=== PATIENT | female | born 1970 | race Caucasian/White ===

== ENCOUNTER → 2018-09-23 15:50 | Outpatient (CLI) | payer OTHER, SELFPAY ==
--- NOTE | 2018-09-23 15:57 | BD_ITS ---
STUDY: DUAL ENERGY X-RAY ABSORPTIOMETRY / DXA REASON FOR EXAM: Female, 47 years old. Postmenopausal. TECHNIQUE: Bone Mineral Density (BMD) measurements of lumbar spine and bilateral hips were obtained. COMPARISON: Comparison is made with prior study dated August 26, 2016. FINDINGS: Lumbar Spine (L1-L4): g/cm2 (1.084) / T-score (-0.8) / Z-score (-0.5) Findings are suggestive of normal bone density with a low fracture risk. Left Femur Total: g/cm2 (0.914) / T-score (-0.7) / Z-score (-0.3) Left Femoral Neck: g/cm2 (0.917) / T-score (-0.9) / Z-score (-0.1) Right Femur Total: g/cm2 (0.946) / T-score (-0.5) / Z-score (-0.1) Right Femoral Neck: g/cm2 (0.913) / T-score (-0.9) / Z-score (-0.2) The T-Scores on the most recent prior examination were: Lumbar Spine (L1-L4): There has been improvement of bone density since the previous examination. Left Femur Total: which represents a worsening of 2.6%. Right Femur Total: which represents a worsening of 4.5%. BD/Dexa Bone Density Study IMPRESSION: The patient is considered normal as outlined below according to World [place] Organization (WHO) criteria with a low fracture risk. There has been worsening of bone density since the previous examination. Reference Information: The T-score is the number of standard deviations above or below the standard which is normal for young adults at their peak bone mineral density. The World Health Organization (WHO) interprets the T-scores as follows: Above -1 Normal bone density Between -1 and -2.5 Osteopenia Equal to / or below -2.5 Osteoporosis As a practical clinical guideline, osteopenia may be graded as follows: Mild -1 through -1.5 Moderate -1.6 through -2.0 Severe -2.1 through -2.4 The Z-score is the number of standard deviations above or below age-matched controls. A Z-score of less than -1.5 would be considered abnormal. References: 1. NIH Osteoporosis and Related Bone Diseases http://www.osteo.org 2. International Society for Clinical Densitometry http://www.iscd.org 3. National Osteoporosis Foundation http://www.nof.org Electronically Signed: Darshan Machado, at 13:02 EDT , Service support ,
== END ==
PROVIDERS: Family Provider Internal Medicine; PCP Internal Medicine; Visit Provider Internal Medicine
DX: Z78.0 Asymptomatic menopausal state (principal)
CPT/HCPCS: 77080

== ENCOUNTER → 2019-04-22 10:16 | Outpatient (CLI) | payer OTHER, SELFPAY ==
--- NOTE | 2019-04-22 10:23 | RAD_ITS ---
STUDY: X-RAY CHEST REASON FOR EXAM: Female, 48 years old. Cough and chest congestion. TECHNIQUE: PA and lateral views of the chest. COMPARISON: None. FINDINGS: Hyperinflation. The lungs are clear. There is no demonstrated pleural abnormality. Normal size heart. Normal mediastinum and floyd. Normal visualized pulmonary arteries. Normal visualized aortic arch and descending thoracic aorta. Normal visualized thoracic spine. Normal visualized ribs, clavicles, and shoulders. There is no demonstrated abnormality of the visualized soft tissue structures of the upper abdomen. RAD/Chest PA and Lateral IMPRESSION: Hyperinflation. Electronically Signed: Darshan Machado, at 11:40 EDT , Service support ,
== END ==
PROVIDERS: Family Provider Internal Medicine; PCP Internal Medicine; Referring Provider Internal Medicine; Visit Provider Internal Medicine
DX: R05 Cough (principal)
CPT/HCPCS: 71046

== ENCOUNTER → 2021-05-10 | Outpatient (CLI) | payer OTHER, SELFPAY ==
[2021-05-10 11:14] LABS: Absolute Lymphocyte Count 2.02 X10^3/uL (0.83-4.51); Basophil# 0.04 X10^3/uL; Basophil% 0.6 % (0-1); Eosinophil# 0.01 X10^3/uL; Eosinophils% 0.2 % (0-5); Hematocrit 41.3 % (37-47); Hemoglobin 13.9 g/dL (12.0-15.0); Lymphocyte # 2.02 X10^3/ul (0.83-4.51); Lymphocyte % 31.1 % (19-41); Mean Corp Hgb Conc 33.7 g/dL (32-36); Mean Platelet Vol. 9.1 fl (6.2-12.0); Monocyte# 0.42 X10^3/uL; Monocyte% 6.5 % (0-10); NRBC Flagged by Analyzer 0 % (0-5); Neutrophil # 3.99 X10^3/uL (2.7-7.7); Neutrophil % 61.3 % (47-70); Platelet Count 289 K/mm3 (150-450); RBC Distribution Width CV 13.3 % (11.6-14.6); RBC Distribution Width SD 45.4 fl (35.1-43.9); Red Blood Count 4.49 M/mm3 (4.2-5.4); White Blood Count 6.5 K/mm3 (4.4-11.0)
[2021-05-10 11:26] LABS: D-Dimer Quantitative (DVT/PE) 0.31 FEU/ug/m (0.27-0.49)
[2021-05-10 11:36] LABS: AST(SGOT) 28 U/L (15-37); Alanine Aminotransfer ALT/SGPT 32 U/L (13-56); Albumin, Serum 3.7 g/dL (3.2-5.0); Alkaline Phosphatase 58 U/L (45-117); Anion Gap 4 (5-15); BUN 15 mg/dL (7-18); BUN/Creat Ratio 17.9 RATIO (10-20); Calcium,Total 8.6 mg/dL (8.5-10.1); Chloride 107 mmol/L (98-107); Creatinine, Serum 0.84 mg/dL (0.55-1.02); EST Glomerular Filtration Rate 76 mL/min (>60); Est Glom Filt Rate - Afr Amer 92 mL/min (>60); Globulin 3.8 g/dL (2.2-4.2); Glucose 90 mg/dL (74-106); Potassium 4.3 mmol/L (3.5-5.1); Protein, Total 7.5 g/dL (6.4-8.2); Sodium Level 139 mmol/L (136-145); Thyroid Stim Hormone (TSH) 1.51 uIU/mL (0.358-3.74); Troponin-I HS 5 pg/mL (3.0-54.0)
== END | disposition home or self-care (01) ==
PROVIDERS: PCP Internal Medicine; Referring Provider Internal Medicine; Visit Provider Internal Medicine
DX: Z01.84 Encounter for antibody response examination (principal); R07.9 Chest pain, unspecified
CPT/HCPCS: 80053; 84443; 84484; 85025; 85379; 86769

== ENCOUNTER 2021-09-19 15:46 | Outpatient (CLI) | payer OTHER, SELFPAY ==
--- NOTE | 2021-09-19 15:50 | BD_ITS ---
STUDY: DUAL ENERGY X-RAY ABSORPTIOMETRY / DXA REASON FOR EXAM: Female, 50 years old. [id number]. The patient is postmenopausal. TECHNIQUE: Bone Mineral Density (BMD) measurements of lumbar spine and bilateral hips were obtained. COMPARISON: Comparison is made with prior study of 09/23/2018. FINDINGS: Lumbar Spine (L1-L4): g/cm2 (1.027) / T-score (-0.2) / Z-score (0.7) Findings are suggestive of normal bone density with a low fracture risk. Left Femur Total: g/cm2 (0.894) / T-score (-0.4) / Z-score (0.1) Left Femoral Neck: g/cm2 (0.781) / T-score (-0.6) / Z-score (0.2) Right Femur Total: g/cm2 (0.932) / T-score (-0.1) / Z-score (0.5) Right Femoral Neck: g/cm2 (0.790) / T-score (-0.5) / Z-score (0.3) The T-Scores on the most recent prior examination were: Lumbar Spine (L1-L4): There has been improvement of bone density since the previous examination. Left Femur Total: which represents an improvement of 5.1%. Right Femur Total: which represents an improvement of 5.7%. BD/Dexa Bone Density Study IMPRESSION: The patient is considered normal as outlined below according to World [place] Organization (WHO) criteria with a low fracture risk. There has been improvement of bone density since the previous examination. Reference Information: The T-score is the number of standard deviations above or below the standard which is normal for young adults at their peak bone mineral density. The World Health Organization (WHO) interprets the T-scores as follows: Above -1 Normal bone density Between -1 and -2.5 Osteopenia Equal to / or below -2.5 Osteoporosis As a practical clinical guideline, osteopenia may be graded as follows: Mild -1 through -1.5 Moderate -1.6 through -2.0 Severe -2.1 through -2.4 The Z-score is the number of standard deviations above or below age-matched controls. A Z-score of less than -1.5 would be considered abnormal. References: 1. NIH Osteoporosis and Related Bone Diseases www osteo.org 2. International Society for Clinical Densitometry www iscd.org 3. National Osteoporosis Foundation www nof.org Electronically Signed: Darshan Machado MD at 15:00 EDT ,
== END 2021-09-19 23:59 | disposition home or self-care (01) ==
LOC: OPBD 15:47
PROVIDERS: PCP Internal Medicine; Referring Provider Internal Medicine; Visit Provider Internal Medicine
DX: Z13.820 Encounter for screening for osteoporosis (principal); Z78.0 Asymptomatic menopausal state
CPT/HCPCS: 77080

== ENCOUNTER 2023-03-23 18:30 | Outpatient (RCR) | payer OTHER, SELFPAY ==
--- NOTE | 2023-03-02 18:56 | HP.PTEVAL ---
Patient's Visit Information Visit Information Visit Information: KANE SAMUEL is a 52 year old F referred to Physical Therapy by SERGIO TORRES with a diagnosis of R SHOULDER IMPINGEMENT. Date of Evaluation: 03/02/23 Physical Therapist: Sarah Pickett PT, Cert MDT Visit Plan Frequency: 2x /Week Duration: 4-6 Weeks Plan: R SHLD US X 6-8 TREATMENTS. SUPINE MANUAL THERAPY TO R SHLD FOR ROM AND MOBILIZATION. R NECK AND SHLD STM. POSTURE CORRECTION/STRENGTHENING, INSTRUCTION IN APPROPRIATE BODY MECHANICS AND ACTIVITY MODIFICATIONS. R UE ROM, STRETCHING AND STRENGTHENING INCLUDING TERMINAL STRETCH. HEP INSTRUCTION. 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 [employer]. Present symptoms: DULL PAIN R SHLD AND UPPER ARM. SORE UNDER SHLD BLADE. DENIES R UE NUMBNESS AND TINGLING. Present since: 02/23/23 - A WK AGO. Pain Scale: Worst - 9/10 Least - 1/10 Currently: /10 Commenced as a result of: REACHING UNDER A BED TO GET A BALL Symptoms at onset: R SHLD PAIN Worse: TRYING TO GET COMFORTABLE TO SLEEP AND CAN NOT SLEEP ON R SIDE, CARRYING SOMETHING HEAVY ON R ARM. Better: REST, HEAT, PREDNISONE (PRESCRIBED 6 DAYS - ON DAY 4). Disturbed sleep: YES Previous history/Previous treatment: DENIES H/O R SHLD PROBLEMS. H/O OF NECK PROBLEM THAT HAD SOMETHING TO DO WITH A DISC - I HAD A LOT OF NECK PAIN, CAME HERE FOR THERAPY AND GOT BETTER. This episode: STEROID DOSE PACK. EX'S AND THERABAND BUT DIDN'T DO ANYTHING BUT SWING ARM. Dizziness: NO Tinnitis: NO Nausea: NO Shortness of Breath: NO Difficulty Swollowing: NO Gait: NO Accidents: NO Unexplained weight loss: NO Imaging: R SHLD X-RAYS - R ROTATOR CUFF CALCIFICATION PER PATIENT REPORT. PMH/Recent major surgery: UNREMARKABLE. Objective Objective: Sitting Posture/Standing Posture: FAIR. MILD FH. MILD RSHL'S. NO TORTICOLIS. Sensory deficit: LUIS UE LIGHT TOUCH SENSATION GROSSLY INTACT AND SYMMETRICAL ROM deficit: LUIS UE AROM IN SITTING WFL. R SHLD AROM IN SUPINE IS LIMINTED. CATCHING PAIN WITH A, AA AND PROM TESTING OF R SHLD INTO FLEX, ABD, IR AND EX IN SUPINE. Motor deficit: LUIS UE'S GROSSLY 5/5 WITH MMT'ING EXCEPT R SHLD ABD AND ER 4-/5. [employer]: 65 LBS LEFT, 70 LBS R (R HAND DOMINANT) Reflexes: 2/3 LUIS UE'S. Dural Signs: POSITIVE R UE Cervical Mvmt Loss: Flex: NIL Pro: NIL Ext: MIN Ret: MIN RSB: MOD LSB: MOD R Rot: MOD L Rot: MIN PATIENT C/O INCREASED PAIN UNDER R SHLD BLADE WITH CERVICAL ROM TESTING INTO FLEXION, PROTRACTION AND R SB. Postural strength: FAIR Palpation: NO ACUTE TENDERNESS OR UPPER THORACIC, CERVICAL OR SHLD REGIONS. Balance/Special Test Scores Quick DASH Score: 61.3625 Goals Goal 1:: DECREASE C/O R NECK AND SHLD PAIN Goal Time Frame: 4-6 Weeks Goal 2:: INCREASE FUNCTIONAL ROM OF R UE TO EASE ADL'S Goal Time Frame: 4-6 Weeks Goal 3:: IMPROVE FUNCTIONAL STRENGTH OF R UE TO EASE ADL'S Goal Time Frame: 4-6 Weeks Goal 4:: PATIENT WILL BE INDEP WITH A HEP FOR CONTINUED IMPROVEMENT ONCE FORMAL PHYSICAL THERPAY CONCLUDES. Goal Time Frame: 4-6 Weeks Anticipated Interventions Patient/Client Instruction: Educate patient on: Condition, Plan of Care and Risk Factors For the Purpose of:: To improve self management Therapeutic Exercise to Include: Strength training, Body mechanics, Postural training, Flexibilty training and Scapular Strength/Stabilization For the Purpose of:: To decrease pain, To increase ROM, To improve muscle performance and motor function, To increase tolerance to activity/condition/position and To improve ability of physical actions for home/community/work/leisure Manual Therapy Techniques to Include: Passive ROM and Soft tissue mobilization For the Purpose of:: To decrease pain and To increase ROM Thermo therapy (hot pack): Yes Ultrasound (thermal/non thermal): Yes For the Purpose of:: To decrease pain and To improve nutrient delivery to tissue Text: Thank you for the opportunity to evaluate your patient. For Medicare and Medicare HMO plans, please review the plan of care and approve it. It will need to be FAXED BACK to us at [phone] for Medicare purposes. For Medicare only, by signing this I certify the plan of care. Please let me know if there are questions or concerns regarding this plan of care. Physician Signature: Date:
--- NOTE | 2023-03-23 19:01 | HP.PTDCSUM ---
Discharge Summary D/C summary: It has been my pleasure to treat KANE SAMUEL referred by SERGIO TORRES, with the diagnosis of R SHOULDER IMPINGEMENT for a total of 7 visit(s). Discharge Date: Please see the following information for a summary of their discharge status. Subjective Subjective: PATIENT STATES FOR THE MOST PART HER SHLD DOESN'T HURT ONGOING LIKE IT DID. SHE STATES SHE DID HAVE SOME PAIN WITH NEW EX'S BUT IT WAS BETTER OVER ALL WITH SUBSEQUENT DAYS. SHE REPORTS NEAR PAINFREE FUNCTION NOW FOR THE MOST PART. PATIENT REPORT IF SHE CAN GET THE BANDS SHE WILL BE REALLY GOOD WITH DOING THE EX'S AT HOME. Pain R neck: Pain Intensity (Out of 10): 2 Overall Improvement % Improvement: 90 Objective Objective/Function: PATIENT WAS SEEN TODAY FOR RE-ASSESSMENT OF PROGRESS TOWARD THE SET PT GOALS AND THE NEED FOR FURTHER PHYSICAL THERAPY VS READINESS FOR DISCHARGE. UPON EXAM TODAY ALL PT GOALS HAVE BEEN MET. PATIENT DEMO'S FULL PAINFREE R SHLD ROM ALL PLANES AND IMPROVED CERVICAL ROM FOLLOWS: Cervical Mvmt Loss: Flex: NIL Pro: NIL Ext: MIN Ret: MIN RSB: MOD LSB: MIN R Rot: MIN L Rot: MIN PATIENT DENIES PAIN WITH CERVICAL ROM TESTING ALL PLANES EXCEPT MILD R SHLD PAIN WITH R SB TESTING. R UE STRENGTH IS 5/5 WITH MMT'ING. R UE DURAL SIGNS ARE NEGATIVE NOW. ISSUED TBANDS FOR HEP: OTB SHLD EXT AND ADD. YTB SHLD IR AND ER. PATIENT TOLERATED THESE EX'S WELL IN THE CLINIC AND DEMO'S GOOD TECHNIQUE. SHE IS APPROPRIATE FOR DISCHARGE TO HEP AND PATIENT IS AGREEABLE. Goals Goal 1:: DECREASE C/O R NECK AND SHLD PAIN Goal Progress: Goal Met Goal 2:: INCREASE FUNCTIONAL ROM OF R UE TO EASE ADL'S Goal Progress: Goal Met Goal 3:: IMPROVE FUNCTIONAL STRENGTH OF R UE TO EASE ADL'S Goal Progress: Goal Met Goal 4:: PATIENT WILL BE INDEP WITH A HEP FOR CONTINUED IMPROVEMENT ONCE FORMAL PHYSICAL THERPAY CONCLUDES. Goal Progress: Goal Met Plan Plan: D/C D/C Information d/c sentence: If there are questions or concerns regarding this patient's physical therapy, please feel free to call me at [phone]. Thank you for the referral of this patient. Sincerely, Sarah Pickett, PT, Cert MDT Balance/Gait/Functional tests Balance/Special Test Scores Quick DASH Score: 15.9075 Improvement % Improvement: 90
== END 2023-03-23 19:00 | disposition home or self-care (01) ==
LOC: PT 18:30
PROVIDERS: PCP Internal Medicine
DX: M75.41 Impingement syndrome of right shoulder (principal)
CPT/HCPCS: 97035; 97110; 97140; 97162; 97164

== ENCOUNTER → 2023-11-27 | Outpatient (CLI) | payer OTHER, SELFPAY ==
[2023-11-27 12:37] LABS: Absolute Neutrophil Count 3.5 X10^3/uL (2.0-7.7); Basophil# 0.03 X10^3/uL; Basophil% 0.5 % (0-1); Eosinophil# 0.15 X10^3/uL; Eosinophils% 2.6 % (0-5); Hematocrit 40.8 % (37-47); Hemoglobin 13.4 g/dL (12.0-15.0); Lymphocyte % 29.5 % (19-41); Mean Corp Hgb Conc 32.8 g/dL (32-36); Mean Corpuscular Hgb 30.5 pg (27.0-32.0); Mean Corpuscular Volume 92.9 fL (81-99); Mean Platelet Vol. 9.5 fl (6.2-12.0); Monocyte# 0.35 X10^3/uL; Monocyte% 6.1 % (0-10); NRBC Flagged by Analyzer 0 % (0-5); Neutrophil # 3.53 X10^3/uL (2.7-7.7); Neutrophil % 61.1 % (47-70); Platelet Count 265 K/mm3 (150-450); RBC Distribution Width CV 12.8 % (11.6-14.6); RBC Distribution Width SD 43.7 fl (35.1-43.9); Red Blood Count 4.39 M/mm3 (4.2-5.4); White Blood Count 5.8 K/mm3 (4.4-11.0)
[2023-11-27 12:56] LABS: ALB/GLOB Ratio 1.1 RATIO (0.9-2.4); AST(SGOT) 35 U/L (15-37); Alanine Aminotransfer ALT/SGPT 32 U/L (13-56); Albumin, Serum 3.7 g/dL (3.2-5.0); Alkaline Phosphatase 61 U/L (45-117); Anion Gap 7 (5-15); BUN 15 mg/dL (7-18); BUN/Creat Ratio 20.7 RATIO (10-20); Calcium,Total 8.8 mg/dL (8.5-10.1); Chloride 110 mmol/L (98-107); Cholesterol 186 mg/dL (200); Creatinine, Serum 0.72 mg/dL (0.55-1.02); EST Glomerular Filtration Rate 89 mL/min (>60); Est Glom Filt Rate - Afr Amer 108 mL/min (>60); Globulin 3.4 g/dL (2.2-4.2); Glucose 89 mg/dL (74-106); High Density Lipoprotein 59 mg/dL; Potassium 3.9 mmol/L (3.5-5.1); Protein, Total 7.1 g/dL (6.4-8.2); Sodium Level 141 mmol/L (136-145); T4 Free Direct 0.92 ng/dL (0.76-1.46); Thyroid Stim Hormone (TSH) 1.08 uIU/mL (0.358-3.74); Triglycerides 81 mg/dL; Very Low Density Lipoprotein 16 mg/dL (5-40)
[2023-11-27 15:34] LABS: Vitamin B12 424 pg/mL (211-911); Vitamin D,25 Hydroxy 72.5 ng/mL
== END | disposition home or self-care (01) ==
LOC: BFHLAB 10:35
PROVIDERS: PCP Nurse Practitioner Family; Referring Provider Nurse Practitioner Family; Visit Provider Nurse Practitioner Family
DX: Z00.01 Encounter for general adult medical examination with abnormal findings (principal); E55.9 Vitamin D deficiency, unspecified; E53.8 Deficiency of other specified B group vitamins; Z83.49 Family history of other endocrine, nutritional and metabolic diseases
CPT/HCPCS: 36415; 80053; 80061; 82306; 82607; 84439; 84443; 85025

== ENCOUNTER → 2024-02-03 | Outpatient (CLI) | payer OTHER, SELFPAY ==
[2024-02-08 16:12] LABS: Lyme IgG P18 Ab Absent (.); Lyme IgG P23 Ab Absent (.); Lyme IgG P28 Ab Absent (.); Lyme IgG P30 Ab Absent (.); Lyme IgG P39 Ab Absent (.); Lyme IgG P41 Ab Absent (.); Lyme IgG P45 Ab Absent (.); Lyme IgG P58 Ab Present (.); Lyme IgG P66 Ab Absent (.); Lyme IgG P93 Ab Absent (.); Lyme IgG WB Interpretation Negative (.); Lyme IgM P23 Ab Absent (.); Lyme IgM P39 Ab Absent (.); Lyme IgM P41 Ab Absent (.); Lyme IgM WB Interpretation Negative (.)
== END | disposition home or self-care (01) ==
LOC: BFHLAB 15:07
PROVIDERS: PCP Nurse Practitioner Family; Referring Provider Nurse Practitioner Family; Visit Provider Nurse Practitioner Family
DX: Z91.89 Other specified personal risk factors, not elsewhere classified (principal)
CPT/HCPCS: 36415; 86617

== ENCOUNTER → 2024-05-23 | Outpatient (CLI) | payer OTHER, SELFPAY ==
--- NOTE | 2024-05-23 14:42 | BI_ITS ---
MAMMOGRAPHY - BILATERAL SCREENING REASON FOR EXAM: Female, 53 years old. Routine annual screening examination. PERTINENT HISTORY: Non-contributory. TECHNIQUE: Digital bilateral breast melissa (3D mammographic acquisition) in the CC and MLO projections. 2-D mediolateral oblique (MLO) and craniocaudad (CC) views of both breasts were obtained. CAD: Full Field Digital Mammography with Computer Added Detection was performed. COMPARISON: Comparison is made with prior outside examination of September 11, 2022. FINDINGS: Breast Composition: The breasts are extremely dense, which lowers the sensitivity of mammography. There are no dominant masses or suspicious calcifications. Stable bilateral axillary lymph nodes. No other significant abnormalities are identified. There has been no significant change since the prior study. BI/SCRN MAMM (CAD)W/MELISSA BILAT IMPRESSION: Stable bilateral screening mammogram. Yearly follow-up mammogram recommended. (A) ASSESSMENT CATEGORY: BIRADS Category 2: Benign. A letter regarding these results will be sent to the patient by the facility within 30 days. Approximately 10% of breast cancers are not detected by mammography. A normal mammogram should not delay biopsy of a clinically suspicious abnormality. [id number] Electronically Signed: Darshan aMchado MD at 11:19 EST ,
== END | disposition home or self-care (01) ==
LOC: OPBI 14:42
PROVIDERS: PCP Nurse Practitioner Family; Referring Provider Obstetrics & Gynecology; Visit Provider Obstetrics & Gynecology
DX: Z12.31 Encounter for screening mammogram for malignant neoplasm of breast (principal)
CPT/HCPCS: 77063; 77067

== ENCOUNTER → 2024-12-09 | Outpatient (CLI) | payer OTHER, SELFPAY ==
[2024-12-09 12:24] LABS: Absolute Lymphocyte Count 1.62 X10^3/uL (0.83-4.51); Absolute Neutrophil Count 4.1 X10^3/uL (2.0-7.7); Basophil# 0.04 X10^3/uL; Basophil% 0.6 % (0-1); Eosinophil# 0.18 X10^3/uL; Eosinophils% 2.8 % (0-5); Hemoglobin 13.7 g/dL (12.0-15.0); Lymphocyte # 1.62 X10^3/ul (0.83-4.51); Lymphocyte % 25.4 % (19-41); Mean Corp Hgb Conc 34.3 g/dL (32-36); Mean Corpuscular Hgb 30.8 pg (27.0-32.0); Mean Corpuscular Volume 89.9 fL (81-99); Mean Platelet Vol. 9.3 fl (6.2-12.0); Monocyte# 0.39 X10^3/uL; Monocyte% 6.1 % (0-10); NRBC Flagged by Analyzer 0 % (0-5); Neutrophil # 4.14 X10^3/uL (2.7-7.7); Neutrophil % 64.9 % (47-70); Platelet Count 285 K/mm3 (150-450); RBC Distribution Width CV 12.8 % (11.6-14.6); RBC Distribution Width SD 42.5 fl (35.1-43.9); Red Blood Count 4.45 M/mm3 (4.2-5.4); White Blood Count 6.4 K/mm3 (4.4-11.0)
[2024-12-09 12:57] LABS: ALB/GLOB Ratio 1.6 RATIO (0.9-2.4); AST(SGOT) 28 U/L (<=31); Alanine Aminotransfer ALT/SGPT 23 U/L (<=34); Albumin, Serum 4.2 g/dL (3.5-5.0); Alkaline Phosphatase 67 U/L (35-104); Anion Gap 11 (5-15); BUN 16 mg/dL (4-19); BUN/Creat Ratio 20.6 RATIO (10-20); Calcium,Total 8.9 mg/dL (7.6-11.0); Carbon Dioxide 23.1 mmol/L (21.0-32.0); Chloride 105 mmol/L (98-108); Cholesterol 197 mg/dL (<=200); Creatinine, Serum 0.75 mg/dL (0.70-1.20); EST Glomerular Filtration Rate 94 (>60); Globulin 2.7 g/dL (2.2-4.2); Glucose 82 mg/dL (70-99); High Density Lipoprotein 54 mg/dL; Low Density Lipoprotein Calc. 121 mg/dL; Potassium 3.9 mmol/L (3.3-5.1); Protein, Total 6.9 g/dL (5.9-8.4); Sodium Level 139 mmol/L (133-145); Total Bilirubin 0.53 mg/dL (0.00-1.30); Triglycerides 111 mg/dL; Very Low Density Lipoprotein 22 mg/dL (5-40); cholesterol:hdl ratio screen 3.65
== END | disposition home or self-care (01) ==
LOC: MTLAB 09:30
PROVIDERS: PCP Nurse Practitioner Family; Referring Provider Nurse Practitioner Family; Visit Provider Nurse Practitioner Family
DX: Z00.01 Encounter for general adult medical examination with abnormal findings (principal)
CPT/HCPCS: 36415; 80053; 80061; 85025

== ENCOUNTER → 2025-04-20 | Outpatient (CLI) | payer OTHER, SELFPAY ==
--- NOTE | 2025-04-20 13:07 | RAD_ITS ---
PROCEDURE: FOOT MIN 3 VIEWS 04/20/2025 REASON FOR EXAM: FOOT INJURY TECHNIQUE: Procedure Code: RADFO Modality: DX Procedure: FOOT MIN 3 VIEWS Laterality: Left foot COMPARISON: None FINDINGS: Bones: No visible fracture. No suspicious bone lesion. Joints: Normal alignment. Soft tissues: Soft tissues are unremarkable. Other: RAD/Foot min 3 Views IMPRESSION: NO ACUTE FRACTURE OR DISLOCATION. Reading Location: [facility]-
--- NOTE | 2025-04-20 13:07 | RAD_ITS ---
PROCEDURE: ANKLE MIN 3 VIEWS 04/20/2025 REASON FOR EXAM: ANKLE INJURY TECHNIQUE: Procedure Code: RADANK Modality: DX Procedure: ANKLE MIN 3 VIEWS Laterality: Left ankle COMPARISON: None FINDINGS: Bones: No fracture is seen. Joints: Normal alignment. Mortise appears intact. No effusion. Soft tissues: Soft tissues are unremarkable. Other: RAD/Ankle min 3 Views IMPRESSION: NO ACUTE FRACTURE OR DISLOCATION. Reading Location: [place] [id number]
--- OUTSIDE RECORDS SUMMARY | 2025-04-20 13:35 | XMS RPT_ITS | CCD ---
Author Organization [facility] Care Team Providers Care Account Installer Name Role Phone Fast, Zenon A Unavailable Isaias, Ludmila Unavailable Tobias Graff Unavailable Manchak, Joan Unavailable Unavailable [place], Stacie Unavailable Unavailable Unavailable Unavailable CLARK Diego Unavailable Unavailable Tobias Graff Unavailable [phone] Mike Lyons Unavailable Unavailable DAYSI MAOYRGA Admitting Unavailable DAYSI MAYORGA Attending Unavailable DAYSI MAYORGA Primary Care Unavailable Yovany Smith Unavailable Manchak, Joan Unavailable Unavailable Mike Gilmore Unavailable Unavailable Fast DO, Zenon A Unavailable Isaias DO, Ludmila Unavailable Tobias Graff MD Unavailable [phone] Dr. Yovany Smith Unavailable [phone] PLUMBER GASFITTER, Katharine Unavailable Unavailable Manchak LETITIA, Joan Unavailable Unavailable Carmen, Stacie Unavailable Unavailable Unavailable Unavailable Gravius [employer] LIBRARY CLERK, Maribel Unavailable Unavailable CLARK Diego LPN Unavailable Unavailable Fast DO, Zenon A Unavailable Isaias DO, Ludmila Unavailable Fast DO, Zenon A Primary Care Provider KALANI HOLMAN Referring Unavailable FAST, ZENON A Primary Care Unavailable FAST, ZENON A Primary Care Unavailable BREA JENKINS Attending Unavailable Fast DO, Zenon A Attending Unavailable Isaias DO, Ludmila Referring Unavailable Fast DO, Zenon A Consulting Unavailable Guy BARREL RIFLER BROACH-C, Ranjana Primary Care Provider Guy BARREL RIFLER BROACH-C, Ranjana Attending Provider Guy BARREL RIFLER BROACH-C, Ranjana Referring Provider Guy, Ranjana Primary Care Unavailable Nona Wilkinson Attending Unavailable Nona Wilkinson Referring Unavailable Guy, Ranjana Primary Care Unavailable Guy, Ranjana Attending Unavailable Guy, Ranjana Referring Unavailable Guy, Ranjana Primary Care Unavailable Guy, Ranjana Attending Unavailable Guy, Ranjana Referring Unavailable Guy, Ranjana Primary Care Unavailable Nona Wilkinson Attending Unavailable Guy, Ranjana Referring Unavailable Fast, Zenon Referring Unavailable Nona Wilkinson Attending Unavailable Guy, Ranjana Primary Care Unavailable Allergies Allergy Classification Reported Allergen(s) Allergy Type Date of Onset Reaction(s) Facility (1 source) allergy to substance [facility] Work Phone: Comment on above: Diarrhea (1 source) allergy to substance [facility] Work Phone: Comment on above: Diarrhea (1 source) allergy to substance [facility] Work Phone: Comment on above: Diarrhea (20 sources) Clarithromycin Drug Allergy [facility] Work Phone: Comment on above: Diarrhea (2 sources) Clarithromycin; Translations: [CLARITHROMYCIN] Drug Allergy 08-24-19 09 Diarrhea [facility] Work Phone: Medications Current Medications Medication Drug Class(es) Dates Sig (Normalized) Sig (Original) estradiol 1 mg oral tablet (20 sources) Estrogen Start: 06-26-2024 take 1 tablet by mouth once daily Estradiol (Estrace) 1 mg tablet Active 1 mg PO daily June 26, 2024 1:00am Start: 05-27-2024 End: 05-30-2024 Estradiol 0.5 mg/0.5 gram (0 .1 %) gel in packet Active 1 NMA TD daily May 30, 2024 2:23pm Start: 05-06-2024 End: 05-27-2024 Estradiol 0.5 mg/0.5 gram (0 .1 %) gel in packet Discontinued 1 NMA TD daily May 06, 2024 12:00am May 27, 2024 4:09pm Start: 04-26-2024 End: 05-30-2024 Estradiol 0.05 mg/24 hr patc h weekly Discontinued 1 NMA TD EVERY WEEK 4 April 26, 2024 8:43am May 30, 2024 2:24pm Start: 03-21-2024 End: 04-26-2024 Estradiol 0.075 mg/24 hr pat ch weekly Discontinued 1 NMA TD EVERY WEEK 4 March 21, 2024 12:00am April 26, 2024 8:43am End: 08-06-2016 Estradiol qd End : 7 Discontinued Lactobacillus Combination No.9 (Adult 50 Plus Probiotic) 4 billion cell capsule (1 source) Start: 03-21-2024 take 4 capsules by mouth once daily Lactobacillus Combination No.9 (Adult 50 Plus Probiotic) 4 billion cell capsule Active 4000 NMA PO daily March 21, 2024 12:00am administer with a meal Multivit With Min-Folic Acid 0.4 mg tablet (1 source) Start: 03-21-2024 Multivit With Min-Folic Acid 0.4 mg tablet Active {tbl} PO March 21, 2024 12:00am Completed/Discontinued Medications Medication Drug Class(es) Dates Sig (Normalized) Sig (Original) amoxicillin 500 mg oral capsule (20 sources) Penicillin-class Antibacterial Amoxicillin 500 MG Oral Capsule uad (500 MG) Inactive amoxicillin 875 mg / clavulanate 125 mg oral tablet (20 sources) Penicillin-class Antibacterial Start: 09-23-2019 End: 10-03-2019 take 1 tablet by mouth twice daily Amoxicillin-Pot Clavulanate 875-125 MG Oral Tablet 1 Tablet bid for 10 days Quantity: 20 {Tablet} Refills: 0 Ordered: 23-Sep-2019 Fast DO, Eznon A Fast DO, Zenon A Start : 23-Sep-2019 End : 03-Oct-2019 Inactive Start: 04-18-2019 End: 04-28-2019 take 1 tablet by mouth twice daily Augmentin 875-125 MG Oral Tablet 1 Tablet bid for 10 days Quantity: 20 {Tablet} Refills: 0 Ordered: 18-Apr-2019 Mike Lyons Start : 18-Apr-2019 End : 28-Apr-2019 Inactive Start: 04-16-2010 End: 04-30-2010 take 1 tablet by mouth twice daily AUGMENTIN, 875-125MG (Oral Tablet) 1 Tablet bid for 14 days Quantity: 28 {Tablet} Refills: 0 Ordered: 16-Apr-2010 Eleni Webster CNP Start : 16-Apr-2010 End : 30-Apr-2010 Inactive bifidobacterium animalis [id number] unt / lactobacillus acidophilus [id number] unt oral capsule (20 sources) Start: 08-08-2016 take 1 capsule by mouth once daily Probiotic Oral Capsule 1 (one) Capsule Capsule daily for 30 days Quantity: 30 {Capsule} Refills: 0 Ordered: 19-Sep-2016 Fast DO, Zenon A Fast DO, Zenon A Start : 08-Aug-2016 Active Start: 08-08-2016 take 1 capsule by mo ut once daily Probiotic Oral Capsule 1 (one) Capsule Capsule daily for 30 days Quantity: 30 {Capsule} Refills: 0 Ordered: 19-Sep-2016 Fast DO, Zenon A Fast DO, Zenon A Start : 08-Aug-2016 Active biotin 5 mg oral capsule (20 sources) Start: 08-08-2016 End: 08-15-2019 take 1 capsule by mouth once daily Biotin 5000 5 MG Oral Capsule 1 (one) Capsule Capsule daily for 30 days Quantity: 30 {Capsule} Refills: 0 Ordered: 15-Aug-2019 Tara Moses RN Start : 08-Aug-2016 End : 15-Aug-2019 Inactive cefuroxime 500 mg oral tablet (20 sources) Cephalosporin Antibacterial Start: 08-23-2010 End: 10-04-2010 take 1 tablet by mouth twice daily CEFTIN, 500MG (Oral Tablet) 1 Tablet bid for 0 days Quantity: 20 {Tablet} Refills: 0 Ordered: 04-Oct-2010 Tara Moses RN Start : 23-Aug-2010 End : 04-Oct-2010 Inactive cholecalciferol 0.025 mg oral capsule (20 sources) Vitamin D Start: 08-08-2016 take 1 capsule by mouth once daily Vitamin D3 1000 UNIT Oral Capsule 1 (one) Capsule Capsule daily for 30 days Quantity: 30 {Capsule} Refills: 0 Ordered: 19-Sep-2016 Fast DO, Zenon A Fast DO, Zenon A Start : 08-Aug-2016 Active Start: 03-22-2012 take 1 capsule by mo ut every other day Cholecalciferol, Vitamin D3, (VITAMIN D-3) 2,000 unit cap Take 1 capsule by mouth every other day. 0 03/22/2012 Active Comment on above: Take 1 capsule by mo ut every other day. codeine phosphate 2 mg/ml / guaiFENesin 20 mg/ml oral solution (20 sources) Opioid Agonist Start: 07-02-2015 End: 02-16-2017 take 1-2 [tsp_us] by mouth once daily at bedtime as needed Cheratussin AC 100-10 MG/5ML Oral Syrup 1-2 Teaspoon Teaspoon qhs prn for 0 days Quantity: 6 {Ounce} Refills: 0 Ordered: 16-Feb-2017 Ophelia Lucero Start : 02-Jul-2015 End : 16-Feb-2017 Discontinued Start: 04-17-2010 End: 07-08-2010 GUIATUSS AC, 100-10MG/5ML (O ral Syrup) 1 Teaspoon(s) qhs prn cough for 0 days Quantity: 6 {Ounce(s)} Refills: 0 Ordered: 08-Jul-2010 Tara Moses RN Start : 17-Apr-2010 End : 08-Jul-2010 Inactive doxycycline hyclate 100 mg oral capsule (20 sources) Tetracycline-class Drug Start: 08-23-2010 End: 10-04-2010 take 1 capsule by mouth twice daily DOXYCYCLINE HYCLATE, 100MG (Oral Capsule) 1 Capsule bid for 0 days Quantity: 20 {Capsule} Refills: 0 Ordered: 04-Oct-2010 Tara Moses RN Start : 23-Aug-2010 End : 04-Oct-2010 Inactive Fish Oils (20 sources) Start: 08-08-2016 take 1 capsule by mouth once daily Fish Oil 645 MG Oral Capsule 1 (one) Capsule Capsule daily for 30 days Quantity: 30 {Capsule} Refills: 0 Ordered: 19-Sep-2016 Fast DO, Zenon A Fast DO, Zenon A Start : 08-Aug-2016 Active Lactobacillus acidophilus (1 source) Start: 03-22-2012 take 2 capsules by mouth three times daily lactobacillus acidophilus (ACIDOPHILUS) cap Take 2 capsules by mouth three times daily. 0 03/22/2012 Active Comment on above: Take [address] [facility] three times daily. levoFLOXacin 500 mg oral tablet (20 sources) Quinolone Antimicrobial Start: 05-01-2010 End: 07-08-2010 take 1 tablet by mouth once daily LEVAQUIN, 500MG (Oral Tablet) 1 Tablet qd for 0 days Quantity: 14 {Tablet} Refills: 0 Ordered: 08-Jul-2010 Tara Moses RN Start : 01-May-2010 End : 08-Jul-2010 Inactive multivitamin ORAL Tab (1 source) Start: 04-06-2007 take 1 tablet by mouth once daily multivitamin ORAL Tab Take one(1) tablet daily. 0 04/06/2007 Active Comment on above: Take one(1) tablet d aily. Multivitamin Oral Tablet (20 sources) take 1 tablet by mouth once daily Multivitamin Oral Tablet 1 (one) daily Active Multivitamin preparation (20 sources) End: 02-16-2017 take 1 tablet by mouth once daily MULTIVITAMIN (PO Tab) 1 tab qd for 0 days Refills: 0 Ordered: 16-Feb-2017 Ophelia Lucero End : 16-Feb-2017 Discontinued Comments: This order discontinued per [facility]. Comment on above: This order discontin ued per [facility]. omeprazole 20 mg delayed release oral capsule (19 sources) Proton Pump Inhibitor Start: 06-03-2021 End: 03-04-2022 take 1 capsule by mouth once daily Omeprazole 20 MG Oral Capsule Delayed Release 1 (one) Capsule qd for 0 days Quantity: 30 {Capsule} Refills: 3 Ordered: 04-Mar-2022 Joan Oseguera CMA Start : 03-Jun-2021 End : 04-Mar-2022 Inactive oseltamivir 75 mg oral capsule (18 sources) Neuraminidase Inhibitor Start: 07-18-2021 End: 07-23-2021 take 1 capsule by mouth twice daily Oseltamivir Phosphate 75 MG Oral Capsule 1 (one) Capsule bid for 5 days Quantity: 10 {Capsule} Refills: 0 Ordered: 18-Jul-2021 Katharine Salmeron LPN Start : 18-Jul-2021 End : 23-Jul-2021 Inactive predniSONE 10 mg oral tablet (20 sources) Start: 05-20-2022 End: 11-21-2022 predniSONE 10 mg oral tablet 3 (three) Tablet for 5 days 2 for 5 days 1 for 5 days for 0 days Quantity: 30 {Tablet} Refills: 0 Ordered: 21-Nov-2022 Joan Oseguera CMA Start : 20-May-2022 End : 21-Nov-2022 Inactive Comments: take with food in am Start: 05-12-2022 predniSONE 10 MG Oral Tablet 3 (three) Tablet for 4 days 2-pillls for 4 days 1 pill for 4 days for 0 days Quantity: 24 {Tablet} Refills: 0 Ordered: 12-May-2022 Fast DO, Zenon A Fast DO, Zenon A Start : 12-May-2022 Active Comments: take with food in am Start: 04-29-2019 End: 08-15-2019 take 3 tablets by mouth once daily at mealtime predniSONE 10 MG Oral Tablet 3 (three) Tablet qd with food in am for 0 days Quantity: 9 {Tablet} Refills: 0 Ordered: 15-Aug-2019 Tara Moses RN Start : 29-Apr-2019 End : 15-Aug-2019 Inactive Start: 10-16-2010 End: 12-20-2012 take 1 tablet by mouth twice daily, then take 1 tablet by mouth once daily, then take 0.5 tablet by mouth once daily PREDNISONE, 20MG (Oral Tablet) tad Tablet uad for 0 days Quantity: 16 {Tablet(s)} Refills: 0 Ordered: 20-Dec-2012 Tara Moses RN Start : 16-Oct-2010 End : 20-Dec-2012 Inactive Comments: 1 tab bid for 2days , 1 tab qd for 10 days, 1/2 tab day for 4 days -- wear spf Start: 05-01-2010 End: 07-08-2010 PREDNISONE, 10MG (Oral Table t) 1 Tablet as directed for 0 days Refills: 0 Ordered: 08-Jul-2010 Tara Moses PLUMBER GASFITTER Start : 01-May-2010 End : 08-Jul-2010 Inactive Comments: 2 for 4 days 2 for 4 days with food Comment on above: 2 for 4 days 2 for 4 days with food 1 tab bid for 2days , 1 tab qd for 10 days, 1/2 tab day for 4 days -- wear spf take with food in am Probiotic Oral Capsule (5 sources) Start: 08-08-19 17 take 1 capsule by mouth once daily Probiotic Oral Capsule 1 (one) Capsule Capsule daily for 30 days Quantity: 30 {Capsule} Refills: 0 Ordered: 19-Sep-2016 Fast DO, Zenon A Fast DO, Zenon A Start : 08-Aug-2016 Active triamcinolone acetonide 0.055 mg/actuat metered dose nasal spray (20 sources) Corticosteroid Start: 04-16-20 10 End: 07-08-19 11 NASACORT AQ, 55MCG/ACT (Nasal Aerosol Solution) 2 (two) Puff(s) once daily for 0 days Quantity: 1 {Aerosol_Soln} Refills: 0 Ordered: 08-Jul-2010 Tara Moses RN Start : 16-Apr-2010 End : 08-Jul-2010 Inactive Start: 04-16-2010 End: 07-08-2010 NASACORT AQ, 55MCG/ACT (Nasa l Aerosol Solution) 2 (two) Puff(s) once daily for 0 days Quantity: 1 {Aerosol_Soln} Refills: 0 Ordered: 08-Jul-2010 Tara Moses RN Start : 16-Apr-2010 End : 08-Jul-2010 Inactive Start: 04-16-2010 End: 07-08-2010 NASACORT AQ, 55MCG/ACT (Nasa l Aerosol Solution) 2 (two) Puff(s) once daily for 0 days Quantity: 1 {Aerosol_Soln} Refills: 0 Ordered: 08-Jul-2010 Tara Moses LPN Start : 16-Apr-2010 End : 08-Jul-2010 Inactive Problems Active Problems Problem Classification Problem Date Documented Da te Episodic/Chronic Abdominal pain (20 sources) Generalized abdominal pain; Translations: [Pain in pelvis] 04-26-2018 Episodic Acute bronchitis (20 sources) Acute bronchitis; Translations: [Bronchitis, acute] 04-26-2018 Episodic Allergic reactions (20 sources) Contact dermatitis; Translations: [Dermatitis] 04-26-2018 Episodic Comment on above: called in prednsione yesterday- 30 mg for 3 days 20 mg for 3 days 10 mg for 3 dasy Cardiac dysrhythmias (20 sources) Supraventricular premature beats; Translations: [Premature beats] 04-26-2018 Chronic Comment on above: no significant lobato e in sx will monitor Cardiac dysrhythmias (20 sources) Cardiac dysrhythmias Conduction disorders (20 sources) Conduction disorder of the heart; Translations: [Cardiac dysrhythmia] 04-26-2018 Chronic Coronary atherosclerosis and other heart disease (20 sources) Coronary atherosclerosis and other heart disease Disorders of lipid metabolism (20 sources) Hyperlipidemia; Translations: [Diet-controlled hyperlipidemia] 08-09-2018 Chronic Comment on above: better ldl and trigs little higher - 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 - we discussed diet and ex changes try my fitness pal and see if can get down without getting rid of testosterone as it is improving her quality of life chronic stable-chad nue present regimen some improvment keep ing working on diet and ex continue working on diet and ex - we dsicussd Fever of unknown origin (20 sources) Fever with chills; Translations: [Fever] Resolved: 2 08-24-2017 Episodic Immunizations and screening for infectious disease (20 sources) Need for prophylactic vaccination and inoculation against influenza; Translations: [Contact with and (suspected) exposure to other viral communicable diseases] Resolved: 2 05-07-2020 Episodic Comment on above: we discussed she is likely developing rheumaotid she doesnt have singificnat symptoms or evidence of inflammation on last lab so will monitor and told what to monitor for anticpp neg and infl ammation markers neg and actulally no symptoms right now- we discussed raghavendra monitor if she has change in sx except we would retest and still a possibility down the line it develops she voices understanding Influenza (20 sources) Influenza Lymphadenitis (20 sources) Lymphadenopathy; Translations: [Lymphadenopathy] 04-26-2018 Episodic Malaise and fatigue (20 sources) Fatigue; Translations: [Fatigue] Resolved: 8 08-24-2017 Episodic Menopausal disorders (20 sources) Menopausal syndrome; Translations: [Menopausal flushing] Onset: 4 05-25-2015 Chronic Comment on above: she uses prn estroge n tried bio T, tried p rogesterone cream. tried estrogen patch, switch to estrogen gel Menopausal disorders (2 sources) Drug therapy status; Translations: [Hormone replacement therapy] Onset: 3 Episodic Nonspecific chest pain (20 sources) Chest pain; Translations: [Chest pain] Resolved: 2 04-26-2018 Episodic Nutritional deficiencies (20 sources) Vitamin D deficiency; Translations: [Vitamin D deficiency] 05-10-2021 Chronic Comment on above: chronic stable-chad nue present regimen Nutritional deficiencies (20 sources) Cobalamin deficiency; Translations: [Vitamin B12 deficiency] 05-10-2021 Episodic Comment on above: chronic stable-chad nue present regimen Other connective tissue disease (20 sources) Pain in calf; Translations: [Calf pain] Resolved: 7 08-24-2017 Episodic Other female genital disorders (20 sources) Disorder of female genital organs; Translations: [Other specified conditions associated with female genital organs and menstrual cycle] 04-26-2018 Episodic Other gastrointestinal disorders (20 sources) Abdominal distension (gaseous); Translations: [Bloating symptom] 04-26-2018 Episodic Other gastrointestinal disorders (2 sources) Abdominal bloating; Translations: [Bloating symptom] 11-21-2022 Episodic Other lower respiratory disease (20 sources) Dyspnea; Translations: [Shortness of breath] 04-26-2018 Episodic Other lower respiratory disease (20 sources) Cough; Translations: [Cough] 04-26-2018 Episodic Other lower respiratory disease (20 sources) Shortness of breath Episodic Other non-traumatic joint disorders (20 sources) Knee pain; Translations: [Pain in unspecified knee] Resolved: 7 08-24-2017 Episodic Other non-traumatic joint disorders (20 sources) Joint pain; Translations: [Joint pain] Resolved: 2 08-27-2020 Episodic Other nutritional; endocrine; and metabolic disorders (20 sources) Excessive thirst; Translations: [Excessive thirst] Resolved: 8 08-24-2017 Episodic Comment on above: diary your diet and what is going on- ie salt stress Other screening for suspected conditions (not mental disorders or infectious disease) (12 sources) Computed tomography result abnormal Chronic Other skin disorders (20 sources) Eruption; Translations: [Rash] Resolved: 3 04-26-2018 Episodic Other skin disorders (7 sources) Inflammatory dermatosis; Translations: [Dermatitis] 04-26-2018 Episodic Other upper respiratory disease (20 sources) Pain in throat Episodic Other upper respiratory infections (20 sources) Acute pharyngitis; Translations: [Sore throat symptom] 04-26-2018 Episodic Comment on above: take nasacort aqua a nd sudafed not daily though hold taking antiobio tic unless worsening not resolve or colored drainaage improving- finish au gmntin think this will help her spastic cough and feeling in chest - she will give me update on thursday Pneumonia (except that caused by tuberculosis or sexually transmitted disease) (20 sources) Bacterial pneumonia; Translations: [Unspecified bacterial pneumonia] 04-26-2018 Episodic Residual codes; unclassified (17 sources) Needs influenza immunization; Translations: [Need for prophylactic vaccination and inoculation against influenza] 04-26-2018 Episodic Residual codes; unclassified (20 sources) Body Mass Index between 19-24, adult; Translations: [Finding of body mass index] Resolved: 9 04-26-2018 Episodic Residual codes; unclassified (20 sources) Postmenopausal state; Translations: [Postmenopausal (Renamed from Postmenopausal status)] 04-26-2018 Episodic Residual codes; unclassified (20 sources) Body mass index (BMI) 22.0-22.9, adult; Translations: [Body mass index 20-24 - normal] Resolved: 3 09-13-2018 Episodic Residual codes; unclassified (14 sources) Computed tomography result abnormal Episodic Residual codes; unclassified (20 sources) Influenza vaccination declined; Translations: [Influenza vaccination declined (Renamed from Refused influenza vaccine)] 05-10-2021 Episodic Residual codes; unclassified (20 sources) Non-smoker; Translations: [Non-smoker] 05-10-2021 Episodic Comment on above: foreign body removed from right great toe with tweezers Residual codes; unclassified (20 sources) Generalized aches and pains; Translations: [Body aches after vaccination] Resolved: 3 07-18-2021 Episodic Comment on above: had covid immunizati on on 07/15/21 Spondylosis; intervertebral disc disorders; other back problems (20 sources) Unspecified inflammatory spondylopathy, lumbosacral region; Translations: [Arthritis of lumbosacral spine] 04-26-2018 Chronic Comment on above: feeling better Spondylosis; intervertebral disc disorders; other back problems (20 sources) Low back pain; Translations: [Backache] Resolved: 8 08-24-2017 Episodic Superficial injury; contusion (16 sources) Foreign body of foot; Translations: [Foreign body in foot] Resolved: 2 01-28-2022 Episodic Thyroid disorders (20 sources) Disorder of thyroid gland; Translations: [Thyroid disorder] 05-10-2021 Episodic Unclassified (20 sources) BMI between 19-24,adult; Translations: [Finding of body mass index] Resolved: 9 03-14-2019 Unclassified (20 sources) Non-smoker; Translations: [Non-smoker] 04-26-2018 Unclassified (20 sources) Unclassified (20 sources) [facility] 04-26-2018 Comment on above: discuss consider isaías ngles vaccine Unclassified (20 sources) Abdominal Pain,General (789.07) Unclassified (20 sources) Bloating symptom (787.3) Unclassified (20 sources) Facet arthritis of lumbosacral region Unclassified (20 sources) Postmenopausal (Renamed from Postmenopausal status) Unclassified (20 sources) Hot flashes Unclassified (20 sources) BMI 22.0-22.9, adult; Translations: [Body mass index 20-24 - normal] Resolved: 04-18-2019 Unclassified (20 sources) Elevated high sensitivity C-reactive protein Unclassified (20 sources) Influenza vaccination declined; Translations: [Influenza vaccination declined (Renamed from Refused influenza vaccine)] 08-15-2019 Unclassified (20 sources) Body mass index 20-24 - normal; Translations: [BMI 23.0-23.9, adult] 08-27-2020 Unclassified (14 sources) Elevated rheumatoid factor Viral infection (20 sources) Viral disease; Translations: [Viral infection, unspecified] 04-26-2018 Episodic Past or Other Problems Problem Classification Problem Date Documented Date Episodic/Chronic Chronic obstructive pulmonary disease and bronchiectasis (17 sources) Chronic obstructive pulmonary disease and bronchiectasis Hemorrhoids (1 source) Internal hemorrhoids; Translations: [Other hemorrhoids] Onset: 05-18-2007 05-18-2007 Episodic Other screening for suspected conditions (not mental disorders or infectious disease) (20 sources) Other nonspecific (abnormal) findings on radiological and other examinations of body structure; Translations: [Computed tomography result abnormal] Onset: 09-11-2022 04-26-2018 Episodic Comment on above: again discussed diet and ex in detail - check inflammation markers and rf and ccp discussed diet lobato es to make lower high fat anima and sugar- more veggies and ex discussed diet and e x in detail Other screening for suspected conditions (not mental disorders or infectious disease) (19 sources) Elevated C-reactive protein; Translations: [Elevated high sensitivity C-reactive protein] 04-18-2019 Comment on above: again discussed diet and ex in detail - check inflammation markers and rf and ccp Pneumonia (except that caused by tuberculosis or sexually transmitted disease) (20 sources) Pneumonia (except that caused by tuberculosis or sexually transmitted disease) Residual codes; unclassified (1 source) Other specified personal risk factors, not elsewhere classified; Translations: [Other specified personal risk factors, not elsewhere classified] Onset: 02-28-2024 Episodic Spondylosis; intervertebral disc disorders; other back problems (14 sources) Arthritis of lumbosacral spine; Translations: [Facet arthritis of lumbosacral region] 04-18-2019 Comment on above: feeling better Unclassified (20 sources) Atrial premature contractions (427.61) Unclassified (20 sources) PVC, OTHER PREMATURE BEATS (427.69) Unclassified (20 sources) PHARYNGITIS, ACUTE (462.) Unclassified (20 sources) Rash (782.1) Unclassified (20 sources) Deliveries (Parity); Translations: [Deliveries (Parity)] 04-26-2018 Comment on above: 3 Unclassified (20 sources) Hot Flashes (782.62) Unclassified (20 sources) [facility] 04-26-2018 Unclassified (20 sources) Poison dyana (692.6) Unclassified (20 sources) Pregnancies (); Translations: [Pregnancies ()] 04-26-2018 Comment on above: 4 Unclassified (17 sources) Preprocedural examination done; Translations: [Pre-operative examination] 04-26-2018 Unclassified (20 sources) Viral infection Unclassified (20 sources) Unspecified Diagnosis 04-26-2018 Unclassified (20 sources) Abortions/Miscarriage s; Translations: [Abortions/Miscarriag es] 04-26-2018 Comment on above: 1 Unclassified (20 sources) Rash of body Unclassified (20 sources) Pre-operative examination, unspecified (V72.84) Unclassified (18 sources) Viral URI Unclassified (16 sources) Exposure to SARS virus Unclassified (20 sources) Immunity status testing Unclassified (12 sources) Menopausal state Unclassified (12 sources) Bronchitis,Acute (466.0) Unclassified (11 sources) Body aches after vaccination Unclassified (3 sources) Need for Tdap vaccination (Renamed from Need for iilnofpbli-absnezn-pf rtussis (Tdap) vaccine, adult/adolescent) Unclassified (2 sources) Foreign body in foot Results Test Name Value Interpretation Reference Range Facility Absolute lymphocyte countOrd ered By: Oxnard Guy on 12-09-2024 Lymphocytes Auto (Unsp spec) [#/Vol] 1.62 10*3/uL 0.83-4.51 [facility] Absolute neutrophil countOrd ered By: [facility] 12-[facility]24 Neutrophils (Bld) [#/Vol] 4.1 10*3/uL 2.0-7.7 [facility] Anion gap in Serum or Plasma Ordered By: [facility] on 12-09-2024 Anion gap [Moles/Vol] 11 mmol/L 5-15 [facility] Automated lymphocyte count a s percentage of total leukocytesOrdered By: [facility] on 12-09-2024 Lymphocytes/100 WBC Auto (Unsp spec) 25.4 % - [facility] BUN/creatinine ratioOrdered By: [facility] on 12-09-2024 Urea nitrogen/Creatinine [Mass ratio] 20.6 mg/mg High 10- [facility] Basophil percentageOrdered B y: [facility] on 12-09-2024 Basophils/100 WBC (Bld) 0.6 % 0-1 [facility] Bilirubin, totalOrdered By: [facility] on 12-09-2024 Bilirubin [Mass/Vol] 0.53 mg/dL 0.00-1.30 [facility] CBC W/Diff, Automatedon Absolute Lymph 1.62 X10 3/uL Normal 0.83-4.51 [facility] Comment on above: Performed By: #### L 100.0100, L500.4100, L500.4050 #### [facility] [address] [place], [address] Absolute Neut 4.1 X10 3/uL Normal 2.0-7.7 [facility] Comment on above: Performed By: #### L 100.0100, L500.4100, L500.4050 #### [facility] [address] [place], [address] Basophils/100 WBC (Bld) 0.6 % Normal 0-1 [facility] Comment on above: Performed By: #### L 100.0100, L500.4100, L500.4050 #### [facility] [address] [place], [address] Eosinophils/100 WBC (Bld) 2.8 % Normal 0-5 [facility] Comment on above: Performed By: #### L 100.0100, L500.4100, L500.4050 #### [facility] [address] [place], [address] Erythrocyte distribution width (RBC) [Ratio] 12.8 % Normal 11.6-14.6 [facility] Comment on above: Performed By: #### L 100.0100, L500.4100, L500.4050 #### [facility] [address] [place], [address] Hematocrit (Bld) [Volume fraction] 40.0 % Normal 37-47 [facility] Comment on above: Performed By: #### L 100.0100, L500.4100, L500.4050 #### [facility] [address] [place], [address] Hemoglobin (Bld) [Mass/Vol] 13.7 g/dL Normal 12.0-15.0 [facility] Comment on above: Performed By: #### L 100.0100, L500.4100, L500.4050 #### [facility] [address] [place], [address] IG% 0.200 Normal 0.0-0.9 [facility] Comment on above: Result Comment: IG% - Immature Granulocytes (promyelocytes, myelocytes and metamyelocytes) > 1% indicates that a LEFT SHIFT is Present. Performed By: #### L 100.0100, L500.4100, L500.4050 #### [facility] [address] [place], [address] Lymphocytes/100 WBC (Bld) 25.4 % Normal 19-41 [facility] Comment on above: Performed By: #### L 100.0100, L500.4100, L500.4050 #### [facility] [address] [place], [address] MCH (RBC) [Entitic mass] 30.8 pg Normal 27.0-32.0 [facility] Comment on above: Performed By: #### L 100.0100, L500.4100, L500.4050 #### [facility] [address] [place], [address] MCHC (RBC) [Mass/Vol] 34.3 g/dL Normal 32-36 [facility] Comment on above: Performed By: #### L 100.0100, L500.4100, L500.4050 #### [facility] [address] [place], [address] MCV (RBC) [Entitic vol] 89.9 fL Normal 81-99 [facility] Comment on above: Performed By: #### L 100.0100, L500.4100, L500.4050 #### [facility] [address] [place], [address] Monocytes/100 WBC (Bld) 6.1 % Normal 0-10 [facility] Comment on above: Performed By: #### L 100.0100, L500.4100, L500.4050 #### [facility] [address] [place], [address] Neutrophils/100 WBC (Bld) 64.9 % Normal 47-70 [facility] Comment on above: Performed By: #### L 100.0100, L500.4100, L500.4050 #### [facility] [address] [place], [address] Nucleated RBC (Bld) [#/Vol] 0 10*3/uL Normal 0-5 [facility] Comment on above: Performed By: #### L 100.0100, L500.4100, L500.4050 #### [facility] [address] [place], [address] Platelet mean volume (Bld) [Entitic vol] 9.3 fL Normal 6.2-12.0 [facility] Comment on above: Performed By: #### L 100.0100, L500.4100, L500.4050 #### [facility] [address] [place], [address] Platelets (Bld) [#/Vol] 285 10*3/uL Normal 150-450 [facility] Comment on above: Performed By: #### L 100.0100, L500.4100, L500.4050 #### [facility] [address] [place], [address] RBC (Bld) [#/Vol] 4.45 10*6/uL Normal 4.2-5.4 [facility] Comment on above: Performed By: #### L 100.0100, L500.4100, L500.4050 #### [facility] [address] [place], [address] RDW SD 42.5 fl Normal 35.1-43.9 [facility] Comment on above: Performed By: #### L 100.0100, L500.4100, L500.4050 #### [facility] [address] [place], [address] WBC (Bld) [#/Vol] 6.4 10*3/uL Normal 4.4-11.0 [facility] Comment on above: Performed By: #### L 100.0100, L500.4100, L500.4050 #### [facility] [address] [place], [address] Calculated very low density lipoprotein (VLDL) cholesterol measurementOrdered By: Ranjana Tovar on 12-09-2024 Calculated very low density lipoprotein (VLDL) cholesterol measurement 22 mg/dL 5-40 [facility] Carbon dioxide, total [Moles /volume] in Central venous bloodOrdered By: Ranjana Tovar on 12-09-2024 CO2 [Moles/Vol] 23.1 mmol/L 21.0-32.0 [facility] Chloride assayOrdered By: Ra nayeli Tovar on 12-09-2024 Chloride [Moles/Vol] 105 mmol/L 98-108 [facility] Comprehensive Metabolic Prof ilon 12-09-2024 Albumin [Mass/Vol] 4.2 g/dL Normal 3.5-5.0 [facility] Comment on above: Performed By: #### L 100.0100, L500.4100, L500.4050 #### [facility] [address] [place], [address] Albumin/Globulin [Mass ratio] 1.6 {ratio} Normal 0.9-2.4 [facility] Comment on above: Performed By: #### L 100.0100, L500.4100, L500.4050 #### [facility] [address] [place], [address] ALK PHOS 67 U/L Normal 35-104 [facility] Comment on above: Performed By: #### L 100.0100, L500.4100, L500.4050 #### [facility] [address] [place], [address] ALT [Catalytic activity/Vol] 23 U/L Normal <=34 [facility] Comment on above: Performed By: #### L 100.0100, L500.4100, L500.4050 #### [facility] [address] [place], [address] AST [Catalytic activity/Vol] 28 U/L Normal <=31 [facility] Comment on above: Performed By: #### L 100.0100, L500.4100, L500.4050 #### [facility] [address] [place], [address] Bilirubin [Mass/Vol] 0.53 mg/dL Normal 0.00-1.30 [facility] Comment on above: Performed By: #### L 100.0100, L500.4100, L500.4050 #### [facility] [address] [place], [address] BUN/CRE 20.6 RATIO High 10-20 [facility] Comment on above: Performed By: #### L 100.0100, L500.4100, L500.4050 #### [facility] [address] [place], [address] Calcium [Mass/Vol] 8.9 mg/dL Normal 7.6-11.0 [facility] Comment on above: Performed By: #### L 100.0100, L500.4100, L500.4050 #### [facility] [address] [place], [address] Chloride [Moles/Vol] 105 mmol/L Normal 98-108 [facility] Comment on above: Performed By: #### L 100.0100, L500.4100, L500.4050 #### [facility] [address] [place], [address] CO2 [Moles/Vol] 23.1 mmol/L Normal 21.0-32.0 [facility] Comment on above: Performed By: #### L 100.0100, L500.4100, L500.4050 #### [facility] [address] [place], [address] Creatinine [Mass/Vol] 0.75 mg/dL Normal 0.70-1.20 [facility] Comment on above: Performed By: #### L 100.0100, L500.4100, L500.4050 #### [facility] [address] [place], [address] GAP 11 Normal 5-15 [facility] Comment on above: Performed By: #### L 100.0100, L500.4100, L500.4050 #### [facility] [address] [place], [address] GFR/1.73 sq M.predicted among non-blacks MDRD (S/P/Bld) [Vol rate/Area] 94 mL/min/{1.73_m2} Normal >60 [facility] Comment on above: Result Comment: mL/m in/1.73m2 CKD-EPI Creatinine Equation (2020) Performed By: #### L 100.0100, L500.4100, L500.4050 #### [facility] [address] [place], [address] Globulin (S) [Mass/Vol] 2.7 g/dL Normal 2.2-4.2 [facility] Comment on above: Performed By: #### L 100.0100, L500.4100, L500.4050 #### [facility] [address] [place], [address] Glucose [Mass/Vol] 82 mg/dL Normal 70-99 [facility] Comment on above: Performed By: #### L 100.0100, L500.4100, L500.4050 #### [facility] [address] [place], [address] Potassium [Moles/Vol] 3.9 mmol/L Normal 3.3-5.1 [facility] Comment on above: Performed By: #### L 100.0100, L500.4100, L500.4050 #### [facility] [address] [place], [address] Sodium [Moles/Vol] 139 mmol/L Normal 133-145 [facility] Comment on above: Performed By: #### L 100.0100, L500.4100, L500.4050 #### [facility] [address] [place], [address] T PROT 6.9 g/dL Normal 5.9-8.4 [facility] Comment on above: Performed By: #### L 100.0100, L500.4100, L500.4050 #### [facility] [address] [place], [address] Urea nitrogen [Mass/Vol] 16 mg/dL Normal 4-19 [facility] Comment on above: Performed By: #### L 100.0100, L500.4100, L500.4050 #### [facility] [address] [place], [address] Eosinophil percentageOrdered By: Ranjana Tovar on 12-09-2024 Eosinophils/100 WBC (Bld) 2.8 % 0-5 [facility] Erythrocyte distribution wid th ratioOrdered By: Oxnard Guy on 12-09-2024 Erythrocyte distribution width (RBC) [Ratio] 12.8 % 11.6-14.6 [facility] Erythrocyte distribution wid th standard deviationOrdered By: Ranjanaroldan Tovar on 12-09-2024 Erythrocyte distribution width (RBC) [Ratio] 42.5 fl 35.1-43.9 [facility] Glomerular filtration rate ( GFR) estimation/1.73 sq m using serum, plasma, or whole bOrdered By: Ranjana Tovar on 12-09-2024 GFR/1.73 sq M.predicted among non-blacks MDRD (S/P/Bld) [Vol rate/Area] 94 mL/min/{1.73_m2} >60 [facility] Comment on above: mL/min/1.73m2 CKD-EP I Creatinine Equation (2020) Hematocrit Auto (Bld) [Volum e fraction]Ordered By: Ranjana Tovar on 12-09-2024 Hematocrit (Bld) [Volume fraction] 40.0 % 37-47 [facility] Hemoglobin measurementOrdere d By: Ranjana Tovar on 12-09-2024 Hemoglobin (Bld) [Mass/Vol] 13.7 g/dL 12.0-15.0 [facility] Immature granulocytes/100 WB C Auto (Bld)Ordered By: Ranjana Tovar on 12-09-2024 Immature granulocytes/100 WBC (Bld) 0.200 % 0.0-0.9 [facility] Comment on above: IG% - Immature Granu locytes (promyelocytes, myelocytes and metamyelocytes) > 1% indicates that a LEFT SHIFT is Present. LDL calc ser/plasOrdered By: Ranjana Tovar on 12-09-2024 Cholesterol in LDL [Mass/Vol] 121 mg/dL [facility] Comment on above: Alpldyehip=915-913 m g/dL & Higher Acee=772 mg/dL or greater Laboratory - Chemistry and C hemistry - challengeOrdered By: Ranjana Tovar on 12-09-2024 AST [Catalytic activity/Vol] 28 U/L <32 [facility] Lipid Profileon 12-09-2024 CHOL:HDL 3.65 Normal [facility] Comment on above: Performed By: #### L 100.0100, L500.4100, L500.4050 #### [facility] [address] [facility] [place], [place], [address] Cholesterol [Mass/Vol] 197 mg/dL Normal <=200 [facility] Comment on above: Result Comment: Chol esterol level, Desirable <200 mg/dL Borderline high cholesterol 200-239 mg/dL High cholesterol >=240 mg/dL Recommendations of the NCEP Adult Treatment Panel for the following risk-cutoff thresholds for the [place] population. Performed By: #### L 100.0100, L500.4100, L500.4050 #### [facility] [address] [facility] [place], [place], [address] Cholesterol in HDL [Mass/Vol] 54 mg/dL Normal [facility] Comment on above: Result Comment: Winifred onal Cholesterol Education Program (NCEP) guidelines: <40 mg/dL: Low HDL-cholesterol (major risk factor for CHD) >= 60 mg/dL: High HDL-cholesterol (negative risk factor for CHD) HDL-cholesterol is affected by a number of factors, e.g. smoking, exercise, hormones, sex and age. Performed By: #### L 100.0100, L500.4100, L500.4050 #### [facility] [address] [place], [address] Cholesterol in LDL [Mass/Vol] 121 mg/dL Normal [facility] Comment on above: Result Comment: Bord gfwoan=220-982 mg/dL Higher Qrgl=958 mg/dL or greater Performed By: #### L 100.0100, L500.4100, L500.4050 #### [facility] [address] [place], [address] Cholesterol in VLDL [Mass/Vol] 22 mg/dL Normal 5-40 [facility] Comment on above: Performed By: #### L 100.0100, L500.4100, L500.4050 #### [facility] [address] [place], [address] Triglyceride [Mass/Vol] 111 mg/dL Normal [facility] Comment on above: Result Comment: The drugs N-Acetylcysteine and Metamizole may falsely depress this assay. Normal range: <150 mg/dL Borderline High: 150-199 mg/dL High: 200-499 mg/dL Very High: >500 mg/dL Performed By: #### L 100.0100, L500.4100, L500.4050 #### [facility] [address] [place], [address] MCV (mean corpuscular volume ) determinationOrdered By: Ranjana Tovar on 12-09-2024 MCV (RBC) [Entitic vol] 89.9 fL 81-99 [facility] Mean corpuscular hemoglobin (MCH) determinationOrdered By: Ranjana Tovar on 12-09-2024 MCH (RBC) [Entitic mass] 30.8 pg 27.0-32.0 [facility] Mean corpuscular hemoglobin concentration (MCHC) determinationOrdered By: Ranjana Tovar on 12-09-2024 MCHC (RBC) [Mass/Vol] 34.3 g/dL 32-36 [facility] Mean platelet volume determi nationOrdered By: Ranjana Tovar on 12-09-2024 Platelet mean volume (Bld) [Entitic vol] 9.3 fL 6.2-12.0 [facility] Monocyte percentageOrdered B y: Ranjana Tovar on 12-09-2024 Monocytes/100 WBC (Bld) 6.1 % 0-10 [facility] Neutrophil percentageOrdered By: Ranjana Tovar on 12-09-2024 Neutrophils/100 WBC (Bld) 64.9 % 47-70 [facility] Nucleated red blood cell per centageOrdered By: Ranjana Tovar on 12-09-2024 Nucleated RBC/100 WBC (Bld) [Ratio] 0 % 0-5 [facility] Platelet countOrdered By: Ra nayeli Tovar on 12-09-2024 Platelets (Bld) [#/Vol] 285 10*3/uL 150-450 [facility] Potassium measurement (mass/ volume)Ordered By: Ranjana Tovar on 12-09-2024 Potassium (Unsp spec) [Mass/Vol] 3.9 mmol/L 3.3-5.1 [facility] RBC Auto (Bld) [#/Vol]Ordere d By: Ranjana Tovar on 12-09-2024 RBC (Bld) [#/Vol] 4.45 10*6/uL 4.2-5.4 [facility] Screening total cholesterol/ high density lipoprotein (HDL) cholesterol ratioOrdered By: Ranjana Tovar 12-09-2024 Cholesterol.total/Cho lesterol in HDL [Mass ratio] 3.65 {ratio} [facility] Serum creatinine measurement (mass/volume)Ordered By: Ranjana Tovar on 12-09-2024 Creatinine [Mass/Vol] 0.75 mg/dL 0.70-1.20 [facility] Serum globulin measurementOr dered By: Ranjana Tovar on 12-09-2024 Globulin (S) [Mass/Vol] 2.7 g/dL 2.2-4.2 [facility] Serum glucose measurement (m ass/volume)Ordered By: Ranjana Tovar on 12-09-2024 Glucose [Mass/Vol] 82 mg/dL 70-99 [facility] Serum or plasma alanine richardson otransferase (ALT) measurementOrdered By: Ranjana Tovar on 12-09-2024 ALT [Catalytic activity/Vol] 23 U/L <35 [facility] Serum or plasma albumin jacquie urement (mass/volume)Ordered By: Ranjanaroldan Tovar on 12-09-2024 Albumin [Mass/Vol] 4.2 g/dL 3.5-5.0 [facility] Serum or plasma albumin/glob ulin mass ratioOrdered By: [facility] 12-[facility] Albumin/Globulin [Mass ratio] 1.6 {ratio} 0.9-2.4 [facility] Serum or plasma alkaline qasim sphatase measurementOrdered By: Ranjana Guy on 12-09-2024 ALP [Catalytic activity/Vol] 67 U/L 35-104 [facility] Serum or plasma calcium jacquie urement (mass/volume)Ordered By: Ranjanaroldan Tovar 12-09-2024 Calcium [Mass/Vol] 8.9 mg/dL 7.6-11.0 [facility] Serum or plasma cholesterol in HDL measurement (mass/volume)Ordered By: Ranjana Guy 12-09-2024 Cholesterol in HDL [Mass/Vol] 54 mg/dL >40 [facility] Comment on above: National Cholesterol Education Program (NCEP) guidelines:<40 mg/dL: Low HDL-cholesterol (major risk factor for CHD)>= 60 mg/dL: High HDL-cholesterol (negative risk factor for CHD)HDL-cholesterol is affected by a number of factors, e.g. smoking, exercise, hormones, sex and age. Serum or plasma cholesterol measurement (mass/volume)Ordered By: Ranjana Tovar on 12-09-2024 Cholesterol [Mass/Vol] 197 mg/dL <201 [facility] Comment on above: Cholesterol level, D esirable <200 mg/dLBorderline high cholesterol 200-239 mg/dLHigh cholesterol >=240 mg/dLRecommendations of the NCEP Adult Treatment Panel for the following risk-cutoff thresholds for the [place] population. Serum or plasma urea nitroge n measurement (mass/volume)Ordered By: Ranjana Tovar on 12-09-2024 Urea nitrogen [Mass/Vol] 16 mg/dL 4-19 [facility] Sodium levelOrdered By: Hemalatha Tovar on 12-09-2024 Sodium [Moles/Vol] 139 mmol/L 133-145 [facility] Total proteinOrdered By: Cori roldan Guy on 12-09-2024 Protein [Mass/Vol] 6.9 g/dL 5.9-8.4 [facility] Triglycerides measurementOrd ered By: Ranjana Tovar on 12-09-2024 Triglyceride [Mass/Vol] 111 mg/dL <199 [facility] Comment on above: The drugs N-Acetylcy steine and Metamizole may falsely depress this assay. Normal range: <150 mg/dLBorderline High: 150-199 mg/dLHigh: 200-499 mg/dLVery High: >500 mg/dL White blood cell (WBC) count Ordered By: Ranjana Tovar on 12-09-2024 WBC (Bld) [#/Vol] 6.4 10*3/uL 4.4-11.0 [facility] SCRN MAMM (CAD)W/MELISSA BILATo n 05-23-2024 SCRN MAMM (CAD)W/MELISSA BILAT [facility] [address] [place], [place] [id number] SCRN MAMM (CAD)W/MELISSA BILAT MR#: [id number] Acct: [id number] Name: BREA CATALAN Rep #: [id number] : 1970 F 53 From: Darshan young MD PCP: [facility] Status: REG CLI Study: SCRN MAMM (CAD)W/MELISSA BILAT Date of Exam: 05/06 02/26 Exam# [id number] Ordering Dr: Nona Wilkinson [id number] MAMMOGRAPHY - BILATERAL SCREENING REASON FOR EXAM: Female, 53 years old. Routine annual screening examination. PERTINENT HISTORY: Non-contributory. TECHNIQUE: Digital bilateral breast melissa (3D mammographic acquisition) in the CC and MLO projections. 2-D mediolateral oblique (MLO) and craniocaudad (CC) views of both breasts were obtained. CAD: Full Field Digital Mammography with Computer Added Detection was performed. COMPARISON: Comparison is made with prior outside examination of September 11, 2022. FINDINGS: Breast Composition: The breasts are extremely dense, which lowers the sensitivity of mammography. There are no dominant masses or suspicious calcifications. Stable bilateral axillary lymph nodes. No other significant abnormalities are identified. There has been no significant change since the prior study. BI/SCRN MAMM (CAD)W/MELISSA BILAT IMPRESSION: Stable bilateral screening mammogram. Yearly follow-up mammogram recommended. (A) ASSESSMENT CATEGORY: BIRADS Category 2: Benign. A letter regarding these results will be sent to the patient by the facility within 30 days. Approximately 10% of breast cancers are not detected by mammography. A normal mammogram should not delay biopsy of a clinically suspicious abnormality. [id number] Electronically Signed: Darshan Machado MD at 11:19 EST Reading Location ID and State: [address] [place] [address] , Service support , CC: THALIA Tovar; Dr. Nona Wilkinson MD Predatory Animal Hunter: Signed Normal [facility] Personal Counselor Office Visit Reporton 05-06-2024 Personal Counselor Office Visit Report [facility] [address], [address] [place] [address] OFFICE VISIT Date of Service: 05/06/24 MR#: [id number] Acct: [id number] Name: BREA CATALAN Rep #: [id number] : 1970 Provider: Dr. Nona cee MD Age/Sex: 53/F Location: [facility] [place] Status: Signed Intake Vital Signs 03/21/24 11:10 05/06/24 09:46 Height 5 ft 5 in 5 ft 5 in Weight: 140 lb 145 lb BMI 23.3 24.1 BP 124/83 H 131/79 H Pulse 62 Intake Visit Reasons: 1 M FU Journalist Required: No Is patient in pain?: No Allergies No Known Allergies Allergy (Unverified 05/06/24 09:47) Medications ???Medication ???Instructions ???Recorded ???Confirmed ???Type lactobacillus combination no.9 4 4,000 mmu cells PO QDAY 03/21/24 05/06/24 History billion cell capsule (Adult 50 Plus Probiotic) multivitamin with minerals-folic tab PO 03/21/24 05/06/24 History acid 0.4 mg tablet estradiol 0.05 mg/24 hr weekly 1 patch transdermal QWEEK #4 04/26/24 05/06/24 Rx transdermal patch patches estradiol 0.5 mg/0.5 gram (0.1 %) 1 packet transdermal QDAY #30 ea 05/06/24 05/06/24 Rx transdermal gel packet Is last menstrual period known: No Post menopausal: Yes Patient : No : No PFSH Surgical History History of bunionectomy History of partial hysterectomy Family History Daughter Asthma Son Asthma Mother Hypertension Father Cancer prostate cancer Social History adopted: No household members: spouse and children housing: house number of children: 3 current occupational status: employed current occupation: [employer] pets and animals: Yes pets and animals: dog(s) and other details: chicken Smoking Status: Never smoker substance use type: does not use seatbelt use: always do you feel safe at home: Yes 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 she had resolution of vasomotor symptoms but still having bloating and weight issues, had new onset breast tendernes. we decreased the estrogen dose since 04/26 and she is feeling less tenderness with no increase in vasomotor symptoms. doesn't like the deliveyr system of the patch as much either. History 3 Elective abortions Hx Para 3 Spontaneous abortions Hx # Term Pregnancies Ectopic pregnancies Hx # Pregnancies Multiple births # of living children ROS Const Constitutional: Denies fatigue, fever(s), headache(s), increased appetite or poor appetite GI GI: Reports as per HPI; Denies abdominal pain, constipation, nausea or vomiting : Reports as per HPI; Denies difficulty voiding, dysuria, hematuria, pelvic pain, urinary frequency, urinary incontinence, urinary hesitancy, urinary urgency, vaginal discharge, vaginal dryness, vaginal odor, vaginal pruritus or other Exam Const General: cooperative, healthy appearing, comfortable, no acute distress and well developed Orientation: alert HENMT Head: normal to inspection and normocephalic Ears: hearing grossly normal bilaterally and external ears normal Nose: external nose normal and nares normal Face and sinus: normal facial exam Neck Neck: normal visual inspection, no lymphadenopathy and trachea midline Thyroid: thyroid normal Resp Effort Inspection: normal respiratory effort Musc Other: gross motor intact no deficits, full bilateral strength Skin General: no rashes or lesions noted Neuro Motor: muscle tone normal throughout Coding Level of Care Code Off vis,est,level 3 Diagnoses Climacteric N95.1 Assessment and Plan Assessment and Plan (1) Climacteric: Status: Acute Comment: tried bio T, tried progesterone cream. tried estrogen patch, switch to estrogen gel Medications: New estradiol 1 packet transdermal QDAY 30 ea 12RF Plan will ocmunicate via portal any dosage changes. Problem list updated and treatment plans were reviewed with the patient and relevant educational handouts given. See problem list details for specific plan information. 05/06/24 1021 Date Nona Pereyra Signature: Date (if applicable) CC: Normal [facility] Personal Counselor Office Visit Reporton 03-21-2024 Personal Counselor Office Visit Report [facility] [address] [place] [address] OFFICE VISIT Date of Service: 03/21/24 MR#: [id number] Acct: [id number] Name: BREA CATALAN Rep #: [id number] : 1970 Provider: Dr. 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) Journalist Required: No Is patient in pain?: No Feel stressed/tense/nervous/an xious/difficulty sleeping: to some extent (difficulty sleeping from hot flashes) Allergies No Known Allergies Allergy (Unverified 03/21/24 11:14) Medications ???Medication ???Instructions ???Recorded ???Confirmed ???Type lactobacillus combination no.9 4 4,000 mmu cells PO QDAY 03/21/24 03/21/24 History billion cell capsule (Adult 50 Plus Probiotic) multivitamin with minerals-folic tab PO 03/21/24 03/21/24 History acid 0.4 mg tablet Is last menstrual period known: No Post menopausal: Yes Patient : No : No PFSH Surgical History (Updated 03/21/24 @ 11:17 by Michelle Zapata) History of bunionectomy History of partial hysterectomy Family History (Updated 03/21/24 @ 11:18 by Michelle Zapata) Daughter Asthma Son Asthma Mother Hypertension Father Cancer prostate cancer Social History (Updated 03/21/24 @ 11:23 by Michelle Zapata) adopted: No household members: spouse and children housing: house number of children: 3 current occupational status: employed current occupation: [employer] pets and animals: Yes pets and animals: dog(s) and other details: chicken Smoking Status: Never smoker substance use type: does not use seatbelt use: always do you feel safe at home: Yes additional social history: [employer]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 History 3 Elective abortions Hx Para 3 Spontaneous abortions Hx # Term Pregnancies Ectopic pregnancies Hx # Pregnancies Multiple births # of living children HPI Encounter for routine gynecological examination Details: BREA CATALAN is a 53 year old who presents for annual exam.has been on Bio T pellets before to help with hot flashes Last PAP: hyst History of abnormal PAP: no severe Last mammogram: over a year ago History of abnormal mammogram: due Colon cancer screening: up to date 2022 Other preventative health care screenings: PCP Ranjana Tovar - PCP does yearly labs Female Reproductive History Menopausal Symptoms: Yes hot flashes, Yes night sweats, Yes weight change, Yes mood changes and Yes change in libido ROS Const Constitutional: Reports as per HPI and night sweats; Denies fatigue, increased appetite, poor appetite, weight gain or weight loss Cardio Card: Denies chest pain Resp Resp: Denies cough or dyspnea GI GI: Reports as per HPI; Denies abdominal pain, bloating, constipation, nausea or vomiting : Reports as per HPI, hot flashes and other; Denies difficulty voiding, dysuria, hematuria, nipple discharge, pelvic pain, prolapse symptoms, urinary frequency, urinary incontinence, urinary urgency, vaginal discharge, vaginal dryness, vaginal odor or vaginal pruritus Skin Skin/Breast: Denies changing lesions, breast mass, breast pain, breast skin changes or nipple discharge Psych Psych: Reports change in libido; Denies anxiety or depression Exam Const General: cooperative, healthy appearing, comfortable, no acute distress, well developed and well groomed HENNJ Head: normal to inspection and normocephalic Ears: hearing grossly normal bilaterally and external ears normal Nose: external nose normal Face and sinus: normal facial exam Neck Neck: normal visual inspection, full ROM and no lymphadenopathy Thyroid: thyroid normal Chest Chest palpation inspection: normal inspection of the chest Breast inspection: normal inspection of the breasts and normal inspection of the axillae Breast palpation: normal palpation of the breasts, normal palpation of the axillae and no axillary lymphadenopathy Resp Effort Inspection: normal respiratory effort GI Inspection: normal to inspection and non-distended Palpation: soft, no hepatosplenomegaly and no guarding General: bladder normal to palpation External Female Exam: normal external appearance, normal appearance of the urethra and no lesions Urethra: normal appearance of the urethra and normal palpation Speculum Exam - Vagina: normal appearance of the vagina and normal vaginal discharge Bimanual Exam- Vagina Uterus: bladder normal to palpation Bimanual Exam- Adnexa, other: normal adnexae, no masses and non-tender Skin General: no rashes or lesions noted Neuro General: patien (more content not included)... Normal [facility] Lyme Antibodies,W [place]oton LYME IgG INTERP Negative Normal . [facility] Comment on above: Result Comment: Posi tive: 5 of the following Borrelia-specific bands: 18,23,28,30,39,41,45,58, 66, and 93. Negative: No bands or banding patterns which do not meet positive criteria. Performed By: #### L 7000.5800 #### [facility] [address] [place], [address] LYME IgM INTERP Negative Normal . [facility] Comment on above: Result Comment: Note : An equivocal or positive EIA result followed by a negative Line Blot result is considered NEGATIVE. An equivocal or positive EIA result followed by a positive Line Blot is considered POSITIVE by the CDC. Positive: 2 of the following bands: 23,39 or 41 Negative: No bands or banding patterns which do not meet positive criteria. Criteria for positivity are those recommended by CDC/ASTPHLD. p23=Osp C, m52=uzsbvlszy Note: Sera from individuals with the following may cross react in the Lyme Line Blot assays: other spirochetal diseases (periodontal disease, leptospirosis, relapsing fever, yaws, and pinta); connective autoimmune (Rheumatoid Arthritis and Systemic Lupus Erythematosus and also individuals with Antinuclear Antibody); other infections (Ripon Spotted Fever; Ree-Mars Virus, and Cytomegalovirus). Please Note: Lyme immunoblot alone is not recommended for the diagnosis of Lyme disease. Current guidelines recommend the use of a two-tiered approach to Lyme serology testing to improve the sensitivity and specificity of testing. [facility] offers test code 145883 Lyme Disease Serology with Reflex to aid in the diagnosis of Lyme Disease. Performed at: [address] [id number] Sales Consultant: Renetta Wiley MD, Phone: [phone] Performed By: #### L 7000.5800 #### [facility] [address] [place], [address] P18 Ab Absent Normal . [facility] Comment on above: Performed By: #### L 6999.5800 #### [facility] [address] [place], [address] P23 Ab Absent Normal . [facility] Comment on above: Performed By: #### L 0 #### [facility] [address] [place], [address] P28 Ab Absent Normal . [facility] Comment on above: Performed By: #### L 6999.0 #### [facility] [address] [place], [address] P30 Ab Absent Normal . [facility] Comment on above: Performed By: #### L 0 #### [facility] [address] [place], [address] P39 Ab Absent Normal . [facility] Comment on above: Performed By: #### L 5800 #### [facility] [address] [place], [address] P41 Ab Absent Normal . [facility] Comment on above: Performed By: #### L [id number] #### [facility] [address] [place], [address] P45 Ab Absent Normal . [facility] Comment on above: Performed By: #### L 5800 #### [facility] [address] [place], [address] P58 Ab Present Abnormal . [facility] Comment on above: Performed By: #### L 5800 #### [facility] [address] [place], [address] P66 Ab Absent Normal . [facility] Comment on above: Performed By: #### L 5800 #### [facility] [address] [place], [address] P93 Ab Absent Normal . [facility] Comment on above: Performed By: #### L 7000.5800 #### [facility] [address] [place], [address] CNCOon 09-11-2022 CNCO HNO ID: [id number] Author: Mammography Coordinator Service: ? Author Type: Physician Type: Letter Filed: 09/15/2022 11:33 PM Note Text: September 12, 2022 PID: [id number] Brea Catalan [address] [place] [address] Dear Hossein, We are pleased to inform you that the results of your recent breast imaging exam on 09/11/2022 are normal. Your mammogram demonstrates that you have dense breast tissue, which could hide abnormalities. Dense breast tissue, in and of itself, is a relatively common condition. Therefore, this information is not provided to cause undue concern; rather, it is to raise your awareness and promote discussion with your health care provider regarding the presence of dense breast tissue in addition to other risk factors. Early detection of cancer is very important. We also understand recommendations regarding breast cancer screening are controversial. Please discuss with your primary care provider which strategy is best for you and whether a mammogram is right for you. Your imaging studies and report will be kept on file at [facility] as part of your permanent medical record and are available for your continuing care. Thank you for allowing us to help in meeting your health care needs. Sincerely, Dr. Li Interpreting Radiologist [facility] (Normal over 40) Normal [facility] CNOVon 09-11-2022 CNOV Office Visit (OBGYWM ) ----- BREA CATALAN ([id number]) 1970 F Date Time Provider Department 09/11/22 9:30 AM BREA JENKINS During your visit today, we recorded the following information about you: Blood pressure Weight Height 100/60 61.5 kg 1.638 m Brea JenkinsJOSIANE 09/11/2022 10:28 AM Signed Net Finisher offered: Patient declines. Brea is a 51 year old who presents for an annual gynecologic exam without complaints. Postmenopausal: hysterectomy age 36, ovary sparing HRT use: [facility] at [facility] - Estrogen and testosterone. History of abnormal pap: No Last mammogram: 2021 normal History of abnormal mammogram: No Sexually active: Yes History of STDS: None Patient concerns for STD exposure: No. 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 History LMP: 09/26/2007, Hysterectomy Age at Menarche: Age at First : Age at Menopause: Core Inserter History Comments: Sexual Activity: Yes; Male; has had vasectomy, pt has had hysterectomy Contraception: Surgical PAST MEDICAL HISTORY Diagnosis Date Diarrhea Internal hemorrhoids without mention of complication Other disorder of menstruation and other abnormal bleeding from female genital tract US Presence of intrauterine contraceptive device 07/21/2006 IUD removed 07/21/2006 skin cancer 1998 FACE AND CHEST PAST SURGICAL HISTORY Procedure Laterality Date COLONOSCOPY W/BIOPSY SINGLE/MULTIPLE 05/18/07 IUD REMOVAL (TIN STACKER DEPT)_*FL 07/21/2006 Mirena PAST SURGICAL HISTORY OF 1998 BCC removed from face and chest UNSPECIFIED ORAL SURGERY PROCEDURE, BY REPORT Romulus teeth removed VAGINAL HYSTERECTOMY UTERUS 250 GM/< 10/12/2007 Hysterectomy, vaginal FAMILY HISTORY Problem Relation Age of Onset Hypertension Mother Parkinson's Mother Prostate Cancer Father Cancer Paternal Grandfather Brain SOCIAL HISTORY Social History Tobacco Use Smoking status: Never Smokeless tobacco: Never Vaping Use Vaping Use: Never used Substance Use Topics Alcohol use: Yes Comment: Occasionally Drug use: No REVIEW OF SYSTEMS Abdomen: No abdominal pain, nausea, vomiting, diarrhea, or constipation. No bloating, early satiety, indigestion, or increased flatulence. Bladder: No dysuria, gross hematuria, urinary frequency, urinary urgency, or incontinence Breast: No breast lumps, nipple d/c, overlying skin changes, redness or skin retraction Allergies and current medication updated:Yes EXAM: BP 100/60 Ht 5' 4.5" (1.64m) Wt 135 lb 9.6 oz (61.5kg) LMP 09/26/2007 BMI 22.92 kg/(m2). GENERAL: pleasant, female in no apparent distress HEENT: Normocephalic, atraumatic, mucus membranes moist, and no lesions NECK: Supple, full range of motion, no adenopathy, and thyroid normal DERMATOLOGY: Normal, without lesions, non-icteric, and non-hirsute BREAST: soft, non-tender, symmetric, no dominant mass, normal nipple-areolar complex, no lymphadenopathy, and no nipple discharge CHEST: Normal inspiratory effort ABDOMEN: soft, non-tender, and no masses PELVIC: external genitalia normal, normal Bartholin's glands, urethra, Fontenelle's glands, no vulvar lesions, good vaginal support, physiologic discharge present, normal appearing perineal body and perianal region, cervix surgically absent BIMANUAL: no adnexal masses, non-tender, and uterus surgically absent RECTOVAGINAL: deferred. NEURO: alert and oriented x3,exam grossly non-focal EXTREMITIES: normal ASSESSMENT/PLAN: 1) Health maintenance: Pap/HPV screening no longer needed Mammogram ordered Mammogram up to date Nutrition, exercise and routine health maintenance exams reviewed. Calcium/Vitamin D supplementation information provided. Colon cancer screening: up to date with screening 2. Hormone replacement therapy - ICD9: V07.4, ICD10: Z79.890 - BioT Pellets at [facility] - Estrogen and testosterone. Pellets resolve hot flashes until a couple of days before next dose. Discussed HRT options including prescription bioidentical oral and patch. - Given information on Relizen supplement 3) Follow up one year or sooner as needed Brea Jenkins APRN.KATHERINE Jenkins APRN.KATHERINE 09/11/2022 10:01 AM Signed Calcium and Vitamin D Supplementation (from the National Institutes of Health Office of Dietary Supplements 2010) Calcium 1200 mg daily - 600 mg twice a day if taking supplement and Vit D 800-1000 IU daily Calcium is required by the body for blood vessel, muscle, hormone and nerve functioning. Most of the body's calcium is stored in the bones and teeth where it supports structure and function. Bone is continuously broken down and reform (more content not included)... Normal [facility] SCREENING W TOMOon 03-09 -2023 GABBIE SCREENING W MELISSA * * *Final Report* * * DATE OF EXAM: Sep 11 2022 11:20AM WRW [id number] - GABBIE SCREENING W MELISSA / PROCEDURE REASON: Encounter for screening mammogram for breast cancer * * * * Physician Interpretation * * * * RESULT: #[id number] - GABBIE SCREENING W MELISSA BILATERAL DIGITAL SCREENING MAMMOGRAM TOMOSYNTHESIS WITH CAD: 09/11/2022 HISTORY: Encounter For Screening Mammogram For Breast Cancer /Screening Mammogram with MELISSA - patient reports NO breast symptoms /priors available for comparison. RESULT: TECHNIQUE: The study was acquired using full field digital technology and interpreted from soft copy. Digital Breast Tomosynthesis (DBT) images were obtained and used to assist in the interpretation of this examination. Current study was also evaluated with a Computer Aided Detection (CAD). Comparison is made to exams dated: 08/26/2021 mammogram, 08/16/2020 mammogram, and 07/18/2019 mammogram - [facility]. The tissue of both breasts is extremely dense, which lowers the sensitivity of mammography. No significant masses, calcifications, or other findings are seen in either breast. There has been no significant interval change. IMPRESSION: NEGATIVE There is no mammographic evidence of malignancy. A 1 year screening mammogram is recommended. Debo solomon/nenita:09/11/2022 13:18:08 Needleworker(s): RT Rowdy(Samir)(M), [facility] letter sent: Normal over 40 Mammogram BI-RADS: 1 Negative Multiple national specialty organizations have released breast cancer screening guidelines for women at average risk for developing breast cancer - guidelines that are based on both evidence and opinion, yet differ on when to start and how often to screen for breast cancer. With representation from Breast Imaging, Internal Medicine, Women's Health, Family Medicine, and Medical/Surgical Oncology, the [facility] has carefully reviewed the data and reached the following consensus: 1) All women should engage in shared decision-making with their providers to decide when to start and how often to screen; 2) All women should have the opportunity to start screening mammography at age 40; 3) For women ages 45-55, we recommend annual screening mammograms; 4) For women ages 55 and over, we support both the transition from an annual to a biennial interval if this aligns more with patient's values and preferences, or continuation with annual screening; 5) All women should discuss with their providers when to stop screening mammograms. Predatory Animal Hunter: Nenita Transcribe Date/Time: Sep 11 2022 10:48A Dictated by: DEBO LI MD This examination was interpreted and the report reviewed and electronically signed by: DEBO LI MD on Sep 11 2022 1:18PM EST [id number] Normal [facility] C-Reactive Protein ([id number])Or dered By: Weld Fitter on 08-15-2022 CRP [Mass/Vol] 4 mg/L Normal 0-10 [facility]; [facility] Work Phone: Comment on above: PATIENT WAS FASTINGP ERFORMED BY: [employer] [id number] [address] Sand[employer] SolutionsFormerly [facility] [id number] CBC W/AUTO DIFF WBC ([id number])O rdered By: Weld Fitter on 08-15-2022 Basophils (Bld) [#/Vol] 0.0 10*3/uL Normal 0.0-0.2 [facility]; [facility] Work Phone: Comment on above: PATIENT WAS FASTINGP ERFORMED BY: [employer] [id number] [address] [employer] SolutionsFormerly [facility] [id number] Basophils/100 WBC (Bld) 0 % Normal [facility]; [facility] Work Phone: Comment on above: PATIENT WAS FASTINGP ERFORMED BY: [facility] [id number] [address] [employer] SolutionsFormerly [facility] [id number] Eosinophils (Bld) [#/Vol] 0.0 10*3/uL Normal 0.0-0.4 [facility]; [facility] Work Phone: Comment on above: PATIENT WAS FASTINGP ERFORMED BY: [employer] [id number] [employer] SolutionsFormerly [facility] [id number] Eosinophils/100 WBC (Bld) 0 % Normal [facility]; [facility] Work Phone: Comment on above: PATIENT WAS FASTINGP ERFORMED BY: [facility] Eysdpe1392 [address] [place] [id number] Erythrocyte distribution width (RBC) [Ratio] 12.1 % Normal 11.7-15.4 [facility]; [facility] Work Phone: Comment on above: PATIENT WAS FASTINGP ERFORMED BY: [facility] [id number] [address] [place] [id number] Hematocrit (Bld) [Volume fraction] 41.7 % Normal 34.0-46.6 [facility]; [facility] Work Phone: Comment on above: PATIENT WAS FASTINGP ERFORMED BY: [facility] [id number] [address] [place] [id number] Hemoglobin (Bld) [Mass/Vol] 14.7 g/dL Normal 11.1-15.9 [facility]; [facility] Work Phone: Comment on above: PATIENT WAS FASTINGP ERFORMED BY: [facility] [id number] [address] RoadDublin [place] [id number] Immature granulocytes (Bld) [#/Vol] 0.0 10*3/uL Normal 0.0-0.1 [facility]; [facility] Work Phone: Comment on above: PATIENT WAS FASTINGP ERFORMED BY: [facility] [id number] Britt[address] RoadDublin [place] [id number] Immature granulocytes/100 WBC (Bld) 0 % Normal [facility]; [facility] Work Phone: Comment on above: PATIENT WAS FASTINGP ERFORMED BY: [facility] [id number] [address] [place] [id number] Lymphocytes (Bld) [#/Vol] 1.2 10*3/uL Normal 0.7-3.1 [facility]; [facility] Work Phone: Comment on above: PATIENT WAS FASTINGP ERFORMED BY: [facility] [id number] [address]Dublin [place] [id number] Lymphocytes/100 WBC (Bld) 16 % Normal [facility]; [facility] Work Phone: Comment on above: PATIENT WAS FASTINGP ERFORMED BY: CB [facility] Shbvnb7889 Britton RoadDublin [place] [id number] MCH (RBC) [Entitic mass] 31.9 pg Normal 26.6-33.0 [facility]; [facility] Work Phone: Comment on above: PATIENT WAS FASTINGP ERFORMED BY: CB [facility] Bjnvqu7163 Britton RoadDublin [place] [id number] MCHC (RBC) [Mass/Vol] 35.3 g/dL Normal 31.5-35.7 [facility] prehensive Internal Medicine; [facility] Work Phone: Comment on above: PATIENT WAS FASTINGP ERFORMED BY: CB [facility] Aeizgz0973 [address] RoadDublin [place] [id number] MCV (RBC) [Entitic vol] 91 fL Normal 79-97 [facility]; [facility] Work Phone: Comment on above: PATIENT WAS FASTINGP ERFORMED BY: CB [facility] Oxtied0020 [address] RoadDublin [place] [id number] Monocytes (Bld) [#/Vol] 0.3 10*3/uL Normal 0.1-0.9 [facility]; [facility] Work Phone: Comment on above: PATIENT WAS FASTINGP ERFORMED BY: [facility] Gtbxwu8050 [address] RoadDublin [place] [id number] Monocytes/100 WBC (Bld) 4 % Normal [facility]; [facility] Work Phone: Comment on above: PATIENT WAS FASTINGP ERFORMED BY: CB [facility] Eyesnz7469 [address] RoadDublin [place] [id number] Neutrophils (Bld) [#/Vol] 6.0 10*3/uL Normal 1.4-7.0 [facility]; [facility] Work Phone: Comment on above: PATIENT WAS FASTINGP ERFORMED BY: CB [facility] Maecky2340 [address] RoadDublin [place] [id number] Neutrophils/100 WBC (Bld) 80 % Normal [facility]; [facility] Work Phone: Comment on above: PATIENT WAS FASTINGP ERFORMED BY: MICHI [facility] Ephcul0275 [address] RoadDublin [place] [id number] Platelets (Bld) [#/Vol] 294 10*3/uL Normal 150-450 [facility]; [facility] Work Phone: Comment on above: PATIENT WAS FASTINGP ERFORMED BY: CB [facility] Dscwnu3720 [address] RoadDublin [place] [id number] RBC (Bld) [#/Vol] 4.61 10*6/uL Normal 3.77-5.28 Compr ehensive Internal Medicine; [facility] Work Phone: Comment on above: PATIENT WAS FASTINGP ERFORMED BY: MICHI [facility] Uixbla2107 [address]blin [place] [id number] WBC (Bld) [#/Vol] 7.6 10*3/uL Normal 3.4-10.8 Compre [facility]; [facility] Work Phone: Comment on above: PATIENT WAS FASTINGP ERFORMED BY: [facility] Dxaqky[address] [facility] Centerblin [place] [id number] CCP ANTIBODY (11863)Ordered By: Weld Fitter on 08-15-2022 Cyclic citrullinated peptide IgA+IgG IA Qn 13 {units} Normal 0-19 Comprehens [facility]; [facility] Work Phone: Comment on above: Negative <20 Weak po sitive 20 - 39 Moderate positive 40 - 59 Strong positive >59 PATIENT WAS FASTINGP ERFORMED BY: [facility] Vrrkfg1553 [address] Roadblin [place] [id number] ESR-F (SED RATE ERYTHROCYTE - FEMALE) (45265)Ordered By: Weld Fitter on 08-15-2022 ESR (Bld) [Velocity] 4 mm/h Normal 0-40 Comp [facility]; [facility] Work Phone: Comment on above: PATIENT WAS FASTINGP ERFORMED BY: CB [facility] Mauqcb0981 [address] RoadDublin [place] [id number] METABOLIC PANEL, COMPREHENSI VE (84615)Ordered By: Weld Fitter on 08-15-2022 Albumin [Mass/Vol] 4.7 g/dL Normal 3.8-4.9 [facility] Internal Medicine; [facility] Work Phone: Comment on above: PATIENT WAS FASTINGP ERFORMED BY: CB [facility] Bpwmnn1173 [address] RoadDublin [place] [id number] Albumin/Globulin [Mass ratio] 2.1 {ratio} Normal 1.2-2.2 [facility]; [facility] Work Phone: Comment on above: PATIENT WAS FASTINGP ERFORMED BY: CB [facility] Nudbyd1510 [address] RoadDublin [place] [id number] ALP [Catalytic activity/Vol] 52 U/L Normal 44-121 [facility]; [facility] Work Phone: Comment on above: PATIENT WAS FASTINGP ERFORMED BY: CB [facility] Cczwtx1479 [address] RoadDublin [place] [id number] ALT [Catalytic activity/Vol] 17 U/L Normal 0-32 [facility]; [facility] Work Phone: Comment on above: PATIENT WAS FASTINGP ERFORMED BY: CB [facility] Hhwtbe2444 [address] RoadDublin [place] [id number] AST [Catalytic activity/Vol] 26 U/L Normal 0-40 [facility]; [facility] Work Phone: Comment on above: PATIENT WAS FASTINGP ERFORMED BY: CB [facility] Tunnfl7294 [address] RoadDublin [place] [id number] Bilirubin [Mass/Vol] 0.7 mg/dL Normal 0.0-1.2 [facility] Internal Medicine; [facility] Work Phone: Comment on above: PATIENT WAS FASTINGP ERFORMED BY: CB [facility] Ezuyug8141 [address] RoadDublin [place] [id number] Calcium [Mass/Vol] 9.1 mg/dL Normal 8.7-10.2 [facility] Internal Medicine; [facility] Work Phone: Comment on above: PATIENT WAS FASTINGP ERFORMED BY: CB [facility] Jwllxa3903 [address] RoadFormerly [facility]in [place] [id number] Chloride [Moles/Vol] 99 mmol/L Normal 96-106 [facility] rehensive Internal Medicine; [facility] Work Phone: Comment on above: PATIENT WAS FASTINGP ERFORMED BY: MICHI [facility] Figuum3578 [address] RoadDublin [place] [id number] CO2 [Moles/Vol] 25 mmol/L Normal 20-29 Comprehen [facility] Internal [facility]; [facility] Work Phone: Comment on above: PATIENT WAS FASTINGP ERFORMED BY: MICHI [facility] Fcpyfy[address] [facility]in [place] [id number] Creatinine [Mass/Vol] 0.80 mg/dL Normal 0.57-1.00 [facility]; [facility] Work Phone: Comment on above: PATIENT WAS FASTINGP ERFORMED BY: MICHI [facility] Vpdkko[address] [facility] [id number] GFR/1.73 sq M.predicted among non-blacks MDRD (S/P/Bld) [Vol rate/Area] 89 mL/min/{1.73_m2} Normal Comprehensiv e Internal Medicine; [facility] Work Phone: Comment on above: PATIENT WAS FASTINGP ERFORMED BY: MICHI [facility] Wyskgp[address] [facility]in [place] [id number] Globulin (S) [Mass/Vol] 2.2 g/dL Normal 1.5-4.5 [facility]; [facility] Work Phone: Comment on above: PATIENT WAS FASTINGP ERFORMED BY: [facility] Iwiwhp[address]66 [address] [facility] HospitalD[facility] [place] [id number] Glucose [Mass/Vol] 81 mg/dL Normal 70-99 [facility] Internal [facility]; [facility] Work Phone: Comment on above: PATIENT WAS FASTINGP ERFORMED BY: MICHI [facility] Fuuscm1162 [address] RoadDublin [place] [id number] Potassium [Moles/Vol] 4.1 mmol/L Normal 3.5-5.2 Com prehensive Internal Medicine; [facility] Work Phone: Comment on above: PATIENT WAS FASTINGP ERFORMED BY: MICHI [facility] Xionth1222 [address] RoadDublin [place] [id number] Protein [Mass/Vol] 6.9 g/dL Normal 6.0-8.5 [facility] Internal Medicine; [facility] Work Phone: Comment on above: PATIENT WAS FASTINGP ERFORMED BY: MICHI [facility] Shtxnt5469 [address] RoadDublin [place] [id number] Sodium [Moles/Vol] 137 mmol/L Normal 134-144 [facility] Internal Medicine; [facility] Work Phone: Comment on above: PATIENT WAS FASTINGP ERFORMED BY: MICHI Labharriet ZayasDuppoq1349 [address] RoadDublin [place] [id number] Urea nitrogen [Mass/Vol] 13 mg/dL Normal 6-24 [facility]; [facility] Work Phone: Comment on above: PATIENT WAS FASTINGP ERFORMED BY: MICHI [facility] Ctqbnk6881 [address] RoadDublin [place] [id number] Urea nitrogen/Creatinine [Mass ratio] 16 mg/mg Normal 9-23 [facility]; [facility] Work Phone: Comment on above: PATIENT WAS FASTINGP ERFORMED BY: MICHI Laborin Jmxywf7280 [address] RoadDublin [place] [id number] RHEUMATOID FACTOR-QUANT (864 31) test code [id number] By: Weld Fitter on 08-15-2022 Rheumatoid factor Qn 20.3 [IU]/mL Abnormal Co [facility] Internal Medicine; [facility] Work Phone: Comment on above: PATIENT WAS FASTINGP ERFORMED BY: [facility] Uymedw2222 [address] RoadDublin [place] [id number] Vitamin B-12 (cyanocobalamin ) (29448)Ordered By: Weld Fitter on 08-15-2022 Cobalamin (Vitamin B12) [Mass/Vol] 635 pg/mL Normal 232-1245 [facility]; [facility] Work Phone: Comment on above: PATIENT WAS FASTINGP ERFORMED BY: MICHI [employer] Dzqgnq2955 [facility] [id number] 2018 Novel Coronavirus (COVI D-19), SHASHANK (57257)Ordered By: Weld Fitter on 04-29-20222018 Novel Coronavirus (COVID-19), SHASHANK (82812) Detected Abnormal [facility]; [facility] Work Phone: Comment on above: Client Requested Fla gPatients who have a positive COVID-19 test result may now havetreatment options. Treatment options are available for patientswith mild to moderate symptoms and for hospitalized patients.Visit our website at [email or web address] forresources and information.This nucleic acid amplification test was developed and its performancecharacteristics determined by [employer]. Nucleic acidamplification tests include RT-PCR and TMA. This test has not beenFDA cleared or approved. This test has been authorized by FDA underan Emergency Use Authorization (EUA). This test is only authorizedfor the duration of time the declaration that circumstances existjustifying the authorization of the emergency use of in vitrodiagnostic tests for detection of SARS-CoV-2 virus and/or diagnosisof COVID-19 infection under section 564(b)(1) of the Act, 21 U.S.C.360bbb-3(b) (1), unless the authorization is terminated or revokedsooner.When diagnostic testing is negative, the possibility of a falsenegative result should be considered in the context of a patient'srecent exposures and the presence of clinical signs and symptomsconsistent with COVID-19. An individual without symptoms of COVID-19and who is not shedding SARS-CoV-2 virus would expect to have anegative (not detected) result in this assay. PATIENT NOT FASTINGP ERFORMED BY: MICHI [employer] Wbwqxk0376 [facility] [id number] INHOUSE COVID 19 (ONLY) RAPI D (74534)Ordered By: Joan Oseguera on 04-29-2022 SARS-CoV-2 (COVID-19) RNA SHASHANK+probe Ql (Unsp spec) Negative Normal [facility]; [facility] Work Phone: Comment on above: neg THROAT CULTURE (19690)Ordere d By: Weld Fitter on 04-29-2022 Bacteria identified Respiratory culture Nom (Unsp spec) Final report Normal [facility]; [facility] Work Phone: Comment on above: PATIENT NOT FASTINGP ERFORMED BY: MICHI [facility] Rjbody1983 [address] Roadblin [place] [id number] Information: THROAT SRC:TH Bacteria identified Respiratory culture Nom (Unsp spec) RRF Normal [facility]; [facility] Work Phone: Comment on above: Routine respiratory charles PATIENT NOT FASTINGP ERFORMED BY: MICHI [facility] Rtvabe6480 [address] RoadFormerly [facility]in [place] [id number] Information: THROAT SRC:TH C-REACT PROT HIGH SENS(hsCRP ) (06652)Ordered By: Weld Fitter on 02-28-2022 CRP High sensitivity method [Mass/Vol] 4.41 mg/L Abnormal 0.00-3.00 [facility]; [facility] Work Phone: Comment on above: Relative Risk for Fu ture Cardiovascular Event Low <1.00 Average 1.00 - 3.00 High >3.00 PATIENT WAS FASTINGP ERFORMED BY: MICHI [facility] Zhnihb[address] [facility]in [place] [id number] LIPID PANEL (04298)Ordered B y: Weld Fitter on 02-28-2022 Cholesterol [Mass/Vol] 174 mg/dL Normal 100-199 [facility]; [facility] Work Phone: Comment on above: PATIENT WAS FASTINGP ERFORMED BY: MICHI [facility] Hkwmbj5428 [address] [employer] SolutionsFormerly [facility]in [place] [id number]; appt 8/30 Cholesterol in HDL [Mass/Vol] 60 mg/dL Normal [facility]; [facility] Work Phone: Comment on above: PATIENT WAS FASTINGP ERFORMED BY: MICHI [facility] Lrebet7927 Britt[address] RoadDublin [place] [id number]; appt 8/30 Triglyceride [Mass/Vol] 85 mg/dL Normal 0-149 [facility]; [facility] Work Phone: Comment on above: PATIENT WAS FASTINGP ERFORMED BY: MICHI Lab[facility] Qzhdwf0663 [address] RoadDublin [place] [id number]; appt 03/04 LIPID PANEL (77900) 16 mg/dL Normal 5-40 [facility]erensive [facility]; [facility] Work Phone: Comment on above: PATIENT WAS FASTINGP ERFORMED BY: MICHI [facility] Ltaxpe3902 [address] RoadDublin [place] [id number]; appt 03/04 LIPID PANEL (05000) 98 mg/dL Normal 0-99 [facility] Internal Medicine; [facility] Work Phone: Comment on above: PATIENT WAS FASTINGP ERFORMED BY: MICHI Lab[facility] ZayasPjemsc3842 Britt[address] RoadDuin [place] [id number]; appt 03/04 LIPID PANEL (28369) 1.6 {ratio} Normal 0.0-3.2 [facility] Internal Medicine; [facility] Work Phone: Comment on above: LDL/HDL Ratio Men Wo men 1/2 Avg.Risk 1.0 1.5 Avg.Risk 3.6 3.2 2X Avg.Risk 6.2 5.0 3X Avg.Risk 8.0 6.1 PATIENT WAS FASTINGP ERFORMED BY: MICHI Lab[facility] Bycdjo2562 [address] [facility]in [place] [id number]; appt 03/04 METABOLIC PANEL, COMPREHENSI VE (73978)Ordered By: Weld Fitter on 02-28-2022 Albumin [Mass/Vol] 4.5 g/dL Normal 3.8-4.9 [facility] Internal Medicine; [facility] Work Phone: Comment on above: PATIENT WAS FASTINGP ERFORMED BY: MICHI [facility] Bomwsm4324 [address] RoadDublin [place] [id number] Albumin/Globulin [Mass ratio] 2.1 {ratio} Normal 1.2-2.2 [facility]; [facility] Work Phone: Comment on above: PATIENT WAS FASTINGP ERFORMED BY: MICHI [facility] Eqzfpw4942 [address] RoadDublin [place] [id number] ALP [Catalytic activity/Vol] 55 U/L Normal 44-121 [facility]; [facility] Work Phone: Comment on above: PATIENT WAS FASTINGP ERFORMED BY: MICHI [facility] ZayasKlzzto5369 Britt[address] RoadDublin [place] [id number] ALT [Catalytic activity/Vol] 16 U/L Normal 0-32 [facility]; [facility] Work Phone: Comment on above: PATIENT WAS FASTINGP ERFORMED BY: MICHI [facility] Uqvyen5650 [address] RoadDublin [place] [id number] AST [Catalytic activity/Vol] 24 U/L Normal 0-40 [facility]; [facility] Work Phone: Comment on above: PATIENT WAS FASTINGP ERFORMED BY: MICHI Labharriet ZayasMpcdsh8983 Britt[address] RoadDublin [place] [id number] Bilirubin [Mass/Vol] 0.6 mg/dL Normal 0.0-1.2 Comp rehensive Internal Medicine; [facility] Work Phone: Comment on above: PATIENT WAS FASTINGP ERFORMED BY: MICHI Laborin Nnjhvc2875 [address] RoadDublin [place] [id number] Calcium [Mass/Vol] 9.2 mg/dL Normal 8.7-10.2 [facility] Internal Medicine; [facility] Work Phone: Comment on above: PATIENT WAS FASTINGP ERFORMED BY: [facility] Mjksqu8892 [address] RoadDublin [place] [id number] Chloride [Moles/Vol] 102 mmol/L Normal 96-106 Comp rehensive Internal Medicine; [facility] Work Phone: Comment on above: PATIENT WAS FASTINGP ERFORMED BY: CB [facility] Ndokqv9312 [address] RoadDublin [place] [id number] CO2 [Moles/Vol] 23 mmol/L Normal 20-29 [facility] Internal Medicine; [facility] Work Phone: Comment on above: PATIENT WAS FASTINGP ERFORMED BY: [facility] Lglrxh4458 [address] RoadDublin [place] [id number] Creatinine [Mass/Vol] 0.89 mg/dL Normal 0.57-1.00 [facility] prehensive Internal Medicine; [facility] Work Phone: Comment on above: PATIENT WAS FASTINGP ERFORMED BY: [facility]6370 [facility] [id number] GFR/1.73 sq M.predicted among non-blacks MDRD (S/P/Bld) [Vol rate/Area] 78 mL/min/{1.73_m2} Normal Comprehensiv e Internal Medicine; [facility] Work Phone: Comment on above: PATIENT WAS FASTINGP ERFORMED BY: [facility]6370 [facility] [id number] Globulin (S) [Mass/Vol] 2.1 g/dL Normal 1.5-4.5 [facility]; [facility] Work Phone: Comment on above: PATIENT WAS FASTINGP ERFORMED BY: [facility]6370 [facility] [id number] Glucose [Mass/Vol] 84 mg/dL Normal 65-99 [facility] Internal Medicine; [facility] Work Phone: Comment on above: PATIENT WAS FASTINGP ERFORMED BY: [facility]6370 [facility] [id number] Potassium [Moles/Vol] 4.4 mmol/L Normal 3.5-5.2 [facility] prehensive Internal Medicine; [facility] Work Phone: Comment on above: PATIENT WAS FASTINGP ERFORMED BY: [facility]6370 [facility] [id number] Protein [Mass/Vol] 6.6 g/dL Normal 6.0-8.5 [facility] Internal Medicine; [facility] Work Phone: Comment on above: PATIENT WAS FASTINGP ERFORMED BY: [facility]6370 [facility] [id number] Sodium [Moles/Vol] 139 mmol/L Normal 134-144 [facility] Internal Medicine; [facility] Work Phone: Comment on above: PATIENT WAS FASTINGP ERFORMED BY: CB [facility] Udivqw0567 [address] RoadDublin [place] [id number] Urea nitrogen [Mass/Vol] 13 mg/dL Normal 6-24 [facility]; [facility] Work Phone: Comment on above: PATIENT WAS FASTINGP ERFORMED BY: CB [facility] Rlnjxd3257 [address] RoadDublin [place] [id number] Urea nitrogen/Creatinine [Mass ratio] 15 mg/mg Normal 9-23 [facility]; [facility] Work Phone: Comment on above: PATIENT WAS FASTINGP ERFORMED BY: CB [facility] Rxsrup5253 [address] RoadDublin [place] [id number] Vitamin D Hydroxy (41670)Ord ered By: Weld Fitter on 02-28-2022 25-hydroxyvitamin D [Mass/Vol] 85.3 ng/mL Normal 30.0-100.0 [facility]; [facility] Work Phone: Comment on above: Vitamin D deficiency has been defined by the [place] ofMedicine and an Endocrine Society practice guideline as alevel of serum 25-OH vitamin D less than 20 ng/mL (1,2).The Endocrine Society went on to further define vitamin Dinsufficiency as a level between 21 and 29 ng/mL (2).1. IOM ([place] of Medicine). 2010. Dietary reference intakes for calcium and D. [place]: The National Academies Press.2. Sabi MF, Prosper [place], Daphney COE, et al. Evaluation, treatment, and prevention of vitamin D deficiency: an Endocrine Society clinical practice guideline. JCEM. 2010; 96(7):1911-30. PATIENT WAS FASTINGP ERFORMED BY: CB [facility] Oahfqq9788 [address] [employer] SolutionsDublin [place] [id number] C-REACTIVE PROTEIN (31869)Or dered By: Weld Fitter on 08-26-2021 CRP [Mass/Vol] 2 mg/L Normal 0-10 [facility]prehens [facility]; [facility] Work Phone: Comment on above: PATIENT NOT FASTINGP ERFORMED BY: [employer]6370 [address] [facility]absPsychiatric hospital [id number] BY: [employer] [address] [id number] CCP ANTIBODY (85600)Ordered By: Weld Fitter on 08-26-2021 Cyclic citrullinated peptide IgA+IgG IA Qn 20 {units} Abnormal 0-19 Comprehens [facility] Internal Medicine; [facility] Work Phone: Comment on above: Negative <20 Weak po sitive 20 - 39 Moderate positive 40 - 59 Strong positive >59 PATIENT NOT FASTINGP ERFORMED BY: Ning70 BrittonGuangdong Hengxing GroupFormerly [facility] [id number] BY: [employer] [address] [id number] RHEUMATOID FACTOR-QUANT (862 36)Ordered By: Weld Fitter on 08-26-2021 Rheumatoid factor Qn 17.4 [IU]/mL Abnormal Co mprehensive Internal Medicine; [facility] Work Phone: Comment on above: PATIENT NOT FASTINGP ERFORMED BY: Cle[employer]6370 BrittonGuangdong Hengxing GroupFormerly [facility] & [facility] [id number] BY: [employer] [address] [id number] SED RATE ERYTHROCYTE (38583) Ordered By: Weld Fitter on 08-26-2021 ESR (Bld) [Velocity] 2 mm/h Normal 0-40 Comp [facility]; [facility] Work Phone: Comment on above: PATIENT NOT FASTINGP ERFORMED BY: [employer] Qjqyon8032 [facility] [id number] BY: [employer] [address] [id number] Vitamin B-12 (cyanocobalamin ) (62550)Ordered By: Weld Fitter on 08-26-2021 Cobalamin (Vitamin B12) [Mass/Vol] 715 pg/mL Normal 232-1245 [facility]; [facility] Work Phone: Comment on above: PATIENT NOT FASTINGP ERFORMED BY: [facility]6370 [facility] [id number] BY: [facility]1447 [facility] [id number] CBC, PLATELETS & MANUAL DIFF (08008)Ordered By: Weld Fitter on 08-12-2021 Basophils (Bld) [#/Vol] 0.0 10*3/uL Normal 0.0-0.2 [facility]; [facility] Work Phone: Comment on above: Test(s) 714930-BBEU- CoV-2 Semi-Quant Total Ab; 483627-IHVJ-ChZ-0 Malick Ab Interphas not been FDA cleared or approved. This test hasbeen authorized by FDA under an Emergency Use Authorization(EUA). This test is only authorized for the duration of thedeclaration that circumstances exist justifying the authorizationof emergency use of in vitro diagnostics for detection and/ordiagnosis of COVID-19 under Section 564(b)(1) of the Act, 21U.S.C. 360bbb-3(b)(1), unless the authorization is terminated orrevoked sooner. This test has been authorized only for detectingthe presence of antibodies against SARS-CoV-2, not for any otherviruses or pathogens.PATIENT WAS FASTINGPERFORMED BY: [employer] PlatformUniversity [facility] Health6370 [facility] [id number] Information: NURSE DRAW Basophils/100 WBC (Bld) 0 % Normal [facility]; [facility] Work Phone: Comment on above: Test(s) 511591-CKTN- CoV-2 Semi-Quant Total Ab; 652450-WLWN-NiM-4 Malick Ab Interphas not been FDA cleared or approved. This test hasbeen authorized by FDA under an Emergency Use Authorization(EUA). This test is only authorized for the duration of thedeclaration that circumstances exist justifying the authorizationof emergency use of in vitro diagnostics for detection and/ordiagnosis of COVID-19 under Section 564(b)(1) of the Act, 21U.S.C. 360bbb-3(b)(1), unless the authorization is terminated orrevoked sooner. This test has been authorized only for detectingthe presence of antibodies against SARS-CoV-2, not for any otherviruses or pathogens.PATIENT WAS FASTINGPERFORMED BY: [facility]6370 [facility] [id number] Information: NURSE DRAW Eosinophils (Bld) [#/Vol] 0.1 10*3/uL Normal 0.0-0.4 [facility]; [facility] Work Phone: Comment on above: Test(s) 918218-TLHP- CoV-2 Semi-Quant Total Ab; 352634-BWLL-TmA-4 Malick Ab Interphas not been FDA cleared or approved. This test hasbeen authorized by FDA under an Emergency Use Authorization(EUA). This test is only authorized for the duration of thedeclaration that circumstances exist justifying the authorizationof emergency use of in vitro diagnostics for detection and/ordiagnosis of COVID-19 under Section 564(b)(1) of the Act, 21U.S.C. 360bbb-3(b)(1), unless the authorization is terminated orrevoked sooner. This test has been authorized only for detectingthe presence of antibodies against SARS-CoV-2, not for any otherviruses or pathogens.PATIENT WAS FASTINGPERFORMED BY: [facility] [id number] Information: NURSE DRAW Eosinophils/100 WBC (Bld) 2 % Normal [facility]; [facility] Work Phone: Comment on above: Test(s) 481120-CTQE- CoV-2 Semi-Quant Total Ab; 160698-XPFR-SiZ-5 Malick Ab Interphas not been FDA cleared or approved. This test hasbeen authorized by FDA under an Emergency Use Authorization(EUA). This test is only authorized for the duration of thedeclaration that circumstances exist justifying the authorizationof emergency use of in vitro diagnostics for detection and/ordiagnosis of COVID-19 under Section 564(b)(1) of the Act, 21U.S.C. 360bbb-3(b)(1), unless the authorization is terminated orrevoked sooner. This test has been authorized only for detectingthe presence of antibodies against SARS-CoV-2, not for any otherviruses or pathogens.PATIENT WAS FASTINGPERFORMED BY: [facility] [facility] [id number] Information: NURSE DRAW Erythrocyte distribution width (RBC) [Ratio] 13.1 % Normal 11.7-15.4 [facility]; [facility] Work Phone: Comment on above: Test(s) 236401-HKXM- CoV-2 Semi-Quant Total Ab; 792140-WSVR-EhV-5 Malick Ab Interphas not been FDA cleared or approved. This test hasbeen authorized by FDA under an Emergency Use Authorization(EUA). This test is only authorized for the duration of thedeclaration that circumstances exist justifying the authorizationof emergency use of in vitro diagnostics for detection and/ordiagnosis of COVID-19 under Section 564(b)(1) of the Act, 21U.S.C. 360bbb-3(b)(1), unless the authorization is terminated orrevoked sooner. This test has been authorized only for detectingthe presence of antibodies against SARS-CoV-2, not for any otherviruses or pathogens.PATIENT WAS FASTINGPERFORMED BY: [facility] [id number] Information: NURSE DRAW Hematocrit (Bld) [Volume fraction] 42.1 % Normal 34.0-46.6 [facility]; [facility] Work Phone: Comment on above: Test(s) 523697-ARSN- CoV-2 Semi-Quant Total Ab; 703455-EJQE-LyS-7 [facility] Ab Interphas not been FDA cleared or approved. This test hasbeen authorized by FDA under an Emergency Use Authorization(EUA). This test is only authorized for the duration of thedeclaration that circumstances exist justifying the authorizationof emergency use of in vitro diagnostics for detection and/ordiagnosis of COVID-19 under Section 564(b)(1) of the Act, 21U.S.C. 360bbb-3(b)(1), unless the authorization is terminated orrevoked sooner. This test has been authorized only for detectingthe presence of antibodies against SARS-CoV-2, not for any otherviruses or pathogens.PATIENT WAS FASTINGPERFORMED BY: [place] [id number] [facility] [id number] Information: NURSE DRAW Hemoglobin (Bld) [Mass/Vol] 14.2 g/dL Normal 11.1-15.9 [facility]; [facility] Work Phone: Comment on above: Test(s) 582528-WSAW- CoV-2 Semi-Quant Total Ab; 573754-KZYQ-NpH-6 [facility] Ab Interphas not been FDA cleared or approved. This test hasbeen authorized by FDA under an Emergency Use Authorization(EUA). This test is only authorized for the duration of thedeclaration that circumstances exist justifying the authorizationof emergency use of in vitro diagnostics for detection and/ordiagnosis of COVID-19 under Section 564(b)(1) of the Act, 21U.S.C. 360bbb-3(b)(1), unless the authorization is terminated orrevoked sooner. This test has been authorized only for detectingthe presence of antibodies against SARS-CoV-2, not for any otherviruses or pathogens.PATIENT WAS FASTINGPERFORMED BY: [facility] [facility] [id number] Information: NURSE DRAW Immature granulocytes (Bld) [#/Vol] 0.0 10*3/uL Normal 0.0-0.1 [facility]; [facility] Work Phone: Comment on above: Test(s) 362591-TIJR- CoV-2 Semi-Quant Total Ab; 756081-UDZE-KgB-0 [facility]ick Ab Interphas not been FDA cleared or approved. This test hasbeen authorized by FDA under an Emergency Use Authorization(EUA). This test is only authorized for the duration of thedeclaration that circumstances exist justifying the authorizationof emergency use of in vitro diagnostics for detection and/ordiagnosis of COVID-19 under Section 564(b)(1) of the Act, 21U.S.C. 360bbb-3(b)(1), unless the authorization is terminated orrevoked sooner. This test has been authorized only for detectingthe presence of antibodies against SARS-CoV-2, not for any otherviruses or pathogens.PATIENT WAS FASTINGPERFORMED BY: [facility] [facility] [id number] Information: NURSE DRAW Immature granulocytes/100 WBC (Bld) 0 % Normal [facility]; [facility] Work Phone: Comment on above: Test(s) 566089-OUCG- CoV-2 Semi-Quant Total Ab; 288904-RLRR-YaV-7 [facility] Ab Interphas not been FDA cleared or approved. This test hasbeen authorized by FDA under an Emergency Use Authorization(EUA). This test is only authorized for the duration of thedeclaration that circumstances exist justifying the authorizationof emergency use of in vitro diagnostics for detection and/ordiagnosis of COVID-19 under Section 564(b)(1) of the Act, 21U.S.C. 360bbb-3(b)(1), unless the authorization is terminated orrevoked sooner. This test has been authorized only for detectingthe presence of antibodies against SARS-CoV-2, not for any otherviruses or pathogens.PATIENT WAS FASTINGPERFORMED BY: [facility] [facility] [id number] Information: NURSE DRAW Lymphocytes (Bld) [#/Vol] 2.1 10*3/uL Normal 0.7-3.1 [facility]; [facility] Work Phone: Comment on above: Test(s) 456726-ERBE- CoV-2 Semi-Quant Total Ab; 672679-PFEI-HzI-4 [facility]ick Ab Interphas not been FDA cleared or approved. This test hasbeen authorized by FDA under an Emergency Use Authorization(EUA). This test is only authorized for the duration of thedeclaration that circumstances exist justifying the authorizationof emergency use of in vitro diagnostics for detection and/ordiagnosis of COVID-19 under Section 564(b)(1) of the Act, 21U.S.C. 360bbb-3(b)(1), unless the authorization is terminated orrevoked sooner. This test has been authorized only for detectingthe presence of antibodies against SARS-CoV-2, not for any otherviruses or pathogens.PATIENT WAS FASTINGPERFORMED BY: [facility] [facility] [id number] Information: NURSE DRAW Lymphocytes/100 WBC (Bld) 32 % Normal [facility]; [facility] Work Phone: Comment on above: Test(s) 899244-KAKJ- CoV-2 Semi-Quant Total Ab; 405687-DSKR-BhG-0 [facility]ick Ab Interphas not been FDA cleared or approved. This test hasbeen authorized by FDA under an Emergency Use Authorization(EUA). This test is only authorized for the duration of thedeclaration that circumstances exist justifying the authorizationof emergency use of in vitro diagnostics for detection and/ordiagnosis of COVID-19 under Section 564(b)(1) of the Act, 21U.S.C. 360bbb-3(b)(1), unless the authorization is terminated orrevoked sooner. This test has been authorized only for detectingthe presence of antibodies against SARS-CoV-2, not for any otherviruses or pathogens.PATIENT WAS FASTINGPERFORMED BY: [facility] [facility] [id number] Information: NURSE DRAW MCH (RBC) [Entitic mass] 30.8 pg Normal 26.6-33.0 [facility]; [facility] Work Phone: Comment on above: Test(s) 694850-DVQJ- CoV-2 Semi-Quant Total Ab; 365067-YFLA-AyV-4 [facility]ick Ab Interphas not been FDA cleared or approved. This test hasbeen authorized by FDA under an Emergency Use Authorization(EUA). This test is only authorized for the duration of thedeclaration that circumstances exist justifying the authorizationof emergency use of in vitro diagnostics for detection and/ordiagnosis of COVID-19 under Section 564(b)(1) of the Act, 21U.S.C. 360bbb-3(b)(1), unless the authorization is terminated orrevoked sooner. This test has been authorized only for detectingthe presence of antibodies against SARS-CoV-2, not for any otherviruses or pathogens.PATIENT WAS FASTINGPERFORMED BY: [facility] [facility] [id number] Information: NURSE DRAW MCHC (RBC) [Mass/Vol] 33.7 g/dL Normal 31.5-35.7 [facility]; [facility] Work Phone: Comment on above: Test(s) 071160-GTQS- CoV-2 Semi-Quant Total Ab; 611541-UDJS-OoP-5 Malick Ab Interphas not been FDA cleared or approved. This test hasbeen authorized by FDA under an Emergency Use Authorization(EUA). This test is only authorized for the duration of thedeclaration that circumstances exist justifying the authorizationof emergency use of in vitro diagnostics for detection and/ordiagnosis of COVID-19 under Section 564(b)(1) of the Act, 21U.S.C. 360bbb-3(b)(1), unless the authorization is terminated orrevoked sooner. This test has been authorized only for detectingthe presence of antibodies against SARS-CoV-2, not for any otherviruses or pathogens.PATIENT WAS FASTINGPERFORMED BY: [facility] [facility] [id number] Information: NURSE DRAW MCV (RBC) [Entitic vol] 91 fL Normal 79-97 [facility]; [facility] Work Phone: Comment on above: Test(s) 051054-PIWY- CoV-2 Semi-Quant Total Ab; 915877-AHBW-CrO-0 Malick Ab Interphas not been FDA cleared or approved. This test hasbeen authorized by FDA under an Emergency Use Authorization(EUA). This test is only authorized for the duration of thedeclaration that circumstances exist justifying the authorizationof emergency use of in vitro diagnostics for detection and/ordiagnosis of COVID-19 under Section 564(b)(1) of the Act, 21U.S.C. 360bbb-3(b)(1), unless the authorization is terminated orrevoked sooner. This test has been authorized only for detectingthe presence of antibodies against SARS-CoV-2, not for any otherviruses or pathogens.PATIENT WAS FASTINGPERFORMED BY: [facility] [facility] [id number] Information: NURSE DRAW Monocytes (Bld) [#/Vol] 0.4 10*3/uL Normal 0.1-0.9 [facility]; [facility] Work Phone: Comment on above: Test(s) 895068-AAAZ- CoV-2 Semi-Quant Total Ab; 448403-OHBN-DlB-8 [facility]ick Ab Interphas not been FDA cleared or approved. This test hasbeen authorized by FDA under an Emergency Use Authorization(EUA). This test is only authorized for the duration of thedeclaration that circumstances exist justifying the authorizationof emergency use of in vitro diagnostics for detection and/ordiagnosis of COVID-19 under Section 564(b)(1) of the Act, 21U.S.C. 360bbb-3(b)(1), unless the authorization is terminated orrevoked sooner. This test has been authorized only for detectingthe presence of antibodies against SARS-CoV-2, not for any otherviruses or pathogens.PATIENT WAS FASTINGPERFORMED BY: [facility] [facility] [id number] Information: NURSE DRAW Monocytes/100 WBC (Bld) 7 % Normal [facility]; [facility] Work Phone: Comment on above: Test(s) 105119-VHJJ- CoV-2 Semi-Quant Total Ab; 748945-OUZP-QgG-1 Malick Ab Interphas not been FDA cleared or approved. This test hasbeen authorized by FDA under an Emergency Use Authorization(EUA). This test is only authorized for the duration of thedeclaration that circumstances exist justifying the authorizationof emergency use of in vitro diagnostics for detection and/ordiagnosis of COVID-19 under Section 564(b)(1) of the Act, 21U.S.C. 360bbb-3(b)(1), unless the authorization is terminated orrevoked sooner. This test has been authorized only for detectingthe presence of antibodies against SARS-CoV-2, not for any otherviruses or pathogens.PATIENT WAS FASTINGPERFORMED BY: [facility] [facility] [id number] Information: NURSE DRAW Neutrophils (Bld) [#/Vol] 3.9 10*3/uL Normal 1.4-7.0 [facility]; [facility] Work Phone: Comment on above: Test(s) 873235-VPCA- CoV-2 Semi-Quant Total Ab; 969115-NRNT-RtT-7 Malick Ab Interphas not been FDA cleared or approved. This test hasbeen authorized by FDA under an Emergency Use Authorization(EUA). This test is only authorized for the duration of thedeclaration that circumstances exist justifying the authorizationof emergency use of in vitro diagnostics for detection and/ordiagnosis of COVID-19 under Section 564(b)(1) of the Act, 21U.S.C. 360bbb-3(b)(1), unless the authorization is terminated orrevoked sooner. This test has been authorized only for detectingthe presence of antibodies against SARS-CoV-2, not for any otherviruses or pathogens.PATIENT WAS FASTINGPERFORMED BY: [facility] [facility] [id number] Information: NURSE DRAW Neutrophils/100 WBC (Bld) 59 % Normal [facility]; [facility] Work Phone: Comment on above: Test(s) 338844-BPAL- CoV-2 Semi-Quant Total Ab; 629495-OSIP-LbY-9 Malikc Ab Interphas not been FDA cleared or approved. This test hasbeen authorized by FDA under an Emergency Use Authorization(EUA). This test is only authorized for the duration of thedeclaration that circumstances exist justifying the authorizationof emergency use of in vitro diagnostics for detection and/ordiagnosis of COVID-19 under Section 564(b)(1) of the Act, 21U.S.C. 360bbb-3(b)(1), unless the authorization is terminated orrevoked sooner. This test has been authorized only for detectingthe presence of antibodies against SARS-CoV-2, not for any otherviruses or pathogens.PATIENT WAS FASTINGPERFORMED BY: [facility] [facility] [id number] Information: NURSE DRAW Platelets (Bld) [#/Vol] 285 10*3/uL Normal 150-450 [facility]; [facility] Work Phone: Comment on above: Test(s) 924207-JGOO- CoV-2 Semi-Quant Total Ab; 570092-NRGJ-IpM-9 [facility]ick Ab Interphas not been FDA cleared or approved. This test hasbeen authorized by FDA under an Emergency Use Authorization(EUA). This test is only authorized for the duration of thedeclaration that circumstances exist justifying the authorizationof emergency use of in vitro diagnostics for detection and/ordiagnosis of COVID-19 under Section 564(b)(1) of the Act, 21U.S.C. 360bbb-3(b)(1), unless the authorization is terminated orrevoked sooner. This test has been authorized only for detectingthe presence of antibodies against SARS-CoV-2, not for any otherviruses or pathogens.PATIENT WAS FASTINGPERFORMED BY: [facility] [facility] [id number] Information: NURSE DRAW RBC (Bld) [#/Vol] 4.61 10*6/uL Normal 3.77-5.28 [facility]; [facility] Work Phone: Comment on above: Test(s) 342368-CLSX- CoV-2 Semi-Quant Total Ab; 409406-NZAU-GuI-1 Malick Ab Interphas not been FDA cleared or approved. This test hasbeen authorized by FDA under an Emergency Use Authorization(EUA). This test is only authorized for the duration of thedeclaration that circumstances exist justifying the authorizationof emergency use of in vitro diagnostics for detection and/ordiagnosis of COVID-19 under Section 564(b)(1) of the Act, 21U.S.C. 360bbb-3(b)(1), unless the authorization is terminated orrevoked sooner. This test has been authorized only for detectingthe presence of antibodies against SARS-CoV-2, not for any otherviruses or pathogens.PATIENT WAS FASTINGPERFORMED BY: [facility] [facility] [id number] Information: NURSE DRAW WBC (Bld) [#/Vol] 6.6 10*3/uL Normal 3.4-10.8 [facility]; [facility] Work Phone: Comment on above: Test(s) 224314-KKTB- CoV-2 Semi-Quant Total Ab; 562567-RCCZ-HpF-9 Malick Ab Interphas not been FDA cleared or approved. This test hasbeen authorized by FDA under an Emergency Use Authorization(EUA). This test is only authorized for the duration of thedeclaration that circumstances exist justifying the authorizationof emergency use of in vitro diagnostics for detection and/ordiagnosis of COVID-19 under Section 564(b)(1) of the Act, 21U.S.C. 360bbb-3(b)(1), unless the authorization is terminated orrevoked sooner. This test has been authorized only for detectingthe presence of antibodies against SARS-CoV-2, not for any otherviruses or pathogens.PATIENT WAS FASTINGPERFORMED BY: [facility] [facility] [id number] Information: NURSE DRAW METABOLIC PANEL, COMPREHENSI VE (03358)Ordered By: Weld Fitter on 08-12-2021 Albumin [Mass/Vol] 4.8 g/dL Normal 3.8-4.9 [facility]; [facility] Work Phone: Comment on above: Test(s) 548068-NGIA- CoV-2 Semi-Quant Total Ab; 318112-XYOF-GuC-8 [facility]ick Ab Interphas not been FDA cleared or approved. This test hasbeen authorized by FDA under an Emergency Use Authorization(EUA). This test is only authorized for the duration of thedeclaration that circumstances exist justifying the authorizationof emergency use of in vitro diagnostics for detection and/ordiagnosis of COVID-19 under Section 564(b)(1) of the Act, 21U.S.C. 360bbb-3(b)(1), unless the authorization is terminated orrevoked sooner. This test has been authorized only for detectingthe presence of antibodies against SARS-CoV-2, not for any otherviruses or pathogens.PATIENT WAS FASTINGPERFORMED BY: [facility] [facility] [id number] Albumin/Globulin [Mass ratio] 1.8 {ratio} Normal 1.2-2.2 [facility]; [facility] Work Phone: Comment on above: Test(s) 749957-AXOJ- CoV-2 Semi-Quant Total Ab; 652776-QIXY-ZkP-8 [facility]ick Ab Interphas not been FDA cleared or approved. This test hasbeen authorized by FDA under an Emergency Use Authorization(EUA). This test is only authorized for the duration of thedeclaration that circumstances exist justifying the authorizationof emergency use of in vitro diagnostics for detection and/ordiagnosis of COVID-19 under Section 564(b)(1) of the Act, 21U.S.C. 360bbb-3(b)(1), unless the authorization is terminated orrevoked sooner. This test has been authorized only for detectingthe presence of antibodies against SARS-CoV-2, not for any otherviruses or pathogens.PATIENT WAS FASTINGPERFORMED BY: [facility] [facility] [id number] ALP [Catalytic activity/Vol] 76 U/L Normal 44-121 [facility]; [facility] Work Phone: Comment on above: Test(s) 353154-MIQT- CoV-2 Semi-Quant Total Ab; 974889-NYSV-DfM-1 [facility]ick Ab Interphas not been FDA cleared or approved. This test hasbeen authorized by FDA under an Emergency Use Authorization(EUA). This test is only authorized for the duration of thedeclaration that circumstances exist justifying the authorizationof emergency use of in vitro diagnostics for detection and/ordiagnosis of COVID-19 under Section 564(b)(1) of the Act, 21U.S.C. 360bbb-3(b)(1), unless the authorization is terminated orrevoked sooner. This test has been authorized only for detectingthe presence of antibodies against SARS-CoV-2, not for any otherviruses or pathogens.PATIENT WAS FASTINGPERFORMED BY: [facility] Wnbzdq7946 [facility] [id number] ALT [Catalytic activity/Vol] 17 U/L Normal 0-32 [facility]; [facility] Work Phone: Comment on above: Test(s) 669421-SUXW- CoV-2 Semi-Quant Total Ab; 064404-OVAA-WjW-6 Malick Ab Interphas not been FDA cleared or approved. This test hasbeen authorized by [facility] under an Emergency Use Authorization(EUA). This test is only authorized for the duration of thedeclaration that circumstances exist justifying the authorizationof emergency use of in vitro diagnostics for detection and/ordiagnosis of COVID-19 under Section 564(b)(1) of the Act, 21U.S.C. 360bbb-3(b)(1), unless the authorization is terminated orrevoked sooner. This test has been authorized only for detectingthe presence of antibodies against SARS-CoV-2, not for any otherviruses or pathogens.PATIENT WAS FASTINGPERFORMED BY: [facility] [id number] [facility] [id number] AST [Catalytic activity/Vol] 28 U/L Normal 0-40 [facility]; [facility] Work Phone: Comment on above: Test(s) 946826-MBRT- CoV-2 Semi-Quant Total Ab; 489441-XDFB-QxE-0 Malick Ab Interphas not been FDA cleared or approved. This test hasbeen authorized by [facility] under an Emergency Use Authorization(EUA). This test is only authorized for the duration of thedeclaration that circumstances exist justifying the authorizationof emergency use of in vitro diagnostics for detection and/ordiagnosis of COVID-19 under Section 564(b)(1) of the Act, 21U.S.C. 360bbb-3(b)(1), unless the authorization is terminated orrevoked sooner. This test has been authorized only for detectingthe presence of antibodies against SARS-CoV-2, not for any otherviruses or pathogens.PATIENT WAS FASTINGPERFORMED BY: [facility] [place] [employer] [id number] Bilirubin [Mass/Vol] 0.2 mg/dL Normal 0.0-1.2 [facility]; [facility] Work Phone: Comment on above: Test(s) [id number]-FWXJ- CoV-2 Semi-Quant Total Ab; 376096-YRTY-ZiX-3 Malick Ab Interphas not been FDA cleared or approved. This test hasbeen authorized by FDA under an Emergency Use Authorization(EUA). This test is only authorized for the duration of thedeclaration that circumstances exist justifying the authorizationof emergency use of in vitro diagnostics for detection and/ordiagnosis of COVID-19 under Section 564(b)(1) of the Act, 21U.S.C. 360bbb-3(b)(1), unless the authorization is terminated orrevoked sooner. This test has been authorized only for detectingthe presence of antibodies against SARS-CoV-2, not for any otherviruses or pathogens.PATIENT WAS FASTINGPERFORMED BY: [employer] [id number] [facility] [id number] Calcium [Mass/Vol] 9.1 mg/dL Normal 8.7-10.2 [facility]; [facility] Work Phone: Comment on above: Test(s) 482653-YZDY- CoV-2 Semi-Quant Total Ab; 113880-LQEK-GlF-3 Malick Ab Interphas not been FDA cleared or approved. This test hasbeen authorized by [facility] under an Emergency Use Authorization(EUA). This test is only authorized for the duration of thedeclaration that circumstances exist justifying the authorizationof emergency use of in vitro diagnostics for detection and/ordiagnosis of COVID-19 under Section 564(b)(1) of the Act, 21U.S.C. 360bbb-3(b)(1), unless the authorization is terminated orrevoked sooner. This test has been authorized only for detectingthe presence of antibodies against SARS-CoV-2, not for any otherviruses or pathogens.PATIENT WAS FASTINGPERFORMED BY: [facility] [employer]Former[facility] [id number] Chloride [Moles/Vol] 102 mmol/L Normal 96-106 [facility]; [facility] Work Phone: Comment on above: Test(s) 237153-JVVU- CoV-2 Semi-Quant Total Ab; 052492-IFVK-ItO-2 Malick Ab Interphas not been FDA cleared or approved. This test hasbeen authorized by FDA under an Emergency Use Authorization(EUA). This test is only authorized for the duration of thedeclaration that circumstances exist justifying the authorizationof emergency use of in vitro diagnostics for detection and/ordiagnosis of COVID-19 under Section 564(b)(1) of the Act, 21U.S.C. 360bbb-3(b)(1), unless the authorization is terminated orrevoked sooner. This test has been authorized only for detectingthe presence of antibodies against SARS-CoV-2, not for any otherviruses or pathogens.PATIENT WAS FASTINGPERFORMED BY: Cleverlize6370 ON-S Seguran[facility] [id number] CO2 [Moles/Vol] 23 mmol/L Normal 20-29 Comprehen [facility]; [facility] Work Phone: Comment on above: Test(s) 412858-NXAN- CoV-2 Semi-Quant Total Ab; 859624-OMJI-CgH-5 Malick Ab Interphas not been FDA cleared or approved. This test hasbeen authorized by [facility] under an Emergency Use Authorization(EUA). This test is only authorized for the duration of thedeclaration that circumstances exist justifying the authorizationof emergency use of in vitro diagnostics for detection and/ordiagnosis of COVID-19 under Section 564(b)(1) of the Act, 21U.S.C. 360bbb-3(b)(1), unless the authorization is terminated orrevoked sooner. This test has been authorized only for detectingthe presence of antibodies against SARS-CoV-2, not for any otherviruses or pathogens.PATIENT WAS FASTINGPERFORMED BY: Cleverlize6370 [facility] [id number] Creatinine [Mass/Vol] 0.82 mg/dL Normal 0.57-1.00 [facility] prehensive Internal Medicine; [facility] Work Phone: Comment on above: Test(s) 886899-YDKY- CoV-2 Semi-Quant Total Ab; 810617-AGPM-NmH-6 Malick Ab Interphas not been FDA cleared or approved. This test hasbeen authorized by FDA under an Emergency Use Authorization(EUA). This test is only authorized for the duration of thedeclaration that circumstances exist justifying the authorizationof emergency use of in vitro diagnostics for detection and/ordiagnosis of COVID-19 under Section 564(b)(1) of the Act, 21U.S.C. 360bbb-3(b)(1), unless the authorization is terminated orrevoked sooner. This test has been authorized only for detectingthe presence of antibodies against SARS-CoV-2, not for any otherviruses or pathogens.PATIENT WAS FASTINGPERFORMED BY: [facility]6370 [facility] [id number] GFR/1.73 sq M.predicted among blacks CKD-EPI (S/P/Bld) [Vol rate/Area] 96 mL/min/1.73 Normal [facility]; [facility] Work Phone: Comment on above: In accordance with recommendations from the NKF-ASN Task force, [facility] is in the process of updating its eGFR calculation to the 2020 CKD-EPI creatinine equation that estimates kidney function without a race variable. Test(s) 977712-WPVR- CoV-2 Semi-Quant Total Ab; 580560-VLYZ-CaC-5 Malick Ab Interphas not been FDA cleared or approved. This test hasbeen authorized by FDA under an Emergency Use Authorization(EUA). This test is only authorized for the duration of thedeclaration that circumstances exist justifying the authorizationof emergency use of in vitro diagnostics for detection and/ordiagnosis of COVID-19 under Section 564(b)(1) of the Act, 21U.S.C. 360bbb-3(b)(1), unless the authorization is terminated orrevoked sooner. This test has been authorized only for detectingthe presence of antibodies against SARS-CoV-2, not for any otherviruses or pathogens.PATIENT WAS FASTINGPERFORMED BY: [facility]6370 [facility] [id number] GFR/1.73 sq M.predicted among non-blacks CKD-EPI (S/P/Bld) [Vol rate/Area] 83 mL/min/1.73 Normal [facility]; [facility] Work Phone: Comment on above: Test(s) 923354-SATA- CoV-2 Semi-Quant Total Ab; 910306-QNBY-XhK-0 Malick Ab Interphas not been FDA cleared or approved. This test hasbeen authorized by FDA under an Emergency Use Authorization(EUA). This test is only authorized for the duration of thedeclaration that circumstances exist justifying the authorizationof emergency use of in vitro diagnostics for detection and/ordiagnosis of COVID-19 under Section 564(b)(1) of the Act, 21U.S.C. 360bbb-3(b)(1), unless the authorization is terminated orrevoked sooner. This test has been authorized only for detectingthe presence of antibodies against SARS-CoV-2, not for any otherviruses or pathogens.PATIENT WAS FASTINGPERFORMED BY: [facility]6370 [facility] [id number] Globulin (S) [Mass/Vol] 2.7 g/dL Normal 1.5-4.5 [facility]; [facility] Work Phone: Comment on above: Test(s) 000287-ZGVX- CoV-2 Semi-Quant Total Ab; 113815-WEGX-GhR-0 Malick Ab Interphas not been FDA cleared or approved. This test hasbeen authorized by FDA under an Emergency Use Authorization(EUA). This test is only authorized for the duration of thedeclaration that circumstances exist justifying the authorizationof emergency use of in vitro diagnostics for detection and/ordiagnosis of COVID-19 under Section 564(b)(1) of the Act, 21U.S.C. 360bbb-3(b)(1), unless the authorization is terminated orrevoked sooner. This test has been authorized only for detectingthe presence of antibodies against SARS-CoV-2, not for any otherviruses or pathogens.PATIENT WAS FASTINGPERFORMED BY: [facility]6370 [facility] [id number] Glucose [Mass/Vol] 94 mg/dL Normal 65-99 [facility]; [facility] Work Phone: Comment on above: Test(s) 437128-ICLP- CoV-2 Semi-Quant Total Ab; 748056-XPYZ-JuQ-6 Malick Ab Interphas not been FDA cleared or approved. This test hasbeen authorized by FDA under an Emergency Use Authorization(EUA). This test is only authorized for the duration of thedeclaration that circumstances exist justifying the authorizationof emergency use of in vitro diagnostics for detection and/ordiagnosis of COVID-19 under Section 564(b)(1) of the Act, 21U.S.C. 360bbb-3(b)(1), unless the authorization is terminated orrevoked sooner. This test has been authorized only for detectingthe presence of antibodies against SARS-CoV-2, not for any otherviruses or pathogens.PATIENT WAS FASTINGPERFORMED BY: [facility]6370 [facility] [id number] Potassium [Moles/Vol] 4.1 mmol/L Normal 3.5-5.2 [facility] prehensive Internal Medicine; [facility] Work Phone: Comment on above: Test(s) 267560-JTMD- CoV-2 Semi-Quant Total Ab; 894814-DSEW-QgS-7 Malick Ab Interphas not been FDA cleared or approved. This test hasbeen authorized by FDA under an Emergency Use Authorization(EUA). This test is only authorized for the duration of thedeclaration that circumstances exist justifying the authorizationof emergency use of in vitro diagnostics for detection and/ordiagnosis of COVID-19 under Section 564(b)(1) of the Act, 21U.S.C. 360bbb-3(b)(1), unless the authorization is terminated orrevoked sooner. This test has been authorized only for detectingthe presence of antibodies against SARS-CoV-2, not for any otherviruses or pathogens.PATIENT WAS FASTINGPERFORMED BY: [employer] Aokfkc1880 [facility] [id number] Protein [Mass/Vol] 7.5 g/dL Normal 6.0-8.5 [facility] Internal Medicine; [facility] Work Phone: Comment on above: Test(s) 383764-RZAR- CoV-2 Semi-Quant Total Ab; 777542-IFRQ-OrU-2 Malick Ab Interphas not been FDA cleared or approved. This test hasbeen authorized by [facility] under an Emergency Use Authorization(EUA). This test is only authorized for the duration of thedeclaration that circumstances exist justifying the authorizationof emergency use of in vitro diagnostics for detection and/ordiagnosis of COVID-19 under Section 564(b)(1) of the Act, 21U.S.C. 360bbb-3(b)(1), unless the authorization is terminated orrevoked sooner. This test has been authorized only for detectingthe presence of antibodies against SARS-CoV-2, not for any otherviruses or pathogens.PATIENT WAS FASTINGPERFORMED BY: [employer] Nvmxue9172 [facility] [id number] Sodium [Moles/Vol] 143 mmol/L Normal 134-144 [facility] Internal Medicine; [facility] Work Phone: Comment on above: Test(s) 258805-PDQF- CoV-2 Semi-Quant Total Ab; 106618-YTHO-AfM-5 Malick Ab Interphas not been FDA cleared or approved. This test hasbeen authorized by [facility] under an Emergency Use Authorization(EUA). This test is only authorized for the duration of thedeclaration that circumstances exist justifying the authorizationof emergency use of in vitro diagnostics for detection and/ordiagnosis of COVID-19 under Section 564(b)(1) of the Act, 21U.S.C. 360bbb-3(b)(1), unless the authorization is terminated orrevoked sooner. This test has been authorized only for detectingthe presence of antibodies against SARS-CoV-2, not for any otherviruses or pathogens.PATIENT WAS FASTINGPERFORMED BY: [employer] Imeaae2838 [facility] [id number] Urea nitrogen [Mass/Vol] 10 mg/dL Normal 6-24 [facility]; [facility] Work Phone: Comment on above: Test(s) 866105-USSY- CoV-2 Semi-Quant Total Ab; 866700-TNRY-EuC-2 Malick Ab Interphas not been FDA cleared or approved. This test hasbeen authorized by FDA under an Emergency Use Authorization(EUA). This test is only authorized for the duration of thedeclaration that circumstances exist justifying the authorizationof emergency use of in vitro diagnostics for detection and/ordiagnosis of COVID-19 under Section 564(b)(1) of the Act, 21U.S.C. 360bbb-3(b)(1), unless the authorization is terminated orrevoked sooner. This test has been authorized only for detectingthe presence of antibodies against SARS-CoV-2, not for any otherviruses or pathogens.PATIENT WAS FASTINGPERFORMED BY: Clever[employer]ize6370 [facility] [id number] Urea nitrogen/Creatinine [Mass ratio] 12 mg/mg Normal 9-23 [facility]; [facility] Work Phone: Comment on above: Test(s) 068942-RYTG- CoV-2 Semi-Quant Total Ab; 984707-FZLY-WaP-9 Malick Ab Interphas not been FDA cleared or approved. This test hasbeen authorized by [facility] under an Emergency Use Authorization(EUA). This test is only authorized for the duration of thedeclaration that circumstances exist justifying the authorizationof emergency use of in vitro diagnostics for detection and/ordiagnosis of COVID-19 under Section 564(b)(1) of the Act, 21U.S.C. 360bbb-3(b)(1), unless the authorization is terminated orrevoked sooner. This test has been authorized only for detectingthe presence of antibodies against SARS-CoV-2, not for any otherviruses or pathogens.PATIENT WAS FASTINGPERFORMED BY: [employer] Obiydx0610 [facility] [id number] SARS-CoV-2 Semi-Quantitative Total Antibody, Malick (73168)Ordered By: Weld Fitter on 08-12-2021 SARS-CoV-2 Semi-Quantitative Total Antibody, Malick (15754) 70.9 U/mL Normal [facility]; [facility] Work Phone: Comment on above: Antibodies against t he SARS-CoV-2 spike protein receptor bindingdomain (RBD) were detected. It is yet undetermined what level ofantibody to SARS-CoV-2 spike protein correlates to immunity againstdeveloping symptomatic SARS-CoV-2 disease. Studies are underway tomeasure the quantitative levels of specific SARS-CoV-2 antibodiesfollowing vaccination. Such studies will provide valuable insightsinto the correlation between protection from vaccination andantibody levels. Test(s) 061107-UPZZ- CoV-2 Semi-Quant Total Ab; 348925-NJDZ-BjQ-4 Malick Ab Interphas not been FDA cleared or approved. This test hasbeen authorized by FDA under an Emergency Use Authorization(EUA). This test is only authorized for the duration of thedeclaration that circumstances exist justifying the authorizationof emergency use of in vitro diagnostics for detection and/ordiagnosis of COVID-19 under Section 564(b)(1) of the Act, 21U.S.C. 360bbb-3(b)(1), unless the authorization is terminated orrevoked sooner. This test has been authorized only for detectingthe presence of antibodies against SARS-CoV-2, not for any otherviruses or pathogens.PATIENT WAS FASTINGPERFORMED BY: [facility]6370 [facility] [id number] SARS-CoV-2 Semi-Quantitative Total Antibody, Malick (29118) Positive Normal [facility]; [facility] Work Phone: Comment on above: [employer] Anti-S ARS-CoV-2 S Test(s) 085736-CZXZ- CoV-2 Semi-Quant Total Ab; 619242-KFZQ-FpI-6 Malick Ab Interphas not been FDA cleared or approved. This test hasbeen authorized by FDA under an Emergency Use Authorization(EUA). This test is only authorized for the duration of thedeclaration that circumstances exist justifying the authorizationof emergency use of in vitro diagnostics for detection and/ordiagnosis of COVID-19 under Section 564(b)(1) of the Act, 21U.S.C. 360bbb-3(b)(1), unless the authorization is terminated orrevoked sooner. This test has been authorized only for detectingthe presence of antibodies against SARS-CoV-2, not for any otherviruses or pathogens.PATIENT WAS FASTINGPERFORMED BY: MICHI [facility] Oagdtw8052 [facility] [id number] 2018 Novel Coronavirus (COVI D-19), SHASHANK (58363)Ordered By: Weld Fitter on 07-18-20212018 Novel Coronavirus (COVID-19), SHASHANK (96258) Not detected Normal [facility]; [facility] Work Phone: Comment on above: This nucleic acid am plification test was developed and its performancecharacteristics determined by [employer]. Nucleic acidamplification tests include RT-PCR and TMA. This test has not beenFDA cleared or approved. This test has been authorized by FDA underan Emergency Use Authorization (EUA). This test is only authorizedfor the duration of time the declaration that circumstances existjustifying the authorization of the emergency use of in vitrodiagnostic tests for detection of SARS-CoV-2 virus and/or diagnosisof COVID-19 infection under section 564(b)(1) of the Act, 21 U.S.C.360bbb-3(b) (1), unless the authorization is terminated or revokedsooner.When diagnostic testing is negative, the possibility of a falsenegative result should be considered in the context of a patient'srecent exposures and the presence of clinical signs and symptomsconsistent with COVID-19. An individual without symptoms of COVID-19and who is not shedding SARS-CoV-2 virus would expect to have anegative (not detected) result in this assay. PATIENT NOT FASTINGP ERFORMED BY: MICHI [facility]6370 [facility] [id number] INHOUSE Rapid Covid/ Flu A/ Flu BOrdered By: Katharine Salmeron on 07-18-2021 SARS-CoV-2 (COVID-19) RNA SHASHANK+probe Ql (Unsp spec) Negative Normal [facility]; [facility] Work Phone: Anti TPO Antibody (00274)Ord ered By: Weld Fitter on 01-04-2021 TPO Ab Qn [IU]/mL Normal 0-34 [facility]; [facility] Work Phone: Comment on above: A courtesy copy of t his report has been sent to [phone] WAS FASTINGPERFORMED BY: [employer] [facility] [id number] BY: [employer] [address] [id number] CBC W/AUTO DIFF WBC (17651)O rdered By: Weld Fitter on 01-04-2021 Basophils (Bld) [#/Vol] 0.0 10*3/uL Normal 0.0-0.2 [facility]; [facility] Work Phone: Comment on above: A courtesy copy of t his report has been sent to [phone] WAS FASTINGPERFORMED BY: [employer]70 [facility] [id number] BY: [employer] [address] [id number] Information: FX DR. LUCAS [phone] Basophils/100 WBC (Bld) 1 % Normal [facility]; [facility] Work Phone: Comment on above: A courtesy copy of t his report has been sent to [phone] WAS FASTINGPERFORMED BY: Sophono70 [facility] [id number] BY: [employer] [address] [id number] Information: FX DR. LUCAS [phone] Eosinophils (Bld) [#/Vol] 0.2 10*3/uL Normal 0.0-0.4 [facility]; [facility] Work Phone: Comment on above: A courtesy copy of t his report has been sent to [phone] WAS FASTINGPERFORMED BY: Sophono70 [facility] [id number] BY: [employer] [id number] Information: FX DR. LUCAS 6 Eosinophils/100 WBC (Bld) 3 % Normal [facility]; [facility] Work Phone: Comment on above: A courtesy copy of t his report has been sent to [phone] WAS FASTINGPERFORMED BY: Sophono70 [facility] [id number] BY: [employer]mos[employer] [id number] Information: FX DR. LUCAS 6 Erythrocyte distribution width (RBC) [Ratio] 12.6 % Normal 11.7-15.4 [facility]; [facility] Work Phone: Comment on above: A courtesy copy of t his report has been sent to [phone] WAS FASTINGPERFORMED BY: Sophono70 [facility] [id number] BY: [employer] [id number] Information: FX DR. LUCAS 472 6 Hematocrit (Bld) [Volume fraction] 41.6 % Normal 34.0-46.6 [facility]; [facility] Work Phone: Comment on above: A courtesy copy of t his report has been sent to [phone] WAS FASTINGPERFORMED BY: Sophono70 [facility] [id number] BY: [address] [id number] Information: FX DR. LUCAS -506 Hemoglobin (Bld) [Mass/Vol] 14.0 g/dL Normal 11.1-15.9 [facility]; [facility] Work Phone: Comment on above: A courtesy copy of t his report has been sent to [phone] WAS FASTINGPERFORMED BY: MICHI [employer]6370 [facility] [id number] BY: [address] [id number] Information: FX DR. LUCAS 475 6 Immature granulocytes (Bld) [#/Vol] 0.0 10*3/uL Normal 0.0-0.1 [facility]; [facility] Work Phone: Comment on above: A courtesy copy of t his report has been sent to [phone] WAS FASTINGPERFORMED BY: Thoof70 [facility] [id number] BY: [employer] [id number] Information: FX DR. LUCAS -858 6 Immature granulocytes/100 WBC (Bld) 0 % Normal [facility]; [facility] Work Phone: Comment on above: A courtesy copy of t his report has been sent to [phone] WAS FASTINGPERFORMED BY: Thoof70 [facility] [id number] BY: [employer] [id number] Information: FX DR. LUCAS -832 6 Lymphocytes (Bld) [#/Vol] 1.7 10*3/uL Normal 0.7-3.1 [facility]; [facility] Work Phone: Comment on above: A courtesy copy of t his report has been sent to [phone] WAS FASTINGPERFORMED BY: [employer] Hkzlmv2604 [facility] [id number] BY: [employer] [id number] Information: FX DR. LUCAS 6 Lymphocytes/100 WBC (Bld) 25 % Normal [facility]; [facility] Work Phone: Comment on above: A courtesy copy of t his report has been sent to [phone] WAS FASTINGPERFORMED BY: [employer] Fphyss6946 [facility] [id number] BY: [employer] [id number] Information: FX DR. LUCAS 6 MCH (RBC) [Entitic mass] 31.3 pg Normal 26.6-33.0 [facility]; [facility] Work Phone: Comment on above: A courtesy copy of t his report has been sent to [phone] WAS FASTINGPERFORMED BY: Sophono70 [facility] [id number] BY: [employer] [id number] Information: FX DR. LUCAS 6 MCHC (RBC) [Mass/Vol] 33.7 g/dL Normal 31.5-35.7 [facility] prehensive Internal Medicine; [facility] Work Phone: Comment on above: A courtesy copy of t his report has been sent to [phone] WAS FASTINGPERFORMED BY: [employer] Pfseyi5268 [facility] [id number] BY: [address] [id number] Information: FX DR. LUCAS 6 MCV (RBC) [Entitic vol] 93 fL Normal 79-97 [facility]; [facility] Work Phone: Comment on above: A courtesy copy of t his report has been sent to [phone] WAS FASTINGPERFORMED BY: [employer] Srvaxk5873 [facility] [id number] BY: [employer] [id number] Information: FX DR. LUCAS -278 6 Monocytes (Bld) [#/Vol] 0.4 10*3/uL Normal 0.1-0.9 [facility]; [facility] Work Phone: Comment on above: A courtesy copy of t his report has been sent to [phone] WAS FASTINGPERFORMED BY: [employer] Renttd0786 [facility] [id number] BY: [employer] [id number] Information: FX DR. LUCAS 91-880 6 Monocytes/100 WBC (Bld) 6 % Normal [facility]; [facility] Work Phone: Comment on above: A courtesy copy of t his report has been sent to [phone] WAS FASTINGPERFORMED BY: [employer] Vhloyq7843 [facility] [id number] BY: [employer] [id number] Information: FX DR. LUCAS 03-993 6 Neutrophils (Bld) [#/Vol] 4.4 10*3/uL Normal 1.4-7.0 [facility]; [facility] Work Phone: Comment on above: A courtesy copy of t his report has been sent to [phone] WAS FASTINGPERFORMED BY: [employer] Kimezg8504 [facility] [id number] BY: [address] [id number] Information: FX DR. LUCAS [phone] 6 Neutrophils/100 WBC (Bld) 65 % Normal [facility]; [facility] Work Phone: Comment on above: A courtesy copy of t his report has been sent to [phone] WAS FASTINGPERFORMED BY: MICHI [facility] Eeycal2055 [facility] [id number] BY: [address] [id number] Information: FX DR. LUCAS 6 Platelets (Bld) [#/Vol] 285 10*3/uL Normal 150-450 [facility]; [facility] Work Phone: Comment on above: A courtesy copy of t his report has been sent to [phone] WAS FASTINGPERFORMED BY: MICHI [facility] Kgscya1118 [facility] [id number] BY: [address] [id number] Information: FX DR. LUCAS 6 RBC (Bld) [#/Vol] 4.48 10*6/uL Normal 3.77-5.28 Compr [facility] Internal [facility]; [facility] Work Phone: Comment on above: A courtesy copy of t his report has been sent to [phone] WAS FASTINGPERFORMED BY: MICHI [employer] ZayasUkyfph0204 [facility] [id number] BY: [address] [id number] Information: FX DR. LUCAS 6 WBC (Bld) [#/Vol] 6.7 10*3/uL Normal 3.4-10.8 Compre [facility]; [facility] Work Phone: Comment on above: A courtesy copy of t his report has been sent to [phone] WAS FASTINGPERFORMED BY: MICHI [employer]CampEasy Epzses0718 [facility] [id number] BY: [address] [id number] Information: FX DR. LUCAS ESTRADIOL (81787)Ordered By: Weld Fitter on 01-04-2021 E2 [Mass/Vol] 54.5 pg/mL Normal Comprehensi ve Internal Medicine; [facility] Work Phone: Comment on above: Adult Female: Follic ular phase 12.5 - 166.0 Ovulation phase 85.8 - 498.0 Luteal phase 43.8 - 211.0 Postmenopausal <6.0 - 54.7 1st trimester 215.0 - >4300.0Roche ECLIA methodology A courtesy copy of t his report has been sent to [phone] WAS FASTINGPERFORMED BY: Sophono70 [facility] [id number] BY: CosmosID[address] [id number] ESTRONE (93176)Ordered By: S ystem Technical Professional on 01-04-2021 E1 [Mass/Vol] 67 pg/mL Normal Comprehensi ve Internal Medicine; [facility] Work Phone: Comment on above: Adult: Follicular ph ase 39 - 132 Periovulatory 58 - 256 Luteal phase 54 - 179 : 1st trimester 247 - 2774 2nd trimester 569 - 5781 Postmenopausal: with ERT 51 - 488 without ERT 31 - 100 A courtesy copy of t his report has been sent to [phone] WAS FASTINGPERFORMED BY: Sophono70 [facility] [id number] BY: CosmosID Afoudztswi[address] [id number] FREE TRIIDOTHYRONINE (T3) (3 0490)Ordered By: Weld Fitter on 01-04-2021 Free T3 [Mass/Vol] 2.9 pg/mL Normal 2.0-4.4 [facility] Internal Medicine; [facility] Work Phone: Comment on above: A courtesy copy of t his report has been sent to [phone] WAS FASTINGPERFORMED BY: Sophono70 [facility] [id number] BY: [facility] [address] [id number] GONADOTROPIN-FSH (96876)Orde red By: Weld Fitter on 01-04-2021 Follitropin Qn 20.5 m[IU]/mL Normal Compreh ensive Internal Medicine; [facility] Work Phone: Comment on above: Adult Female: Follic ular phase 3.5 - 12.5 Ovulation phase 4.7 - 21.5 Luteal phase 1.7 - 7.7 Postmenopausal 25.8 - 134.8 A courtesy copy of t his report has been sent to [phone] WAS FASTINGPERFORMED BY: MICHI Berg Vxoroa1960 [facility] [id number] BY: CosmosID[address] [id number] LIPID PANEL (32945)Ordered B y: Weld Fitter on 01-04-2021 Cholesterol [Mass/Vol] 188 mg/dL Normal 100-199 [facility]; [facility] Work Phone: Comment on above: A courtesy copy of t his report has been sent to [phone] WAS FASTINGPERFORMED BY: MICHI Berg Yrkbba0680 [facility] [id number] BY: CosmosID[address] [id number] Cholesterol in HDL [Mass/Vol] 52 mg/dL Normal [facility]; [facility] Work Phone: Comment on above: A courtesy copy of t his report has been sent to [phone] WAS FASTINGPERFORMED BY: Sophono70 [facility] [id number] BY: CosmosID[address] [id number] Triglyceride [Mass/Vol] 131 mg/dL Normal 0-149 [facility]; [facility] Work Phone: Comment on above: A courtesy copy of t his report has been sent to [phone] WAS FASTINGPERFORMED BY: OneSunlin6370 [facility] [id number] BY: Pathways Platform[address] [id number] LIPID PANEL (23170) 23 mg/dL Normal 5-40 [facility]; [facility] Work Phone: Comment on above: A courtesy copy of t his report has been sent to [phone] WAS FASTINGPERFORMED BY: [employer] Zlgpbh2857 [facility] [id number] BY: [address] [id number] LIPID PANEL (69757) 113 mg/dL Abnormal 0-99 [facility] Internal Medicine; [facility] Work Phone: Comment on above: A courtesy copy of t his report has been sent to [phone] WAS FASTINGPERFORMED BY: CosmosID Fjvcxf0975 [facility] [id number] BY: Pathways Platform[address] [id number] LIPID PANEL (59203) 2.2 {ratio} Normal 0.0-3.2 [facility] Internal Medicine; [facility] Work Phone: Comment on above: LDL/HDL Ratio Men Wo men 1/2 Avg.Risk 1.0 1.5 Avg.Risk 3.6 3.2 2X Avg.Risk 6.2 5.0 3X Avg.Risk 8.0 6.1 A courtesy copy of t his report has been sent to [phone] WAS FASTINGPERFORMED BY: CosmosID Yddjxe7633 [facility] [id number] BY: [address] [id number] METABOLIC PANEL, COMPREHENSI VE (75180)Ordered By: Weld Fitter on 01-04-2021 Albumin [Mass/Vol] 4.5 g/dL Normal 3.8-4.9 [facility] Internal Medicine; [facility] Work Phone: Comment on above: A courtesy copy of t his report has been sent to [phone] WAS FASTINGPERFORMED BY: MICHI CosmosID Ndurxb4067 [facility] [id number] BY: Pathways Platform[address] [id number] Albumin/Globulin [Mass ratio] 2.0 {ratio} Normal 1.2-2.2 [facility]; [facility] Work Phone: Comment on above: A courtesy copy of t his report has been sent to [phone] WAS FASTINGPERFORMED BY: MICHI Berg Jmydgx2542 [facility] [id number] BY: Path[employer] Platform[address] [id number] ALP [Catalytic activity/Vol] 53 U/L Normal 48-121 [facility]; [facility] Work Phone: Comment on above: A courtesy copy of t his report has been sent to [phone] WAS FASTINGPERFORMED BY: MICHI Thoof70 [facility] [id number] BY: CosmosID[address] [id number] ALT [Catalytic activity/Vol] 14 U/L Normal 0-32 [facility]; [facility] Work Phone: Comment on above: A courtesy copy of t his report has been sent to [phone] WAS FASTINGPERFORMED BY: CosmosID Yhtsqk0547 [facility] [id number] BY: [address] [id number] AST [Catalytic activity/Vol] 21 U/L Normal 0-40 [facility]; [facility] Work Phone: Comment on above: A courtesy copy of t his report has been sent to [phone] WAS FASTINGPERFORMED BY: CosmosID Ambday3106 [facility] [id number] BY: Pathways Platform[address] [id number] Bilirubin [Mass/Vol] 0.5 mg/dL Normal 0.0-1.2 Comp rehensive Internal Medicine; [facility] Work Phone: Comment on above: A courtesy copy of t his report has been sent to [phone] WAS FASTINGPERFORMED BY: MICHI [employer] Kqeskf5455 [facility] [id number] BY: [address] [id number] Calcium [Mass/Vol] 9.0 mg/dL Normal 8.7-10.2 [facility] Internal Medicine; [facility] Work Phone: Comment on above: A courtesy copy of t his report has been sent to [phone] WAS FASTINGPERFORMED BY: CosmosID Ywkgrl4109 [facility] [id number] BY: Pathways Platform[address] [id number] Chloride [Moles/Vol] 104 mmol/L Normal 96-106 Comp rehensive Internal Medicine; [facility] Work Phone: Comment on above: A courtesy copy of t his report has been sent to [phone] WAS FASTINGPERFORMED BY: CosmosID Zohcic6520 [facility] [id number] BY: [address] [id number] CO2 [Moles/Vol] 24 mmol/L Normal 20-29 [facility] Internal Medicine; [facility] Work Phone: Comment on above: A courtesy copy of t his report has been sent to [phone] WAS FASTINGPERFORMED BY: CosmosID Dgyewd0584 [facility] [id number] BY: [address] [id number] Creatinine [Mass/Vol] 0.84 mg/dL Normal 0.57-1.00 [facility] prehensive Internal Medicine; [facility] Work Phone: Comment on above: A courtesy copy of t his report has been sent to [phone] WAS FASTINGPERFORMED BY: Thoof70 [facility] [id number] BY: CosmosID[address] [id number] GFR/1.73 sq M.predicted among blacks CKD-EPI (S/P/Bld) [Vol rate/Area] 93 mL/min/1.73 Normal [facility]; [facility] Work Phone: Comment on above: [employer] currently reports eGFR in compliance with the current recommendations of the National Kidney Foundation. [employer] will update reporting as new guidelines are published from the NKF-ASN Task force. A courtesy copy of t his report has been sent to [phone] WAS FASTINGPERFORMED BY: PhoRentlin6370 [facility] [id number] BY: CosmosID[address] [id number] GFR/1.73 sq M.predicted among non-blacks CKD-EPI (S/P/Bld) [Vol rate/Area] 81 mL/min/1.73 Normal [facility]; [facility] Work Phone: Comment on above: A courtesy copy of t his report has been sent to [phone] WAS FASTINGPERFORMED BY: Berg Odwawa2958 [facility] [id number] BY: CosmosID[address] [id number] Globulin (S) [Mass/Vol] 2.3 g/dL Normal 1.5-4.5 [facility]; [facility] Work Phone: Comment on above: A courtesy copy of t his report has been sent to [phone] WAS FASTINGPERFORMED BY: Cos[facility]IDRehabilitation Hospital of South JerseyKwykqk0332 [facility] [id number] BY: [address] [id number] Glucose [Mass/Vol] 85 mg/dL Normal 65-99 [facility]; [facility] Work Phone: Comment on above: A courtesy copy of t his report has been sent to [phone] WAS FASTINGPERFORMED BY: CosmosID Fjhccj5687 [facility] [id number] BY: [address] [id number] Potassium [Moles/Vol] 4.3 mmol/L Normal 3.5-5.2 [facility] prehensive Internal Medicine; [facility] Work Phone: Comment on above: A courtesy copy of t his report has been sent to [phone] WAS FASTINGPERFORMED BY: CosmosIDRehabilitation Hospital of South JerseyNaxotr8291 [facility] [id number] BY: CosmosID[address] [id number] Protein [Mass/Vol] 6.8 g/dL Normal 6.0-8.5 [facility] Internal Medicine; [facility] Work Phone: Comment on above: A courtesy copy of t his report has been sent to [phone] WAS FASTINGPERFORMED BY: CosmosIDRehabilitation Hospital of South JerseyKselug6923 [facility] [id number] BY: [address] [id number] Sodium [Moles/Vol] 140 mmol/L Normal 134-144 [facility] Internal Medicine; [facility] Work Phone: Comment on above: A courtesy copy of t his report has been sent to [phone] WAS FASTINGPERFORMED BY: CosmosIDBilly [place] 4367670 [facility] [id number] BY: CosmosID[address] [id number] Urea nitrogen [Mass/Vol] 10 mg/dL Normal 6-24 [facility]; [facility] Work Phone: Comment on above: A courtesy copy of t his report has been sent to [phone] WAS FASTINGPERFORMED BY: CosmosID Hzqkby2763 [facility] [id number] BY: Path[employer] Platform[address] [id number] Urea nitrogen/Creatinine [Mass ratio] 12 mg/mg Normal 9-23 [facility]; [facility] Work Phone: Comment on above: A courtesy copy of t his report has been sent to [phone] WAS FASTINGPERFORMED BY: CosmosIDB[place] 4367670 [facility] [id number] BY: CosmosID[address] [id number] T4, FREE (THYROXINE) (11616) Ordered By: Weld Fitter on 01-04-2021 Free T4 [Mass/Vol] 1.04 ng/dL Normal 0.82-1.77 [facility] Internal Medicine; [facility] Work Phone: Comment on above: A courtesy copy of t his report has been sent to [phone] WAS FASTINGPERFORMED BY: CosmosIDB[place] 4367670 [facility] [id number] BY: Path[employer] Platform[address] [id number] TESTOSTERONE FREE (71505)Ord ered By: Weld Fitter on 01-04-2021 Testosterone Free [Mass/Vol] 1.7 pg/mL Normal 0.0-4.2 [facility]; [facility] Work Phone: Comment on above: A courtesy copy of t his report has been sent to [phone] WAS FASTINGPERFORMED BY: CosmosIDB[place] 4367670 [facility] [id number] BY: CosmosID[address] [id number] TESTOSTERONE TOTAL (20874)Or dered By: Weld Fitter on 01-04-2021 Testosterone [Mass/Vol] 149 ng/dL Abnormal 4-50 [facility]; [facility] Work Phone: Comment on above: A courtesy copy of t his report has been sent to [phone] WAS FASTINGPERFORMED BY: MICHI PhoRentlin6370 [facility] [id number] BY: CosmosID[address] [id number] TSH (THYROID STIMULATING HOR ANTELMO) (24079)Ordered By: Weld Fitter on 01-04-2021 TSH Qn 1.500 {uIU/mL} Normal 0.450-4.50 0 [facility]; [facility] Work Phone: Comment on above: A courtesy copy of t his report has been sent to [phone] WAS FASTINGPERFORMED BY: MICHI Berg Gjrucb9082 [facility] [id number] BY: CosmosID[address] [id number] VITAMIN B-12 (CYANOCOBALAMIN ) (46823)Ordered By: Weld Fitter on 01-04-2021 Cobalamin (Vitamin B12) [Mass/Vol] 628 pg/mL Normal 232-1245 [facility]; [facility] Work Phone: Comment on above: A courtesy copy of t his report has been sent to [phone] WAS FASTINGPERFORMED BY: MICHI [employer]6370 [facility] [id number] BY: CosmosID[address] [id number] Vitamin D Hydroxy (18075)Ord ered By: Weld Fitter on 01-04-2021 25-hydroxyvitamin D [Mass/Vol] 98.4 ng/mL Normal 30.0-100.0 [facility]; [facility] Work Phone: Comment on above: Vitamin D deficiency has been defined by the [place] ofMedicine and an Endocrine Society practice guideline as alevel of serum 25-OH vitamin D less than 20 ng/mL (1,2).The Endocrine Society went on to further define vitamin Dinsufficiency as a level between 21 and 29 ng/mL (2).1. IOM ([place] of Medicine). 2010. Dietary reference intakes for calcium and D. [place]: The National Academies Press.2. Sabi MF, Prosper ESPINOSA, Daphney COE, et al. Evaluation, treatment, and prevention of vitamin D deficiency: an Endocrine Society clinical practice guideline. JCEM. 2010; 96(7):1911-30. A courtesy copy of t his report has been sent to [phone] WAS FASTINGPERFORMED BY: [facility] [id number] BY: Cordiumton[address] [place] [address] [id number] C-Reactive Protein (65632)Or dered By: Weld Fitter on 08-27-2020 CRP [Mass/Vol] 5 mg/L Normal 0-10 [facility] [place] [facility]; [facility] Work Phone: Comment on above: PATIENT NOT FASTINGP ERFORMED BY: [employer] [facility] [id number] BY: Cordiumton[address] [place] [address] [id number] CBC W/AUTO DIFF WBC (02878)O rdered By: Weld Fitter on 08-27-2020 Basophils (Bld) [#/Vol] 0.0 {x10E3/uL} Normal 0.0-0.2 [facility]; [facility] Work Phone: Comment on above: PATIENT NOT FASTINGP ERFORMED BY: [employer] [facility] [id number] BY: Cordium[address] [id number] Basophils (Bld) [#/Vol] 0.0 10*3/uL Normal 0.0-0.2 [facility]; [facility] Work Phone: Comment on above: PATIENT NOT FASTINGP ERFORMED BY: CB [facility] Rqzbwx6461 [facility] [id number] BY: [address] [id number] Basophils/100 WBC (Bld) 1 % Normal [facility]; [facility] Work Phone: Comment on above: PATIENT NOT FASTINGP ERFORMED BY: CB [facility] Unnyhn1489 [facility] [id number] BY: Lab[address] [id number] Eosinophils (Bld) [#/Vol] 0.4 {x10E3/uL} Normal 0.0-0.4 [facility]; [facility] Work Phone: Comment on above: PATIENT NOT FASTINGP ERFORMED BY: CB [facility] Fylhdb0788 [facility] [id number] BY: [address] [id number] Eosinophils (Bld) [#/Vol] 0.4 10*3/uL Normal 0.0-0.4 [facility]; [facility] Work Phone: Comment on above: PATIENT NOT FASTINGP ERFORMED BY: CB [facility] Nspxiu1722 [facility] [id number] BY: Lab[address] [id number] Eosinophils/100 WBC (Bld) 7 % Normal [facility]; [facility] Work Phone: Comment on above: PATIENT NOT FASTINGP ERFORMED BY: CB [facility] Pckpzi4247 [facility] [id number] BY: [address] [id number] Erythrocyte distribution width (RBC) [Ratio] 12.8 % Normal 11.7-15.4 [facility]; [facility] Work Phone: Comment on above: PATIENT NOT FASTINGP ERFORMED BY: CB [facility] Gavccc2132 [facility] [id number] BY: [address] [id number] Hematocrit (Bld) [Volume fraction] 41.9 % Normal 34.0-46.6 [facility]; [facility] Work Phone: Comment on above: PATIENT NOT FASTINGP ERFORMED BY: CB [facility] Vjnuwx5230 [facility] [id number] BY: [address] [id number] Hemoglobin (Bld) [Mass/Vol] 13.9 g/dL Normal 11.1-15.9 [facility]; [facility] Work Phone: Comment on above: PATIENT NOT FASTINGP ERFORMED BY: CB [facility] Riidlr4760 [facility] [id number] BY: [address] [id number] Immature granulocytes (Bld) [#/Vol] 0.0 {x10E3/uL} Normal 0.0-0.1 [facility]; [facility] Work Phone: Comment on above: PATIENT NOT FASTINGP ERFORMED BY: CB [facility] Nnfzua2410 [facility] [id number] BY: [employer] Platform[address] [id number] Immature granulocytes (Bld) [#/Vol] 0.0 10*3/uL Normal 0.0-0.1 [facility]; [facility] Work Phone: Comment on above: PATIENT NOT FASTINGP ERFORMED BY: CB [facility] Uijira0692 [facility] [id number] BY: [address] [id number] Immature granulocytes/100 WBC (Bld) 0 % Normal [facility]; [facility] Work Phone: Comment on above: PATIENT NOT FASTINGP ERFORMED BY: MICHI [facility] Ctqywp1480 [facility] [id number] BY: [address] [id number] Lymphocytes (Bld) [#/Vol] 1.7 {x10E3/uL} Normal 0.7-3.1 [facility]; [facility] Work Phone: Comment on above: PATIENT NOT FASTINGP ERFORMED BY: MICHI [facility] Qxnrlk5389 [facility] [id number] BY: Lab[address] [id number] Lymphocytes (Bld) [#/Vol] 1.7 10*3/uL Normal 0.7-3.1 [facility]; [facility] Work Phone: Comment on above: PATIENT NOT FASTINGP ERFORMED BY: MICHI [facility] Budlmk0131 [facility] [id number] BY: Lab[address] [id number] Lymphocytes/100 WBC (Bld) 26 % Normal [facility]; [facility] Work Phone: Comment on above: PATIENT NOT FASTINGP ERFORMED BY: MICHI [facility] Bdauwj7961 [facility] [id number] BY: LabCo[address] [id number] MCH (RBC) [Entitic mass] 31.7 pg Normal 26.6-33.0 [facility]; [facility] Work Phone: Comment on above: PATIENT NOT FASTINGP ERFORMED BY: MICHI [facility] Zmfgxl6341 [facility] [id number] BY: [address] [id number] MCHC (RBC) [Mass/Vol] 33.2 g/dL Normal 31.5-35.7 [facility] prehensive Internal Medicine; [facility] Work Phone: Comment on above: PATIENT NOT FASTINGP ERFORMED BY: CB [facility] Wiebyb7394 Britton RoadDublin [place] [id number] BY: [facility] [address] [id number] MCV (RBC) [Entitic vol] 95 fL Normal 79-97 [facility]; [facility] Work Phone: Comment on above: PATIENT NOT FASTINGP ERFORMED BY: CB [facility] Rgwmtd5164 [facility]in [place] [id number] BY: [facility] [address] [id number] Monocytes (Bld) [#/Vol] 0.4 {x10E3/uL} Normal 0.1-0.9 [facility]; [facility] Work Phone: Comment on above: PATIENT NOT FASTINGP ERFORMED BY: CB [facility] Pugldw3564 [facility] [facility] [id number] BY: LabCo[address] [id number] Monocytes (Bld) [#/Vol] 0.4 10*3/uL Normal 0.1-0.9 [facility]; [facility] Work Phone: Comment on above: PATIENT NOT FASTINGP ERFORMED BY: CB [facility] Pvjiog6769 [facility] [facility] [place] [id number] BY: [facility] [address] [id number] Monocytes/100 WBC (Bld) 6 % Normal [facility]; [facility] Work Phone: Comment on above: PATIENT NOT FASTINGP ERFORMED BY: CB [facility] Klwtby2425 [facility] [facility] [id number] BY: Lab[address] [id number] Neutrophils (Bld) [#/Vol] 3.9 {x10E3/uL} Normal 1.4-7.0 [facility]; [facility] Work Phone: Comment on above: PATIENT NOT FASTINGP ERFORMED BY: CB [facility] Ozbawn8259 Britton RoadDublin [place] [id number] BY: [facility] [address] [id number] Neutrophils (Bld) [#/Vol] 3.9 10*3/uL Normal 1.4-7.0 [facility]; [facility] Work Phone: Comment on above: PATIENT NOT FASTINGP ERFORMED BY: CB [facility] Tchekx7155 [address] RoadDublin [place] [id number] BY: BN [facility] [address] [id number] Neutrophils/100 WBC (Bld) 60 % Normal [facility]; [facility] Work Phone: Comment on above: PATIENT NOT FASTINGP ERFORMED BY: CB [facility] Uojehl7296 [address] RoadDublin [place] [id number] BY: [facility] [address] [id number] Platelets (Bld) [#/Vol] 304 {x10E3/uL} Normal 150-450 [facility]; [facility] Work Phone: Comment on above: PATIENT NOT FASTINGP ERFORMED BY: CB [facility] Qxqppu2453 [address] RoadDublin [place] [id number] BY: BN [facility] Yzktjzkukd7[address] [id number] Platelets (Bld) [#/Vol] 304 10*3/uL Normal 150-450 [facility]; [facility] Work Phone: Comment on above: PATIENT NOT FASTINGP ERFORMED BY: CB [facility] Mscsca8569 Britt[address] RoadDublin [place] [id number] BY: [facility] [address] [id number] RBC (Bld) [#/Vol] 4.39 {x10E6/uL} Normal 3.77-5.28 [facility]; [facility] Work Phone: Comment on above: PATIENT NOT FASTINGP ERFORMED BY: MICHI [facility] Sbrbyw0712 [facility] [id number] BY: [address] [id number] RBC (Bld) [#/Vol] 4.39 10*6/uL Normal 3.77-5.28 [facility]; [facility] Work Phone: Comment on above: PATIENT NOT FASTINGP ERFORMED BY: MICHI [facility] Vpnmlq4104 [facility] [id number] BY: [address] [id number] WBC (Bld) [#/Vol] 6.3 {x10E3/uL} Normal 3.4-10.8 [facility] Work Phone: Comment on above: PATIENT NOT FASTINGP ERFORMED BY: MICHI [facility] Qfgoyr8406 [facility] [id number] BY: [address] [id number] WBC (Bld) [#/Vol] 6.3 10*3/uL Normal 3.4-10.8 [facility] Internal Medicine; [facility] Work Phone: Comment on above: PATIENT NOT FASTINGP ERFORMED BY: [facility] Vntydg6353 [facility] [id number] BY: [address] [id number] CCP ANTIBODY (50328)Ordered By: Weld Fitter on 08-27-2020 Cyclic citrullinated peptide IgA+IgG IA Qn 16 {units} Normal 0-19 [facility]; [facility] Work Phone: Comment on above: Negative <20 Weak po sitive 20 - 39 Moderate positive 40 - 59 Strong positive >59 PATIENT NOT FASTINGP ERFORMED BY: MICHI [facility] Ibkphs4365 [facility] [id number] BY: [address] [id number] ESR-F (SED RATE ERYTHROCYTE - FEMALE) (38334)Ordered By: Weld Fitter on 08-27-2020 ESR (Bld) [Velocity] 2 mm/h Normal 0-40 [facility] Internal Medicine; [facility] Work Phone: Comment on above: PATIENT NOT FASTINGP ERFORMED BY: MICHI Lab[facility]Easyrp Trupui2929 [facility] [id number] BY: [address] [id number] METABOLIC PANEL, COMPREHENSI VE (78850)Ordered By: Weld Fitter on 08-27-2020 Albumin [Mass/Vol] 4.6 g/dL Normal 3.8-4.8 [facility] Internal Medicine; [facility] Work Phone: Comment on above: PATIENT NOT FASTINGP ERFORMED BY: MICHI Lab[facility]Easyrp Suxgwj2170 [facility] [id number] BY: [address] [id number] Albumin/Globulin [Mass ratio] 1.6 {ratio} Normal 1.2-2.2 [facility]; [facility] Work Phone: Comment on above: PATIENT NOT FASTINGP ERFORMED BY: MICHI [facility] Ksqxum1685 [facility] [id number] BY: [address] [id number] ALP [Catalytic activity/Vol] 59 [iU]/L Normal 39-117 [facility]; [facility] Work Phone: Comment on above: PATIENT NOT FASTINGP ERFORMED BY: MICHI [facility] Grezod9970 [facility] [id number] BY: LabCo[address] [id number] ALP [Catalytic activity/Vol] 59 U/L Normal 39-117 [facility]; [facility] Work Phone: Comment on above: PATIENT NOT FASTINGP ERFORMED BY: CB [facility] Hdpmdy8079 Britton RoadDublin [place] [id number] BY: [address]Co[address] [id number] ALT [Catalytic activity/Vol] 16 [iU]/L Normal 0-32 [facility]; [facility] Work Phone: Comment on above: PATIENT NOT FASTINGP ERFORMED BY: CB [facility] Qemkic8423 Britt[address] RoadFormerly [facility] [id number] BY: LabCo[address] [id number] ALT [Catalytic activity/Vol] 16 U/L Normal 0-32 [facility]; [facility] Work Phone: Comment on above: PATIENT NOT FASTINGP ERFORMED BY: CB [facility] Rjnnzd9009 Britton RoadDuPsychiatric hospital [id number] BY: [address] [id number] AST [Catalytic activity/Vol] 31 [iU]/L Normal 0-40 [facility]; [facility] Work Phone: Comment on above: PATIENT NOT FASTINGP ERFORMED BY: CB [facility] Tyjlug3762 [address] RoadFormerly [facility] [id number] BY: [address]Co[address] [id number] AST [Catalytic activity/Vol] 31 U/L Normal 0-40 [facility]; [facility] Work Phone: Comment on above: PATIENT NOT FASTINGP ERFORMED BY: CB [facility] Kikrxq5800 Britton RoadDublin [place] [id number] BY: [address] [id number] Bilirubin [Mass/Vol] 0.4 mg/dL Normal 0.0-1.2 Comp rehensive Internal Medicine; [facility] Work Phone: Comment on above: PATIENT NOT FASTINGP ERFORMED BY: CB [facility] Hkqwjr9585 Britton RoadDublin [place] [id number] BY: LabCampEasy[address] [id number] Calcium [Mass/Vol] 9.2 mg/dL Normal 8.7-10.2 [facility] Internal Medicine; [facility] Work Phone: Comment on above: PATIENT NOT FASTINGP ERFORMED BY: CB [facility] Zboxnf5970 [address] RoadFormerly [facility] [id number] BY: LabCampEasy[address] [id number] Chloride [Moles/Vol] 103 mmol/L Normal 96-106 [facility] rehensive Internal Medicine; [facility] Work Phone: Comment on above: PATIENT NOT FASTINGP ERFORMED BY: CB [facility] Pjvjfc6273 Britton RoadDublin [place] [id number] BY: LabCampEasy[address] [id number] CO2 [Moles/Vol] 24 mmol/L Normal 20-29 [facility] Internal Medicine; [facility] Work Phone: Comment on above: PATIENT NOT FASTINGP ERFORMED BY: CB [facility] Dqftds8560 [address] [facility] [id number] BY: [facility] [address] [id number] Creatinine [Mass/Vol] 0.87 mg/dL Normal 0.57-1.00 [facility] prehensive Internal Medicine; [facility] Work Phone: Comment on above: PATIENT NOT FASTINGP ERFORMED BY: CB [facility] Vpvygz6308 Britton RoadDublin [place] [id number] BY: [address]Co[address] [id number] GFR/1.73 sq M predicted among blacks CKD-EPI (S/P/Bld) [Vol rate/Area] 90 mL/min/1.73 Normal [facility]; [facility] Work Phone: Comment on above: PATIENT NOT FASTINGP ERFORMED BY: CB [facility] Ctlvrm6878 Britton RoadDublin [place] [id number] BY: LabCampEasy[address] [id number] GFR/1.73 sq M predicted among non-blacks CKD-EPI (S/P/Bld) [Vol rate/Area] 78 mL/min/1.73 Normal [facility]; [facility] Work Phone: Comment on above: PATIENT NOT FASTINGP ERFORMED BY: CB [facility] Epbmkb0054 Britton RoadDublin [place] [id number] BY: [address] [id number] Globulin (S) [Mass/Vol] 2.8 g/dL Normal 1.5-4.5 [facility]; [facility] Work Phone: Comment on above: PATIENT NOT FASTINGP ERFORMED BY: CB [facility] Kragcx1542 [address] Sandlot SolutionsDublin [place] [id number] BY: LabCampEasy[address] [id number] Glucose [Mass/Vol] 83 mg/dL Normal 65-99 [facility] Internal Medicine; [facility] Work Phone: Comment on above: PATIENT NOT FASTINGP ERFORMED BY: CB [facility] Phxxxk4215 Britton RoadDublin [place] [id number] BY: LabCampEasy[address] [id number] Potassium [Moles/Vol] 4.2 mmol/L Normal 3.5-5.2 [facility]; [facility] Work Phone: Comment on above: PATIENT NOT FASTINGP ERFORMED BY: CB [facility] Ybuuhm8704 Britt[address] RoadDublin [place] [id number] BY: LabCo[address] [id number] Protein [Mass/Vol] 7.4 g/dL Normal 6.0-8.5 [facility] Internal Medicine; [facility] Work Phone: Comment on above: PATIENT NOT FASTINGP ERFORMED BY: MICHI [facility] Kmpogy9395 Britton RoadDublin [place] [id number] BY: [address]Co[address] [id number] Sodium [Moles/Vol] 139 mmol/L Normal 134-144 [facility] Internal Medicine; [facility] Work Phone: Comment on above: PATIENT NOT FASTINGP ERFORMED BY: CB [facility] Pmirxn1630 [address] RoadDublin [place] [id number] BY: [address]Co[address] [id number] Urea nitrogen [Mass/Vol] 9 mg/dL Normal 6-24 [facility]; [facility] Work Phone: Comment on above: PATIENT NOT FASTINGP ERFORMED BY: CB [facility] Iyarag5937 [address] [facility] Centerin [place] [id number] BY: [address]Co[address] [id number] Urea nitrogen/Creatinine [Mass ratio] 10 mg/mg Normal 9-23 [facility]; [facility] Work Phone: Comment on above: PATIENT NOT FASTINGP ERFORMED BY: CB [facility] Hxktom8261 [address] RoadDublin [place] [id number] BY: [address] [id number] RHEUMATOID FACTOR-QUANT (552 18)Ordered By: Weld Fitter on 08-27-2020 Rheumatoid factor Qn 17.4 {IU/mL} Abnormal 0.0-13.9 [facility]; [facility] Work Phone: Comment on above: PATIENT NOT FASTINGP ERFORMED BY: CB [facility] Hlaati5480 [address]irt[address] RoadWarren [place] [id number] BY: [place] [address] [facility] [id number] Rheumatoid factor Qn 17.4 [IU]/mL Abnormal 0.0-13.9 Co mprehensive Internal Medicine; [facility] Work Phone: Comment on above: PATIENT NOT FASTINGP ERFORMED BY: [facility]6370 [facility] [id number] BY: [address] [id number] 2019 Novel Coronavirus (COVI D-19), SHASHANK ([id number])Ordered By: Weld Fitter on 05-11-2020 2019 Novel Coronavirus (COVID-19), SHASHANK ([id number]) Detected Abnormal [facility]; [facility] Work Phone: Comment on above: Client Requested [facility] nucleic acid amplification test was developed and its performancecharacteristics determined by [employer]. Nucleic acidamplification tests include PCR and TMA. This test has not been FDAcleared or approved. This test has been authorized by FDA under anEmergency Use Authorization (EUA). This test is only authorized forthe duration of time the declaration that circumstances existjustifying the authorization of the emergency use of in vitrodiagnostic tests for detection of SARS-CoV-2 virus and/or diagnosisof COVID-19 infection under section 564(b)(1) of the Act, 21 U.S.C.360bbb-3(b) (1), unless the authorization is terminated or revokedsooner.When diagnostic testing is negative, the possibility of a falsenegative result should be considered in the context of a patient'srecent exposures and the presence of clinical signs and symptomsconsistent with COVID-19. An individual without symptoms of COVID-19and who is not shedding SARS-CoV-2 virus would expect to have anegative (not detected) result in this assay. PATIENT NOT FASTINGP ERFORMED BY: [facility] UZZ9586 [facility] [id number] 2018 Novel Coronavirus (COVID-19), SHASHANK ([id number]) Detected Abnormal [facility]; [facility] Work Phone: Comment on above: Client Requested Valerie Gong nucleic acid amplification test was developed and its performancecharacteristics determined by [employer]. Nucleic acidamplification tests include PCR and TMA. This test has not been FDAcleared or approved. This test has been authorized by FDA under anEmergency Use Authorization (EUA). This test is only authorized forthe duration of time the declaration that circumstances existjustifying the authorization of the emergency use of in vitrodiagnostic tests for detection of SARS-CoV-2 virus and/or diagnosisof COVID-19 infection under section 564(b)(1) of the Act, 21 U.S.C.360bbb-3(b) (1), unless the authorization is terminated or revokedsooner.When diagnostic testing is negative, the possibility of a falsenegative result should be considered in the context of a patient'srecent exposures and the presence of clinical signs and symptomsconsistent with COVID-19. An individual without symptoms of COVID-19and who is not shedding SARS-CoV-2 virus would expect to have anegative (not detected) result in this assay. PATIENT NOT FASTINGP ERFORMED BY: ZEKE Berg [id number] [address] [facility] [id number] 2018 Novel Coronavirus (COVI D-19), SHASHANK ([id number])Ordered By: Weld Fitter on 05-07-2020 2019 Novel Coronavirus (COVID-19), SHASHANK ([id number]) Not Detected Normal [facility] Work Phone: Comment on above: This nucleic acid am plification test was developed and its performancecharacteristics determined by [employer]. Nucleic acidamplification tests include PCR and TMA. This test has not been FDAcleared or approved. This test has been authorized by FDA under anEmergency Use Authorization (EUA). This test is only authorized forthe duration of time the declaration that circumstances existjustifying the authorization of the emergency use of in vitrodiagnostic tests for detection of SARS-CoV-2 virus and/or diagnosisof COVID-19 infection under section 564(b)(1) of the Act, 21 U.S.C.360bbb-3(b) (1), unless the authorization is terminated or revokedsooner.When diagnostic testing is negative, the possibility of a falsenegative result should be considered in the context of a patient'srecent exposures and the presence of clinical signs and symptomsconsistent with COVID-19. An individual without symptoms of COVID-19and who is not shedding SARS-CoV-2 virus would expect to have anegative (not detected) result in this assay. PATIENT NOT FASTINGP ERFORMED BY: Berg [id number] TW Ankur [place] [id number] 2018 Novel Coronavirus (COVID-19), SHASHANK ([id number]) Not detected Normal [facility]; [facility] Work Phone: Comment on above: This nucleic acid am plification test was developed and its performancecharacteristics determined by [employer]. Nucleic acidamplification tests include PCR and TMA. This test has not been FDAcleared or approved. This test has been authorized by FDA under anEmergency Use Authorization (EUA). This test is only authorized forthe duration of time the declaration that circumstances existjustifying the authorization of the emergency use of in vitrodiagnostic tests for detection of SARS-CoV-2 virus and/or diagnosisof COVID-19 infection under section 564(b)(1) of the Act, 21 U.S.C.360bbb-3(b) (1), unless the authorization is terminated or revokedsooner.When diagnostic testing is negative, the possibility of a falsenegative result should be considered in the context of a patient'srecent exposures and the presence of clinical signs and symptomsconsistent with COVID-19. An individual without symptoms of COVID-19and who is not shedding SARS-CoV-2 virus would expect to have anegative (not detected) result in this assay. PATIENT NOT FASTINGP ERFORMED BY: Berg [id number] [address] [id number] HEP B SURFACE AB, QUANT [CCL ]on 03-15-2020 HepB SurfaceAb,Quant <8.00 Normal <8.00 [facility] Comment on above: Result Comment: No e vidence of antibodies to Hepatitis B surface antigen. [place] [address] [place] [address] Ted Tse III, M.D. [id number] Performed By: #### 2 61973 #### [facility],[address] [place] [address] 61603 HepB SurfaceAb,Quanton 03-15 HepB SurfaceAb,Quant <8.00 Normal <8.00 [facility] Comment on above: Performed By: #### R UBIGG, AHBSQ #### [facility] [address] [place] [phone] #### MUMPSG, MEASLG #### [facility] [address] [place] [phone] MEASLES IGG ANTIBODY [CCL]on 03-15-2020 Measles IgG Ab, Qual Positive Abnormal NEGAT [facility] Comment on above: Result Comment: Pres ence of detectable measles virus IgG antibodies. A positive result generally indicates exposure to measles virus or previous vaccination. Performed By: #### 2 53932 #### [facility],[address] [place] [address] 60719 Measles IgG Antibody 18.6 AU/mL Normal [facility] Comment on above: Result Comment: AU/m L Value interpreted as follows: Negative Specimens <13.5 Equivocal Specimens >=13.5 to <16.5 Positive Specimens >=16.5 The magnitude of the measured result, above the cutoff, is not indicative of the [place] [address] Ted Tse III, M.D. [id number] Performed By: #### 2 02168 #### [facility],[address] [place] [address]5212 MUMPS IGG AB [CCL]on 020 Mumps IgG Ab <5.0 Normal [facility] Comment on above: Result Comment: AU/m L Values interpreted as follows: Negative Specimens <9.0 Equivocal specimens 9.0 to 10.9 Positive specimens >10.9 The magnitude of the measured result, above the cutoff, is not indicative of the amount of antibody present. Result rechecked. [place] [address] [place] [address] Ted Tse III, M.D. [id number] Performed By: #### 2 01992 #### [address] [address] Mumps IgG, Qual Negative Normal NEGAT [facility] Comment on above: Result Comment: Abse nce of detectable mumps virus IgG antibodies. A negative result generally indicates that the patient has not been infected and is susceptible to mumps. If the subject has no history of mumps, has not been previously vaccinated and exposure to mumps virus is suspected despite a negative finding, a second sample should be collected and tested no less than one to two weeks later. Result rechecked. Performed By: #### 2 58202 #### [facility],[address] [place] [address] Measles IgG Antibodyon 03-15 Measles IgG Ab, Qual Abnormal Negative [facility] Comment on above: Result Comment: Posi tive Presence of detectable measles virus IgG antibodies. A positive result generally indicates exposure to measles virus or previous vaccination. Performed By: #### R UBIGG, AHBSQ #### [facility] [place] [id number] #### MUMPSG, MEASLG #### [facility]0 [place] [address] Measles IgG Antibody Normal [facility] Comment on above: Result Comment: 18.6 AU/mL Negative Specimens <13.5 Equivocal Specimens >=13.5 to <16.5 Positive Specimens >=16.5 The magnitude of the measured result, above the cutoff, is not indicative of the amount of antibody present. Value Negative Specimens <13.5 Equivocal Specimens >=13.5 to <16.5 Positive Specimens >=16.5 The magnitude of the measured result, above the cutoff, is not indicative of the amount of antibody present. interpreted as Negative Specimens <13.5 Equivocal Specimens >=13.5 to <16.5 Positive Specimens >=16.5 The magnitude of the measured result, above the cutoff, is not indicative of the amount of antibody present. follows: Negative Specimens <13.5 Equivocal Specimens >=13.5 to <16.5 Positive Specimens >=16.5 The magnitude of the measured result, above the cutoff, is not indicative of the amount of antibody present. Performed By: #### R UBIGG, AHBSQ #### [facility] [address] [place] [phone] #### MUMPSG, MEASLG #### [facility] [address] [place] [phone] Mumps IgG Abon 03-15-2020 Mumps IgG Ab <5.0 Normal [facility] [place] [facility] Comment on above: Performed By: #### R UBIGG, AHBSQ #### [facility] [address] [place], [place] [address] #### MUMPSG, MEASLG #### [facility] [address] [place], [place] [address] Mumps IgG, Qual Negative Normal Negative [facility] [place] [facility] Comment on above: Performed By: #### R UBIGG, AHBSQ #### [facility] [address] [place], [place] [address] #### MUMPSG, MEASLG #### [facility] [address] [place], [place] [address] RUBELLA IgG ANTIBODY [CCL]on 03-15-2020 Rubella IgG Ab 1.67 Indexlue Normal [facility] Comment on above: Result Comment: Inde x values are interpreted as follows: Negative specimens <0.90 Equivocol specimens 0.90 to 0.99 Positive specimens >0.99 The magnitude of the measured result is not indicative of the amount of antibody present. [facility] [address] [place] [address] Ted Tse III, M.D. [id number] Performed By: #### 2 20896 #### [facility],[address] [place], [place] [id number] Rubella IgG Ab, Qual Positive Abnormal NEGAT [facility] Comment on above: Result Comment: Samp le is considered positive for IgG antibodies to rubella virus. A positive result indicates previous exposure to Rubella virus or vaccination. Performed By: #### 2 84169 #### [facility],[address] [place], [place] [id number] Rubella IgG Antibodyon 03-15 Rubella IgG Ab 1.67 Index Value Normal [facility] Comment on above: Performed By: #### R UBBERNARDO AHBSQ #### [facility] [place] [phone] #### MUMPSG, MEASLG #### [facility] [address] [place] [phone] Rubella IgG Ab, Qual Positive Abnormal Negative [facility] Comment on above: Performed By: #### R UBIGG, AHBSQ #### [facility] [address] [place] [phone] #### MUMPSG, MEASLG #### [facility] [address] [place] [phone] GLUCOSEon 03-14-2020 Glucose [Mass/Vol] 89 mg/dL Normal 74 - 106 [facility] Comment on above: Performed By: #### 2 91188 #### [facility],[address] [place], [place] [phone] LIPID PROFILEon 03-14-2020 Cholesterol [Mass/Vol] 203 mg/dL High 0 - 200 [facility] Comment on above: Performed By: #### 2 70762 #### [facility],[address] [place] [address]641 Cholesterol in HDL [Mass/Vol] 58 mg/dL Normal 40 - 60 [facility] Comment on above: Performed By: #### 2 27317 #### [facility],[address] [place] [address] 47293 Cholesterol in LDL [Mass/Vol] 113 mg/dL Normal 0 - 129 [facility] Comment on above: Performed By: #### 2 81993 #### [facility],[address] [place] [address] 50728 Cholesterol.total/Cho lesterol in HDL [Mass ratio] 3.5 {ratio} Normal 0.0 - 5.0 [facility] Comment on above: Performed By: #### 2 71242 #### [facility],[address] [place] [address] 00312 Lipid 1996 panel Normal [facility] Comment on above: Result Comment: LIPI D PROFILE Performed By: #### 2 19860 #### [facility],[address] [place] [address] 62277 Triglyceride [Mass/Vol] 159 mg/dL High 0 - 150 [facility] Comment on above: Performed By: #### 2 91182 #### [facility],[address] [place] [address] 90703 URINE COTININE TEST [[facility]]on 03-14-2020 COTININE Negative Normal NORMAL: NEGATIVE [facility] Comment on above: Result Comment: The COT One Step Cotinine Device (Urine) yields a positve result when the Cotinine in urine exceeds 200 ng/mL. A Cotinine concentration > 200 ng/mL indicates an active tobacco product user. The window of detection for Cotinine in urine at a cutoff level of 200 ng/mL is expected to be up to 2-3 days after nicotine use. Performed By: #### 2 84469 #### [facility],[address] [place] [address] 69392 ERNST (ANTINUCLEAR ANTIBODY) ( 66659)Ordered By: Weld Fitter on 08-15-2019 Nuclear Ab Ql (S) Negative Normal Compreh ensive Internal Medicine Work Phone: Comment on above: PATIENT NOT FASTINGP ERFORMED BY: MICHI [facility] Fqmfjw6706 Britton RoadDublin [place] [id number] Nuclear Ab Ql (S) Negative Normal Compreh ensive Internal Medicine; [facility] Work Phone: Comment on above: PATIENT NOT FASTINGP ERFORMED BY: MICHI [facility] Kjlhtp1990 [address]on RoadDublin [place] [id number] C-REACTIVE PROTEIN ([id number])Or dered By: Weld Fitter on 08-15-2019 CRP [Mass/Vol] 4 mg/L Normal 0-10 Comprehens [facility] Internal Medicine Work Phone: Comment on above: PATIENT NOT FASTINGP ERFORMED BY: CB [facility] Xcfjan4088 Britton RoadDublin [place] [id number] RHEUMATOID FACTOR-QUANT (744 12)Ordered By: Weld Fitter on 08-15-2019 Rheumatoid factor Qn 20.1 {IU/mL} Abnormal 0.0-13.9 Co mprehensive [facility] Medicine Work Phone: Comment on above: PATIENT NOT FASTINGP ERFORMED BY: MICHI [facility] Kzsufm1478 [address]on RoadDublin [place] [id number] Rheumatoid factor Qn 20.1 [IU]/mL Abnormal 0.0-13.9 [facility]; [facility] Work Phone: Comment on above: PATIENT NOT FASTINGP ERFORMED BY: CB [facility] Vzntih1002 [address] RoadDublin [place] [id number] SED RATE ERYTHROCYTE ([id number]) Ordered By: Weld Fitter on 08-15-2019 ESR (Bld) [Velocity] 2 mm/h Normal 0-32 Comp rehensive Internal Medicine Work Phone: Comment on above: PATIENT NOT FASTINGP ERFORMED BY: CB [facility] Ssygkd3102 [address] RoadDublin [place] [id number] CBC & PLATELETS (AUTO) ([id number] [id number])Ordered By: Weld Fitter on 07-27-2019 Erythrocyte distribution width (RBC) [Ratio] 14.5 % Normal 11.7-15.4 [facility] Internal Medicine Work Phone: Comment on above: PATIENT WAS FASTINGP ERFORMED BY: MICHI [facility] Wyxdus4434 Britton RoadDuin [place] [id number] Hematocrit (Bld) [Volume fraction] 40.8 % Normal 34.0-46.6 [facility] Work Phone: Comment on above: PATIENT WAS FASTINGP ERFORMED BY: CB [facility] Ucpxva8223 [address] RoadDublin [place] [id number] Hemoglobin (Bld) [Mass/Vol] 13.6 g/dL Normal 11.1-15.9 [facility] Work Phone: Comment on above: PATIENT WAS FASTINGP ERFORMED BY: MICHI [facility] Myafmu8006 [address] RoadFormerly [facility] [place] [id number] MCH (RBC) [Entitic mass] 30.8 pg Normal 26.6-33.0 [facility] Internal Medicine Work Phone: Comment on above: PATIENT WAS FASTINGP ERFORMED BY: MICHI [facility] Zsqhxb1003 [address] [facility]in [place] [id number] MCHC (RBC) [Mass/Vol] 33.3 g/dL Normal 31.5-35.7 [facility] Work Phone: Comment on above: PATIENT WAS FASTINGP ERFORMED BY: [facility] Mekpow2325 [address] RoadDuin [place] [id number] MCV (RBC) [Entitic vol] 92 fL Normal 79-97 [facility] Work Phone: Comment on above: PATIENT WAS FASTINGP ERFORMED BY: CB [facility] Kcqike9046 [address] RoadDublin [place] [id number] Platelets (Bld) [#/Vol] 294 {x10E3/uL} Normal 150-450 [facility] Work Phone: Comment on above: PATIENT WAS FASTINGP ERFORMED BY: CB [facility] Kgtivf74[address] [facility] [place] [id number] Platelets (Bld) [#/Vol] 294 10*3/uL Normal 150-450 [facility] Internal Medicine; [facility] Internal Medicine Work Phone: Comment on above: PATIENT WAS FASTINGP ERFORMED BY: MICHI [facility] Gssevh4321 [address] RoadDublin [place] [id number] RBC (Bld) [#/Vol] 4.42 {x10E6/uL} Normal 3.77-5.28 [facility] Internal Medicine Work Phone: Comment on above: PATIENT WAS FASTINGP ERFORMED BY: CB [facility] Xfnbww3404 [address] RoadDublin [place] [id number] RBC (Bld) [#/Vol] 4.42 10*6/uL Normal 3.77-5.28 [facility] Internal Medicine; [facility] Internal Medicine Work Phone: Comment on above: PATIENT WAS FASTINGP ERFORMED BY: MICHI [facility] Kcnifk0612 [address] RoadDublin [place] [id number] WBC (Bld) [#/Vol] 6.7 {x10E3/uL} Normal 3.4-10.8 [facility] Internal Medicine Work Phone: Comment on above: PATIENT WAS FASTINGP ERFORMED BY: MICHI [facility] Frhxsc8389 [address] RoadDublin [place] [id number] WBC (Bld) [#/Vol] 6.7 10*3/uL Normal 3.4-10.8 [facility] Internal Medicine; [facility] Internal Medicine Work Phone: Comment on above: PATIENT WAS FASTINGP ERFORMED BY: CB [facility] Vdfyll4114 [address] RoadDublin [place] [id number] METABOLIC PANEL, COMPREHENSI VE ([id number])Ordered By: Weld Fitter on 07-27-2019 Albumin [Mass/Vol] 4.7 g/dL Normal 3.8-4.8 [facility] Internal Medicine Work Phone: Comment on above: Please note refere nce interval change PATIENT WAS FASTINGP ERFORMED BY: CB [facility] Adeupg9246 [address] RoadDublin [place] [id number] Information: NURSE DRAW Albumin/Globulin [Mass ratio] 1.7 {ratio} Normal 1.2-2.2 [facility] Work Phone: Comment on above: PATIENT WAS FASTINGP ERFORMED BY: MICHI Zayaslin6370 [facility] [id number] Information: NURSE DRAW ALP [Catalytic activity/Vol] 73 [iU]/L Normal 39-117 [facility] Work Phone: Comment on above: PATIENT WAS FASTINGP ERFORMED BY: MICHI Zayaslin6370 [facility] [id number] Information: NURSE DRAW ALP [Catalytic activity/Vol] 73 U/L Normal 39-117 [facility]; [facility] Work Phone: Comment on above: PATIENT WAS FASTINGP ERFORMED BY: MICHI Zayaslin6370 [facility] [id number] Information: NURSE DRAW ALT [Catalytic activity/Vol] 24 [iU]/L Normal 0-32 [facility] Work Phone: Comment on above: PATIENT WAS FASTINGP ERFORMED BY: MICHI Zayaslin6370 [facility] [id number] Information: NURSE DRAW ALT [Catalytic activity/Vol] 24 U/L Normal 0-32 [facility]; [facility] Work Phone: Comment on above: PATIENT WAS FASTINGP ERFORMED BY: MICHI Zayaslin6370 [facility] [id number] Information: NURSE DRAW AST [Catalytic activity/Vol] 30 [iU]/L Normal 0-40 [facility] Work Phone: Comment on above: PATIENT WAS FASTINGP ERFORMED BY: MICHI Zayaslin6370 [facility] [id number] Information: NURSE DRAW AST [Catalytic activity/Vol] 30 U/L Normal 0-40 [facility]; [facility] Work Phone: Comment on above: PATIENT WAS FASTINGP ERFORMED BY: MICHI DrakeCodar ZayasIuuhon9570 [facility] [id number] Information: NURSE DRAW Bilirubin [Mass/Vol] 0.3 mg/dL Normal 0.0-1.2 [facility]eren[facility] Internal [facility] Work Phone: Comment on above: PATIENT WAS FASTINGP ERFORMED BY: MICHI [facility] Kjgdch9564 [facility] [id number] Information: NURSE DRAW Calcium [Mass/Vol] 9.1 mg/dL Normal 8.7-10.2 [facility] Internal Medicine Work Phone: Comment on above: PATIENT WAS FASTINGP ERFORMED BY: MICHI [facility] Asgaeg3011 [facility] [id number] Information: NURSE DRAW Chloride [Moles/Vol] 101 mmol/L Normal 96-106 [facility] Internal Medicine Work Phone: Comment on above: PATIENT WAS FASTINGP ERFORMED BY: MICHI DrakePemiscot [facility] Ckmpth4178 [facility] [id number] Information: NURSE DRAW CO2 [Moles/Vol] 22 mmol/L Normal 20-29 [facility] Internal Medicine Work Phone: Comment on above: PATIENT WAS FASTINGP ERFORMED BY: MICHI LabP[facility] Wizmdm2606 [facility] [id number] Information: NURSE DRAW Creatinine [Mass/Vol] 0.83 mg/dL Normal 0.57-1.00 [facility] Internal Medicine Work Phone: Comment on above: PATIENT WAS FASTINGP ERFORMED BY: MICHI LabP[facility] Bnpbou9288 [facility] [id number] Information: NURSE DRAW GFR/1.73 sq M predicted among blacks CKD-EPI (S/P/Bld) [Vol rate/Area] 96 mL/min/1.73 Normal [facility] Internal Medicine Work Phone: Comment on above: PATIENT WAS FASTINGP ERFORMED BY: MICHI [facility] Cbmfqs0191 [facility] [id number] Information: NURSE DRAW GFR/1.73 sq M predicted among non-blacks CKD-EPI (S/P/Bld) [Vol rate/Area] 83 mL/min/1.73 Normal [facility] Internal Medicine Work Phone: Comment on above: PATIENT WAS FASTINGP ERFORMED BY: [place] [id number] [facility] [id number] Information: NURSE DRAW Globulin (S) [Mass/Vol] 2.7 g/dL Normal 1.5-4.5 [facility] Internal Medicine Work Phone: Comment on above: PATIENT WAS FASTINGP ERFORMED BY: [address] [id number] Information: NURSE DRAW Glucose [Mass/Vol] 86 mg/dL Normal 65-99 [facility] Internal Medicine Work Phone: Comment on above: PATIENT WAS FASTINGP ERFORMED BY: [address] [id number] Information: NURSE DRAW Potassium [Moles/Vol] 3.9 mmol/L Normal 3.5-5.2 [facility] Internal Medicine Work Phone: Comment on above: PATIENT WAS FASTINGP ERFORMED BY: [address] [id number] Information: NURSE DRAW Protein [Mass/Vol] 7.4 g/dL Normal 6.0-8.5 [facility] Internal Medicine Work Phone: Comment on above: PATIENT WAS FASTINGP ERFORMED BY: [place] 1071570 [facility] [id number] Information: NURSE DRAW Sodium [Moles/Vol] 139 mmol/L Normal 134-144 [facility] Internal Medicine Work Phone: Comment on above: PATIENT WAS FASTINGP ERFORMED BY: [place] 1071570 [facility] [id number] Information: NURSE DRAW Urea nitrogen [Mass/Vol] 16 mg/dL Normal 6-24 [facility] Internal Medicine Work Phone: Comment on above: PATIENT WAS FASTINGP ERFORMED BY: MICHI [facility] Uhyser4466 [address] [facility] Centerblin [place] [id number] Information: NURSE DRAW Urea nitrogen/Creatinine [Mass ratio] 19 mg/mg Normal 03-28 [facility] Work Phone: Comment on above: ADDENDA: fu 2-10 DF PATIENT WAS FASTINGP ERFORMED BY: MICHI [facility] Hsaqkr4518 Britt[address] Roadblin [place] [id number] Information: NURSE DRAW CBC with auto diff ([id number])Or dered By: Weld Fitter on 04-27-2019 Basophils (Bld) [#/Vol] 0.0 {x10E3/uL} Normal 0.0-0.2 [facility] Work Phone: Comment on above: PATIENT NOT FASTINGP ERFORMED BY: MICHI [facility] Kxakeb2419 [address] RoadFormerly [facility] [id number] Basophils (Bld) [#/Vol] 0.0 10*3/uL Normal 0.0-0.2 [facility]; [facility] Work Phone: Comment on above: PATIENT NOT FASTINGP ERFORMED BY: MICHI [facility] Uzjvjh2583 [address] RoadDublin [place] [id number] Basophils/100 WBC (Bld) 0 % Normal [facility] Work Phone: Comment on above: PATIENT NOT FASTINGP ERFORMED BY: MICHI [facility] Prxvjf6953 [address] RoadDublin [place] [id number] Eosinophils (Bld) [#/Vol] 0.0 {x10E3/uL} Normal 0.0-0.4 [facility] Work Phone: Comment on above: PATIENT NOT FASTINGP ERFORMED BY: CB [facility] Dzudng7977 [address] RoadDublin [place] [id number] Eosinophils (Bld) [#/Vol] 0.0 10*3/uL Normal 0.0-0.4 [facility]; [facility] Work Phone: Comment on above: PATIENT NOT FASTINGP ERFORMED BY: CB [facility] Yrtgss5247 [address] RoadDublin [place] [id number] Eosinophils/100 WBC (Bld) 0 % Normal [facility] Work Phone: Comment on above: PATIENT NOT FASTINGP ERFORMED BY: MICHI Zayaslin6370 [address] [facility] [id number] Erythrocyte distribution width (RBC) [Ratio] 13.5 % Normal 12.3-15.4 [facility] Work Phone: Comment on above: PATIENT NOT FASTINGP ERFORMED BY: NoelleScheurer Hospital6370 [address] [facility] [id number] Hematocrit (Bld) [Volume fraction] 38.7 % Normal 34.0-46.6 [facility] Work Phone: Comment on above: PATIENT NOT FASTINGP ERFORMED BY: [facility]ellePemiscot [facility] Njqqhj1769 [address] [facility] [id number] Hemoglobin (Bld) [Mass/Vol] 13.0 g/dL Normal 11.1-15.9 [facility] Work Phone: Comment on above: PATIENT NOT FASTINGP ERFORMED BY: [facility]ellePemiscot [facility] Zpuixg4038 [address] [facility] [id number] Immature granulocytes (Bld) [#/Vol] 0.0 {x10E3/uL} Normal 0.0-0.1 [facility] Work Phone: Comment on above: PATIENT NOT FASTINGP ERFORMED BY: MariamRehabilitation Hospital of South JerseyKeyddt2880 [address] [facility]in [place] [id number] Immature granulocytes (Bld) [#/Vol] 0.0 10*3/uL Normal 0.0-0.1 [facility]; [facility] Work Phone: Comment on above: PATIENT NOT FASTINGP ERFORMED BY: [facility]ellePemiscot [facility] Mxhsiu0082 [address] [facility] [id number] Immature granulocytes/100 WBC (Bld) 0 % Normal [facility] Work Phone: Comment on above: PATIENT NOT FASTINGP ERFORMED BY: LabScheurer Hospital6370 [address] [facility] [id number] Lymphocytes (Bld) [#/Vol] 2.8 {x10E3/uL} Normal 0.7-3.1 [facility] Work Phone: Comment on above: PATIENT NOT FASTINGP ERFORMED BY: CB [facility] Aofunt1674 [address] RoadDublin [place] [id number] Lymphocytes (Bld) [#/Vol] 2.8 10*3/uL Normal 0.7-3.1 [facility]; [facility] Work Phone: Comment on above: PATIENT NOT FASTINGP ERFORMED BY: CB [facility] Dgtoxm1895 [address] RoadDublin [place] [id number] Lymphocytes/100 WBC (Bld) 30 % Normal [facility] Work Phone: Comment on above: PATIENT NOT FASTINGP ERFORMED BY: MICIH [facility] Ofjhej9724 [address] RoadFormerly [facility]in [place] [id number] MCH (RBC) [Entitic mass] 31.0 pg Normal 26.6-33.0 [facility] Work Phone: Comment on above: PATIENT NOT FASTINGP ERFORMED BY: CB [facility] Kpmldv0009 [address] RoadDublin [place] [id number] MCHC (RBC) [Mass/Vol] 33.6 g/dL Normal 31.5-35.7 [facility] Internal Medicine Work Phone: Comment on above: PATIENT NOT FASTINGP ERFORMED BY: CB [facility] Sfnqdq6663 [address] RoadDublin [place] [id number] MCV (RBC) [Entitic vol] 92 fL Normal 79-97 [facility] Work Phone: Comment on above: PATIENT NOT FASTINGP ERFORMED BY: CB [facility] Esafdz0867 [address] RoadDublin [place] [id number] Monocytes (Bld) [#/Vol] 0.5 {x10E3/uL} Normal 0.1-0.9 [facility] Work Phone: Comment on above: PATIENT NOT FASTINGP ERFORMED BY: CB [facility] Bilusx4149 [address] RoadDublin [place] [id number] Monocytes (Bld) [#/Vol] 0.5 10*3/uL Normal 0.1-0.9 [facility]; [facility] Work Phone: Comment on above: PATIENT NOT FASTINGP ERFORMED BY: MICHI NoelleCodar Gzmrfw9294 [address] RoadDublin [place] [id number] Monocytes/100 WBC (Bld) 6 % Normal [facility] Work Phone: Comment on above: PATIENT NOT FASTINGP ERFORMED BY: CB [facility] Ddqnqk0506 [address] RoadDublin [place] [id number] Neutrophils (Bld) [#/Vol] 6.0 {x10E3/uL} Normal 1.4-7.0 [facility] Work Phone: Comment on above: PATIENT NOT FASTINGP ERFORMED BY: MICHI Mariamdar ZayasMdaoih0488 [address] RoadDublin [place] [id number] Neutrophils (Bld) [#/Vol] 6.0 10*3/uL Normal 1.4-7.0 [facility]; [facility] Work Phone: Comment on above: PATIENT NOT FASTINGP ERFORMED BY: MICHI Tasha Uoljje1522 [address] RoadDublin [place] [id number] Neutrophils/100 WBC (Bld) 64 % Normal [facility] Work Phone: Comment on above: PATIENT NOT FASTINGP ERFORMED BY: MICHI [facility] Ydgdkz2673 [address] RoadDublin [place] [id number] Platelets (Bld) [#/Vol] 381 {x10E3/uL} Normal 150-450 [facility] Work Phone: Comment on above: PATIENT NOT FASTINGP ERFORMED BY: MICHI [facility] Ccqluj7146 [address] RoadDublin [place] [id number] Platelets (Bld) [#/Vol] 381 10*3/uL Normal 150-450 [facility]; [facility] Work Phone: Comment on above: PATIENT NOT FASTINGP ERFORMED BY: CB [facility] Ildjvc4155 [address] RoadDublin [place] [id number] RBC (Bld) [#/Vol] 4.20 {x10E6/uL} Normal 3.77-5.28 [facility] Internal Medicine Work Phone: Comment on above: PATIENT NOT FASTINGP ERFORMED BY: MICHI Becerra Bouuft6003 [facility] [id number] RBC (Bld) [#/Vol] 4.20 10*6/uL Normal 3.77-5.28 [facility] Internal Medicine; [facility] Work Phone: Comment on above: PATIENT NOT FASTINGP ERFORMED BY: LabScheurer Hospital6370 [facility] [id number] WBC (Bld) [#/Vol] 9.3 {x10E3/uL} Normal 3.4-10.8 [facility] Internal Medicine Work Phone: Comment on above: PATIENT NOT FASTINGP ERFORMED BY: [place] 1071570 [facility] [id number] WBC (Bld) [#/Vol] 9.3 10*3/uL Normal 3.4-10.8 [facility] Internal Medicine; [facility] Work Phone: Comment on above: PATIENT NOT FASTINGP ERFORMED BY: MICHI DrakePemiscot Memorial Health Systems Rxdjbq8167 [facility] [id number] EBV Panel ([id number])Ordered By: Weld Fitter on 04-27-2019 EBV capsid IgG IA Qn (S) 195.0 U/mL Abnormal 0.0-17.9 [facility] Work Phone: Comment on above: Negative <18.0 Equiv ocal 18.0 - 21.9 Positive >21.9 PATIENT NOT FASTINGP ERFORMED BY: LabScheurer Hospital6370 [facility] [id number] EBV capsid IgM IA Qn (S) <36.0 Normal 0.0-35.9 [facility] Work Phone: Comment on above: Negative <36.0 Equiv ocal 36.0 - 43.9 Positive >43.9 PATIENT NOT FASTINGP ERFORMED BY: Cosmos[employer] Pxjlyy1456 [facility] [id number] EBV early IgG Qn (S) 12.2 U/mL Abnormal 0.0-8.9 [facility] Internal Medicine Work Phone: Comment on above: Hepatitis A, Hepatit is C and HIV antibodies may cross- reactwith this assay. Negative < 9.0 Equivocal 9.0 - 10.9 Positive >10.9 PATIENT NOT FASTINGP ERFORMED BY: CosmosIDRehabilitation Hospital of South JerseyEwmdit8751 [facility] [id number] EBV nuclear IgG IA Qn (S) 118.0 U/mL Abnormal 0.0-17.9 [facility] Work Phone: Comment on above: Negative <18.0 Equiv ocal 18.0 - 21.9 Positive >21.9 PATIENT NOT FASTINGP ERFORMED BY: [employer] Aljuoo9209 [facility] [id number] Service comment (Unsp spec) [Interp] SPRCS Normal [facility] Work Phone: Comment on above: EBV Interpretation C santiago . Interpretation EBV-IgM EA(D)-IgG VCA-IgG EBNA-IgG . EBV Seronegative - - - - Early Phase + - - - Acute Primary + +or- + - Infection Convalescence/Past - +or- + + Infection Reactivated +or- +or- + + Infection + Antibody Present - Antibody Absent PATIENT NOT FASTINGP ERFORMED BY: Pathways PlatformPemiscot Memorial Health Systems Cjortm6574 [facility] [id number] TSH ([id number])Ordered By: Jagdish m Technical Professional on 04-27-2019 TSH Qn 1.060 {uIU/mL} Normal 0.450-4.50 0 [facility] Work Phone: Comment on above: PATIENT NOT FASTINGP ERFORMED BY: CosmosIDRehabilitation Hospital of South JerseyLtrbbo5804 [facility] [id number] Rapid Flu (89840 x 2)on 04-05 FLUAV Ag IA Ql (Throat) Negative Normal [facility] Work Phone: FLUAV Ag IA Ql (Throat) Negative Normal [facility]; [facility] Work Phone: Rapid Strep Test, Office ([phone])Ordered By: Joan Oseguera on 04-18-2019 S. pyogenes Ag EIA Ql (Throat) Negative Normal [facility]; [facility] Work Phone: S. pyogenes Ag IA Ql (Unsp spec) Negative Normal [facility] Work Phone: THROAT CULTURE ([id number])Ordere d By: Weld Fitter on 04-18-2019 Bacteria identified Respiratory culture Nom (Unsp spec) Final report Normal [facility] Work Phone: Comment on above: PATIENT NOT FASTINGP ERFORMED BY: MICHI LabShanpow.com Ddedua1095 [facility]Psych[facility] [id number] Information: SRC:TH Bacteria identified Respiratory culture Nom (Unsp spec) RRF Normal [facility] Work Phone: Comment on above: Routine respiratory charles PATIENT NOT FASTINGP ERFORMED BY: MICHI LabShanpow.com Pcpmpy4201 [facility] [id number] Information: SRC:TH C-REACT PROT HIGH SENS(hsCRP ) (08151)Ordered By: Weld Fitter on 02-22-2019 CRP High sensitivity method [Mass/Vol] 2.98 mg/L Normal 0.00-3.00 [facility] Work Phone: Comment on above: Relative Risk for Fu ture Cardiovascular Event Low <1.00 Average 1.00 - 3.00 High >3.00 PATIENT WAS FASTINGP ERFORMED BY: MICHI LabShanpow.com Aaclcw4340 [facility] [place] [id number]; review all at appt 03/14 LIPID PANEL ([id number])Ordered B y: Weld Fitter on 02-22-2019 Cholesterol [Mass/Vol] 173 mg/dL Normal 100-199 [facility] Work Phone: Comment on above: PATIENT WAS FASTINGP ERFORMED BY: MICHI LabShanpow.com Kcyyaa5584 [address] [facility] [place] [id number] Cholesterol in HDL [Mass/Vol] 54 mg/dL Normal [facility] Work Phone: Comment on above: PATIENT WAS FASTINGP ERFORMED BY: MICHI Zayaslin6370 [facility] [id number] Cholesterol in LDL [Mass/Vol] 97 mg/dL Normal 0-99 [facility] Work Phone: Comment on above: PATIENT WAS FASTINGP ERFORMED BY: MICHI Zayaslin6370 [facility] [id number] Cholesterol in LDL/Cholesterol in HDL [Mass ratio] 1.8 {ratio} Normal 0.0-3.2 [facility] Work Phone: Comment on above: LDL/HDL Ratio Men Wo men 1/2 Avg.Risk 1.0 1.5 Avg.Risk 3.6 3.2 2X Avg.Risk 6.2 5.0 3X Avg.Risk 8.0 6.1 PATIENT WAS FASTINGP ERFORMED BY: MICHI Heath6370 [facility] [id number] Cholesterol in VLDL [Mass/Vol] 22 mg/dL Normal 5-40 [facility] Work Phone: Comment on above: PATIENT WAS FASTINGP ERFORMED BY: MICHI Heath6370 [facility] [id number] Triglyceride [Mass/Vol] 112 mg/dL Normal 0-149 [facility] Work Phone: Comment on above: PATIENT WAS FASTINGP ERFORMED BY: MICHI Zayaslin6370 [facility] [id number] CBC & PLATELETS (AUTO) (8502 7)Ordered By: Weld Fitter on 08-09-2018 Erythrocyte distribution width Ratio (RBC) 14.0 % Normal 12.3-15.4 [facility] Work Phone: Comment on above: PATIENT NOT FASTINGP ERFORMED BY: MICHI Zayaslin6370 [facility] [id number] Hematocrit Volume Fraction (Bld) 40.8 % Normal 34.0-46.6 [facility] Work Phone: Comment on above: PATIENT NOT FASTINGP ERFORMED BY: MICHI Zayaslin6370 [address] RoadDublin [place] [id number] Hemoglobin mass conc (Bld) 13.7 g/dL Normal 11.1-15.9 [facility] Work Phone: Comment on above: PATIENT NOT FASTINGP ERFORMED BY: CB [facility] Alutmc4113 [address]on RoadDublin [place] [id number] MCH Entitic mass (RBC) 30.9 pg Normal 26.6-33.0 [facility] Work Phone: Comment on above: PATIENT NOT FASTINGP ERFORMED BY: CB [facility] Ptyfsh9591 [address] RoadDublin [place] [id number] MCHC mass conc (RBC) 33.6 g/dL Normal 31.5-35.7 Comp rehensive Internal Medicine Work Phone: Comment on above: PATIENT NOT FASTINGP ERFORMED BY: CB [facility] Jpdwnj3419 Britton RoadDuin [place] [id number] MCV Entitic volume (RBC) 92 fL Normal 79-97 [facility] Work Phone: Comment on above: PATIENT NOT FASTINGP ERFORMED BY: CB [facility] Holdal1821 Britton RoadDuin [place] [id number] Platelets #/vol (Bld) 260 {x10E3/uL} Normal 150-379 [facility] Work Phone: Comment on above: PATIENT NOT FASTINGP ERFORMED BY: CB [facility] Arznvn6076 [address] RoadFormerly [facility] [place] [id number] Platelets (Bld) [#/Vol] 260 10*3/uL Normal 150-379 [facility]; [facility] Work Phone: Comment on above: PATIENT NOT FASTINGP ERFORMED BY: CB [facility] Soavgo0852 [address] RoadDublin [place] [id number] RBC #/vol (Bld) 4.43 {x10E6/uL} Normal 3.77-5.28 Comp rehensive Internal Medicine Work Phone: Comment on above: PATIENT NOT FASTINGP ERFORMED BY: CB [facility] Zsjils9669 Britton RoadDublin [place] [id number] RBC (Bld) [#/Vol] 4.43 10*6/uL Normal 3.77-5.28 [facility]; [facility] Work Phone: Comment on above: PATIENT NOT FASTINGP ERFORMED BY: MICHI [facility] Xvscep8394 [address] [facility] [id number] WBC #/vol (Bld) 5.4 {x10E3/uL} Normal 3.4-10.8 [facility] Internal Medicine Work Phone: Comment on above: PATIENT NOT FASTINGP ERFORMED BY: CB [facility] Yfzaxg5590 [address] [facility]in [place] [id number] WBC (Bld) [#/Vol] 5.4 10*3/uL Normal 3.4-10.8 [facility]; [facility] Work Phone: Comment on above: PATIENT NOT FASTINGP ERFORMED BY: CB [facility] Ytuzgf4848 [facility] [id number] METABOLIC PANEL, COMPREHENSI VE ([id number])Ordered By: Weld Fitter on 08-09-2018 Albumin mass conc 4.6 g/dL Normal 3.5-5.5 [facility] Internal Medicine Work Phone: Comment on above: PATIENT NOT FASTINGP ERFORMED BY: MICHI [facility] Orpysq6158 [facility] [id number] Information: NURSE DRAW Albumin/Globulin mass ratio 1.8 {ratio} Normal 1.2-2.2 [facility] Internal Medicine Work Phone: Comment on above: PATIENT NOT FASTINGP ERFORMED BY: CB [facility] Hrvoyb3715 [address] [facility] [id number] Information: NURSE DRAW ALP [Catalytic activity/Vol] 76 U/L Normal 39-117 [facility]; [facility] Work Phone: Comment on above: PATIENT NOT FASTINGP ERFORMED BY: CB [facility] Wuuich5297 [address] [facility] [id number] Information: NURSE DRAW ALP enzyme act/vol 76 [iU]/L Normal 39-117 [facility] Internal Medicine Work Phone: Comment on above: PATIENT NOT FASTINGP ERFORMED BY: MICHI [facility] Kvzrju4234 [address] RoadDublin [place] [id number] Information: NURSE DRAW ALT [Catalytic activity/Vol] 24 U/L Normal 0-32 [facility] Internal Medicine; [facility] Internal Medicine Work Phone: Comment on above: PATIENT NOT FASTINGP ERFORMED BY: CB [facility] Bfweah0799 [address] RoadFormerly [facility] [place] [id number] Information: NURSE DRAW ALT enzyme act/vol 24 [iU]/L Normal 0-32 [facility] Internal Medicine Work Phone: Comment on above: PATIENT NOT FASTINGP ERFORMED BY: MICHI [facility] Ohkxdd0601 [address] RoadFormerly [facility] [id number] Information: NURSE DRAW AST [Catalytic activity/Vol] 35 U/L Normal 0-40 [facility] Internal Medicine; [facility] Internal Medicine Work Phone: Comment on above: PATIENT NOT FASTINGP ERFORMED BY: CB [facility] Xrqxpw3020 [address] RoadFormerly [facility] [id number] Information: NURSE DRAW AST enzyme act/vol 35 [iU]/L Normal 0-40 [facility] Internal Medicine Work Phone: Comment on above: PATIENT NOT FASTINGP ERFORMED BY: CB [facility] Kszjmr4998 [address] [facility] [id number] Information: NURSE DRAW Bilirubin mass conc 0.3 mg/dL Normal 0.0-1.2 [facility] Internal Medicine Work Phone: Comment on above: PATIENT NOT FASTINGP ERFORMED BY: CB [facility] Rlpzvk8268 [address] [facility]in [place] [id number] Information: NURSE DRAW Calcium mass conc 9.3 mg/dL Normal 8.7-10.2 [facility] Internal Medicine Work Phone: Comment on above: PATIENT NOT FASTINGP ERFORMED BY: CB [facility] Iqbvdh3744 [address] RoadFormerly [facility] [id number] Information: NURSE DRAW Chloride molar conc 104 mmol/L Normal 96-106 Compr ehensive Internal Medicine Work Phone: Comment on above: PATIENT NOT FASTINGP ERFORMED BY: MICHI Heath6370 [facility] [id number] Information: NURSE DRAW CO2 molar conc 25 mmol/L Normal 20-29 [facility] Internal Medicine Work Phone: Comment on above: PATIENT NOT FASTINGP ERFORMED BY: MICHI NoelleCo Vdvmpr6263 [facility] [id number] Information: NURSE DRAW Creatinine mass conc 0.83 mg/dL Normal 0.57-1.00 Comp rehensive Internal Medicine Work Phone: Comment on above: PATIENT NOT FASTINGP ERFORMED BY: MICHI Tasha Zayaslin6370 [facility] [id number] Information: NURSE DRAW GFR/1.73 sq M predicted among blacks CKD-EPI vol rate/area (S/P/Bld) 96 mL/min/1.73 Normal Comprehensiv e Internal Medicine Work Phone: Comment on above: PATIENT NOT FASTINGP ERFORMED BY: MICHI Tasha Zayaslin6370 [facility] [id number] Information: NURSE DRAW GFR/1.73 sq M predicted among non-blacks CKD-EPI vol rate/area (S/P/Bld) 84 mL/min/1.73 Normal [facility] Work Phone: Comment on above: PATIENT NOT FASTINGP ERFORMED BY: MICHI NoelleCo Zgqhwd4574 [facility] [id number] Information: NURSE DRAW Globulin mass conc (S) 2.5 g/dL Normal 1.5-4.5 [facility] Work Phone: Comment on above: PATIENT NOT FASTINGP ERFORMED BY: MICHI [facility] Veelgb9438 [facility] [id number] Information: NURSE DRAW Glucose mass conc 98 mg/dL Normal 65-99 Compreh ensive Internal Medicine Work Phone: Comment on above: PATIENT NOT FASTINGP ERFORMED BY: MICHI DrakeCo Iqxxxy8617 [facility] [id number] Information: NURSE DRAW Potassium molar conc 4.5 mmol/L Normal 3.5-5.2 Comp rehensive Internal Medicine Work Phone: Comment on above: PATIENT NOT FASTINGP ERFORMED BY: LabCoBilly [place] 4367670 [facility] [id number] Information: NURSE DRAW Protein mass conc 7.1 g/dL Normal 6.0-8.5 Compreh ensive Internal Medicine Work Phone: Comment on above: PATIENT NOT FASTINGP ERFORMED BY: LabCoBilly [place] 4367670 [facility] [id number] Information: NURSE DRAW Sodium molar conc 144 mmol/L Normal 134-144 Compreh ensive Internal Medicine Work Phone: Comment on above: PATIENT NOT FASTINGP ERFORMED BY: LabCoB[place] 4367670 [facility] [id number] Information: NURSE DRAW Urea nitrogen mass conc 9 mg/dL Normal 6-24 [facility] Work Phone: Comment on above: PATIENT NOT FASTINGP ERFORMED BY: LabCoB[place] 4367670 [facility] [id number] Information: NURSE DRAW Urea nitrogen/Creatinine mass ratio 11 mg/mg Normal 9-23 [facility] Work Phone: Comment on above: PATIENT NOT FASTINGP ERFORMED BY: LabDanielle Ville [id number] [facility] [id number] Information: NURSE DRAW GlucoseOrdered By: Cindy kirby on 07-19-2018 Glucose mass conc 92 mg/dL Normal 74-106 Compreh ensive Internal Medicine Work Phone: Comment on above: Please note revised GLUCOSE reference range [id number]/02/2018. [facility] [address] [place], [place], [address] Lipid ProfileOrdered By: Tasia tem Technical Professional on 07-19-2018 Cholesterol in HDL mass conc 56 mg/dL Normal [facility] Work Phone: Comment on above: The drugs N-Acetylcy steine and Metamizole may falselydepress this assay. Reference Range HDL <40 mg/dL Low HDL Cholesterol HDL >or= 60 mg/dL High HDL Cholesterol [facility] [address] [place], [place], [phone] Cholesterol in LDL mass conc 97 mg/dL Normal 0-130 [facility] Work Phone: Comment on above: [facility] [address] [place], [place], [id number] Cholesterol in VLDL mass conc 28 mg/dL Normal 5-40 [facility] Work Phone: Comment on above: [facility] [address] [place], [place], [id number] Cholesterol mass conc 181 mg/dL Normal [facility] prehensive Internal Medicine Work Phone: Comment on above: <200 mg/dL Desirable 200-240 mg/dL Borderline >240 mg/dL High Risk [facility] Rs[address] [place], [place], [address] Triglyceride mass conc 138 mg/dL Normal [facility] Work Phone: Comment on above: The drugs N-Acetylcy steine and Metamizole may falselydepress this assay.Serum Triglycerides Reference Interval Normal <150 mg/dL Borderline high 150 - 199 mg/dL High 200 - 499 mg/dL Very High > or = 500 mg/dL [facility] [address] [place], [place], [address] Lipid Profile 28 mg/dL Normal 5-40 Comprehensi Internal Medicine Work Phone: Comment on above: [facility] [address] [place], [place], [id number] CBC W/AUTO DIFF WBC ([id number])O rdered By: Weld Fitter on 04-26-2018 Basophils #/vol (Bld) 0.0 {x10E3/uL} Normal 0.0-0.2 [facility] Work Phone: Comment on above: PATIENT NOT FASTINGP ERFORMED BY: CB [facility] Wkuxab0298 [address] RoadDublin [place] [id number] Basophils (Bld) [#/Vol] 0.0 10*3/uL Normal 0.0-0.2 [facility]; [facility] Work Phone: Comment on above: PATIENT NOT FASTINGP ERFORMED BY: CB [facility] Arhqzp0030 [address] RoadDublin [place] [id number] Basophils/100 WBC (Bld) 0 % Normal [facility] Work Phone: Comment on above: PATIENT NOT FASTINGP ERFORMED BY: CB [facility] Wgvmhn3634 [address] RoadDublin [place] [id number] Eosinophils #/vol (Bld) 0.1 {x10E3/uL} Normal 0.0-0.4 [facility] Work Phone: Comment on above: PATIENT NOT FASTINGP ERFORMED BY: CB [facility] Wodyuh0738 [address] RoadDublin [place] [id number] Eosinophils (Bld) [#/Vol] 0.1 10*3/uL Normal 0.0-0.4 [facility]; [facility] Work Phone: Comment on above: PATIENT NOT FASTINGP ERFORMED BY: CB [facility] Zbtozd6655 [address] RoadDublin [place] [id number] Eosinophils/100 WBC (Bld) 1 % Normal [facility] Work Phone: Comment on above: PATIENT NOT FASTINGP ERFORMED BY: CB [facility] Pgpkxn3817 [address] RoadDublin [place] [id number] Erythrocyte distribution width Ratio (RBC) 14.0 % Normal 12.3-15.4 [facility] Work Phone: Comment on above: PATIENT NOT FASTINGP ERFORMED BY: CB [facility] Buuqtm7724 [address] RoadDublin [place] [id number] Hematocrit Volume Fraction (Bld) 42.5 % Normal 34.0-46.6 [facility] Work Phone: Comment on above: PATIENT NOT FASTINGP ERFORMED BY: MICHI LabCodar HeathUmzjqg7714 [address] [facility] [place] [id number] Hemoglobin mass conc (Bld) 14.3 g/dL Normal 11.1-15.9 [facility] Work Phone: Comment on above: PATIENT NOT FASTINGP ERFORMED BY: CB [facility] Hqqgfl5773 [address] RoadFormerly [facility]in [place] [id number] Immature granulocytes #/vol (Bld) 0.0 {x10E3/uL} Normal 0.0-0.1 [facility] Work Phone: Comment on above: PATIENT NOT FASTINGP ERFORMED BY: MICHI Zayaslin6370 [address] Roadblin [place] [id number] Immature granulocytes (Bld) [#/Vol] 0.0 10*3/uL Normal 0.0-0.1 [facility]; [facility] Work Phone: Comment on above: PATIENT NOT FASTINGP ERFORMED BY: MICHI Zayaslin6370 [address] [facility]in [place] [id number] Immature granulocytes/100 WBC (Bld) 0 % Normal [facility] Work Phone: Comment on above: PATIENT NOT FASTINGP ERFORMED BY: MICHI LabCodar ZayasIudvit8063 [address] [facility]in [place] [id number] Lymphocytes #/vol (Bld) 1.9 {x10E3/uL} Normal 0.7-3.1 [facility] Work Phone: Comment on above: PATIENT NOT FASTINGP ERFORMED BY: CB [facility] Mhycmg4466 [address] Roadblin [place] [id number] Lymphocytes (Bld) [#/Vol] 1.9 10*3/uL Normal 0.7-3.1 [facility]; [facility] Work Phone: Comment on above: PATIENT NOT FASTINGP ERFORMED BY: CB [facility] Zwmufq8998 [address] RoadDublin [place] [id number] Lymphocytes/100 WBC (Bld) 14 % Normal [facility] Work Phone: Comment on above: PATIENT NOT FASTINGP ERFORMED BY: MICHI [facility] Keegny5882 [address] [facility]bl[facility] [place] [id number] MCH Entitic mass (RBC) 31.0 pg Normal 26.6-33.0 [facility] Work Phone: Comment on above: PATIENT NOT FASTINGP ERFORMED BY: CB [facility] Fyoswc8954 [address] [facility] [id number] MCHC mass conc (RBC) 33.6 g/dL Normal 31.5-35.7 Comp [facility] Internal Medicine Work Phone: Comment on above: PATIENT NOT FASTINGP ERFORMED BY: MICHI [facility] Fhsjql8457 [address] [facility] [id number] MCV Entitic volume (RBC) 92 fL Normal 79-97 [facility] Work Phone: Comment on above: PATIENT NOT FASTINGP ERFORMED BY: MICHI [facility] Orhwhe2849 [address] [facility] [id number] Monocytes #/vol (Bld) 0.4 {x10E3/uL} Normal 0.1-0.9 [facility] Work Phone: Comment on above: PATIENT NOT FASTINGP ERFORMED BY: CB [facility] Rfeovc8247 [address] [facility] [id number] Monocytes (Bld) [#/Vol] 0.4 10*3/uL Normal 0.1-0.9 [facility]; [facility] Work Phone: Comment on above: PATIENT NOT FASTINGP ERFORMED BY: CB [facility] Ncslyt0225 [address] [facility] [id number] Monocytes/100 WBC (Bld) 3 % Normal [facility] Work Phone: Comment on above: PATIENT NOT FASTINGP ERFORMED BY: CB [facility] Xnvuol9612 [address] [facility]in [place] [id number] Neutrophils #/vol (Bld) 11.5 {x10E3/uL} Abnormal 1.4-7.0 [facility] Work Phone: Comment on above: PATIENT NOT FASTINGP ERFORMED BY: CB [facility] Hjbmdm2794 [address] RoadDublin [place] [id number] Neutrophils (Bld) [#/Vol] 11.5 10*3/uL Abnormal 1.4-7.0 [facility]; [facility] Work Phone: Comment on above: PATIENT NOT FASTINGP ERFORMED BY: CB [facility] Voxgvr1660 [address] RoadDublin [place] [id number] Neutrophils/100 WBC (Bld) 82 % Normal [facility] Work Phone: Comment on above: PATIENT NOT FASTINGP ERFORMED BY: CB [facility] Bqvmii0101 [address] RoadDublin [place] [id number] Platelets #/vol (Bld) 297 {x10E3/uL} Normal 150-379 [facility] Work Phone: Comment on above: PATIENT NOT FASTINGP ERFORMED BY: CB [facility] Meklop4621 [address] RoadDublin [place] [id number] Platelets (Bld) [#/Vol] 297 10*3/uL Normal 150-379 [facility]; [facility] Work Phone: Comment on above: PATIENT NOT FASTINGP ERFORMED BY: CB [facility] Efsdza4444 [address] RoadDublin [place] [id number] RBC #/vol (Bld) 4.61 {x10E6/uL} Normal 3.77-5.28 [facility] Internal Medicine Work Phone: Comment on above: PATIENT NOT FASTINGP ERFORMED BY: CB [facility] Eywthk6991 [address] RoadDublin [place] [id number] RBC (Bld) [#/Vol] 4.61 10*6/uL Normal 3.77-5.28 [facility]; [facility] Work Phone: Comment on above: PATIENT NOT FASTINGP ERFORMED BY: CB [facility] Qzfbvl7203 [address] RoadDublin [place] [id number] WBC #/vol (Bld) 13.9 {x10E3/uL} Abnormal 3.4-10.8 [facility] Work Phone: Comment on above: PATIENT NOT FASTINGP ERFORMED BY: MICHI [facility] Glvvgc1776 [facility] [id number] WBC (Bld) [#/Vol] 13.9 10*3/uL Abnormal 3.4-10.8 [facility]; [facility] Work Phone: Comment on above: PATIENT NOT FASTINGP ERFORMED BY: MICHI [facility]6370 [facility] [id number] EBV Panel ([id number])Ordered By: Weld Fitter on 04-26-2018 EBV capsid IgG IA Qn (S) 173.0 U/mL Abnormal 0.0-17.9 [facility] Work Phone: Comment on above: Negative <18.0 Equiv ocal 18.0 - 21.9 Positive >21.9 PATIENT NOT FASTINGP ERFORMED BY: MICHI [facility]Sche[facility]6370 [facility] [id number] EBV capsid IgM IA Qn (S) <36.0 Normal 0.0-35.9 [facility] Work Phone: Comment on above: Negative <36.0 Equiv ocal 36.0 - 43.9 Positive >43.9 PATIENT NOT FASTINGP ERFORMED BY: [facility]6370 [facility] [id number] EBV early IgG Qn (S) <9.0 Normal 0.0-8.9 [facility] Work Phone: Comment on above: Negative < 9.0 Equiv ocal 9.0 - 10.9 Positive >10.9 PATIENT NOT FASTINGP ERFORMED BY: [place] 1071570 [facility] [id number] EBV nuclear IgG IA Qn (S) 121.0 U/mL Abnormal 0.0-17.9 [facility] Work Phone: Comment on above: Negative <18.0 Equiv ocal 18.0 - 21.9 Positive >21.9 PATIENT NOT FASTINGP ERFORMED BY: [employer] Lusydf4520 [address] [employer] SolutionsFormerly [facility] [id number] Service comment Interp (Unsp spec) SPRCS Normal [facility] Work Phone: Comment on above: EBV Interpretation C henderson . Interpretation EBV-IgM EA(D)-IgG VCA-IgG EBNA-IgG . EBV Seronegative - - - - Early Phase + - - - Acute Primary + +or- + - Infection Convalescence/Past - +or- + + Infection Reactivated +or- + + + Infection + Antibody Present - Antibody Absent PATIENT NOT FASTINGP ERFORMED BY: [employer] Ffktge2957 [facility] [id number] Rapid Strep Test, Office ([id number])Ordered By: Joan Oseguera on 04-26-2018 S. pyogenes Ag EIA Ql (Throat) Negative Normal [facility]; [facility] Work Phone: S. pyogenes Ag IA Ql (Unsp spec) Negative Normal [facility] Work Phone: Throat Culture ([id number])Ordere d By: Weld Fitter on 04-26-2018 Bacteria identified Respiratory culture Nom (Unsp spec) RRF Normal [facility] Work Phone: Comment on above: Routine respiratory charles PATIENT NOT FASTINGP ERFORMED BY: [employer]6370 [facility] [id number] Information: SRC:TH Bacteria identified Respiratory culture Nom (Unsp spec) Final report Normal [facility] Work Phone: Comment on above: PATIENT NOT FASTINGP ERFORMED BY: [employer] Bcxgle5511 [facility]on[facility] [id number] Information: SRC:TH CBC W/AUTO DIFF WBC ([id number])O rdered By: Weld Fitter on 08-10-2017 Basophils #/vol (Bld) 0.0 {x10E3/uL} Normal 0.0-0.2 [facility] Work Phone: Comment on above: PATIENT WAS FASTINGP ERFORMED BY: [employer] Wgebpb9796 [address] [employer] SolutionsFormerly [facility] [id number] Basophils (Bld) [#/Vol] 0.0 10*3/uL Normal 0.0-0.2 [facility]; [facility] Work Phone: Comment on above: PATIENT WAS FASTINGP ERFORMED BY: [facility] Isphex2017 [address] RoadDublin [place] [id number] Basophils/100 WBC (Bld) 0 % Normal [facility] Work Phone: Comment on above: PATIENT WAS FASTINGP ERFORMED BY: [facility] Mhyjta7909 [address] RoadDublin [place] [id number] Eosinophils #/vol (Bld) 0.4 {x10E3/uL} Normal 0.0-0.4 [facility] Work Phone: Comment on above: PATIENT WAS FASTINGP ERFORMED BY: [facility] Vjdejy2405 [address] RoadFormerly [facility] [id number] Eosinophils (Bld) [#/Vol] 0.4 10*3/uL Normal 0.0-0.4 [facility]; [facility] Work Phone: Comment on above: PATIENT WAS FASTINGP ERFORMED BY: [facility] Aovcac1952 [address] [facility]bl[facility] [place] [id number] Eosinophils/100 WBC (Bld) 8 % Normal [facility] Work Phone: Comment on above: PATIENT WAS FASTINGP ERFORMED BY: [facility] Wrohjl9610 [address] [facility] [id number] Erythrocyte distribution width Ratio (RBC) 13.6 % Normal 12.3-15.4 [facility] Work Phone: Comment on above: PATIENT WAS FASTINGP ERFORMED BY: [facility] Yzsocn7276 [address] RoadDublin [place] [id number] Hematocrit Volume Fraction (Bld) 40.9 % Normal 34.0-46.6 [facility] Work Phone: Comment on above: PATIENT WAS FASTINGP ERFORMED BY: [facility] Oobogf5650 [address] RoadDuin [place] [id number] Hemoglobin mass conc (Bld) 13.5 g/dL Normal 11.1-15.9 [facility] Work Phone: Comment on above: PATIENT WAS FASTINGP ERFORMED BY: LabSche[facility]6370 [address] RoadDublin [place] [id number] Immature granulocytes #/vol (Bld) 0.0 {x10E3/uL} Normal 0.0-0.1 [facility] Work Phone: Comment on above: PATIENT WAS FASTINGP ERFORMED BY: [facility]6370 [address]bl[address] [place] [id number] Immature granulocytes (Bld) [#/Vol] 0.0 10*3/uL Normal 0.0-0.1 [facility]; [facility] Work Phone: Comment on above: PATIENT WAS FASTINGP ERFORMED BY: [facility] Nfbyvl3324 [address] RoadFormerly [facility] [place] [id number] Immature granulocytes/100 WBC (Bld) 0 % Normal [facility] Work Phone: Comment on above: PATIENT WAS FASTINGP ERFORMED BY: [facility]6370 [address] [facility]in [place] [id number] Lymphocytes #/vol (Bld) 1.8 {x10E3/uL} Normal 0.7-3.1 [facility] Work Phone: Comment on above: PATIENT WAS FASTINGP ERFORMED BY: [facility]6370 [address] [facility]bl[facility] [place] [id number] Lymphocytes (Bld) [#/Vol] 1.8 10*3/uL Normal 0.7-3.1 [facility]; [facility] Work Phone: Comment on above: PATIENT WAS FASTINGP ERFORMED BY: LabScheurer [facility]6370 [address]Dublin [place] [id number] Lymphocytes/100 WBC (Bld) 35 % Normal [facility] Work Phone: Comment on above: PATIENT WAS FASTINGP ERFORMED BY: LabBarnes-Jewish Saint Peters HospitalXisscp6366 [address] RoadDublin [place] [id number] MCH Entitic mass (RBC) 30.8 pg Normal 26.6-33.0 [facility] Work Phone: Comment on above: PATIENT WAS FASTINGP ERFORMED BY: MICHI [facility] Wskidp2383 [address] [facility] [id number] MCHC mass conc (RBC) 33.0 g/dL Normal 31.5-35.7 [facility] Internal Medicine Work Phone: Comment on above: PATIENT WAS FASTINGP ERFORMED BY: [facility]Co Ebbchm4224 [address] [facility] [id number] MCV Entitic volume (RBC) 93 fL Normal 79-97 [facility] Work Phone: Comment on above: PATIENT WAS FASTINGP ERFORMED BY: [facility] Vpeqgj8183 [address] [facility] [id number] Monocytes #/vol (Bld) 0.3 {x10E3/uL} Normal 0.1-0.9 [facility] Work Phone: Comment on above: PATIENT WAS FASTINGP ERFORMED BY: LabScheurer Hospital6370 [facility] [id number] Monocytes (Bld) [#/Vol] 0.3 10*3/uL Normal 0.1-0.9 [facility]; [facility] Work Phone: Comment on above: PATIENT WAS FASTINGP ERFORMED BY: [facility]6370 [facility] [id number] Monocytes/100 WBC (Bld) 6 % Normal [facility] Work Phone: Comment on above: PATIENT WAS FASTINGP ERFORMED BY: [facility] Zjbpdb1947 [facility] [place] [id number] Neutrophils #/vol (Bld) 2.6 {x10E3/uL} Normal 1.4-7.0 [facility] Work Phone: Comment on above: PATIENT WAS FASTINGP ERFORMED BY: [facility] Ecvytv0426 [facility] [place] [id number] Neutrophils (Bld) [#/Vol] 2.6 10*3/uL Normal 1.4-7.0 [facility]; [facility] Work Phone: Comment on above: PATIENT WAS FASTINGP ERFORMED BY: MICHI Tasha Heath6370 [address] RoadDublin [place] [id number] Neutrophils/100 WBC (Bld) 51 % Normal [facility] Work Phone: Comment on above: PATIENT WAS FASTINGP ERFORMED BY: MICHI LabCodar ZayasFglwne2428 Britton RoadDublin [place] [id number] Platelets #/vol (Bld) 307 {x10E3/uL} Normal 150-379 [facility] Work Phone: Comment on above: PATIENT WAS FASTINGP ERFORMED BY: MICHI LabCodar HeathHznqvb0964 Britt[address] RoadDublin [place] [id number] Platelets (Bld) [#/Vol] 307 10*3/uL Normal 150-379 [facility]; [facility] Work Phone: Comment on above: PATIENT WAS FASTINGP ERFORMED BY: MICHI Tasha Heath6370 [address] RoadDublin [place] [id number] RBC #/vol (Bld) 4.38 {x10E6/uL} Normal 3.77-5.28 [facility] Internal Medicine Work Phone: Comment on above: PATIENT WAS FASTINGP ERFORMED BY: MICHI [facility] Wbbzrz8990 [address] RoadDublin [place] [id number] RBC (Bld) [#/Vol] 4.38 10*6/uL Normal 3.77-5.28 Compr ensive Internal Medicine; [facility] Work Phone: Comment on above: PATIENT WAS FASTINGP ERFORMED BY: MICHI [facility] Kbiprc7106 [address] RoadDublin [place] [id number] WBC #/vol (Bld) 5.2 {x10E3/uL} Normal 3.4-10.8 Compr ensive Internal Medicine Work Phone: Comment on above: PATIENT WAS FASTINGP ERFORMED BY: MICHI [facility] Rfsmtt7635 [address] RoadDublin [place] [id number] WBC (Bld) [#/Vol] 5.2 10*3/uL Normal 3.4-10.8 [facility] Internal Medicine; [facility] Work Phone: Comment on above: PATIENT WAS FASTINGP ERFORMED BY: CB [facility] Goqmsf6290 [address] RoadDublin [place] [id number] METABOLIC PANEL, COMPREHENSI VE ([id number])Ordered By: Weld Fitter on 08-10-2017 Albumin mass conc 4.6 g/dL Normal 3.5-5.5 Compreh [facility] Internal Medicine Work Phone: Comment on above: PATIENT WAS FASTINGP ERFORMED BY: CB [facility] Uxzfzb9308 [address] RoadDublin [place] [id number]; review on 08/24 Albumin/Globulin mass ratio 2.0 {ratio} Normal 1.2-2.2 [facility] Internal Medicine Work Phone: Comment on above: PATIENT WAS FASTINGP ERFORMED BY: [facility] Vizhpe2417 [address] RoadDublin [place] [id number]; review on 08/24 ALP [Catalytic activity/Vol] 69 U/L Normal 39-117 [facility]; [facility] Internal Medicine Work Phone: Comment on above: PATIENT WAS FASTINGP ERFORMED BY: CB [facility] Veofxl3789 [address] RoadDublin [place] [id number]; review on 08/24 ALP enzyme act/vol 69 [iU]/L Normal 39-117 [facility] Internal Medicine Work Phone: Comment on above: PATIENT WAS FASTINGP ERFORMED BY: CB [facility] Gubdrk0629 [address] RoadDublin [place] [id number]; review on 08/24 ALT [Catalytic activity/Vol] 19 U/L Normal 0-32 [facility] Internal Medicine; [facility] Internal Medicine Work Phone: Comment on above: PATIENT WAS FASTINGP ERFORMED BY: CB [facility] Tskeqp4112 [address] RoadDublin [place] [id number]; review on 08/24 ALT enzyme act/vol 19 [iU]/L Normal 0-32 [facility] Internal Medicine Work Phone: Comment on above: PATIENT WAS FASTINGP ERFORMED BY: MICHI [facility] Cpjpjq4514 [address] RoadDublin [place] [id number]; review on 08/24 AST [Catalytic activity/Vol] 26 U/L Normal 0-40 [facility]; [facility] Work Phone: Comment on above: PATIENT WAS FASTINGP ERFORMED BY: CB [facility] Vqdflt9846 [address] RoadDublin [place] [id number]; review on 08/24 AST enzyme act/vol 26 [iU]/L Normal 0-40 Compre [facility] Internal Medicine Work Phone: Comment on above: PATIENT WAS FASTINGP ERFORMED BY: CB [facility] Zejfrc2012 [address] RoadDublin [place] [id number]; review on 08/24 Bilirubin mass conc 0.4 mg/dL Normal 0.0-1.2 Compr ensive Internal Medicine Work Phone: Comment on above: PATIENT WAS FASTINGP ERFORMED BY: CB [facility] Lsjzza7677 [address] RoadDublin [place] [id number]; review on 08/24 Calcium mass conc 9.3 mg/dL Normal 8.7-10.2 Compreh [facility] Work Phone: Comment on above: PATIENT WAS FASTINGP ERFORMED BY: CB [facility] Afkftr2325 [address] RoadDublin [place] [id number]; review on 08/24 Chloride molar conc 102 mmol/L Normal 96-106 Compr ensive Internal Medicine Work Phone: Comment on above: PATIENT WAS FASTINGP ERFORMED BY: CB [facility] Bgpuey3789 [address] RoadDublin [place] [id number]; review on 08/24 CO2 molar conc 25 mmol/L Normal 18-29 [facility] Internal [facility] Work Phone: Comment on above: PATIENT WAS FASTINGP ERFORMED BY: CB [facility] Hhuoib3654 [address] RoadDublin [place] [id number]; review on 08/24 Creatinine mass conc 0.91 mg/dL Normal 0.57-1.00 Comp [facility] Work Phone: Comment on above: PATIENT WAS FASTINGP ERFORMED BY: MICHI Zayaslin6370 [facility] [id number]; review on 08/24 GFR/1.73 sq M predicted among blacks CKD-EPI vol rate/area (S/P/Bld) 87 mL/min/1.73 Normal Comprehensiv e Internal Medicine Work Phone: Comment on above: PATIENT WAS FASTINGP ERFORMED BY: MICHI LabHarriet ZayasBksiqo7882 [facility] [id number]; review on 08/24 GFR/1.73 sq M predicted among non-blacks CKD-EPI vol rate/area (S/P/Bld) 75 mL/min/1.73 Normal [facility] Work Phone: Comment on above: PATIENT WAS FASTINGP ERFORMED BY: MICHI Zayaslin6370 [facility] [id number]; review on 08/24 Globulin mass conc (S) 2.3 g/dL Normal 1.5-4.5 [facility] Work Phone: Comment on above: PATIENT WAS FASTINGP ERFORMED BY: MICHI Zayaslin6370 [facility] [id number]; review on 08/24 Glucose mass conc 91 mg/dL Normal 65-99 Compreh ensive Internal Medicine Work Phone: Comment on above: PATIENT WAS FASTINGP ERFORMED BY: MICHI LabHarriet ZayasLeysiq2211 [facility] [id number]; review on 08/24 Potassium molar conc 4.4 mmol/L Normal 3.5-5.2 Comp rehensive Internal Medicine Work Phone: Comment on above: PATIENT WAS FASTINGP ERFORMED BY: MICHI LabHarriet ZayasPxnjma9422 [facility] [id number]; review on 08/24 Protein mass conc 6.9 g/dL Normal 6.0-8.5 Compreh ensive Internal Medicine Work Phone: Comment on above: PATIENT WAS FASTINGP ERFORMED BY: MICHI Zayaslin6370 [address] [facility] [id number]; review on 08/24 Sodium molar conc 141 mmol/L Normal 134-144 Compreh ensive Internal Medicine Work Phone: Comment on above: PATIENT WAS FASTINGP ERFORMED BY: [facility] Vgujhd0162 [facility] [id number]; review on 08/24 Urea nitrogen mass conc 17 mg/dL Normal 6- [facility] Work Phone: Comment on above: PATIENT WAS FASTINGP ERFORMED BY: [facility] Airpsf2234 [facility] [id number]; review on 08/24 Urea nitrogen/Creatinine mass ratio 19 mg/mg Normal 9- [facility] Work Phone: Comment on above: PATIENT WAS FASTINGP ERFORMED BY: [facility] Qbuvec9803 [facility] [id number]; review on 08/24 THROAT CULTURE ([id number])Ordere d By: Weld Fitter on 07-13-2017 Bacteria identified Respiratory culture Nom (Unsp spec) Final report Normal [facility] Work Phone: Comment on above: PATIENT NOT FASTINGP ERFORMED BY: [facility] Expfzc4296 [facility] [id number] Information: SRC:TH Bacteria identified Respiratory culture Nom (Unsp spec) RRF Normal [facility] Work Phone: Comment on above: Routine respiratory charles PATIENT NOT FASTINGP ERFORMED BY: [facility] Imxhkw7732 [facility] [id number] Information: SRC:TH CBC W/Diff, AutomatedOrdered By: Weld Fitter on 07-10-2017 Absolute Neut 5.0 {X10_3/uL} Normal 2.0-7.7 Compreh ensive Internal Medicine Work Phone: Comment on above: [facility] Cxaieaufcv2500 [facility] [place], [address] Basophils/100 WBC (Bld) 0.4 % Normal 0-1 [facility] Work Phone: Comment on above: [facility] [address] [place], [address] Eosinophils/100 WBC (Bld) 6.4 % Abnormal 0-5 [facility] Work Phone: Comment on above: [facility] [address] [place], [place], [id number] Erythrocyte distribution width Ratio (RBC) 13.3 % Normal 11.6-14.6 [facility] Work Phone: Comment on above: [facility] [address] [place], [address] Hematocrit Volume Fraction (Bld) 43.2 % Normal 37-47 [facility] Work Phone: Comment on above: [facility] [address] [place], [place], [phone] Hemoglobin mass conc (Bld) 14.3 g/dL Normal 12.0-15.0 [facility] Work Phone: Comment on above: [facility] [address] [place], [address] IM GRAN % 0.100 % Normal 0.0-0.9 [facility] Work Phone: Comment on above: IG% - Immature Granu locytes (promyelocytes, myelocytes andmetamyelocytes) > 1% indicates that a LEFT SHIFT is Present. [facility] [address]umce[address] [place], [place], [phone](288 Lymphocytes #/vol (Bld) 1.24 {X10_3/ul} Normal 0.83-4.51 [facility] Work Phone: Comment on above: [facility] [address] [place], [address] Lymphocytes/100 WBC (Bld) 17.5 % Abnormal 19-41 [facility] Work Phone: Comment on above: [facility] [address] [place], [address] MCH Entitic mass (RBC) 30.7 pg Normal 27.0-32.0 [facility] Work Phone: Comment on above: [facility] [address] [place], [address] MCHC mass conc (RBC) 33.1 {g/gl} Normal 32-36 Com prehensive Internal Medicine Work Phone: Comment on above: [facility] [address] [place], [address] MCV Entitic volume (RBC) 92.7 fL Normal 81-99 [facility] Internal Medicine Work Phone: Comment on above: [facility] [address] [place], [address] Monocytes/100 WBC (Bld) 5.6 % Normal 0-10 [facility] Work Phone: Comment on above: [facility] [address] [place], [address] Neutrophils/100 WBC (Bld) 70.0 % Normal 47-70 [facility] Internal Medicine Work Phone: Comment on above: [facility] [address] [place], [address] Platelet mean volume Entitic volume (Bld) 9.4 fL Normal 6.2-12.0 [facility]de[facility] Internal Medicine Work Phone: Comment on above: [facility] [address] [place], [address] Platelets #/vol (Bld) 235 10*3/uL Normal 150-450 [facility] Internal Medicine Work Phone: Comment on above: [facility] [address] [place], [address] RBC #/vol (Bld) 4.66 {M/mm3} Normal 4.2-5.4 Compreh ensive Internal Medicine Work Phone: Comment on above: [facility] [address] [place], [phone] RDW SD 44.2 fL Abnormal 35.1-43.9 [facility] Work Phone: Comment on above: [facility] [address] [place], [place], [phone] WBC #/vol (Bld) 7.1 10*3/uL Normal 4.4-11.0 Comprehe nsive Internal Medicine Work Phone: Comment on above: [facility] [address] [place], [place], [phone] Comprehensive Metabolic Prof ilOrdered By: Weld Fitter on 07-10-2017 Comprehensive metabolic 2000 panel 72 mg/dL Normal 70-110 Comprehensi ve Internal Medicine Work Phone: Comment on above: [facility] [address] [place], [place], [phone] Comprehensive metabolic 2000 panel 4.1 g/dL Normal 3.4-5.0 Comprehensi ve Internal Medicine Work Phone: Comment on above: Please note revised Albumin AND Globulin reference rangeeffective 2017. [facility] [address] [place], [place], [phone] Comprehensive metabolic 2000 panel 23 U/L Normal 15-37 Comprehensi ve Internal Medicine Work Phone: Comment on above: [facility] [address] [place], [place], [address] Comprehensive metabolic 2000 panel 71 U/L Normal 45-117 Comprehensi ve Internal Medicine Work Phone: Comment on above: [facility] [address] [place], [place], [address] Comprehensive metabolic 2000 panel 30 U/L Normal 12-78 Comprehensi ve Internal Medicine Work Phone: Comment on above: [facility] [address] [place], [place], [address] Comprehensive metabolic 2000 panel 0.60 mg/dL Normal 0.20-1.00 Comprehensi ve Internal Medicine Work Phone: Comment on above: [facility] [address] [place], [place], [phone] Comprehensive metabolic 2000 panel 143 mmol/L Normal 136-145 Comprehensi ve Internal Medicine Work Phone: Comment on above: [facility] [address] [place], [place], [address] Comprehensive metabolic 2000 panel 4.2 mmol/L Normal 3.5-5.1 Comprehensi ve Internal Medicine Work Phone: Comment on above: [facility] [address] [place], [place], [address] Comprehensive metabolic 2000 panel 107 mmol/L Normal 98-107 Comprehensi ve Internal Medicine Work Phone: Comment on above: [facility] [address] [place], [place], [address] Comprehensive metabolic 2000 panel 3.4 g/dL Normal 2.2-4.2 Comprehensi ve Internal Medicine Work Phone: Comment on above: [facility] [address] [place], [place], [address] Comprehensive metabolic 2000 panel 1.2 {RATIO} Normal 0.9-2.4 Comprehensi ve Internal Medicine Work Phone: Comment on above: [facility] [address] [place], [place], [address] Comprehensive metabolic 2000 panel 9.0 mg/dL Normal 8.5-10.1 Comprehensi ve Internal Medicine Work Phone: Comment on above: [facility] [address] [place], [place], [address] Comprehensive metabolic 2000 panel 31.0 mmol/L Normal 21.0-32.0 Comprehensi ve Internal Medicine Work Phone: Comment on above: [facility] [address] [place], [place], [address] Comprehensive metabolic 2000 panel 13.8 {RATIO} Normal 10-20 Comprehensi ve Internal Medicine Work Phone: Comment on above: [facility] [address] [place], [place], [address] Comprehensive metabolic 2000 panel 5 1 Normal 5-15 Comprehensi ve Internal Medicine Work Phone: Comment on above: [facility] [address] [place], [place], [address] Comprehensive metabolic 2000 panel 7.5 g/dL Normal 6.4-8.2 Comprehensi ve Internal Medicine Work Phone: Comment on above: [facility] [address] [place], [place], [address] Comprehensive metabolic 2000 panel 99 mL/min Normal Comprehensi ve Internal Medicine Work Phone: Comment on above: GFR Calc [facility] [address] [place], [address] Comprehensive metabolic 2000 panel 82 mL/min Normal Comprehensi ve Internal Medicine Work Phone: Comment on above: Non- GFR Calc [facility] [address] [place], [place], [address] Comprehensive metabolic 2000 panel 0.80 mg/dL Normal 0.55-1.02 Comprehensi ve Internal Medicine Work Phone: Comment on above: The validity of the calculated GFR AND GFRAA in patients over70 years has not been determined. Clinical correlation isessential. [facility] [address] [place], [place], [phone] Comprehensive metabolic 2000 panel 11 mg/dL Normal 7-18 Comprehensi ve Internal Medicine Work Phone: Comment on above: [facility] [address] [place], [address] EBV Acute Prof IgG / IgMOrde red By: Weld Fitter on 07-10-2017 EBV Acute Prof IgG / IgM < 36.0 Normal 0.0-35.9 [facility] Work Phone: Comment on above: Negative <36.0 Equiv ocal 36.0 - 43.9 Positive >43.9 [facility] (refer to re port for specific site)refer to report for address and phone number EBV Acute Prof IgG / IgM Comment Normal [facility] Work Phone: Comment on above: EBV Interpretation C hartInterpretation EBV-IgM EA(D)-IgG VCA- IgG EBNA-IgGEBV Seronegative - - - -Early Phase + - - -Acute Primary + +or- + -InfectionConvalescence/Past - +or- + +InfectionReactivated +or- + + +Infection + Antibody Present - Antibody AbsentPerformed at: CB - [facility] [place] [id number] Director: Yovany Godinez PhD, Phone: [phone] [facility] (refer to re port for specific site)refer to report for address and phone number EBV Acute Prof IgG / IgM 64.9 U/mL Abnormal 0.0-17.9 [facility] Work Phone: Comment on above: Negative <18.0 Equiv ocal 18.0 - 21.9 Positive >21.9 [facility] (refer to re port for specific site)refer to report for address and phone number EBV Acute Prof IgG / IgM 118.0 U/mL Abnormal 0.0-17.9 [facility] Work Phone: Comment on above: Negative <18.0 Equiv ocal 18.0 - 21.9 Positive >21.9 [facility] (refer to re port for specific site)refer to report for address and phone number EBV Acute Prof IgG / IgM <9.0 Normal 0.0-8.9 [facility] Work Phone: Comment on above: Negative < 9.0 Equiv ocal 9.0 - 10.9 Positive >10.9 [facility] (refer to re port for specific site)refer to report for address and phone number Rapid Flu ([phone] 2)Ordered By: Joan Oseguera on 07-10-2017 FLUAV Ag IA Ql (Throat) Negative Normal [facility] Work Phone: FLUAV Ag IA Ql (Throat) Negative Normal [facility]; [facility] Work Phone: Rapid Strep Test, Office ([phone])Ordered By: Joan Oseguera on 07-10-2017 S. pyogenes Ag EIA Ql (Throat) Negative Normal [facility]; [facility] Work Phone: S. pyogenes Ag IA Ql (Unsp spec) Negative Normal [facility] Work Phone: GlucoseOrdered By: Cindy kirby on 07-01-2017 Glucose mass conc 93 mg/dL Normal 70-110 Compreh ensive Internal Medicine Work Phone: Comment on above: [facility] [address] [place], [address] Lipid ProfileOrdered By: Tasia tem Technical Professional on 07-01-2017 Cholesterol in HDL mass conc 68 mg/dL Normal [facility] Work Phone: Comment on above: The drugs N-Acetylcy steine and Metamizole may falselydepress this assay. Reference Range HDL <40 mg/dL Low HDL Cholesterol HDL >or= 60 mg/dL High HDL Cholesterol [facility] [address] [place], [place], [phone] Cholesterol in LDL mass conc 89 mg/dL Normal 0-130 [facility] Work Phone: Comment on above: [facility] [address] [place], [place], [address] Cholesterol in VLDL mass conc 26 mg/dL Normal 5-40 [facility] Work Phone: Comment on above: [facility] [address] [place], [place], [address] Cholesterol mass conc 183 mg/dL Normal Com prehensive Internal Medicine Work Phone: Comment on above: <200 mg/dL Desirable 200-240 mg/dL Borderline >240 mg/dL High Risk [facility] [address] [place], [place], [address] Triglyceride mass conc 132 mg/dL Normal [facility] Work Phone: Comment on above: The drugs N-Acetylcy steine and Metamizole may falselydepress this assay.Serum Triglycerides Reference Interval Normal <150 mg/dL Borderline high 150 - 199 mg/dL High 200 - 499 mg/dL Very High > or = 500 mg/dL [facility] [address] [place], [place], [address] Lipid Profile 26 mg/dL Normal 5-40 Comprehensi ve Internal Medicine Work Phone: Comment on above: [facility] [address] [place], [place], [address] LIPID PANEL ([id number])Ordered B y: Weld Fitter on 02-09-2017 Cholesterol in HDL mass conc 61 mg/dL Normal [facility] Work Phone: Comment on above: PATIENT WAS FASTINGP ERFORMED BY: [employer] Ysfxlx5127 [facility] [id number] Cholesterol in LDL mass conc 106 mg/dL Abnormal 0-99 [facility] Work Phone: Comment on above: PATIENT WAS FASTINGP ERFORMED BY: [employer] [facility] Iesgni8108 [facility] [id number] Cholesterol in LDL/Cholesterol in HDL mass ratio 1.7 {ratio_units} Normal 0.0-3.2 [facility] Work Phone: Comment on above: LDL/HDL Ratio Men Wo men 1/2 Avg.Risk 1.0 1.5 Avg.Risk 3.6 3.2 2X Avg.Risk 6.2 5.0 3X Avg.Risk 8.0 6.1 PATIENT WAS FASTINGP ERFORMED BY: MICHI LabCodar ZayasJopqne[address]61 [address] [facility] [place] [id number] Cholesterol in VLDL mass conc 24 mg/dL Normal 5-40 [facility] Work Phone: Comment on above: PATIENT WAS FASTINGP ERFORMED BY: MICHI LabCodar ZayasMjygsf0592 Britt[address] Roadblin [place] [id number] Cholesterol mass conc 191 mg/dL Normal 100-199 Com prehensive Internal Medicine Work Phone: Comment on above: PATIENT WAS FASTINGP ERFORMED BY: MICHI [facility] Pspihh1502 [address] [facility] [place] [id number] Triglyceride mass conc 118 mg/dL Normal 0-149 [facility] Work Phone: Comment on above: PATIENT WAS FASTINGP ERFORMED BY: MICHI Zayaslin6370 [address] [facility] [id number] METABOLIC PANEL, COMPREHENSI VE ([id number])Ordered By: Weld Fitter on 02-09-2017 Albumin mass conc 4.5 g/dL Normal 3.5-5.5 Compreh ensive Internal Medicine Work Phone: Comment on above: PATIENT WAS FASTINGP ERFORMED BY: MICHI LabCodar ZayasIfekhp7495 [address] [facility] [id number] Albumin/Globulin mass ratio 1.8 {ratio} Normal 1.2-2.2 [facility] Work Phone: Comment on above: PATIENT WAS FASTINGP ERFORMED BY: MICHI [facility] Ojcgzr4443 [address] [facility] [id number] ALP [Catalytic activity/Vol] 60 U/L Normal 39-117 [facility]; [facility] Work Phone: Comment on above: PATIENT WAS FASTINGP ERFORMED BY: MICHI [facility] Lhrutq5557 [facility] [facility] [place] [id number] ALP enzyme act/vol 60 [iU]/L Normal 39-117 Compre hensive Internal Medicine Work Phone: Comment on above: PATIENT WAS FASTINGP ERFORMED BY: MICHI [facility] Iygvjh2684 [address] [facility] [place] [id number] ALT [Catalytic activity/Vol] 20 U/L Normal 0-32 [facility]; [facility] Work Phone: Comment on above: PATIENT WAS FASTINGP ERFORMED BY: CB [facility] Vpahdy9641 [address]on RoadDublin [place] [id number] ALT enzyme act/vol 20 [iU]/L Normal 0-32 Compre [facility] Internal Medicine Work Phone: Comment on above: PATIENT WAS FASTINGP ERFORMED BY: CB [facility] Askjev9234 [address]on RoadDublin [place] [id number] AST [Catalytic activity/Vol] 28 U/L Normal 0-40 [facility]; [facility] Work Phone: Comment on above: PATIENT WAS FASTINGP ERFORMED BY: CB [facility] Afgrnq2948 Britton RoadDublin [place] [id number] AST enzyme act/vol 28 [iU]/L Normal 0-40 [facility] Internal Medicine Work Phone: Comment on above: PATIENT WAS FASTINGP ERFORMED BY: [facility] Mkwzfd7249 [address] RoadDublin [place] [id number] Bilirubin mass conc 0.5 mg/dL Normal 0.0-1.2 Compr ensive Internal Medicine Work Phone: Comment on above: PATIENT WAS FASTINGP ERFORMED BY: [facility] Ppcqsj2418 [address] RoadDublin [place] [id number] Calcium mass conc 9.6 mg/dL Normal 8.7-10.2 Compreh ensive Internal Medicine Work Phone: Comment on above: PATIENT WAS FASTINGP ERFORMED BY: CB [facility] Gdesnw3985 [address] RoadDublin [place] [id number] Chloride molar conc 102 mmol/L Normal 96-106 Compr ehensive Internal Medicine Work Phone: Comment on above: PATIENT WAS FASTINGP ERFORMED BY: CB [facility] Gnswvw2784 [address] RoadDublin [place] [id number] CO2 molar conc 23 mmol/L Normal 18-29 Comprehens [facility] Internal Medicine Work Phone: Comment on above: PATIENT WAS FASTINGP ERFORMED BY: MICHI [facility] Eksjzk1426 [address] RoadDublin [place] [id number] Creatinine mass conc 0.83 mg/dL Normal 0.57-1.00 Comp rehensive Internal Medicine Work Phone: Comment on above: PATIENT WAS FASTINGP ERFORMED BY: CB [facility] Xdmlen2349 [address] RoadDublin [place] [id number] GFR/1.73 sq M predicted among blacks CKD-EPI vol rate/area (S/P/Bld) 97 mL/min/1.73 Normal Comprehensiv e Internal Medicine Work Phone: Comment on above: PATIENT WAS FASTINGP ERFORMED BY: MICHI [facility] Byhymi6099 [address] RoadDublin [place] [id number] GFR/1.73 sq M predicted among non-blacks CKD-EPI vol rate/area (S/P/Bld) 84 mL/min/1.73 Normal [facility] Work Phone: Comment on above: PATIENT WAS FASTINGP ERFORMED BY: MICHI [facility] Bviqbx7970 [address] RoadDublin [place] [id number] Globulin mass conc (S) 2.5 g/dL Normal 1.5-4.5 [facility] Work Phone: Comment on above: PATIENT WAS FASTINGP ERFORMED BY: MICHI [facility] Fdquii7029 [address] RoadDublin [place] [id number] Glucose mass conc 85 mg/dL Normal 65-99 Compreh ensive Internal Medicine Work Phone: Comment on above: PATIENT WAS FASTINGP ERFORMED BY: MIHCI [facility] Cqqiut0874 [address] RoadDublin [place] [id number] Potassium molar conc 4.7 mmol/L Normal 3.5-5.2 Comp rehensive Internal Medicine Work Phone: Comment on above: PATIENT WAS FASTINGP ERFORMED BY: MICHI [facility] Izurjo6790 [address] RoadDublin [place] [id number] Protein mass conc 7.0 g/dL Normal 6.0-8.5 Compreh ensive Internal Medicine Work Phone: Comment on above: PATIENT WAS FASTINGP ERFORMED BY: [facility] Diqwwl1392 [address] [facility] [id number] Sodium molar conc 143 mmol/L Normal 134-144 Compreh ensive Internal Medicine Work Phone: Comment on above: PATIENT WAS FASTINGP ERFORMED BY: [facility] Yzyqjl9328 [facility] [id number] Urea nitrogen mass conc 14 mg/dL Normal 6-24 [facility] Work Phone: Comment on above: PATIENT WAS FASTINGP ERFORMED BY: [facility] Xzcwhp1326 [address] [facility] [id number] Urea nitrogen/Creatinine mass ratio 17 mg/mg Normal 9-23 [facility] Work Phone: Comment on above: PATIENT WAS FASTINGP ERFORMED BY: [facility] Wweffj7236 [facility] [id number] Basic Metabolic Profile (BMP )Ordered By: Weld Fitter on 09-19-2016 Basic metabolic 2000 panel 4.1 mmol/L Normal 3.5-5.1 [facility] Work Phone: Comment on above: Order Date: 09/19/16 Order Info: 0667-1 - BMPOrder Date: 09/19/16Order Info: 0667-1 - BMPComments: [facility] Vydlvymuts2178 [address] AvcandiceGoshen, [place], [id number] Basic metabolic 2000 panel 14 mg/dL Normal 7-18 [facility] Work Phone: Comment on above: Order Date: 09/19/16 Order Info: 0667-1 - BMPOrder Date: 09/19/16Order Info: 0667-1 - BMPComments: [facility] C[address] [place] [address], [address] Basic metabolic 2000 panel 141 mmol/L Normal 136-145 [facility] Work Phone: Comment on above: Order Date: 09/19/16 Order Info: 0667-1 - BMPOrder Date: 09/19/16Order Info: 0667-1 - BMPComments: [facility] Krkxljaslh[address] [place], [place], [address] Basic metabolic 2000 panel 85 mg/dL Normal 70-110 [facility] Work Phone: Comment on above: Order Date: 09/19/16 Order Info: 666-1 - BMPOrder Date: 09/19/16Order Info: 666-1 - BMPComments: [facility] Qpiqhplixs6942 [place], [address] Basic metabolic 2000 panel 89 mL/min Normal [facility] Work Phone: Comment on above: Non- GFR Calc Order Date: 09/19/16 Order Info: 666-1 - BMPOrder Date: 09/19/16Order Info: 666-1 - BMPComments: [facility] Cloyuhgphu6457 [place], [address] Basic metabolic 2000 panel 108 mL/min Normal [facility] Work Phone: Comment on above: GFR Calc Order Date: 09/19/16 Order Info: 666- - BMPOrder Date: 09/19/16Order Info: 666-1 - BMPComments: [facility] Wevuwbqjhz55[address] [place], [place], [address]27[address] Basic metabolic 2000 panel 18.8 {RATIO} Normal 10-20 [facility] Work Phone: Comment on above: Order Date: 09/19/16 Order Info: 06-1 - BMPOrder Date: 09/19/16Order Info: 666-1 - BMPComments: [facility] Rdcqbogdxv7321 [address] [place], [place], [address] Basic metabolic 2000 panel 8.9 mg/dL Normal 8.5-10.1 [facility] Work Phone: Comment on above: Order Date: 09/19/16 Order Info: 666-1 - BMPOrder Date: 09/19/16Order Info: 666-1 - BMPComments: [facility] Slwjwxxcrs29[address] [place], [place], [address] Basic metabolic 2000 panel 0.74 mg/dL Normal 0.55-1.02 [facility] Work Phone: Comment on above: The validity of the calculated GFR AND GFRAA in patients over70 years has not been determined. Clinical correlation isessential. Order Date: 09/19/16 Order Info: 0667- - BMPOrder Date: 09/19/16Order Info: 06- - BMPComments: [facility] Ijdiqdmprn9[address] [place], [place], [address] Basic metabolic 2000 panel 106 mmol/L Normal 98-107 [facility] Work Phone: Comment on above: Order Date: 09/19/16 Order Info: 0667- - BMPOrder Date: 09/19/16Order Info: 06- - BMPComments: [facility] Upwhcpyyjy[address] [place], [place], [address]28[address] Basic metabolic 2000 panel 28.0 mmol/L Normal 21.0-32.0 [facility] Work Phone: Comment on above: Order Date: 09/19/16 Order Info: 0667- - BMPOrder Date: 09/19/16Order Info: 06- - BMPComments: [facility] Kexndlwcve[address] [place], [place], [address] Basic metabolic 2000 panel 7 1 Normal 5-15 [facility] Work Phone: Comment on above: Order Date: 09/19/16 Order Info: 0667- - BMPOrder Date: 09/19/16Order Info: 06- - BMPComments: [facility] Taeindnyso[address] [place], [place], [address] D-Dimer Quantitative (DVT/PE )Ordered By: Weld Fitter on 09-19-2016 D-Dimer Quantitative (DVT/PE) 0.33 {FEU/ug/m} Normal 0.27-0.49 [facility] Work Phone: Comment on above: NORMAL D-Dimer level (<0.50) indicates no DVT or PE. Order Date: 09/19/16 Order Info: 67720-3 - D-DIMERComments: statOrder Date: 09/19/16Order Info: 03240-6 - D-DIMERComments: statOrder Date: 09/19/16Order Info: 0667-1 - BMPComments: [facility] Kszghfvgci2295 [place], [address] CBC with auto diff ([id number])Or dered By: Weld Fitter on 08-06-2016 Basophils #/vol (Bld) 0.0 {x10E3/uL} Normal 0.0-0.2 [facility] Work Phone: Comment on above: PATIENT NOT FASTINGP ERFORMED BY: [facility] Fmguvg4656 [facility] [id number] Basophils (Bld) [#/Vol] 0.0 10*3/uL Normal 0.0-0.2 [facility]; [facility] Work Phone: Comment on above: PATIENT NOT FASTINGP ERFORMED BY: LabCampEasyrp Rmysaz8013 [facility] [id number] Basophils/100 WBC (Bld) 0 % Normal [facility] Work Phone: Comment on above: PATIENT NOT FASTINGP ERFORMED BY: [facility] Fifbez9434 [facility] [id number] Eosinophils #/vol (Bld) 0.3 {x10E3/uL} Normal 0.0-0.4 [facility] Work Phone: Comment on above: PATIENT NOT FASTINGP ERFORMED BY: [facility]CoRe[facility] South JerseyJaxmro2534 [facility] [id number] Eosinophils (Bld) [#/Vol] 0.3 10*3/uL Normal 0.0-0.4 [facility]; [facility] Work Phone: Comment on above: PATIENT NOT FASTINGP ERFORMED BY: CB [facility] Ptuxkk8997 [address] RoadDublin [place] [id number] Eosinophils/100 WBC (Bld) 4 % Normal [facility] Work Phone: Comment on above: PATIENT NOT FASTINGP ERFORMED BY: CB [facility] Slcqme7764 [address] RoadDublin [place] [id number] Erythrocyte distribution width Ratio (RBC) 14.0 % Normal 12.3-15.4 [facility] Work Phone: Comment on above: PATIENT NOT FASTINGP ERFORMED BY: CB [facility] Kekvzt1074 [address] RoadFormerly [facility] [place] [id number] Hematocrit Volume Fraction (Bld) 41.2 % Normal 34.0-46.6 [facility] Work Phone: Comment on above: PATIENT NOT FASTINGP ERFORMED BY: CB [facility] Unfunc8490 [address] RoadFormerly [facility] [id number] Hemoglobin mass conc (Bld) 13.8 g/dL Normal 11.1-15.9 [facility] Work Phone: Comment on above: PATIENT NOT FASTINGP ERFORMED BY: CB [facility] Hltfld5434 [address] RoadFormerly [facility] [place] [id number] Immature granulocytes #/vol (Bld) 0.0 {x10E3/uL} Normal 0.0-0.1 [facility] Work Phone: Comment on above: PATIENT NOT FASTINGP ERFORMED BY: CB [facility] Lwelub9763 [address] RoadFormerly [facility] [place] [id number] Immature granulocytes (Bld) [#/Vol] 0.0 10*3/uL Normal 0.0-0.1 [facility]; [facility] Work Phone: Comment on above: PATIENT NOT FASTINGP ERFORMED BY: CB [facility] Rihetl4814 [address] RoadDublin [place] [id number] Immature granulocytes/100 WBC (Bld) 0 % Normal [facility] Work Phone: Comment on above: PATIENT NOT FASTINGP ERFORMED BY: CB [facility] Kxchwb9719 [address] RoadDuin [place] [id number] Lymphocytes #/vol (Bld) 1.9 {x10E3/uL} Normal 0.7-3.1 [facility] Work Phone: Comment on above: PATIENT NOT FASTINGP ERFORMED BY: MICHI [facility] Uvfvqb7912 [address] [facility] [id number] Lymphocytes (Bld) [#/Vol] 1.9 10*3/uL Normal 0.7-3.1 [facility]; [facility] Work Phone: Comment on above: PATIENT NOT FASTINGP ERFORMED BY: MICHI [facility] Obythi5782 [facility] [id number] Lymphocytes/100 WBC (Bld) 25 % Normal [facility] Work Phone: Comment on above: PATIENT NOT FASTINGP ERFORMED BY: MICHI LabHarriet ZayasAjmkrl5343 [facility] [id number] MCH Entitic mass (RBC) 30.8 pg Normal 26.6-33.0 [facility] Work Phone: Comment on above: PATIENT NOT FASTINGP ERFORMED BY: MICHI [facility] Hpoofy5346 [address] [facility] [id number] MCHC mass conc (RBC) 33.5 g/dL Normal 31.5-35.7 [facility] Internal Medicine Work Phone: Comment on above: PATIENT NOT FASTINGP ERFORMED BY: MICHI [facility] Vdtkvm0049 [address] [facility] [id number] MCV Entitic volume (RBC) 92 fL Normal 79-97 [facility] Work Phone: Comment on above: PATIENT NOT FASTINGP ERFORMED BY: MICHI [facility] Hketap0718 [address] [facility]in [place] [id number] Monocytes #/vol (Bld) 0.3 {x10E3/uL} Normal 0.1-0.9 [facility] Work Phone: Comment on above: PATIENT NOT FASTINGP ERFORMED BY: MICHI [facility] Ttfrzv5671 [address] [facility] [id number] Monocytes (Bld) [#/Vol] 0.3 10*3/uL Normal 0.1-0.9 [facility]; [facility] Work Phone: Comment on above: PATIENT NOT FASTINGP ERFORMED BY: CB [facility] Gqyqxm6049 [address] RoadDublin [place] [id number] Monocytes/100 WBC (Bld) 4 % Normal [facility] Work Phone: Comment on above: PATIENT NOT FASTINGP ERFORMED BY: CB [facility] Llppqd2165 [address] RoadDublin [place] [id number] Neutrophils #/vol (Bld) 5.2 {x10E3/uL} Normal 1.4-7.0 [facility] Work Phone: Comment on above: PATIENT NOT FASTINGP ERFORMED BY: CB [facility] Nmvfrx4170 [address] RoadDublin [place] [id number] Neutrophils (Bld) [#/Vol] 5.2 10*3/uL Normal 1.4-7.0 [facility]; [facility] Work Phone: Comment on above: PATIENT NOT FASTINGP ERFORMED BY: CB [facility] Zawqah5712 [address] RoadDublin [place] [id number] Neutrophils/100 WBC (Bld) 67 % Normal [facility] Work Phone: Comment on above: PATIENT NOT FASTINGP ERFORMED BY: CB [facility] Somzir5159 [address] RoadDublin [place] [id number] Platelets #/vol (Bld) 295 {x10E3/uL} Normal 150-379 [facility] Work Phone: Comment on above: PATIENT NOT FASTINGP ERFORMED BY: CB [facility] Fgxczw2163 [address] RoadDublin [place] [id number] Platelets (Bld) [#/Vol] 295 10*3/uL Normal 150-379 [facility]; [facility] Work Phone: Comment on above: PATIENT NOT FASTINGP ERFORMED BY: CB [facility] Zojkuz4620 [address] RoadDublin [place] [id number] RBC #/vol (Bld) 4.48 {x10E6/uL} Normal 3.77-5.28 Comp [facility]ensive Internal [facility] Work Phone: Comment on above: PATIENT NOT FASTINGP ERFORMED BY: MICHI LabHarriet Heath[address] [facility]blin [place] [id number] RBC (Bld) [#/Vol] 4.48 10*6/uL Normal 3.77-5.28 Compr ensive Internal Medicine; [facility] Work Phone: Comment on above: PATIENT NOT FASTINGP ERFORMED BY: CB [facility] Hqrmpn5828 [address] Roadblin [place] [id number] WBC #/vol (Bld) 7.7 {x10E3/uL} Normal 3.4-10.8 Compr ensive Internal Medicine Work Phone: Comment on above: PATIENT NOT FASTINGP ERFORMED BY: MICHI [facility] Tliloq6620 [address] [facility]in [place] [id number] WBC (Bld) [#/Vol] 7.7 10*3/uL Normal 3.4-10.8 Compre [facility] Internal Medicine; [facility] Work Phone: Comment on above: PATIENT NOT FASTINGP ERFORMED BY: MICHI [facility] Jcdzcg1346 [address] [facility]in [place] [id number] METABOLIC PANEL, COMPREHENSI VE ([id number])Ordered By: Weld Fitter on 08-06-2016 Albumin mass conc 4.7 g/dL Normal 3.5-5.5 Compreh [facility]ive Internal Medicine Work Phone: Comment on above: PATIENT NOT FASTINGP ERFORMED BY: MICHI [facility] Uprhss4649 [address] [facility]bl[facility] [place] [id number] Albumin/Globulin mass ratio 1.8 {ratio} Normal 1.1-2.5 [facility] Work Phone: Comment on above: PATIENT NOT FASTINGP ERFORMED BY: MICHI [facility] Dxtnan1694 [address] [facility]bl[facility] [place] [id number] ALP [Catalytic activity/Vol] 56 U/L Normal 39-117 [facility]; [facility] Work Phone: Comment on above: PATIENT NOT FASTINGP ERFORMED BY: CB [facility] Jaumwd9524 [address] RoadDublin [place] [id number] ALP enzyme act/vol 56 [iU]/L Normal 39-117 [facility] Internal Medicine Work Phone: Comment on above: PATIENT NOT FASTINGP ERFORMED BY: CB [facility] Nqgaua7786 [address] RoadDublin [place] [id number] ALT [Catalytic activity/Vol] 23 U/L Normal 0-32 [facility]; [facility] Internal Medicine Work Phone: Comment on above: PATIENT NOT FASTINGP ERFORMED BY: CB [facility] Hgjshv7313 [address] RoadDublin [place] [id number] ALT enzyme act/vol 23 [iU]/L Normal 0-32 [facility] Internal Medicine Work Phone: Comment on above: PATIENT NOT FASTINGP ERFORMED BY: MICHI [facility] Wvqaam4083 [address] RoadDublin [place] [id number] AST [Catalytic activity/Vol] 26 U/L Normal 0-40 [facility]; [facility] Internal Medicine Work Phone: Comment on above: PATIENT NOT FASTINGP ERFORMED BY: MICHI [facility] Caprvb6476 [address] RoadDublin [place] [id number] AST enzyme act/vol 26 [iU]/L Normal 0-40 [facility] Internal Medicine Work Phone: Comment on above: PATIENT NOT FASTINGP ERFORMED BY: CB [facility] Mmnreu1289 [address] RoadDublin [place] [id number] Bilirubin mass conc 0.8 mg/dL Normal 0.0-1.2 [facility] Internal Medicine Work Phone: Comment on above: PATIENT NOT FASTINGP ERFORMED BY: CB [facility] Cjeobo2438 [address] RoadDublin [place] [id number] Calcium mass conc 9.4 mg/dL Normal 8.7-10.2 [facility] Internal Medicine Work Phone: Comment on above: PATIENT NOT FASTINGP ERFORMED BY: CB [facility] Bojxct9577 [address] RoadDublin [place] [id number] Chloride molar conc 102 mmol/L Normal 96-106 Compr ehensive Internal Medicine Work Phone: Comment on above: PATIENT NOT FASTINGP ERFORMED BY: MICHI Heath6370 [address] [facility] [id number] CO2 molar conc 23 mmol/L Normal 18-29 Comprehens [facility] Internal Medicine Work Phone: Comment on above: PATIENT NOT FASTINGP ERFORMED BY: MICHI LabCodar HeathWajhme2068 [address] [facility] [id number] Creatinine mass conc 0.77 mg/dL Normal 0.57-1.00 Comp rehensive Internal Medicine Work Phone: Comment on above: PATIENT NOT FASTINGP ERFORMED BY: MICHI Heath6370 [address] [facility] [id number] GFR/1.73 sq M predicted among blacks CKD-EPI vol rate/area (S/P/Bld) 107 mL/min/1.73 Normal Comprehensiv e Internal Medicine Work Phone: Comment on above: PATIENT NOT FASTINGP ERFORMED BY: MICHI Tasha Heath6370 [address] [facility] [id number] GFR/1.73 sq M predicted among non-blacks CKD-EPI vol rate/area (S/P/Bld) 93 mL/min/1.73 Normal [facility] Work Phone: Comment on above: PATIENT NOT FASTINGP ERFORMED BY: MICHI LabCodar ZayasMzolmj6638 [address] [facility] [id number] Globulin mass conc (S) 2.6 g/dL Normal 1.5-4.5 [facility] Work Phone: Comment on above: PATIENT NOT FASTINGP ERFORMED BY: MICHI [facility] Odgqmq5226 [address] [facility] [id number] Glucose mass conc 90 mg/dL Normal 65-99 Compreh ensive Internal Medicine Work Phone: Comment on above: PATIENT NOT FASTINGP ERFORMED BY: MICHI [facility] Ustsmf1538 [facility] [id number] Potassium molar conc 4.9 mmol/L Normal 3.5-5.2 Comp rehensive Internal Medicine Work Phone: Comment on above: PATIENT NOT FASTINGP ERFORMED BY: [facility]6370 [facility] [id number] Protein mass conc 7.3 g/dL Normal 6.0-8.5 Compreh ensive Internal Medicine Work Phone: Comment on above: PATIENT NOT FASTINGP ERFORMED BY: [facility]6370 [facility] [id number] Sodium molar conc 144 mmol/L Normal 134-144 Compreh ensive Internal Medicine Work Phone: Comment on above: PATIENT NOT FASTINGP ERFORMED BY: [facility]6370 [facility] [id number] Urea nitrogen mass conc 13 mg/dL Normal 6-24 [facility] Work Phone: Comment on above: PATIENT NOT FASTINGP ERFORMED BY: [facility]6370 [facility] [id number] Urea nitrogen/Creatinine mass ratio 17 mg/mg Normal 9-23 [facility] Work Phone: Comment on above: PATIENT NOT FASTINGP ERFORMED BY: [facility]6370 [facility] [id number] Rapid Strep Test, Office ([phone])Ordered By: Joan Oseguera on 07-02-2015 S. pyogenes Ag EIA Ql (Throat) Negative Normal [facility]; [facility] Work Phone: S. pyogenes Ag IA Ql (Unsp spec) Negative Normal [facility] Work Phone: Cancer Antigen (CA) 125 ([phone])Ordered By: Weld Fitter on 12-24-2012 Cancer Ag 125 Qn 13.6 U/mL Normal 0.0-34.0 Comprehe nsive Internal Medicine Work Phone: Comment on above: [place]xton ECLIA methodol ogy PATIENT NOT FASTINGP ERFORMED BY: [place] 1071570 [facility] [id number] Information: [id number] Cancer Ag 125 Qn 13.6 [arb'U]/mL Normal 0.0-34.0 [facility] prehensive Internal Medicine; [facility] Work Phone: Comment on above: [place] ECLIA methodol ogy PATIENT NOT FASTINGP ERFORMED BY: MICHI LabCoRehabilitation Hospital of South JerseyQhqylf5329 [facility] [id number] Information: [id number] ABDOMEN/PELVIS WITH CONTRAST Ordered By: Weld Fitter on 12-22-2012 ABDOMEN/PELVIS WITH CONTRAST See Note Normal [facility] Work Phone: Comment on above: PROCEDURE: CT ABDOME N AND PELVIS WITH CONTRAST REASON FOR EXAM: Female, 42 years old. Left-sided abdominal pain,bloating RADIATION DOSAGE (If Supplied By Facility): CTDIvol = ( 8.88 ) mGy, DLP=( 729.49 ) mGycm TECHNIQUE: Transaxial images were obtained from the dome of thediaphragmto the symphysis pubis without oral contrast. 100ml ml of Isovue 300contrast was administered. COMPARISON: None. FINDINGS:No infiltrates are demonstrated in the lung bases. The liver, spleen,andpancreas are within normal limits in size. The kidneys are of normal size and enhance normally. No hydronephrosisisseen. The appendix is not definitely seen on this study. As the appendix beenremoved? In any event I see no suspicious dilated tubular structures inthe right lower quadrant. There is no stranding in this area. No suspicious fluid collections are observed. The uterus is notvisualized. We were given the history of hysterectomy. In the remainingright ovary are noted to relatively low attenuation structures. Thelargerhas diameter of 15.5 mm. The smaller has diameter 5.8 mm. No transition points are seen along the small bowel. No suspiciousstranding is observed along the patient's colon. There is slight broad-based bulging of the L5-S1 disk. IMPRESSION:1. Somewhat complex appearance of the remaining right ovary. Mostlikelythese are a couple of benign cysts. However particularly since thispatient is postmenopausal, it is recommended the patient have follow-uppelvic ultrasound in 10 weeks to assure resolution. 2. No acute pathology Signed:Eugenio Manning M.D.December 23, 2012 at 12:44:10 PM [id number] Signed RU/RU If you are the referring physician and would like to consult with theradiologist who provided this interpretation, please contact Jacquelyn Mancera at [phone]. If this radiologist is unavailable, youwillbe directed to another radiologist to assist. If you are a patient with a question regarding this report, pleasecontactyour referring physician directly. Professional Interpretation Provided By: [employer], Phone , These documents contain legally protected and confidential healthinformation intended only for the use of the individual or entity namedabove. If you are not the intended recipient, you are hereby notifiedthatany disclosure, copying, distribution, or other use of these documents isstrictly prohibited. If you have received this information in error,pleasenotify the sender immediately and arrange for the return or destructionofthese documents. Dictated on 12/23/12 1244 by Eugenio ManningTranscribed on 12/23/12 1343 by ITS IMPORTSign by Eugenio Manning on 12/23/12 1344 Sign by: Eugenio Manning DEXA BONE DENSITY STUDY (HP) Ordered By: Weld Fitter on 09-16-2011 DEXA BONE DENSITY STUDY (HP) See Note Normal [facility] Work Phone: Comment on above: PROCEDURE: DUAL ENER GY X-RAY ABSORPTIOMETRY / DEXA. REASON FOR EXAM: Female, 40 years old. Early menopause. TECHNIQUE: Bone Mineral Density (BMD) measurements of lumbar spine andbilateral hips were obtained. COMPARISON: None. FINDINGS: Lumbar Spine (L1-L4): g/cm2 (1.196) / T-score (0.1) / Z-score (0.1)Left Femur Total: g/cm2 (1.063) / T-score (0.4) / Z-score (0.7)Right Femur Total: g/cm2 (1.103) / T-score (0.8) / Z-score (1.0) IMPRESSION:The patient is considered normal, as outlined below according to WorldHealth Organization (WHO) criteria. Fracture risk is low. Reference Information:The T-score is the number of standard deviations above or below thestandard which is normal for young adults at their peak bone mineraldensity. The World Health Organization (WHO) interprets the T-scores asfollows: Above -1 Normal bone densityBetween -1 and -2.5 OsteopeniaEqual to / or below -2.5 Osteoporosis As a practical clinical guideline, osteopenia may be graded as follows:Mild -1 through -1.5Moderate -1.6 through -2.0Severe -2.1 through -2.4 The Z-score is the number of standard deviations above or below age-matchedcontrols. A Z-score of less than -1.5 would be considered abnormal. References:1. NIH Osteoporosis and Related Bone Diseases http://www.osteo.org2. International Society for Clinical Densitometry http://www.iscd.org3. National Osteoporosis Foundation http://www.nof.org To consult with a radiologist regarding this report, please call our [id number] line @ Dictated on 09/16/11 1026 by Suzi Machado MDranscribed on 09/16/11 1122 by ITS IMPORTSign by Darshan Machado MD on 09/16/11 1123 Sign by: Darshan Machado MD CBC With Differential/Platel etOrdered By: Weld Fitter on 08-06-2011 Basophils #/vol (Bld) 0.0 {x10E3/uL} Normal 0.0-0.2 [facility] Work Phone: Comment on above: PERFORMED BY: [employer] [id number] [address] Sandlot SolutionsFormerly [facility] [place] [id number] Basophils/100 WBC (Bld) 1 % Normal 0-3 [facility] Work Phone: Comment on above: PERFORMED BY: [email or web address] Britton RoadTipprblin [place] [id number] Eosinophils #/vol (Bld) 0.3 {x10E3/uL} Normal 0.0-0.4 [facility] Work Phone: Comment on above: PERFORMED BY: [email or web address] Ol[address] [place] [id number] Eosinophils/100 WBC (Bld) 4 % Normal 0-7 [facility] Work Phone: Comment on above: PERFORMED BY: [email or web address] [place] [id number] Erythrocyte distribution width Ratio (RBC) 13.4 % Normal 11.7-15.0 [facility] Work Phone: Comment on above: PERFORMED BY: [email or web address] Sandlot SolutionsFormerly [facility] [place] [id number] Hematocrit Volume Fraction (Bld) 43.3 % Normal 34.0-44.0 [facility] Work Phone: Comment on above: PERFORMED BY: [email or web address] Sand[employer] SolutionsFormerly [facility] [place] [id number] Hemoglobin mass conc (Bld) 14.6 g/dL Normal 11.5-15.0 [facility] Work Phone: Comment on above: PERFORMED BY: [email or web address] Sand[employer] SolutionsFormerly [facility] [place] [id number] Immature granulocytes #/vol (Bld) 0.0 {x10E3/uL} Normal 0.0-0.1 [facility] Work Phone: Comment on above: PERFORMED BY: [email or web address] [place] [id number] Immature granulocytes/100 WBC (Bld) 0 % Normal 0-2 [facility] Work Phone: Comment on above: PERFORMED BY: [email or web address]Tipprin [place] [id number] Lymphocytes #/vol (Bld) 1.9 {x10E3/uL} Normal 0.7-4.5 [facility] Work Phone: Comment on above: PERFORMED BY: [email or web address] [facility] [place] [id number] Lymphocytes/100 WBC (Bld) 30 % Normal 14-46 [facility] Work Phone: Comment on above: PERFORMED BY: [email or web address] [place] [id number] MCH Entitic mass (RBC) 31.4 pg Normal 27.0-34.0 [facility] Work Phone: Comment on above: PERFORMED BY: [email or web address] [place] [id number] MCHC mass conc (RBC) 33.7 g/dL Normal 32.0-36.0 Comp [facility] Work Phone: Comment on above: PERFORMED BY: [email or web address] [facility] [place] [id number] MCV Entitic volume (RBC) 93 fL Normal 80-98 [facility] Work Phone: Comment on above: PERFORMED BY: [email or web address] Sand[employer] SolutionsFormerly [facility] [place] [id number] Monocytes #/vol (Bld) 0.3 {x10E3/uL} Normal 0.1-1.0 [facility] Work Phone: Comment on above: PERFORMED BY: [email or web address] Sand[employer] SolutionsFormerly [facility] [place] [id number] Monocytes/100 WBC (Bld) 5 % Normal 4-13 [facility] Work Phone: Comment on above: PERFORMED BY: [email or web address] [facility] hospital [id number] Neutrophils #/vol (Bld) 3.8 {x10E3/uL} Normal 1.8-7.8 [facility] Work Phone: Comment on above: PERFORMED BY: [email or web address] RoadTipp[address]blin [place] [id number] Neutrophils/100 WBC (Bld) 60 % Normal 40-74 [facility] Work Phone: Comment on above: PERFORMED BY: [email or web address] RoadDublin [place] [id number] Platelets #/vol (Bld) 228 {x10E3/uL} Normal 140-415 [facility] Work Phone: Comment on above: PERFORMED BY: [email or web address] RoadTipprin [place] [id number] RBC #/vol (Bld) 4.65 {x10E6/uL} Normal 3.80-5.10 [facility] Work Phone: Comment on above: PERFORMED BY: [email or web address] Britt[address] RoadTipprPsychiatric hospital [id number] WBC #/vol (Bld) 6.3 {x10E3/uL} Normal 4.0-10.5 Compr ensive [facility] Medicine Work Phone: Comment on above: PERFORMED BY: [email or web address] [facility]onSFOXPsychiatric hospital [id number] Comp. Metabolic Panel (14)Or dered By: Weld Fitter on 08-06-2011 Albumin mass conc 4.8 g/dL Normal 3.5-5.5 Compreh [facility] Work Phone: Comment on above: PERFORMED BY: [email or web address] [facility] [id number] Albumin/Globulin mass ratio 2.2 {ratio} Normal 1.1-2.5 [facility] Work Phone: Comment on above: PERFORMED BY: [email or web address] [facility]onSFOXPsychiatric hospital [id number] ALP enzyme act/vol 48 [iU]/L Normal 25-150 Compre [facility] Internal Medicine Work Phone: Comment on above: PERFORMED BY: [email or web address] [facility] [id number] ALT enzyme act/vol 26 [iU]/L Normal 0-40 Compre hensive [facility] Medicine Work Phone: Comment on above: PERFORMED BY: [email or web address] [facility] [id number] AST enzyme act/vol 29 [iU]/L Normal 0-40 Compre hensive [facility] Medicine Work Phone: Comment on above: PERFORMED BY: [email or web address] [facility] [id number] Bilirubin mass conc 0.9 mg/dL Normal 0.0-1.2 Compr ehensive Internal Medicine Work Phone: Comment on above: PERFORMED BY: [email or web address] [facility] [id number] Calcium mass conc 9.4 mg/dL Normal 8.7-10.2 Compreh ensive [facility] Medicine Work Phone: Comment on above: PERFORMED BY: Dopplr70 [facility] [id number] Chloride molar conc 103 mmol/L Normal 97-108 Compr ehensive [facility] Medicine Work Phone: Comment on above: PERFORMED BY: [email or web address] [facility] [id number] CO2 molar conc 25 mmol/L Normal 20-32 Comprehens [facility] Work Phone: Comment on above: PERFORMED BY: [email or web address] [facility] [id number] Creatinine mass conc 0.81 mg/dL Normal 0.57-1.00 Comp rehensive Internal Medicine Work Phone: Comment on above: PERFORMED BY: [email or web address] [facility] [id number] GFR/1.73 sq M predicted among blacks MDRD vol rate/area (S/P/Bld) 104 mL/min/{1.73_m2} Normal Compreh ensive [facility] Medicine Work Phone: Comment on above: Note: A persistent e GFR <60 mL/min/1.73 m2 (3 months or more) mayindicate chronic kidney disease. An eGFR >59 mL/min/1.73 m2 with anelevated urine protein also may indicate chronic kidney disease.Calculated using CKD-EPI formula. PERFORMED BY: [facility] [id number] GFR/1.73 sq M predicted among non-blacks CKD-EPI vol rate/area (S/P/Bld) 90 mL/min/1.73 Normal [facility] Work Phone: Comment on above: PERFORMED BY: [email or web address] [facility] [id number] Globulin mass conc (S) 2.2 g/dL Normal 1.5-4.5 [facility] Work Phone: Comment on above: PERFORMED BY: [facility] [id number] Glucose mass conc 85 mg/dL Normal 65-99 Compreh ensive [facility] Medicine Work Phone: Comment on above: PERFORMED BY: [email or web address] [facility] [id number] Potassium molar conc 3.9 mmol/L Normal 3.5-5.2 Comp rehensive Internal Medicine Work Phone: Comment on above: PERFORMED BY: [email or web address] [facility] [id number] Protein mass conc 7.0 g/dL Normal 6.0-8.5 Compreh ensive [facility] Medicine Work Phone: Comment on above: PERFORMED BY: [email or web address] [facility] [id number] Sodium molar conc 141 mmol/L Normal 134-144 Compreh ensive [facility] Medicine Work Phone: Comment on above: PERFORMED BY: [facility] [id number] Urea nitrogen mass conc 16 mg/dL Normal 6-24 [facility] Work Phone: Comment on above: PERFORMED BY: [facility] [id number] Urea nitrogen/Creatinine mass ratio 20 mg/mg Normal 9-23 [facility] Work Phone: Comment on above: PERFORMED BY: [email or web address] AwesomePiecein [place] [id number] FSH and LHOrdered By: Weld Fitter on 08-06-2011 Follitropin Qn 80.1 m[IU]/mL Normal Compreh ensive [facility] Medicine Work Phone: Comment on above: Follicular phase 3.5 - 12.5 Ovulation phase 4.7 - 21.5 Luteal phase 1.7 - 7.7 Postmenopausal 25.8 - 134.8 PERFORMED BY: [email or web address] [facility] [id number] Lutropin Qn 47.9 m[IU]/mL Normal Comprehens [place] [facility] Work Phone: Comment on above: Follicular phase 2.4 - 12.6 Ovulation phase 14.0 - 95.6 Luteal phase 1.0 - 11.4 Postmenopausal 7.7 - 58.5 PERFORMED BY: [email or web address] [facility] [id number] TSHOrdered By: System Manage r on 08-06-2011 Thyrotropin Qn 2.140 {uIU/mL} Normal 0.450-4.50 0 [facility] Work Phone: Comment on above: PERFORMED BY: [email or web address] [facility] [id number] Thyroxine (T4) Free, Direct, SOrdered By: Weld Fitter on 08-06-2011 T4 free mass conc 1.19 ng/dL Normal 0.82-1.77 Compreh ensive [facility] Medicine Work Phone: Comment on above: PERFORMED BY: [email or web address] AwesomePiecein [place] [id number] Vitamin Q18Awlyetq By: Jagdish shepherd Technical Professional on 08-06-2011 Cobalamin (Vitamin B12) mass conc 707 pg/mL Normal 211-946 [facility] Work Phone: Comment on above: PERFORMED BY: [email or web address] [facility] [id number] Vitamin D, 25-HydroxyOrdered By: Weld Fitter on 08-06-2011 25-Hydroxyvitamin D2+25-Hydroxyvitamin D3 mass conc 32.3 ng/mL Normal 30.0-100.0 [facility] Work Phone: Comment on above: Vitamin D deficiency has been defined by the [place] ofMedicine and an Endocrine Society practice guideline as alevel of serum 25-OH vitamin D less than 20 ng/mL (1,2).The Endocrine Society went on to further define vitamin Dinsufficiency as a level between 21 and 29 ng/mL (2).1. IOM ([place] of Medicine). 2011. Dietary reference intakes for calcium and D. [place]: The National Academies Press.2. Sabi MF, Prosper ESPINOSA, Daphney COE, et al. Evaluation, treatment, and prevention of vitamin D deficiency: an Endocrine Society clinical practice guideline. JCEM. 2010; 96(7):1911-30. PERFORMED BY: [email or web address] [employer] [place] [id number] ELVIA CULTURE-OTHER (21404)Ord ered By: Weld Fitter on 08-21-2010 Bacteria identified Respiratory culture Nom (Unsp spec) Final report Normal [facility] Work Phone: Comment on above: PATIENT NOT FASTINGP ERFORMED BY: [employer] [place] [id number] Information: SRC:ODESSA [id number] Bacteria identified Respiratory culture Nom (Unsp spec) RRF Normal [facility] Work Phone: Comment on above: Routine respiratory charles PATIENT NOT FASTINGP ERFORMED BY: [email or web address] [address] [employer]in [place] [id number] Information: SRC:THRT W92025 Influenza A Ag (80509)Ordere d By: Gely Walters on 08-20-2010 FLUAV Ag IA Ql (Throat) Negative Normal [facility] Work Phone: FLUAV Ag IA Ql (Throat) Negative Normal [facility]; [facility] Work Phone: Rapid Strep Test, Office ([phone])Ordered By: Gely Walters on 08-20-2010 S. pyogenes Ag EIA Ql (Throat) Negative Normal [facility]; [facility] Work Phone: S. pyogenes Ag IA Ql (Unsp spec) Negative Normal [facility] Work Phone: B.pertussisB.parapertussis P CROrdered By: Weld Fitter on 05-01-2010 B. parapertussis DNA SHASHANK+probe Ql (Unsp spec) Negative Normal [facility] Work Phone: Comment on above: .This test was devel oped and its performance characteristics determinedby [employer]. It has not been cleared or approved by theU.S. Food and Drug Administration. The FDA has determined that suchclearance or approval is not necessary. This test is used for clinicalpurposes. It should not be regarded as investigational or research. PERFORMED BY: [employer] [email or web address] [employer] [place] [id number] B. pertussis DNA SHASHANK+probe Ql (Unsp spec) Negative Normal [facility] Work Phone: Comment on above: PERFORMED BY: [employer] [email or web address] [employer] [place] [id number] CBC With Differential/Platel etOrdered By: Weld Fitter on 05-01-2010 Basophils #/vol (Bld) 0.0 {x10E3/uL} Normal 0.0-0.2 [facility] Work Phone: Comment on above: PERFORMED BY: [email or web address] [place] [id number] Basophils/100 WBC (Bld) 1 % Normal 0-3 [facility] Work Phone: Comment on above: PERFORMED BY: [email or web address] [place] [id number] Eosinophils #/vol (Bld) 0.3 {x10E3/uL} Normal 0.0-0.4 [facility] Work Phone: Comment on above: PERFORMED BY: [email or web address] [place] [id number] Eosinophils/100 WBC (Bld) 3 % Normal 0-7 [facility] Work Phone: Comment on above: PERFORMED BY: [email or web address] [facility] [id number] Erythrocyte distribution width Ratio (RBC) 13.3 % Normal 11.7-15.0 [facility] Work Phone: Comment on above: PERFORMED BY: [facility] [id number] Hematocrit Volume Fraction (Bld) 38.7 % Normal 34.0-44.0 [facility] Work Phone: Comment on above: PERFORMED BY: [facility] [id number] Hemoglobin mass conc (Bld) 13.9 g/dL Normal 11.5-15.0 [facility] Work Phone: Comment on above: PERFORMED BY: [facility] [id number] Immature granulocytes #/vol (Bld) 0.0 {x10E3/uL} Normal 0.0-0.1 [facility] Work Phone: Comment on above: PERFORMED BY: [facility] [id number] Immature granulocytes/100 WBC (Bld) 0 % Normal 0-1 [facility] Work Phone: Comment on above: PERFORMED BY: [email or web address] [facility] [id number] Lymphocytes #/vol (Bld) 1.7 {x10E3/uL} Normal 0.7-4.5 [facility] Work Phone: Comment on above: PERFORMED BY: [facility] [id number] Lymphocytes/100 WBC (Bld) 22 % Normal 14-46 [facility] Work Phone: Comment on above: PERFORMED BY: [facility] [id number] MCH Entitic mass (RBC) 34.8 pg Abnormal 27.0-34.0 [facility] Work Phone: Comment on above: PERFORMED BY: [email or web address] [facility] [id number] MCHC mass conc (RBC) 35.9 g/dL Normal 32.0-36.0 Comp [facility] Work Phone: Comment on above: PERFORMED BY: [facility] [id number] MCV Entitic volume (RBC) 97 fL Normal 80-98 [facility] Work Phone: Comment on above: PERFORMED BY: [facility] [id number] Monocytes #/vol (Bld) 0.5 {x10E3/uL} Normal 0.1-1.0 [facility] Work Phone: Comment on above: PERFORMED BY: [facility] [id number] Monocytes/100 WBC (Bld) 7 % Normal 4-13 [facility] Work Phone: Comment on above: PERFORMED BY: [facility] [id number] Neutrophils #/vol (Bld) 5.4 {x10E3/uL} Normal 1.8-7.8 [facility] Work Phone: Comment on above: PERFORMED BY: [facility] [id number] Neutrophils/100 WBC (Bld) 67 % Normal 40-74 [facility] Work Phone: Comment on above: PERFORMED BY: [facility] [id number] Platelets #/vol (Bld) 274 {x10E3/uL} Normal 140-415 [facility] Work Phone: Comment on above: PERFORMED BY: [facility] [id number] RBC #/vol (Bld) 3.99 {x10E6/uL} Normal 3.80-5.10 [facility] rehensive Internal Medicine Work Phone: Comment on above: PERFORMED BY: [email or web address] [facility] [id number] WBC #/vol (Bld) 8.0 {x10E3/uL} Normal 4.0-10.5 [facility] Work Phone: Comment on above: PERFORMED BY: [email or web address] [place] [address] [id number] EBV Acute Infection Antibodi esOrdered By: Weld Fitter on 05-01-2010 EBV Acute Infection Antibodies SPRCS Normal [facility] Work Phone: Comment on above: EBV Interpretation C santiago . Interpretation VCA-IgM EA-IgG VCA- IgG NA-ABS . Susceptible - - - - Acute Infection + +or- +or- - Convalescent Phase +or- +or- + + Chronic or Reactivated - + + +or- Old Infection - - +or- + + Antibody Present - Antibody Absent PERFORMED BY: [email or web address] [facility] [id number] EBV Acute Infection Antibodies <0.2 Normal 0.0-0.8 [facility] Work Phone: Comment on above: Negative <0.9 Equivo snehal 0.9 - 1.0 Positive >1.0 PERFORMED BY: Do[address]lr[address] [place] [address] [id number] EBV Acute Infection Antibodies >8.0 Abnormal 0.0-0.8 [facility] Work Phone: Comment on above: Negative <0.9 Equivo snehal 0.9 - 1.0 Positive >1.0 PERFORMED BY: [employer] [facility] [id number] ELVIA CULTURE-OTHER (46932)Ord ered By: Weld Fitter on 04-16-2010 Bacteria identified Respiratory culture Nom (Unsp spec) Final report Normal [facility] Work Phone: Comment on above: PATIENT NOT FASTINGP ERFORMED BY: [employer] South JerseyCwbdpz9599 [facility] [id number] Information: SRC:ODESSA [id number] Bacteria identified Respiratory culture Nom (Unsp spec) RRF Normal [facility] Work Phone: Comment on above: Routine respiratory charles PATIENT NOT FASTINGP ERFORMED BY: LabCampEasyLo[facility] Hospital, RoswellNzuhjy1192 [facility] [id number] Information: SRC:ODESSA [id number] Rapid Flu (88514 x 2)Ordered By: Lucrecia Chery on 04-16-2010 FLUAV Ag IA Ql (Throat) Negative Normal [facility] Work Phone: FLUAV Ag IA Ql (Throat) Negative Normal [facility]; [facility] Work Phone: CBCD,SMEAR DIFFOrdered By: Libra ystem Technical Professional on 06-23-2009 Band form neutrophils/100 WBC (Bld) 3 % Normal 0-5 [facility] Work Phone: Eosinophils/100 WBC (Bld) 3 % Normal 0-5 [facility] Work Phone: Erythrocyte distribution width Ratio (RBC) 13.1 % Normal 11.6-14.6 [facility] Work Phone: Hematocrit Volume Fraction (Bld) 40.4 % Normal 37-47 [facility] Work Phone: Hemoglobin mass conc (Bld) 13.8 g/dL Normal 12.0-16.0 [facility] Work Phone: Lymphocytes/100 WBC (Bld) 30 % Normal 19-41 [facility] Work Phone: MCH Entitic mass (RBC) 32.2 pg Abnormal 27.0-32.0 [facility] Work Phone: MCHC mass conc (RBC) 34.1 g/dL Normal 32-36 Comp rehensive Internal Medicine Work Phone: MCV Entitic volume (RBC) 94.4 fL Normal 81-99 [facility] Work Phone: Monocytes/100 WBC (Bld) 3 % Normal 0-10 [facility] Work Phone: Platelets #/vol (Bld) SeeNote Normal Com prehensive Internal Medicine Work Phone: Comment on above: Result: ADEQUATE Platelets #/vol (Bld) 228 10*3/uL Normal 150-450 Co mprehensive Internal Medicine Work Phone: RBC #/vol (Bld) 4.28 {M/mm3} Normal 4.2-5.4 Compreh ensive Internal Medicine Work Phone: WBC #/vol (Bld) 8.8 10*3/uL Normal 4.4-11.0 Comprehe nsive Internal Medicine Work Phone: CBCD,SMEAR DIFF 61 % Normal 47-70 Comprehen [facility] Internal [facility] Work Phone: CBCD,SMEAR DIFF 100 1 Normal Comprehen [facility] Internal [facility] Work Phone: COMP METABOLICOrdered By: Adolfo stem Technical Professional on 06-23-2009 Albumin mass conc 4.1 g/dL Normal 3.4-5.0 Compreh ensive Internal Medicine Work Phone: Albumin/Globulin mass ratio 1.2 {RATIO} Normal 0.9-2.4 [facility] Internal Medicine Work Phone: ALP enzyme act/vol 54 U/L Normal 50-136 [facility] Work [facility]: ALT enzyme act/vol 29 U/L Normal 12-78 [facility] Work Phone: Anion gap molar conc 11 mmol/L Normal 5-15 Comp rehensive Internal Medicine Work Phone: AST enzyme act/vol 22 U/L Normal 15-37 Compre [facility] Internal Medicine Work Phone: Bilirubin mass conc 0.90 mg/dL Normal 0.00-1.00 Compr ensive Internal Medicine Work Phone: Calcium mass conc 8.6 mg/dL Normal 8.5-10.1 Compreh ensive Internal Medicine Work Phone: Chloride molar conc 105 mmol/L Normal 98-107 Compr [facility] Internal Medicine Work Phone: CO2 molar conc 26.0 mmol/L Normal 21.0-32.0 Comprehen sive Internal Medicine Work Phone: Creatinine mass conc 0.8 mg/dL Normal 0.6-1.0 Comp rehensive Internal Medicine Work Phone: GFR/1.73 sq M predicted among blacks MDRD vol rate/area (S/P/Bld) 103 mL/min/{1.73_m2} Normal Compreh ensive Internal Medicine Work Phone: GFR/1.73 sq M.predicted MDRD vol rate/area 85 mL/min/{1.73_m2} Normal Comprehensiv e Internal Medicine Work Phone: Globulin mass conc (S) 3.5 g/dL Normal 2.7-4.2 [facility] Work Phone: Glucose mass conc 89 mg/dL Normal 70-110 Compreh ensive Internal Medicine Work Phone: Potassium molar conc 3.6 mmol/L Normal 3.5-5.1 Comp rehensive Internal Medicine Work Phone: Protein mass conc 7.6 g/dL Normal 6.4-8.2 Compreh ensive Internal Medicine Work Phone: Sodium molar conc 142 mmol/L Normal 136-145 Compreh ensive Internal Medicine Work Phone: Urea nitrogen mass conc 15 mg/dL Normal 7-18 [facility] Work Phone: Urea nitrogen/Creatinine mass ratio 18.8 {RATIO} Normal 10-20 [facility] Work Phone: COMPLETE UAOrdered By: Jagdish shepherd Technical Professional on 06-23-2009 Bacteria LM.HPF #/area (Urine sed) RARE Normal [facility] Work Phone: Clarity Nom (U) CLEAR Normal Comprehen [facility] Work Phone: Color Nom (U) YELLOW Normal Comprehensi ve Internal Medicine Work Phone: Glucose mass conc SeeNote Normal Compreh ensive Internal Medicine Work Phone: Comment on above: Result: NEGATIVE Protein mass conc SeeNote Normal Compreh ensive Internal Medicine Work Phone: Comment on above: Result: NEGATIVE RBC #/vol (U) 0 SEEN Normal 0-5 Comprehensi Internal Medicine Work Phone: WBC #/vol (Bld) 0 SEEN Normal 0-5 Comprehen [facility] Internal Medicine Work Phone: COMPLETE UA 6.0 1 Normal 5.0-8.0 [facility] Internal Medicine Work Phone: COMPLETE UA SeeNote Normal [facility] Internal Medicine Work Phone: Comment on above: Result: NEGATIVE Result: NORM C+C Result: 0-5 SEEN COMPLETE UA 0 SEEN Normal [facility] Internal Medicine Work Phone: COMPLETE UA 0.2 EU/dl Normal 0.2 - 1.0 [facility] Internal Medicine Work Phone: COMPLETE UA <=1.005 Normal 1.002-1.03 0 [facility] Internal Medicine Work Phone: EBVIgG/M [id number] By: Libra Prediktte Technical Professional on 06-23-2009 EBVIgG/M [id number] < 0.2 Normal 0.0-0.8 [facility] Internal Medicine Work Phone: Comment on above: Negative <0.9 Equivo snehal 0.9 - 1.0 Positive >1.0 EBVIgG/M [id number] > 8.0 Abnormal 0.0-0.8 [facility] Internal Medicine Work Phone: Comment on above: Negative <0.9 Equivo snehal 0.9 - 1.0 Positive >1.0 EBVIgG/M [id number] Comment Normal [facility] Internal Medicine Work Phone: Comment on above: EBV Interpretation Raymond Crump Interpretation VCA-IgM EA-IgG VCA- IgG NA-ABS . Susceptible - - - - Acute Infection + +or- + - Convalescent Phase +or- +or- + + Chronic or Reactivated - + + +or- Old Infection - - +or- + + Antibody Present - Antibody Absent LIPIDOrdered By: System Diana salvador on 06-23-2009 Cholesterol in HDL mass conc 56 mg/dL Normal [facility] Work Phone: Comment on above: Reference Range HDL <40 mg/dL Low HDL Cholesterol HDL >or= 60 mg/dL High HDL Cholesterol Cholesterol in LDL mass conc 88 mg/dL Normal 0-130 [facility] Work Phone: Cholesterol in VLDL mass conc 18 mg/dL Normal 5-40 [facility] Work Phone: Cholesterol mass conc 162 mg/dL Normal Com prehensive Internal Medicine Work Phone: Comment on above: <200 mg/dL Desirable 200-240 mg/dL Borderline >240 mg/dL High Risk Triglyceride mass conc 92 mg/dL Normal [facility] Work Phone: Comment on above: Serum Triglycerides Reference Interval Normal <150 mg/dL Borderline high 150 - 199 mg/dL High 200 - 499 mg/dL Very High > or = 500 mg/dL TSHOrdered By: System Manage r on 06-23-2009 Thyrotropin Qn 2.22 {uIU/mL} Normal 0.358-3.74 Compreh ensive Internal Medicine Work Phone: VIT D,25 [id number] By: Sy stem Technical Professional on 06-23-2009 VIT D,25 71909 42.2 ng/mL Normal 32.0-100.0 [facility]prehens [place] Work Phone: Comment on above: Recent studies consi kt the lower limit of 32.0 ng/mL to alexis threshold for optimal health.Reddy MINER. J Nutr. 2004;135(2):317-22.Performed At: [facility] [place], [place] [id number] VITAMIN [id number] By: Syste m Technical Professional on 06-23-2009 Cobalamin (Vitamin B12) mass conc 956 pg/mL Normal [id number] [facility] Work Phone: Vital Signs Date Time Vital Sign Value Performing Clinician Facility 11-21-2022 12:40-0400 Body height 165.1 cm Joan Oseguera [facility]; [facility] Work Phone: 11-21-2022 12:40-0400 Body mass index (BMI) [Ratio] 22.03 kg/m2 Joan Oseguera [facility]; [facility] Work Phone: 11-21-2022 12:40-0400 Body surface area Derived from formula 1.66 m2 Joan Oseguera [facility]; [facility] Work Phone: 11-21-2022 12:40-0400 Body temperature 97.5 [degF] Joan Oesguera [facility]; [facility] Work Phone: Comment on above: Method: Thermal Scan 11-21-2022 12:40-0400 Body weight 60.05 kg Joan Oseguera [facility]; [facility] Work Phone: 11-21-2022 12:40-0400 Diastolic blood pressure 64 mm[Hg] Joan [address] [facility]; [facility] Work Phone: Comment on above: Patient Position: Sitting; Cuff Location : Left Arm; Cuff Size: Standard 11-21-2022 12:40-0400 Heart rate 68 /min Joan [address] [facility]; [facility] Work Phone: Comment on above: Pattern: Regular 11-21-2022 12:40-0400 Respiratory rate 16 /min Joan Oseguera [facility]; [facility] Work Phone: Comment on above: Pattern: Unlabored 11-21-2022 12:40-0400 Systolic blood pressure 102 mm[Hg] Joanchristy Oseguera [facility]; [facility] Work Phone: Comment on above: Patient Position: Sitting; Cuff Location : Left Arm; Cuff Size: Standard 09-11-2022 09:21-0500 Body height 163.8 cm Brea Jenkins APRN.ALUMINA REFINERY OPERATOR Work Phone: [facility] 09-11-2022 09:21-0500 Body weight 61.51 kg Brea Jenkins APRN.ALUMINA REFINERY OPERATOR Work Phone: [facility] 09-11-2022 09:21-0500 Diastolic blood pressure 60 mm[Hg] Brea Jenkins APRN.ALUMINA REFINERY OPERATOR Work Phone: [facility] 09-11-2022 09:21-0500 Systolic blood pressure 100 mm[Hg] Brea Jenkins APRN.ALUMINA REFINERY OPERATOR Work Phone: [facility] 04-29-2022 11:39-0400 [facility]; [facility] Work Phone: 04-29-2022 11:39-0400 Body mass index (BMI) [Ratio] 21.82 kg/m2 [facility]; [facility] Work Phone: 04-29-2022 11:39-0400 Body surface area Derived from formula 1.65 m2 [facility]; [facility] Work Phone: 04-29-2022 11:39-0400 Body temperature 98.4 [degF] [facility]; [facility] Work Phone: Comment on above: Method: Thermal Scan 04-29-2022 11:39-0400 Body weight 59.48 kg [facility]; [facility] Work Phone: 04-29-2022 11:39-0400 Diastolic blood pressure 62 mm[Hg] [facility]; [facility] Work Phone: Comment on above: Patient Position: Sitting; Cuff Location : Left Arm; Cuff Size: Standard 04-29-2022 11:39-0400 Heart rate 110 /min [facility]; [facility] Work Phone: Comment on above: Pattern: Regular 04-29-2022 11:39-0400 Respiratory rate 16 /min [facility]; [facility] Work Phone: Comment on above: Pattern: Unlabored 04-29-2022 11:39-0400 SaO2% (BldA) [Mass fraction] 99 % Joan Oseguera [facility]; [facility] Work Phone: Comment on above: Room air 04-29-2022 11:39-0400 Systolic blood pressure 98 mm[Hg] Jaon Oseguera [facility]; [facility] Work Phone: Comment on above: Patient Position: Sitting; Cuff Location : Left Arm; Cuff Size: Standard 03-04-2022 08:35-0400 Body height 165.1 cm Joan Oseguera [facility]; [facility] Work Phone: 03-04-2022 08:35-0400 Body mass index (BMI) [Ratio] 21.82 kg/m2 Joan Oseguera [facility]; [facility] Work Phone: 03-04-2022 08:35-0400 Body surface area Derived from formula 1.65 m2 Joan Oseguera [facility]; [facility] Work Phone: 03-04-2022 08:35-0400 Body temperature 97.8 [degF] Joan Oseguera [facility]; [facility] Work Phone: Comment on above: Method: Thermal Scan 03-04-2022 08:35-0400 Body weight 59.48 kg Joan Oseguera [facility]; [facility] Work Phone: 03-04-2022 08:35-0400 Diastolic blood pressure 62 mm[Hg] Joan Oseguera [facility]; [facility] Work Phone: Comment on above: Patient Position: Sitting; Cuff Location : Left Arm; Cuff Size: Standard 03-04-2022 08:35-0400 Heart rate 67 /min Joan Oseugera [facility]; [facility] Work Phone: Comment on above: Pattern: Regular 03-04-2022 08:35-0400 Respiratory rate 16 /min Joan Oseguera [facility]; [facility] Work Phone: Comment on above: Pattern: Unlabored 03-04-2022 08:35-0400 Systolic blood pressure 102 mm[Hg] Joan Ana Rosa [facility]; [facility] Work Phone: Comment on above: Patient Position: Sitting; Cuff Location : Left Arm; Cuff Size: Standard 01-28-2022 12:16-0400 Body height 165.[address] [facility]; [facility] Work Phone: 01-28-2022 12:16-0400 Body mass index (BMI) [Ratio] 22.65 kg/m2 Joan [address] [facility]; [facility] Work Phone: 01-28-2022 12:16-0400 Body surface area Derived from formula 1.[address] [facility]; [facility] Work Phone: 01-28-2022 12:16-0400 Body weight 61.[address] hospital[facility]; [facility] Work Phone: 01-28-2022 12:16-0400 Diastolic blood pressure 70 mm[Hg] Joan [address] [facility]; [facility] Work Phone: Comment on above: Patient Position: Sitting; Cuff Location : Left Arm; Cuff Size: Standard 01-28-2022 12:16-0400 Heart rate 63 /min Joan [address] hospitalS[facility]; [facility] Work Phone: Comment on above: Pattern: Regular 01-28-2022 12:16-0400 Respiratory rate 16 /min Joan ApolinarSlamData [facility]; [facility] Work Phone: Comment on above: Pattern: Unlabored 01-28-2022 12:16-0400 Systolic blood pressure 122 mm[Hg] Joan Ana Rosa [facility]; [facility] Work Phone: Comment on above: Patient Position: Sitting; Cuff Location : Left Arm; Cuff Size: Standard 08-26-2021 08:39-0500 Body height 165.1 cm Joanchristy Oseguera [facility]; [facility] Work Phone: 08-26-2021 08:39-0500 Body mass index (BMI) [Ratio] 22.65 kg/m2 Joan Oseguera [facility]; [facility] Work Phone: 08-26-2021 08:39-0500 Body surface area Derived from formula 1.68 m2 Joan Oseguera [facility]; [facility] Work Phone: 08-26-2021 08:39-0500 Body temperature 97.1 [degF] Joan Oseguera [facility]; [facility] Work Phone: Comment on above: Method: Thermal Scan 08-26-2021 08:39-0500 Body weight 61.75 kg Joan Oseguera [facility]; [facility] Work Phone: 08-26-2021 08:39-0500 Diastolic blood pressure 62 mm[Hg] Joan Oseguera [facility]; [facility] Work Phone: Comment on above: Patient Position: Sitting; Cuff Location : Left Arm; Cuff Size: Standard 08-26-2021 08:39-0500 Heart rate 61 /min Joan Oseguera [facility]; [facility] Work Phone: Comment on above: Pattern: Regular 08-26-2021 08:39-0500 Respiratory rate 16 /min Joan Oseguera [facility]; [facility] Work Phone: Comment on above: Pattern: Unlabored 08-26-2021 08:39-0500 Systolic blood pressure 98 mm[Hg] [facility]; [facility] Work Phone: Comment on above: Patient Position: Sitting; Cuff Location : Left Arm; Cuff Size: Standard 05-10-2021 09:24-0400 Body height 165.1 cm Katharine Salmeron LPN [facility]; [facility] Work Phone: 05-10-2021 09:24-0400 Body mass index (BMI) [Ratio] 23.82 kg/m2 Katharine Slarb PLUMBER GASFITTER [facility]; [facility] Work Phone: 05-10-2021 09:24-0400 Body surface area Derived from formula 1.72 m2 Katharine Slarb PLUMBER GASFITTER [facility]; [facility] Work Phone: 05-10-2021 09:24-0400 Body temperature 97.1 [degF] Katharine Slarb PLUMBER GASFITTER [facility]; [facility] Work Phone: 05-10-2021 09:24-0400 Body weight 64.92 kg Katharine Slarb PLUMBER GASFITTER [facility]; [facility] Work Phone: 05-10-2021 09:24-0400 Diastolic blood pressure 74 mm[Hg] Katharine Slarb PLUMBER GASFITTER [facility]; [facility] Work Phone: Comment on above: Patient Position: Sitting; Cuff Location : Left Arm; Cuff Size: Standard 05-10-2021 09:24-0400 Heart rate 70 /min Katharine Ricardorb PLUMBER GASFITTER [facility]; [facility] Work Phone: Comment on above: Pattern: Regular 05-10-2021 09:24-0400 Respiratory rate 16 /min Katharine Slarb PLUMBER GASFITTER [facility]; [facility] Work Phone: Comment on above: Pattern: Unlabored 05-10-2021 09:24-0400 SaO2% (BldA) [Mass fraction] 97 % Katharine Slarb PLUMBER GASFITTER [facility]; [facility] Work Phone: Comment on above: Room air 05-10-2021 09:24-0400 Systolic blood pressure 116 mm[Hg] Katharine Slarb PLUMBER GASFITTER [facility]; [facility] Work Phone: Comment on above: Patient Position: Sitting; Cuff Location : Left Arm; Cuff Size: Standard 08-27-2020 08:23-0500 BMI (Body Mass Index) 23.55 kg/m2 Joan Oseguera CMA [facility]; [facility] Work Phone: 08-27-2020 08:23-0500 Body Temperature 97.1 [degF] Joan Oseguera [facility]; [facility] Work Phone: Comment on above: Method: Thermal Scan 08-27-2020 08:23-0500 Body weight 64.18 kg Joan Oseguera [facility]; [facility] Work Phone: 08-27-2020 08:23-0500 BP Diastolic 62 mm[Hg] Joan Oseguera [facility]; [facility] Work Phone: Comment on above: Patient Position: Sitting; Cuff Location : Left Arm; Cuff Size: Standard 08-27-2020 08:23-0500 BP Systolic 102 mm[Hg] Joan Oseguera [facility]; [facility] Work Phone: Comment on above: Patient Position: Sitting; Cuff Location : Left Arm; Cuff Size: Standard 08-27-2020 08:23-0500 BSA (Body Surface Area) 1.71 m2 Joan Oseguera [facility]; [facility] Work Phone: 08-27-2020 08:23-0500 Height 165.1 cm Joan Oseguera [facility]; [facility] Work Phone: 08-27-2020 08:23-0500 Pulse (Heart Rate) 67 /min Joan Oseguera [facility]; [facility] Work Phone: Comment on above: Pattern: Regular 08-27-2020 08:23-0500 Respiratory Rate 16 /min Joan Oseguera [facility]; [facility] Work Phone: Comment on above: Pattern: Unlabored 08-15-2019 08:33-0500 BMI (Body Mass Index) 23.05 kg/m2 Tara Moses RN [facility] Work Phone: 08-15-2019 08:33-0500 Body Temperature 97.9 [degF] Tara Moses RN [facility] Work Phone: Comment on above: Method: Tympanic 08-15-2019 08:33-0500 Body weight 62.82 kg Tara Moses RN [facility] Work Phone: 08-15-2019 08:33-0500 BP Diastolic 68 mm[Hg] Tara Moses RN [facility] Work Phone: Comment on above: Patient Position: Sitting; Cuff Location : Left Arm; Cuff Size: Standard 08-15-2019 08:33-0500 BP Systolic 118 mm[Hg] Tara Moses RN [facility] Work Phone: Comment on above: Patient Position: Sitting; Cuff Location : Left Arm; Cuff Size: Standard 08-15-2019 08:33-0500 BSA (Body Surface Area) 1.69 m2 Tara Moses RN [facility] Work Phone: 08-15-2019 08:33-0500 Height 165.1 cm Tara Moses RN [facility] Work Phone: 08-15-2019 08:33-0500 Pulse (Heart Rate) 63 /min Tara Moses RN [facility] Work Phone: Comment on above: Pattern: Regular 08-15-2019 08:33-0500 Pulse Oximetry 98 % Zenon Fast [facility] Work Phone: Comment on above: Room air 08-15-2019 08:33-0500 Respiratory Rate 18 /min Tara Moses RN [facility] Work Phone: Comment on above: Pattern: Unlabored 08-15-2019 08:33-0500 SaO2% (BldA) [Mass fraction] 98 % Tara Moses RN [facility]; [facility] Work Phone: Comment on above: Room air 04-29-2019 10:16-0400 BMI (Body Mass Index) 22.71 kg/m2 Joan Oseguera CMA [facility] Work Phone: 04-29-2019 10:16-0400 Body Temperature 97.4 [degF] Joan Oseguera [facility] Work Phone: Comment on above: Method: Temporal 04-29-2019 10:16-0400 Body weight 61.92 kg Joan Oseguera [employer] LIBRARY CLERK [facility] Work Phone: 04-29-2019 10:16-0400 BP Diastolic 64 mm[Hg] Joan Oseguera [facility] Work Phone: Comment on above: Patient Position: Sitting; Cuff Location : Left Arm; Cuff Size: Standard 04-29-2019 10:16-0400 BP Systolic 108 mm[Hg] Joan Oseguera [facility] Work Phone: Comment on above: Patient Position: Sitting; Cuff Location : Left Arm; Cuff Size: Standard 04-29-2019 10:16-0400 BSA (Body Surface Area) 1.68 m2 Joan Oseguera [facility] Work Phone: 04-29-2019 10:16-0400 Height 165.1 cm Joan Oseguera [facility] Work Phone: 04-29-2019 10:16-0400 Pulse (Heart Rate) 68 /min Joan Oseguera [facility] Work Phone: Comment on above: Pattern: Regular 04-29-2019 10:16-0400 Respiratory Rate 16 /min Joan Oseguera [facility] Work Phone: Comment on above: Pattern: Unlabored 04-22-2019 10:15-0400 BMI (Body Mass Index) 22.71 kg/m2 Mike Gilmore LPN [facility] Internal Medicine Work Phone: 04-22-2019 10:15-0400 Body Temperature 97.3 [degF] Mike Gilmore [facility] Internal Medicine Work Phone: Comment on above: Method: Temporal 04-22-2019 10:15-0400 Body weight 61.92 kg Mike Gilmore LPN [facility] Internal Medicine Work Phone: 04-22-2019 10:15-0400 BP Diastolic 68 mm[Hg] Mike Gilmore [facility] Medicine Work Phone: Comment on above: Patient Position: Sitting; Cuff Location : Left Arm; Cuff Size: Standard 04-22-2019 10:15-0400 BP Systolic 102 mm[Hg] Mike Mando [facility] Internal Medicine Work Phone: Comment on above: Patient Position: Sitting; Cuff Location : Left Arm; Cuff Size: Standard 04-22-2019 10:15-0400 BSA (Body Surface Area) 1.68 m2 Mike Gilmore [facility] Medicine Work Phone: 04-22-2019 10:15-0400 Height 165.1 cm Mike Mando [facility] Work Phone: 04-22-2019 10:15-0400 Pulse (Heart Rate) 92 /min Mike Gilmore [facility] Comprehensiv e Internal Medicine Work Phone: Comment on above: Pattern: Regular 04-22-2019 10:15-0400 Pulse Oximetry 97 % Zenon Anthony [facility] Internal Medicine Work Phone: Comment on above: Room air 04-22-2019 10:15-0400 Respiratory Rate 17 /min Mike Mando [facility] Internal Medicine Work Phone: Comment on above: Pattern: Unlabored 04-22-2019 10:15-0400 SaO2% (BldA) [Mass fraction] 97 % Mike Mando [facility]; [facility] Work Phone: Comment on above: Room air 04-18-2019 08:40-0400 BMI (Body Mass Index) 22.71 kg/m2 Joan Manjuvencio [facility] Work Phone: 04-18-2019 08:40-0400 Body Temperature 97.3 [degF] Joan Ana Rosa [facility] Internal [facility] Work Phone: Comment on above: Method: Temporal 04-18-2019 08:40-0400 Body weight 61.92 kg Joan Manjuvencio [facility] Work Phone: 04-18-2019 08:40-0400 BP Diastolic 68 mm[Hg] Joan Oseguera [facility] Work Phone: Comment on above: Patient Position: Sitting; Cuff Location : Left Arm; Cuff Size: Standard 04-18-2019 08:40-0400 BP Systolic 108 mm[Hg] Joan Tellyjuvencio [facility] Work Phone: Comment on above: Patient Position: Sitting; Cuff Location : Left Arm; Cuff Size: Standard 04-18-2019 08:40-0400 BSA (Body Surface Area) 1.68 m2 Joan Oseguera [facility] Work Phone: 04-18-2019 08:40-0400 Height 165.1 cm Joan Oseguera [facility] Internal Medicine Work Phone: 04-18-2019 08:40-0400 Pulse (Heart Rate) 83 /min Joan Oseguera [facility] Internal Medicine Work Phone: Comment on above: Pattern: Regular 04-18-2019 08:40-0400 Respiratory Rate 16 /min Joan Oseguera [facility] Internal Medicine Work Phone: Comment on above: Pattern: Unlabored 09-13-2018 07:13-0400 BMI (Body Mass Index) 22.71 kg/m2 [facility] Work Phone: 09-13-2018 07:13-0400 Body Temperature 97.9 [degF] CLARK Diego [facility] Internal Medicine Work Phone: Comment on above: Method: Temporal 09-13-2018 07:13-0400 Body weight 61.92 kg [facility] Work Phone: 09-13-2018 07:13-0400 BP Diastolic 68 mm[Hg] CLARK Diego [facility] Internal Medicine Work Phone: Comment on above: Patient Position: Sitting; Cuff Location : Left Arm; Cuff Size: Standard 09-13-2018 07:13-0400 BP Systolic 104 mm[Hg] CLARK Diego [facility] Internal Medicine Work Phone: Comment on above: Patient Position: Sitting; Cuff Location : Left Arm; Cuff Size: Standard 09-13-2018 07:13-0400 BSA (Body Surface Area) 1.68 m2 CLARK [facility] Internal [facility] Work Phone: 09-13-2018 07:13-0400 Height 165.1 cm CLARK Johnathon [facility] Internal Medicine Work Phone: 09-13-2018 07:13-0400 Pulse (Heart Rate) 70 /min CLARK Diego LPN [facility] Internal Medicine Work Phone: Comment on above: Pattern: Regular 09-13-2018 07:13-0400 Pulse Oximetry 99 % Zenon Cruz [facility] Internal Medicine Work Phone: Comment on above: Room air 09-13-2018 07:13-0400 Respiratory Rate 18 /min CLARK Deigo LPN [facility] Work Phone: Comment on above: Pattern: Unlabored 09-13-2018 07:13-0400 SaO2% (BldA) [Mass fraction] 99 % CLARK Diego LPN [facility] Internal Medicine; [facility] Work Phone: Comment on above: Room air 09-13-2018 07:13-0400 Weight 61.92 kg Zenon Cruz [facility] Internal Medicine Work Phone: 04-26-2018 11:06-0400 BMI (Body Mass Index) 21.88 kg/m2 Joan Oseguera [facility] Internal Medicine Work Phone: 04-26-2018 11:06-0400 Body Temperature 98.2 [degF] [facility] Work Phone: Comment on above: Method: Temporal 04-26-2018 11:06-0400 Body weight 59.65 kg Joan Oseguera [facility] Internal Medicine Work Phone: 04-26-2018 11:06-0400 BP Diastolic 62 mm[Hg] [facility] Work Phone: Comment on above: Patient Position: Sitting; Cuff Location : Left Arm; Cuff Size: Standard 04-26-2018 11:06-0400 BP Systolic 100 mm[Hg] [facility] Work Phone: Comment on above: Patient Position: Sitting; Cuff Location : Left Arm; Cuff Size: Standard 04-26-2018 11:06-0400 BSA (Body Surface Area) 1.66 m2 Joan Varnerchak [employer] [facility] Medicine Work Phone: 04-26-2018 11:06-0400 Height 165.1 cm Joan Oseguera [facility] Internal Medicine Work Phone: 04-26-2018 11:06-0400 Pulse (Heart Rate) 78 /min Joan Oseguera [facility] Internal Medicine Work Phone: Comment on above: Pattern: Regular 04-26-2018 11:06-0400 Respiratory Rate 16 /min Joan Oseguera [facility] Internal Medicine Work Phone: Comment on above: Pattern: Unlabored 04-26-2018 11:06-0400 Weight 59.65 kg Zenon Cruz [facility] Internal Medicine Work Phone: 08-24-2017 08:31-0500 BMI (Body Mass Index) 21.88 kg/m2 Joan Oseguera [facility] Internal Medicine Work Phone: 08-24-2017 08:31-0500 Body Temperature 97.2 [degF] Joan Oseguera [facility] Internal Medicine Work Phone: Comment on above: Method: Temporal 08-24-2017 08:31-0500 Body weight 59.65 kg Joan Oseguera [facility] Internal Medicine Work Phone: 08-24-2017 08:31-0500 BP Diastolic 62 mm[Hg] Joan Oseguera [facility] Internal Medicine Work Phone: Comment on above: Patient Position: Sitting; Cuff Location : Left Arm; Cuff Size: Standard 08-24-2017 08:31-0500 BP Systolic 108 mm[Hg] Joan Oseguera [facility] Internal Medicine Work Phone: Comment on above: Patient Position: Sitting; Cuff Location : Left Arm; Cuff Size: Standard 08-24-2017 08:31-0500 BSA (Body Surface Area) 1.66 m2 Joan Oseguera [facility] Internal Medicine Work Phone: 08-24-2017 08:31-0500 Height 165.1 cm Joan Oseguera [facility] Internal Medicine Work Phone: 08-24-2017 08:31-0500 Pulse (Heart Rate) 70 /min Joan Oseguera CMA [facility] Work Phone: Comment on above: Pattern: Regular 08-24-2017 08:31-0500 Respiratory Rate 16 /min Joan Oseguera [facility] Internal Medicine Work Phone: Comment on above: Pattern: Unlabored 08-24-2017 08:31-0500 Weight 59.65 kg Zenonmelanie Cruz [facility] Internal Medicine Work Phone: 07-10-2017 11:04-0500 BMI (Body Mass Index) 21.63 kg/m2 Joan Oseguera [facility] Internal Medicine Work Phone: 07-10-2017 11:04-0500 Body Temperature 97.8 [degF] Joan Oseguera [facility] Internal Medicine Work Phone: Comment on above: Method: Temporal 07-10-2017 11:04-0500 Body weight 58.97 kg Joan Oseguera [facility] Internal Medicine Work Phone: 07-10-2017 11:04-0500 BP Diastolic 70 mm[Hg] Joan Oseguera [facility] Internal Medicine Work Phone: Comment on above: Patient Position: Sitting; Cuff Location : Left Arm; Cuff Size: Standard 07-10-2017 11:04-0500 BP Systolic 108 mm[Hg] Joan Oseguera [facility] Internal Medicine Work Phone: Comment on above: Patient Position: Sitting; Cuff Location : Left Arm; Cuff Size: Standard 07-10-2017 11:04-0500 BSA (Body Surface Area) 1.65 m2 Joan Oseguera [facility] Internal Medicine Work Phone: 07-10-2017 11:04-0500 Height 165.1 cm Joan Oseguera [facility] Internal Medicine Work Phone: 07-10-2017 11:04-0500 Pulse (Heart Rate) 99 /min Joan Oseguera [facility] Internal Medicine Work Phone: Comment on above: Pattern: Regular 07-10-2017 11:04-0500 Pulse Oximetry 98 % Zenon Cruz [facility] Internal Medicine Work Phone: Comment on above: Room air 07-10-2017 11:04-0500 Respiratory Rate 16 /min Joan Oseguera [facility] Internal Medicine Work Phone: Comment on above: Pattern: Unlabored 07-10-2017 11:04-0500 SaO2% (BldA) [Mass fraction] 98 % Joan Oseguera [facility] Internal Medicine; [facility] Internal Medicine Work Phone: Comment on above: Room air 07-10-2017 11:04-0500 Weight 58.97 kg Zenon Cruz [facility] Internal Medicine Work Phone: 02-16-2017 08:17-0400 BMI (Body Mass Index) 21.8 kg/m2 Ophelia Lucero [facility] Internal Medicine Work Phone: 02-16-2017 08:17-0400 Body Temperature 96.6 [degF] Ophelia Lucero [facility] Internal Medicine Work Phone: Comment on above: Method: Temporal 02-16-2017 08:17-0400 Body weight 59.42 kg Ophelia Nic [facility] Internal Medicine Work Phone: 02-16-2017 08:17-0400 BP Diastolic 72 mm[Hg] Ophelia Lucero [facility] Internal Medicine Work Phone: Comment on above: Patient Position: Sitting; Cuff Location : Left Arm; Cuff Size: Standard 02-16-2017 08:17-0400 BP Systolic 104 mm[Hg] Ophelia Lucero [facility] Internal Medicine Work Phone: Comment on above: Patient Position: Sitting; Cuff Location : Left Arm; Cuff Size: Standard 02-16-2017 08:17-0400 BSA (Body Surface Area) 1.65 m2 Ophelia Lucero [facility] Internal Medicine Work Phone: 02-16-2017 08:17-0400 Height 165.1 cm Ophelia Lucero [facility] Internal Medicine Work Phone: 02-16-2017 08:17-0400 Pulse (Heart Rate) 68 /min Ophelia Nic [facility] Internal Medicine Work Phone: Comment on above: Pattern: Regular 02-16-2017 08:17-0400 Pulse Oximetry 99 % Zenon Cruz [facility] Internal Medicine Work Phone: Comment on above: Room air 02-16-2017 08:17-0400 Respiratory Rate 16 /min Ophelia Nic [facility] Internal Medicine Work Phone: Comment on above: Pattern: Unlabored 02-16-2017 08:17-0400 SaO2% (BldA) [Mass fraction] 99 % Ophelia Lucero [facility] Internal Medicine; [facility] Work Phone: Comment on above: Room air 02-16-2017 08:17-0400 Weight 59.42 kg Zenon Cruz [facility] Internal Medicine Work Phone: 09-19-2016 12:08-0400 BMI (Body Mass Index) 21.47 kg/m2 Ophelia Nic Comprehen s[facility] Internal Medicine Work Phone: 09-19-2016 12:08-0400 Body Temperature 97.2 [degF] Ophelia Nic [facility] Internal Medicine Work Phone: Comment on above: Method: Temporal 09-19-2016 12:08-0400 Body weight 58.51 kg Ophelia Nic [facility] Internal Medicine Work Phone: 09-19-2016 12:08-0400 BP Diastolic 78 mm[Hg] Ophelia Lucero [facility] Internal Medicine Work Phone: Comment on above: Patient Position: Sitting; Cuff Location : Left Arm; Cuff Size: Standard 09-19-2016 12:08-0400 BP Systolic 112 mm[Hg] Ophelia Lucero [facility] Internal Medicine Work Phone: Comment on above: Patient Position: Sitting; Cuff Location : Left Arm; Cuff Size: Standard 09-19-2016 12:08-0400 BSA (Body Surface Area) 1.64 m2 Ophelia Lucero [facility] Internal Medicine Work Phone: 09-19-2016 12:08-0400 Height 165.1 cm Ophelia Breweraurora [facility] Internal Medicine Work Phone: 09-19-2016 12:08-0400 Pulse (Heart Rate) 62 /min Ophelia Lucero Comprehensiv e Internal Medicine Work Phone: Comment on above: Pattern: Regular 09-19-2016 12:08-0400 Pulse Oximetry 98 % Zenon Cruz [facility] Internal Medicine Work Phone: Comment on above: Room air 09-19-2016 12:08-0400 Respiratory Rate 15 /min Ophelia Breweraurora [facility] Internal Medicine Work Phone: Comment on above: Pattern: Unlabored 09-19-2016 12:08-0400 SaO2% (BldA) [Mass fraction] 98 % Ophelia Nic [facility] Internal Medicine; [facility] Work Phone: Comment on above: Room air 09-19-2016 12:08-0400 Weight 58.51 kg Zenon Cruz [facility] Internal Medicine Work Phone: 08-06-2016 08:24-0500 BMI (Body Mass Index) 21.13 kg/m2 Ophelia Breweraurora Comprehen sive Internal Medicine Work Phone: 08-06-2016 08:24-0500 Body Temperature 97.4 [degF] Ophelia Breweraurora [facility] Internal Medicine Work Phone: Comment on above: Method: Temporal 08-06-2016 08:24-0500 Body weight 57.61 kg Ophelia Nic [facility] Internal Medicine Work Phone: 08-06-2016 08:24-0500 BP Diastolic 72 mm[Hg] Ophelia Nic [facility] Internal Medicine Work Phone: Comment on above: Patient Position: Sitting; Cuff Location : Left Arm; Cuff Size: Standard 08-06-2016 08:24-0500 BP Systolic 122 mm[Hg] Ophelia Nic [facility] Internal Medicine Work Phone: Comment on above: Patient Position: Sitting; Cuff Location : Left Arm; Cuff Size: Standard 08-06-2016 08:24-0500 BSA (Body Surface Area) 1.63 m2 Ophelia Lucero [facility] Internal Medicine Work Phone: 08-06-2016 08:24-0500 Height 165.1 cm Ophelia Lucero [facility] Internal Medicine Work Phone: 08-06-2016 08:24-0500 Pulse (Heart Rate) 66 /min [facility] Work Phone: Comment on above: Pattern: Regular 08-06-2016 08:24-0500 Pulse Oximetry 97 % Zenon Cruz [facility] Internal Medicine Work Phone: Comment on above: Room air 08-06-2016 08:24-0500 Respiratory Rate 16 /min Ophelia Lucero [facility] Internal Medicine Work Phone: Comment on above: Pattern: Unlabored 08-06-2016 08:24-0500 SaO2% (BldA) [Mass fraction] 97 % Ophelia Lucero [facility] Internal Medicine; [facility] Internal Medicine Work Phone: Comment on above: Room air 08-06-2016 08:24-0500 Weight 57.61 kg Zenon Cruz [facility] Internal Medicine Work Phone: 07-02-2015 14:41-0500 BMI (Body Mass Index) 21.52 kg/m2 Joan Oseguera [facility] Internal Medicine Work Phone: 07-02-2015 14:41-0500 Body Temperature 98 [degF] [facility] Work Phone: Comment on above: Method: Temporal 07-02-2015 14:41-0500 Body weight 58.66 kg [facility] Work Phone: 07-02-2015 14:41-0500 BP Diastolic 64 mm[Hg] Joan Oseguera [facility] Internal Medicine Work Phone: Comment on above: Patient Position: Sitting; Cuff Location : Left Arm; Cuff Size: Standard 07-02-2015 14:41-0500 BP Systolic 104 mm[Hg] [facility] Work Phone: Comment on above: Patient Position: Sitting; Cuff Location : Left Arm; Cuff Size: Standard 07-02-2015 14:41-0500 BSA (Body Surface Area) 1.64 m2 Joan Oseguera [facility] Internal Medicine Work Phone: 07-02-2015 14:41-0500 Height 165.1 cm Joan Oseguera [facility] Internal Medicine Work Phone: 07-02-2015 14:41-0500 Pulse (Heart Rate) 63 /min Joan Oseguera [facility] Internal Medicine Work Phone: Comment on above: Pattern: Regular 07-02-2015 14:41-0500 Pulse Oximetry 98 % Zenon Cruz [facility] Internal Medicine Work Phone: Comment on above: Room air 07-02-2015 14:41-0500 Respiratory Rate 16 /min Joan Oseguera [facility] Internal Medicine Work Phone: Comment on above: Pattern: Unlabored 07-02-2015 14:41-0500 SaO2% (BldA) [Mass fraction] 98 % Joan Oseguera [facility] Internal Medicine; [facility] Work Phone: Comment on above: Room air 07-02-2015 14:41-0500 Weight 58.66 kg Zenon Cruz [facility] Internal Medicine Work Phone: 12-20-2012 15:03-0400 BMI (Body Mass Index) 21.52 kg/m2 Tara Moses RN [facility] Work Phone: 12-20-2012 15:03-0400 Body weight 58.66 kg Tara Moses RN [facility] Work Phone: 12-20-2012 15:03-0400 BP Diastolic 62 mm[Hg] Tara Moses RN [facility] Work Phone: Comment on above: Patient Position: Sitting; Cuff Location : Left Arm; Cuff Size: Large 12-20-2012 15:03-0400 BP Systolic 118 mm[Hg] Tara Moses RN [facility] Work Phone: Comment on above: Patient Position: Sitting; Cuff Location : Left Arm; Cuff Size: Large 12-20-2012 15:03-0400 BSA (Body Surface Area) 1.64 m2 Tara Moses RN [facility] Internal Medicine Work Phone: 12-20-2012 15:03-0400 Height 165.1 cm Tara Moses RN [facility] Internal Medicine Work Phone: 12-20-2012 15:03-0400 Pulse (Heart Rate) 60 /min Tara Moses RN [facility] Internal Medicine Work Phone: Comment on above: Pattern: Regular 12-20-2012 15:03-0400 Respiratory Rate 16 /min Taar Moses RN [facility] Internal Medicine Work Phone: Comment on above: Pattern: Unlabored 12-20-2012 15:03-0400 Weight 58.66 kg Zenon Cruz [facility] Internal Medicine Work Phone: 08-20-2011 14:52-0500 BMI (Body Mass Index) 20.97 kg/m2 Ophelia Lucero [facility] Internal Medicine Work Phone: 08-20-2011 14:52-0500 Body Temperature 98.3 [degF] Ophelia Lucero [facility] Internal Medicine Work Phone: 08-20-2011 14:52-0500 Body weight 57.15 kg Ophelia Lucero [facility] Internal Medicine Work Phone: 08-20-2011 14:52-0500 BP Diastolic 64 mm[Hg] Ophelia Lucero [facility] Internal Medicine Work Phone: Comment on above: Patient Position: Sitting; Cuff Location : Left Arm; Cuff Size: Standard 08-20-2011 14:52-0500 BP Systolic 100 mm[Hg] Ophelia Lucero [facility] Internal Medicine Work Phone: Comment on above: Patient Position: Sitting; Cuff Location : Left Arm; Cuff Size: Standard 08-20-2011 14:52-0500 BSA (Body Surface Area) 1.63 m2 Ophelia Lucero [facility] Internal Medicine Work Phone: 08-20-2011 14:52-0500 Height 165.1 cm Ophelia Lucero [facility] Internal Medicine Work Phone: 08-20-2011 14:52-0500 Pulse (Heart Rate) 80 /min Ophelia Lucero Comprehens e Internal Medicine Work Phone: Comment on above: Pattern: Regular 08-20-2011 14:52-0500 Respiratory Rate 16 /min Ophelia Lucero [facility] Internal Medicine Work Phone: Comment on above: Pattern: Unlabored 08-20-2011 14:52-0500 Weight 57.15 kg Zenon Cruz [facility] Internal Medicine Work Phone: 08-06-2011 08:18-0500 BMI (Body Mass Index) 20.8 kg/m2 [facility] Work Phone: 08-06-2011 08:18-0500 Body Temperature 97.6 [degF] Ophelia Lucero [facility] Internal Medicine Work Phone: 08-06-2011 08:18-0500 Body weight 56.7 kg Ophelia Lucero [facility] Internal Medicine Work Phone: 08-06-2011 08:18-0500 BP Diastolic 66 mm[Hg] Ophelia Lucero [facility] Internal Medicine Work Phone: Comment on above: Patient Position: Sitting; Cuff Location : Left Arm; Cuff Size: Standard 08-06-2011 08:18-0500 BP Systolic 96 mm[Hg] Ophelia Lucero [facility] Internal Medicine Work Phone: Comment on above: Patient Position: Sitting; Cuff Location : Left Arm; Cuff Size: Standard 08-06-2011 08:18-0500 BSA (Body Surface Area) 1.62 m2 Ophelia Lucero [facility] Internal Medicine Work Phone: 08-06-2011 08:18-0500 Height 165.1 cm Ophelia Lucero [facility] Internal Medicine Work Phone: 08-06-2011 08:18-0500 Pulse (Heart Rate) 84 /min Ophelia Bazanjennifer Comprehens e Internal Medicine Work Phone: Comment on above: Pattern: Regular 08-06-2011 08:18-0500 Respiratory Rate 16 /min Ophelia Lucero [facility] Work Phone: Comment on above: Pattern: Unlabored 08-06-2011 08:18-0500 Weight 56.7 kg Zenon Cruz [facility] Work Phone: 10-16-2010 09:40-0400 BMI (Body Mass Index) 21.21 kg/m2 Tara Moses RN [facility] Work Phone: 10-16-2010 09:40-0400 Body Temperature 96.9 [degF] Tara Moses RN [facility] Work Phone: Comment on above: Method: Oral 10-16-2010 09:40-0400 Body weight 57.81 kg Tara Moses RN [facility] Work Phone: 10-16-2010 09:40-0400 BP Diastolic 62 mm[Hg] Tara Moses RN [facility] Work Phone: Comment on above: Patient Position: Sitting; Cuff Location : Left Arm; Cuff Size: Large 10-16-2010 09:40-0400 BP Systolic 118 mm[Hg] Tara Moses RN [facility] Work Phone: Comment on above: Patient Position: Sitting; Cuff Location : Left Arm; Cuff Size: Large 10-16-2010 09:40-0400 BSA (Body Surface Area) 1.63 m2 Tara Moses RN [facility] Work Phone: 10-16-2010 09:40-0400 Height 165.1 cm Tara Moses RN [facility] Work Phone: 10-16-2010 09:40-0400 Pulse (Heart Rate) 60 /min Tara Moses RN [facility] Work Phone: Comment on above: Pattern: Regular 10-16-2010 09:40-0400 Respiratory Rate 20 /min Tara Moses RN [facility] Work Phone: Comment on above: Pattern: Unlabored 10-16-2010 09:40-0400 Weight 57.81 kg Zenon Cruz [facility] Work Phone: 10-04-2010 08:59-0400 BMI (Body Mass Index) 21.47 kg/m2 Tara Moses RN [facility] Work Phone: 10-04-2010 08:59-0400 Body Temperature 97.6 [degF] Tara Moses RN [facility] Work Phone: Comment on above: Method: Oral 10-04-2010 08:59-0400 Body weight 58.51 kg Tara Moses RN [facility] Work Phone: 10-04-2010 08:59-0400 BP Diastolic 78 mm[Hg] Tara Moses RN [facility] Work Phone: Comment on above: Patient Position: Sitting; Cuff Location : Left Arm; Cuff Size: Large 10-04-2010 08:59-0400 BP Systolic 122 mm[Hg] Tara Moses RN [facility] Work Phone: Comment on above: Patient Position: Sitting; Cuff Location : Left Arm; Cuff Size: Large 10-04-2010 08:59-0400 BSA (Body Surface Area) 1.64 m2 Tara Moses RN [facility] Work Phone: 10-04-2010 08:59-0400 Height 165.1 cm Tara Moses RN [facility] Work Phone: 10-04-2010 08:59-0400 Pulse (Heart Rate) 68 /min Tara Moses RN [facility] Work Phone: Comment on above: Pattern: Regular 10-04-2010 08:59-0400 Respiratory Rate 20 /min Tara Moses RN [facility] Work Phone: Comment on above: Pattern: Unlabored 10-04-2010 08:59-0400 Weight 58.51 kg Zenon Cruz [facility] Work Phone: 08-23-2010 11:38-0500 Body Temperature 97.8 [degF] Ophelia Lucero [facility] Work Phone: 08-23-2010 11:38-0500 BP Diastolic 66 mm[Hg] Ophelia Lucero [facility] Work Phone: Comment on above: Patient Position: Sitting; Cuff Location : Left Arm; Cuff Size: Large 08-23-2010 11:38-0500 BP Systolic 98 mm[Hg] Ophelia Nic [facility] Internal Medicine Work Phone: Comment on above: Patient Position: Sitting; Cuff Location : Left Arm; Cuff Size: Large 08-23-2010 11:38-0500 Pulse (Heart Rate) 76 /min Ophelia Nic [facility] Internal Medicine Work Phone: Comment on above: Pattern: Regular 08-23-2010 11:38-0500 Respiratory Rate 16 /min Ophelia Nic [facility] Internal Medicine Work Phone: Comment on above: Pattern: Unlabored 08-20-2010 15:42-0500 BMI (Body Mass Index) 21.47 kg/m2 CLARK Johnathon RUTHERFORD [facility] Internal Medicine Work Phone: 08-20-2010 15:42-0500 Body Temperature 98.5 [degF] CLARK Johnathon [facility] Internal Medicine Work Phone: Comment on above: Method: Oral 08-20-2010 15:42-0500 Body weight 58.51 kg CLARK Johnathon [facility] Internal Medicine Work Phone: 08-20-2010 15:42-0500 BP Diastolic 70 mm[Hg] CLARK Johnathon [facility] Internal Medicine Work Phone: Comment on above: Patient Position: Sitting; Cuff Location : Left Arm; Cuff Size: Standard 08-20-2010 15:42-0500 BP Systolic 108 mm[Hg] CLARK Johnathon [facility] Internal Medicine Work Phone: Comment on above: Patient Position: Sitting; Cuff Location : Left Arm; Cuff Size: Standard 08-20-2010 15:42-0500 BSA (Body Surface Area) 1.64 m2 CLARK Diego LPN [facility] Internal Medicine Work Phone: 08-20-2010 15:42-0500 Height 165.1 cm CLARK Diego [facility] Internal Medicine Work Phone: 08-20-2010 15:42-0500 Pulse (Heart Rate) 64 /min CLARK Diego [facility] Internal Medicine Work Phone: Comment on above: Pattern: Regular 08-20-2010 15:42-0500 Respiratory Rate 18 /min CLARK Diego LPN [facility] Work Phone: Comment on above: Pattern: Unlabored 08-20-2010 15:42-0500 Weight 58.51 kg Zenon Fast [facility] Work Phone: 07-08-2010 11:33-0500 BMI (Body Mass Index) 21.5 kg/m2 Tara Moses RN [facility] Work Phone: 07-08-2010 11:33-0500 Body weight 58.6 kg Tara Moses RN [facility] Work Phone: 07-08-2010 11:33-0500 BP Diastolic 76 mm[Hg] Tara Moses RN [facility] Work Phone: Comment on above: Patient Position: Sitting; Cuff Location : Left Arm; Cuff Size: Large 07-08-2010 11:33-0500 BP Systolic 118 mm[Hg] Tara Moses RN [facility] Work Phone: Comment on above: Patient Position: Sitting; Cuff Location : Left Arm; Cuff Size: Large 07-08-2010 11:33-0500 BSA (Body Surface Area) 1.64 m2 Tara Moses RN [facility] Work Phone: 07-08-2010 11:33-0500 Height 165.1 cm Tara Moses RN [facility] Work Phone: 07-08-2010 11:33-0500 Pulse (Heart Rate) 60 /min Tara Moses RN [facility] Work Phone: Comment on above: Pattern: Regular 07-08-2010 11:33-0500 Respiratory Rate 20 /min Tara Moses RN [facility] Work Phone: Comment on above: Pattern: Unlabored 07-08-2010 11:33-0500 Weight 58.6 kg Zenon Fast [facility] Work Phone: 05-01-2010 12:35-0400 Body Temperature 99.2 [degF] Ophelia Lucero [facility] Work Phone: 05-01-2010 12:35-0400 Body weight 57.15 kg Ophelia Lucero [facility] Internal Medicine Work Phone: 05-01-2010 12:35-0400 BP Diastolic 70 mm[Hg] Ophelia Lucero [facility] Internal Medicine Work Phone: Comment on above: Patient Position: Sitting; Cuff Location : Left Arm; Cuff Size: Large 05-01-2010 12:35-0400 BP Systolic 108 mm[Hg] Ophelia Lucero [facility] Internal Medicine Work Phone: Comment on above: Patient Position: Sitting; Cuff Location : Left Arm; Cuff Size: Large 05-01-2010 12:35-0400 Pulse (Heart Rate) 78 /min Ophelia Lucero [facility] Internal Medicine Work Phone: Comment on above: Pattern: Regular 05-01-2010 12:35-0400 Pulse Oximetry 99 % Zenon Cruz [facility] Internal Medicine Work Phone: Comment on above: Room air 05-01-2010 12:35-0400 Respiratory Rate 18 /min Ophelia Lucero [facility] Internal Medicine Work Phone: Comment on above: Pattern: Unlabored 05-01-2010 12:35-0400 SaO2% (BldA) [Mass fraction] 99 % Ophelia Bazanjennifer [facility] Internal Medicine; [facility] Work Phone: Comment on above: Room air 05-01-2010 12:35-0400 Weight 57.15 kg Zenon Anthony [facility] Internal Medicine Work Phone: 04-16-2010 13:25-0400 Body Temperature 99 [degF] Lucrecia Chery LPN [facility] Internal Medicine Work Phone: Comment on above: Method: Oral 04-16-2010 13:25-0400 BP Diastolic 74 mm[Hg] Lucrecia Chery LPN [facility] Internal Medicine Work Phone: Comment on above: Patient Position: Sitting; Cuff Location : Left Arm; Cuff Size: Standard 04-16-2010 13:25-0400 BP Systolic 110 mm[Hg] Lucrecia Chery LPN [facility] Work Phone: Comment on above: Patient Position: Sitting; Cuff Location : Left Arm; Cuff Size: Standard 04-16-2010 13:25-0400 Pulse (Heart Rate) 88 /min Lucrecia Chery KRISH [facility] Work Phone: Comment on above: Pattern: Regular 04-16-2010 13:25-0400 Pulse Oximetry 96 % Zenon Fast [facility] Work Phone: Comment on above: Room air 04-16-2010 13:25-0400 Respiratory Rate 17 /min Lucrecia Chery KRISH [facility] Work Phone: Comment on above: Pattern: Unlabored 04-16-2010 13:25-0400 SaO2% (BldA) [Mass fraction] 96 % Lucrecia Tyler KRISH [facility]; [facility] Work Phone: Comment on above: Room air 01-18-2010 14:45-0400 Body weight 57.61 kg Tara Moses RN [facility] Work Phone: 01-18-2010 14:45-0400 BP Diastolic 70 mm[Hg] Tara Moses RN [facility] Work Phone: Comment on above: Patient Position: Sitting; Cuff Location : Left Arm; Cuff Size: Large 01-18-2010 14:45-0400 BP Systolic 104 mm[Hg] Tara Moses RN [facility] Work Phone: Comment on above: Patient Position: Sitting; Cuff Location : Left Arm; Cuff Size: Large 01-18-2010 14:45-0400 Pulse (Heart Rate) 64 /min Tara Moses RN [facility] Work Phone: Comment on above: Pattern: Regular 01-18-2010 14:45-0400 Respiratory Rate 18 /min Tara Moses RN [facility] Work Phone: Comment on above: Pattern: Unlabored 01-18-2010 14:45-0400 Weight 57.61 kg Zenon Cruz [facility] Work Phone: 10-23-2009 13:41-0400 Body weight 57.61 kg Ophelia Lucero [facility] Work Phone: 10-23-2009 13:41-0400 BP Diastolic 64 mm[Hg] Ophelia Lucero [facility] Internal Medicine Work Phone: Comment on above: Patient Position: Sitting; Cuff Location : Left Arm; Cuff Size: Standard 10-23-2009 13:41-0400 BP Systolic 108 mm[Hg] Ophelia Lucero [facility] Internal Medicine Work Phone: Comment on above: Patient Position: Sitting; Cuff Location : Left Arm; Cuff Size: Standard 10-23-2009 13:41-0400 Pulse (Heart Rate) 72 /min Ophelia Lucero [facility] Internal Medicine Work Phone: Comment on above: Pattern: Regular 10-23-2009 13:41-0400 Respiratory Rate 16 /min Ophelia Bazanjennifer [facility] Internal Medicine Work Phone: Comment on above: Pattern: Unlabored 10-23-2009 13:41-0400 Weight 57.61 kg Zenon [facility] Internal Medicine Work Phone: 06-22-2009 09:22-0500 Body Temperature 98.1 [degF] Ophelia Lucero [facility] Internal Medicine Work Phone: Comment on above: Method: Undefined 06-22-2009 09:22-0500 Body weight 0 kg Ophelia Bazanjennifer [facility] Internal Medicine Work Phone: 06-22-2009 09:22-0500 BP Diastolic 66 mm[Hg] Ophelia Lucero [facility] Internal Medicine Work Phone: Comment on above: Patient Position: Sitting; Cuff Location : Right Arm; Cuff Size: Standard 06-22-2009 09:22-0500 BP Systolic 106 mm[Hg] Ophelia Lucero [facility] Internal Medicine Work Phone: Comment on above: Patient Position: Sitting; Cuff Location : Right Arm; Cuff Size: Standard 06-22-2009 09:22-0500 Head Circumference 0 cm Zenon Weroom [facility] Internal Medicine Work Phone: 06-22-2009 09:22-0500 Head Occipital-frontal circumference 0 cm Ophelia Lang Internal [facility]; [facility] Work Phone: 06-22-2009 09:22-0500 Height 0 cm Ophelia Nic [facility] Work Phone: 06-22-2009 09:22-0500 Pulse (Heart Rate) 80 /min Ophelia Nic [facility] Medicine Work Phone: Comment on above: Pattern: Regular 06-22-2009 09:22-0500 Respiratory Rate 18 /min Ophelia Lucero [facility] Internal Medicine Work Phone: Comment on above: Pattern: Undefined 06-22-2009 09:22-0500 Weight 0 kg Zenon Cruz [facility] Work Phone: Encounters Encounter Date Encounter Type Care Provider Facility Start: 12-14-2024 Encounter for genera l adult medical examination with abnormal findings Ranjana Tovar [facility] Start: 12-09-2024 End: 12-09-2024 ambulatory Ranjana Tovar [facility] Work Phone: [facility] Work Phone: Start: 12-09-2024 End: 12-09-2024 Patient encounter procedure Ranjana Tovar [facility] Work Phone: Start: 12-09-2024 End: 12-09-2024 ambulatory [facility] Facility:[facility] Start: 05-23-2024 End: 05-23-2024 ambulatory [facility] Facility:[facility] Start: 05-06-2024 End: 05-06-2024 ambulatory [facility] Facility:[facility] Start: 03-21-2024 Encounter for gynecological examination (general) (routine) with abnormal findings Nona Wilkinson [facility] Start: 03-21-2024 End: 03-21-2024 ambulatory Zenon Cruz Facility:[facility] Start: 02-03-2024 End: 02-03-2024 ambulatory [facility] Facility:[facility] Start: 03-23-2023 End: 03-23-2023 ambulatory [facility] Work Phone: Start: 03-23-2023 End: 03-23-2023 Discharged Recurring [facility]-Physical Therapy Work Phone: Start: 11-21-2022 End: 11-24-2022 Patient encounter procedure Zenon Fast DO Work Phone: [facility] Start: 10-13-2022 ambulatory Zenon A Fast DO [facility] Start: 09-11-2022 End: 09-11-2022 ambulatory KALANI HOLMAN Facility:[facility] Start: 09-11-2022 End: 09-12-2022 ambulatory ZENON A FAST Facility:[facility] Start: 09-11-2022 Encounter for gynecological examination (general) (routine) without abnormal findings BREA JENKINS [facility] Start: 09-11-2022 End: 09-11-2022 Patient encounter procedure Brea Jenkins APRN.ALUMINA REFINERY OPERATOR Work Phone: OB/Gynecology Comment on above: Encounter for gyneco logical examination (general) (routine) without abnormal findings (Primary Dx); Dense breast tissue; Encounter for screening mammogram for malignant neoplasm of breast; Hormone replacement therapy Start: 09-11-2022 End: 09-11-2022 Patient encounter status Brea Jenkins APRN.ALUMINA REFINERY OPERATOR Work Phone: OB/Gynecology Start: 05-20-2022 End: 05-20-2022 Phone Encounter Zenon Fast DO Work Phone: [facility] Start: 05-12-2022 End: 05-12-2022 Phone Encounter Zenon Fast DO Work Phone: [facility] Start: 04-29-2022 End: 04-29-2022 Office outpatient visit 15 minutes Zenon Fast DO Work Phone: [facility] Start: 03-04-2022 End: 03-04-2022 Office outpatient visit 25 minutes Zenon Fast DO Work Phone: [facility] Start: 01-28-2022 End: 01-29-2022 Office outpatient visit 5 minutes Zenon Fast DO Work Phone: [facility] Start: 01-28-2022 Review Zenon Fast DO Work Phone: [facility] Start: 09-19-2021 End: 09-19-2021 Patient encounter procedure [facility]-Outpatient Bone Densitometry Start: 08-28-2021 End: 08-28-2021 Office outpatient visit 5 minutes Zenon Fast DO Work Phone: [facility] Start: 08-26-2021 End: 08-26-2021 Office outpatient visit 25 minutes Zenon Fast DO Work Phone: [facility] Start: 08-26-2021 Review Zenon Fast DO Work Phone: [facility] Start: 08-12-2021 End: 08-12-2021 Lab Order Zenon Fast DO Work Phone: [facility] Start: 08-12-2021 End: 08-12-2021 Patient encounter status CLARK Diego LPN [facility]; [facility] Work Phone: Start: 07-18-2021 End: 07-19-2021 Office outpatient visit 5 minutes Zenon Fast DO Work Phone: [facility] Start: 05-10-2021 End: 05-12-2021 Office outpatient visit 25 minutes Zenon Fast DO Work Phone: [facility] Start: 05-10-2021 End: 05-12-2021 Patient encounter status Zenon A Fast DO Work Phone: [facility]; [facility] Work Phone: Start: 01-04-2021 End: 01-04-2021 Office outpatient visit 5 minutes Zenon Fast DO Work Phone: [facility] Start: 08-27-2020 End: 08-27-2020 Office outpatient visit 15 minutes Zenon Fast [facility] Start: 05-11-2020 End: 05-11-2020 Office outpatient visit 5 minutes Zenon Fast [facility] Start: 05-07-2020 End: 05-07-2020 Office outpatient visit 5 minutes Zenon Fast [facility] Start: 03-14-2020 End: 03-14-2020 Patient encounter procedure DAYSI MAYORGA [facility] Start: 09-23-2019 End: 09-24-2019 Office outpatient visit 5 minutes Zenon Fast [facility] Start: 08-29-2019 End: 08-29-2019 Phone Encounter Zenon Fast [facility] Start: 08-15-2019 End: 08-27-2020 Office outpatient visit 25 minutes Zenon Fast [facility] Start: 08-15-2019 Review Zenon Fast [facility] Start: 07-27-2019 End: 08-01-2019 Phone Encounter Zenon Fast [facility] Start: 04-29-2019 End: 05-01-2019 Office outpatient visit 15 minutes Zenon Fast [facility] Start: 04-27-2019 End: 04-27-2019 Office outpatient visit 5 minutes Zenon Fast [facility] Start: 04-22-2019 End: 04-24-2019 Office outpatient visit 15 minutes Zenon Fast [facility] Start: 04-22-2019 Review Zenon Fast [facility] Start: 04-22-2019 End: 04-22-2019 Annotation/Addendum Zenon Fast [facility] Start: 04-18-2019 End: 04-18-2019 Office outpatient visit 15 minutes Zenon Fast [facility] Start: 03-14-2019 Review Zenon Fast [facility] Start: 09-13-2018 End: 09-14-2018 Office outpatient visit 10 minutes Zenon Fast [facility] Start: 09-13-2018 Review Eznon Fast [facility] Start: 08-09-2018 End: 08-09-2018 Phone Encounter Zenon Fast [facility] Start: 04-26-2018 End: 04-26-2018 Office outpatient visit 5 minutes Zenon Fast [facility] Start: 08-24-2017 End: 09-10-2017 Office outpatient visit 15 minutes Zeonn Fast [facility] Start: 07-13-2017 End: 07-13-2017 Phone Encounter Zenon Fast [facility] Start: 07-10-2017 End: 07-12-2017 Office outpatient visit 15 minutes Zenon Fast [facility] Start: 02-16-2017 End: 02-16-2017 Office outpatient visit 15 minutes Zenon Fast [facility] Start: 09-19-2016 End: 09-21-2016 Office outpatient visit 25 minutes Zenon Fast [facility] Start: 08-20-2016 End: 08-20-2016 Phone Encounter Zenon Fast [facility] Start: 08-11-2016 End: 08-11-2016 Phone Encounter Zenon Cruz [facility] Start: 08-06-2016 End: 08-24-2016 Office outpatient visit 15 minutes Zenonmelanie Cruz [facility] Start: 07-02-2015 End: 07-02-2015 Office outpatient visit 15 minutes Zenonmelanie Cruz [facility] Start: 12-23-2012 End: 12-23-2012 Phone Encounter Zenonmelanie Cruz [facility] Start: 12-20-2012 End: 12-20-2012 Patient encounter procedure Zenonmelanie Cruz [facility] Start: 08-20-2011 End: 08-20-2011 Patient encounter procedure Zenonmelanie Cruz [facility] Start: 08-06-2011 End: 08-06-2011 Patient encounter procedure Zenonmelanie Cruz [facility] Start: 10-16-2010 End: 10-16-2010 Patient encounter procedure Zenonmelanie Cruz [facility] Start: 10-04-2010 End: 10-04-2010 Patient encounter procedure Zenonmelanie Cruz [facility] Start: 08-23-2010 End: 08-23-2010 Patient encounter procedure Zenonmelanie Cruz [facility] Start: 08-20-2010 End: 08-20-2010 Patient encounter procedure Zenonmelanie Cruz [facility] Start: 07-08-2010 End: 07-08-2010 Patient encounter procedure Zenonmelanie Cruz [facility] Start: 07-08-2010 End: 07-08-2010 Preprocedural examination done Zenon Cruz DO Work Phone: [facility] Start: 05-01-2010 End: 05-02-2010 Patient encounter procedure Zenonmelanie Cruz [facility] Start: 04-17-2010 End: 04-17-2010 Annotation/Addendum Zenonmelanie Cruz [facility] Start: 04-16-2010 End: 04-16-2010 Office outpatient visit 15 minutes Zenonmelanie Cruz [facility] Start: 01-18-2010 End: 01-18-2010 Patient encounter procedure Zenonmelanie Cruz [facility] Start: 10-23-2009 End: 10-23-2009 Patient encounter procedure Zenonmelanie Cruz [facility] Start: 06-22-2009 End: 06-22-2009 Patient encounter procedure Zenonmelanie Cruz [facility] Patient encounter status Zenon Cruz DO Work Phone: [facility]; [facility] Work Phone: Patient encounter status Joan Oseguera [facility]; [facility] Work Phone: Patient encounter status Joan Oseguera [facility]; [facility] Work Phone: Patient encounter status Joan Oseguera [facility]; [facility] Work Phone: Patient encounter status Joan Oseguera [facility]; [facility] Work Phone: Preprocedural examination done Katharine Silvaedelmira [facility]; [facility] Work Phone: Preprocedural examination done Joan Oseguera [facility]; [facility] Work Phone: Preprocedural examination done Joan Oseguera [facility]; [facility] Work Phone: Preprocedural examination done Joan Oseguera [facility]; [facility] Work Phone: Preprocedural examination done Joan Oseguera [facility]; [facility] Work Phone: Preprocedural examination done Joan Oseguera [facility]; [facility] Work Phone: Procedures Date Procedure Procedure Detail Performing Clinician Start: 03-23-2023 End: 03-23-2023 PT D/C Summary (1) Procedure Note: See Note; NOTES: [facility] Physical Therapy [address] [place] [address] / REHABILITATION SERVICES DISCHARGE SUMMARY MR#: [id number] Acct: [id number] Name: BREA CATALAN Rep #: [id number] : 1970 52 From: Sarah Pickett PT, Cert. MDT Referring : Status: REG RCR Insurance: [employer] SELF [employer] INSURANCE Discharge Summary D/C summary: It has been my pleasure to treat BREA CATALAN referred by SERGIO TORRES, with the diagnosis of R SHOULDER IMPINGEMENT for a total of 7 visit(s). Discharge Date: Please see the following information for a summary of their discharge status. Subjective Subjective: PATIENT STATES FOR THE MOST PART HER SHLD DOESN'T HURT ONGOING LIKE IT DID. SHE STATES SHE DID HAVE SOME PAIN WITH NEW EX'S BUT IT WAS BETTER OVER ALL WITH SUBSEQUENT DAYS. SHE REPORTS NEAR PAINFREE FUNCTION NOW FOR THE MOST PART. PATIENT REPORT IF SHE CAN GET THE BANDS SHE WILL BE REALLY GOOD WITH DOING THE EX'S AT HOME. Pain R neck: Pain Intensity (Out of 10): 2 Overall Improvement % Improvement: 90 Objective Objective/Function: PATIENT WAS SEEN TODAY FOR RE-ASSESSMENT OF PROGRESS TOWARD THE SET PT GOALS AND THE NEED FOR FURTHER PHYSICAL THERAPY VS READINESS FOR DISCHARGE. UPON EXAM TODAY ALL PT GOALS HAVE BEEN MET. PATIENT BRUNO'S FULL PAINFREE R SHLD ROM ALL PLANES AND IMPROVED CERVICAL ROM FOLLOWS: Cervical Mvmt Loss: Flex: NIL Pro: NIL Ext: MIN Ret: MIN RSB: MOD LSB: MIN R Rot: MIN L Rot: MIN PATIENT DENIES PAIN WITH CERVICAL ROM TESTING ALL PLANES EXCEPT MILD R SHLD PAIN WITH R SB TESTING. R UE STRENGTH IS 5/5 WITH MMT'ING. R UE DURAL SIGNS ARE NEGATIVE NOW. ISSUED TBANDS FOR HEP: OTB SHLD EXT AND ADD. YTB SHLD IR AND ER. PATIENT TOLERATED THESE EX'S WELL IN THE CLINIC AND BRUNO'S GOOD TECHNIQUE. SHE IS APPROPRIATE FOR DISCHARGE TO HEP AND PATIENT IS AGREEABLE. Goals Goal 1:: DECREASE C/O R NECK AND SHLD PAIN Goal Progress: Goal Met Goal 2:: INCREASE FUNCTIONAL ROM OF R UE TO EASE ADL'S Goal Progress: Goal Met Goal 3:: IMPROVE FUNCTIONAL STRENGTH OF R UE TO EASE ADL'S Goal Progress: Goal Met Goal 4:: PATIENT WILL BE INDEP WITH A HEP FOR CONTINUED IMPROVEMENT ONCE FORMAL PHYSICAL THERPAY CONCLUDES. Goal Progress: Goal Met Plan Plan: D/C D/C Information d/c sentence: If there are questions or concerns regarding this patient's physical therapy, please feel free to call me at [phone]. Thank you for the referral of this patient. Sincerely, Sarah Pickett, PT, Cert MDT Balance/Gait/Functional tests Balance/Special Test Scores Quick DASH Score: 15.9075 Improvement % Improvement: 90 <Electronically signed by Sarah Pickett PT, Cert. MDT> 03/23/23 1901 CC: Dr. Zenon Cruz, DO; SERGIO TORRES LARRY Signed Zenon Cruz DO Work Phone: Start: 03-02-2023 End: 03-02-2023 Inital Evaluation (1) - PT Procedure Note: See Note; NOTES: [facility] Physical Therapy [facility] [place] [address] / REHABILITATION SERVICES INITIAL EVALUATION MR#: [id number] Acct: [id number] Name: BREA CATALAN Rep #: [id number] : 1970 52 From: Ernst Rouse PT. MDT Referring DrAlisia: Status: REG R Insurance: [employer] SELF PAY INSURANCE Patient's Visit Information Visit Information Visit Information: BREA CATALAN is a 52 year old F referred to Physical Therapy by SERGIO TORRES with a diagnosis of R SHOULDER IMPINGEMENT. Date of Evaluation: 03/02/23 Physical Therapist: Sarah Pickett, PT, Cert MDT Visit Plan Frequency: 2x /Week Duration: 4-6 Weeks Plan: R SHLD US X 6-8 TREATMENTS. SUPINE MANUAL THERAPY TO R SHLD FOR ROM AND MOBILIZATION. R NECK AND SHLD STM. POSTURE CORRECTION/STRENGTHENING , INSTRUCTION IN APPROPRIATE BODY MECHANICS AND ACTIVITY MODIFICATIONS. R UE ROM, STRETCHING AND STRENGTHENING INCLUDING TERMINAL STRETCH. HEP INSTRUCTION. 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 Present symptoms: DULL PAIN R SHLD AND UPPER ARM. SORE UNDER SHLD BLADE. DENIES R UE NUMBNESS AND TINGLING. Present since: 02/23/23 - A WK AGO. Pain Scale: Worst - 9/10 Least - 1/10 Currently: 1/10 Commenced as a result of: REACHING UNDER A BED TO GET A BALL Symptoms at onset: R SHLD PAIN Worse: TRYING TO GET COMFORTABLE TO SLEEP AND CAN NOT SLEEP ON R SIDE, CARRYING SOMETHING HEAVY ON R ARM. Better: REST, HEAT, PREDNISONE (PRESCRIBED 6 DAYS - ON DAY 4). Disturbed sleep: YES Previous history/Previous treatment: DENIES H/O R SHLD PROBLEMS. H/O OF NECK PROBLEM THAT HAD SOMETHING TO DO WITH A DISC - "I HAD A LOT OF NECK PAIN, CAME HERE FOR THERAPY AND GOT BETTER". This episode: STEROID DOSE PACK. EX'S AND THERABAND BUT DIDN'T DO ANYTHING BUT SWING ARM. Dizziness: NO Tinnitis: NO Nausea: NO Shortness of Breath: NO Difficulty Swollowing: NO Gait: NO Accidents: NO Unexplained weight loss: NO Imaging: R SHLD X-RAYS - R ROTATOR CUFF CALCIFICATION PER PATIENT REPORT. PMH/Recent major surgery: UNREMARKABLE. Objective Objective: Sitting Posture/Standing Posture: FAIR. MILD FH. MILD RSHL'S. NO TORTICOLIS. Sensory deficit: LUIS UE LIGHT TOUCH SENSATION GROSSLY INTACT AND SYMMETRICAL ROM deficit: LUIS UE AROM IN SITTING WFL. R SHLD AROM IN SUPINE IS LIMINTED. CATCHING PAIN WITH A, AA AND PROM TESTING OF R SHLD INTO FLEX, ABD, IR AND EX IN SUPINE. Motor deficit: LUIS UE'S GROSSLY 5/5 WITH MMT'ING EXCEPT R SHLD ABD AND ER 4-/5. TARE WEIGHER STRENGTH: 65 LBS LEFT, 70 LBS R (R HAND DOMINANT) Reflexes: 2/3 LUIS UE'S. Dural Signs: POSITIVE R UE Cervical Mvmt Loss: Flex: NIL Pro: NIL Ext: MIN Ret: MIN RSB: MOD LSB: MOD R Rot: MOD L Rot: MIN PATIENT C/O INCREASED PAIN UNDER R SHLD BLADE WITH CERVICAL ROM TESTING INTO FLEXION, PROTRACTION AND R SB. Postural strength: FAIR Palpation: NO ACUTE TENDERNESS OR UPPER THORACIC, CERVICAL OR SHLD REGIONS. Balance/Special Test Scores Quick DASH Score: 61.3625 Goals Goal 1:: DECREASE C/O R NECK AND SHLD PAIN Goal Time Frame: 4-6 Weeks Goal 2:: INCREASE FUNCTIONAL ROM OF R UE TO EASE ADL'S Goal Time Frame: 4-6 Weeks Goal 3:: IMPROVE FUNCTIONAL STRENGTH OF R UE TO EASE ADL'S Goal Time Frame: 4-6 Weeks Goal 4:: PATIENT WILL BE INDEP WITH A HEP FOR CONTINUED IMPROVEMENT ONCE FORMAL PHYSICAL THERPAY CONCLUDES. Goal Time Frame: 4-6 Weeks Anticipated Interventions Patient/Client Instruction: Educate patient on: Condition, Plan of Care and Risk Factors For the Purpose of:: To improve self management Therapeutic Exercise to Include: Strength training, Body mechanics, Postural training, Flexibilty training and Scapular Strength/Stabilization For the Purpose of:: To decrease pain, To increase ROM, To improve muscle performance and motor function, To increase tolerance to activity/condition/posit ion and To improve ability of physical actions for home/community/work/leis ure Manual Therapy Techniques to Include: Passive ROM and Soft tissue mobilization For the Purpose of:: To decrease pain and To increase ROM Thermo therapy (hot pack): Yes Ultrasound (thermal/non thermal): Yes For the Purpose of:: To decrease pain and To improve nutrient delivery to tissue Text: Thank you for the opportunity to evaluate your patient. For Medicare and Medicare HMO plans, please review the plan of care and approve it. It will need to be FAXED BACK to us at [phone] for Medicare purposes. For Medicare only, by signing this I certify the plan of care. Please let me know if there are questions or concerns regarding this plan of care. Physician Signature: Date: ____ <Electronically signed by Sarah Pickett PT, Cert. MDT> 03/02/23 7596 CC: Dr. Zenon Crzu DO; SERGIO TORRES LARRY Signed Zenon Cruz DO Work Phone: Start: 09-11-2022 Kathleen EspinalALUMINA REFINERY OPERATOR Work Phone: Start: 09-19-2021 End: 09-25-2021 Dexa Bone Density Study Comments: See Note; NOTES: [facility] [address] [place] [address] Dexa Bone Density Study MR#: [id number] Acct: [id number] Name: BREA CATALAN Rep #: [id number] : 1970 F 50 From: Darshan young MD PCP: Dr. Zenon Cruz DO Status: REG CLI Study: Dexa Bone Density Study Date of Exam: 09/19/21 Exam# [id number] Ordering Dr: Zenon Cruz DO STUDY: DUAL ENERGY X-RAY ABSORPTIOMETRY / DXA REASON FOR EXAM: Female, 50 years old. Z780. The patient is postmenopausal. TECHNIQUE: Bone Mineral Density (BMD) measurements of lumbar spine and bilateral hips were obtained. COMPARISON: Comparison is made with prior study of 09/23/2018. FINDINGS: Lumbar Spine (L1-L4): g/cm2 (1.027) / T-score (-0.2) / Z-score (0.7) Findings are suggestive of normal bone density with a low fracture risk. Left Femur Total: g/cm2 (0.894) / T-score (-0.4) / Z-score (0.1) Left Femoral Neck: g/cm2 (0.781) / T-score (-0.6) / Z-score (0.2) Right Femur Total: g/cm2 (0.932) / T-score (-0.1) / Z-score (0.5) Right Femoral Neck: g/cm2 (0.790) / T-score (-0.5) / Z-score (0.3) The T-Scores on the most recent prior examination were: Lumbar Spine (L1-L4): There has been improvement of bone density since the previous examination. Left Femur Total: which represents an improvement of 5.1%. Right Femur Total: which represents an improvement of 5.7%. BD/Dexa Bone Density Study IMPRESSION: The patient is considered normal as outlined below according to World Juan Organization (WHO) criteria with a low fracture risk. There has been improvement of bone density since the previous examination. Reference Information: The T-score is the number of standard deviations above or below the standard which is normal for young adults at their peak bone mineral density. The World Health Organization (WHO) interprets the T-scores as follows: Above -1 Normal bone density Between -1 and -2.5 Osteopenia Equal to / or below -2.5 Osteoporosis As a practical clinical guideline, osteopenia may be graded as follows: Mild -1 through -1.5 Moderate -1.6 through -2.0 Severe -2.1 through -2.4 The Z-score is the number of standard deviations above or below age-matched controls. A Z-score of less than -1.5 would be considered abnormal. References: 1. NIH Osteoporosis and Related Bone Diseases www osteo.org 2. International Society for Clinical Densitometry www iscd.org 3. National Osteoporosis Foundation www nof.org Electronically Signed: Darshan Machado MD at 15:00 EDT Reading Location ID and State: [address] [place] [address] , Service support , CC: Dr. Zenon Cruz DO Predatory Animal Hunter: Signed Zenon Cruz DO Work Phone: Start: 09-19-2021 Dual energy X-ray absorptiometry Start: 04-22-2019 End: 04-22-2019 Chest PA and Lateral Comments: See Note; NOTES: [facility] [address] [place] [id number] Chest PA and Lateral MR#: [id number] Acct: [id number] Name: BREA CATALAN Rep #: [id number] : 1970 F 48 From: Darshan Machado MD PCP: Zenon Cruz DO Status: REG CLI Study: Chest PA and Lateral Date of Exam: 04/22/19 Exam# [id number] Ordering Dr: Zenon Cruz DO STUDY: X-RAY CHEST REASON FOR EXAM: Female, 48 years old. Cough and chest congestion. TECHNIQUE: PA and lateral views of the chest. COMPARISON: None. FINDINGS: Hyperinflation. The lungs are clear. There is no demonstrated pleural abnormality. Normal size heart. Normal mediastinum and floyd. Normal visualized pulmonary arteries. Normal visualized aortic arch and descending thoracic aorta. Normal visualized thoracic spine. Normal visualized ribs, clavicles, and shoulders. There is no demonstrated abnormality of the visualized soft tissue structures of the upper abdomen. RAD/Chest PA and Lateral IMPRESSION: Hyperinflation. Electronically Signed: Darshan Machado, at 11:40 EDT , Service support , CC: Zenon Cruz DO Predatory Animal Hunter: Signed Zenon Cruz Work Phone: Start: 09-23-2018 End: 09-29-2018 Dexa Bone Density Study Comments: See Note; NOTES: [facility] [address] [place] [address] Dexa Bone Density Study MR#: [id number] Acct: [id number] Name: BREA CATALAN Rep #: [id number] : 1970 F 47 From: Darshan Machado MD PCP: Zenon Cruz DO Status: [facility] CLI Study: Dexa Bone Density Study Date of Exam: 09/23/18 Exam# [id number] Ordering Dr: Zenon Cruz DO STUDY: DUAL ENERGY X-RAY ABSORPTIOMETRY / DXA REASON FOR EXAM: Female, 47 years old. Postmenopausal. TECHNIQUE: Bone Mineral Density (BMD) measurements of lumbar spine and bilateral hips were obtained. COMPARISON: Comparison is made with prior study dated August 26, 2016. FINDINGS: Lumbar Spine (L1-L4): g/cm2 (1.084) / T-score (-0.8) / Z-score (-0.5) Findings are suggestive of normal bone density with a low fracture risk. Left Femur Total: g/cm2 (0.914) / T-score (-0.7) / Z-score (-0.3) Left Femoral Neck: g/cm2 (0.917) / T-score (-0.9) / Z-score (-0.1) Right Femur Total: g/cm2 (0.946) / T-score (-0.5) / Z-score (-0.1) Right Femoral Neck: g/cm2 (0.913) / T-score (-0.9) / Z-score (-0.2) The T-Scores on the most recent prior examination were: Lumbar Spine (L1-L4): There has been improvement of bone density since the previous examination. Left Femur Total: which represents a worsening of 2.6%. Right Femur Total: which represents a worsening of 4.5%. BD/Dexa Bone Density Study IMPRESSION: The patient is considered normal as outlined below according to World [place] Organization (WHO) criteria with a low fracture risk. There has been worsening of bone density since the previous examination. Reference Information: The T-score is the number of standard deviations above or below the standard which is normal for young adults at their peak bone mineral density. The World Health Organization (WHO) interprets the T-scores as follows: Above -1 Normal bone density Between -1 and -2.5 Osteopenia Equal to / or below -2.5 Osteoporosis As a practical clinical guideline, osteopenia may be graded as follows: Mild -1 through -1.5 Moderate -1.6 through -2.0 Severe -2.1 through -2.4 The Z-score is the number of standard deviations above or below age-matched controls. A Z-score of less than -1.5 would be considered abnormal. References: 1. NIH Osteoporosis and Related Bone Diseases http://www.osteo.org 2. International Society for Clinical Densitometry http://www.iscd.org 3. National Osteoporosis Foundation http://www.nof.org Electronically Signed: Darshan Machado, at 13:02 EDT , Service support , CC: Zenon Cruz DO Predatory Animal Hunter: Signed Zenon Cruz Work Phone: Start: 10-14-2017 End: 10-14-2017 TXT - Blood Flow Screening Comments: See Note; NOTES: [facility] [address] [place] [address] 10/13/17 0834 MR#: [id number] Acct: [id number] Name: Brea Catalan Rep #: [id number] : 1970 46 From: Beau Singletary MD Attending Dr: Zenon Cruz DO Status: REG REF Ordering Dr: Date: 10/14/17 Location: [facility] Sex: F C Admitted: Reason For Study: Blood flow screening Carotid Duplex Ultrasound Abdominal Aorta The right maximum ICA velocity is 111.0/47.5 The maximal outside diameter of the proximal cm/s. aorta measures 1.5 cm in the longitudinal axis. The left maximum ICA velocity is 102.0/47.0 cm/s.The maximal outside diameter of the proximal The right ECA velocity is less than 125 cm/s. aorta measures 1.6 x 1.6 cm in the cross- The left ECA velocity is less than 125 cm/s. sectional axis. There is no plaque formation noted on the right side. There is no plaque formation noted on the left side. Ankle Brachial Index The right ankle/ brachial index is 1.1. The left ankle/ brachial index is 1.1. Medical History and Assessment The heart rate is 66 beats per minute. The heart rhythm is regular. The right blood pressure is 90/54. The left blood pressure is 92/64. The assessment was performed by Nadine Ham RVT. Interpretation Summary Normal carotid artery screening (0 to 15% narrowing). Normal aortic ultrasound exam. The ankle/brachial index is normal (1.0 or greater). .rdering Physician: Zenon Cruz D.O Performed By: Rema Ham RVT 10/14/17 08 Date Beau Singletary MD CC: Zenon Cruz DO Date Dictated: 10/13/1734 Date Transcribed: 10/14/17800 Predatory Animal Hunter: Signed Zenon Cruz Start: 09-22-2016 End: 09-22-2016 Venous Duplex Lower Extremity Comments: See Note; NOTES: [facility] [address] [place] [address] Venous Duplex US, Unilateral 09/19/16 1333 MR#: [id number] Acct: [id number] Name: BREA CATALAN Rep #: [id number] : 1970 45 From: Beau Singletary MD Attending Dr: Zenon Cruz DO Status: REG CLI Ordering Dr: Zenon Cruz DO Date: 09/19/16 Location: [facility] Sex: F C Admitted: Reason For Study: Rt Calf pain RIGHT LEFT GSV is normal. CFV is compressible, spontaneous, phasic, CFV is compressible, spontaneous, phasic, competent, and demonstrates normal competent and demonstrates normal augmentation. augmentation. FV is compressible, spontaneous, phasic, competent and demonstrates normal augmentation. POP V is compressible, spontaneous, phasic, competent and demonstrates normal augmentation. T/P Trunk is compressible. PTV is compressible. RT PerV is compressible. Hypoechoic, non vascular structure noted in the Rt pop fossa extending into the proximal and mid posterior/medial calf, measures 2.53cm x 0.60cm behind the knee and 1.08cm x 2.98cm in the posterior calf. Procedure Exam performed in department. A preliminary report was called and/or faxed to Dr. Cruz. Interpretation Summary Deep veins of the right lower extremity are patent and compressible segmentally. There is no evidence of right lower extremity deep vein thrombosis. Valvular competence appears intact within the proximal deep venous system on the right . The right greater saphenous vein appears patent and compressible segmentally. A non-vascular, hypoechoic structure is noted in the right popliteal space and proximal posterior/medial calf, with dimensions as documented above. This may represent a popliteal cyst, with possible rupture. Clinical correlation is advised. Ordering Physician: Zenon Cruz Referring Physician: Zenon Cruz Performed By: Ranjana Brambila, JW, RVT 09/22/16717 Date Beau Singletary MD CC: Zenon Cruz DO Date Dictated: 09/19/16 1333 Date Transcribed: 09/22/16717 Predatory Animal Hunter: Signed Zenon Cruz Work Phone: Start: 09-02-2016 End: 09-02-2016 Inital Evaluation (1) - PT Comments: See Note; NOTES: [facility] [address] [place] [address] [address] [place], [place] [address] Fax [facility]HABIL[facility] SERVICES INITIAL EVALUATION MR#: [id number] Acct: [id number] Name: BREA CATALAN Rep #: [id number] : 1970 45 From: Bran Day PT, Cert. T, OCS Referring Dr.: Zenon Cruz DO Status: REG RCR Insurance: [facility] Patient's Visit Information BREA CATALAN is a 45 year old F referred to Physical Therapy by Zenon Cruz DO with a diagnosis of LUMBAR PAIN ,RADICULAPATHY. Date of Evaluation: 08/29/16 Physical Therapist: Bran Day PT, - Visit Plan Frequency: 2x /Week Duration: 4 Weeks Plan: manual therapy ,DLS,Sue ex's,postural ex's,modalities - Subjective Subjective: This 45 y/o female presents to physical therapy with lumbar pain radicular symptoms 15 years . Patient has had lumbar pain since having children. Patient symptoms worse with walking ,satnding,bending ,lifting.Symptoms restting,foam roller ,massage but never goes. Seen chiropractor for adjustments.Seen Dr x-rays DDD.Coughing /sneezing good. Denies parathesia/ tingling.Bowel/bladder good.No injuries. Sleeping good at night.Symptoms worse with housework tasks/job demands. SOCAIL: . 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 HOBBIES: eid - Pain Left Back Pain Intensity (Out of 10): 3 Pain Intensity Range: 10 Comment: SI /LS - Objective POSTURE: mild foward posture. PALAPTION: tender piriformis/SI/LS left. NEURO: denies parathesia/tingling,refl exes L3-4,L4-5,L5-S1,.myomes intact. MMT: quad/hams/gluts/hip ext/hip flexores,ankle 4/5. LUMBAR ROM: flexion WFL, ext mod loss,SG'S min loss. FLEXABILITY: hams min loss ,piriformis WFL. SYMMTRIES: align. - SACRAL SHEAR ,COMPRESSION ,long sitting test - Special Tests L/S Slump test left side: Negative L/S Slump test right side: Negative L/S Left Straight Leg Raise: Negative L/S Right Straight Leg Raise: Negative Lumbar Standing: Flexion - Mechanical Response: No effect Lumbar Standing: Flexion - Symptoms During Testing: No effect Lumbar Standing: Flexion - Symptoms After Testing: No effect Lumbar Standing: Extension - Mechanical Response: No effect Lumbar Standing: Extension - Symptoms During Testing: Increases Lumbar Standing: Extension - Symptoms After Testing: No worse Lumbar Lying: Flexion - Mechanical Response: No effect Lumbar Lying: Flexion - Symptoms During Testing: No effect Lumbar Lying: Flexion - Symptoms After Testing: No effect Lumbar Lying: Extension - Mechanical Response: Increases motion Lumbar Lying: Extension - Symptoms During Testing: Increases Lumbar Lying: Extension - Symptoms After Testing: No worse Lumbar Static: Slouched Sit - Mechanical Response: No effect Lumbar Static: Slouched Sit - Symptoms During Testing: Increases Lumbar Static: Slouched Sit - Symptoms After Testing: Worse Lumbar Static: Sitting Erect - Mechanical Response: No effect Lumbar Static: Sitting Erect - Symptoms During Testing: Decreases Lumbar Static: Sitting Erect - Symptoms After Testing: Better - Goals Goal 1:: Independant with HEP Goal Time Frame: 4-6 Weeks Goal 2:: Independant with posture/body nechanics Goal Time Frame: 4-6 Weeks Goal 3:: Decrease lumbar pain by 50 % or greater to improve function Goal Time Frame: 4-6 Weeks Goal 4:: Patient restore lumbar ROM to WFL with less pain for function of recovery. Goal Time Frame: 4-6 Weeks Goal 5:: Patient be d/c to prophalaxis Goal Time Frame: 4-6 Weeks - Rehabilitation Potential Physical Therapy Diagnosis: This patient appears to have SI dysfunction along with possible derrangement wih pain loss. of extension impairs ADLS' function,gait ,housework tasks Rehabilitation Potential: Good - Anticipated Interventions Patient/Client Instruction: Educate patient on: Condition, Plan of Care For the Purpose of:: To decrease pain, To increase ROM, To improve nutrient delivery to tissue, To increase oxygenation perfusion, To improve muscle performance and motor function, To increase tolerance to activity/condition/posit ion, To improve ability of physical actions for home/community/work/leis ure, To improve health of tissue, To decrease soft tissue restriction, To increase flexibility/ROM, To improve ability to perform tasks related to life management Therapeutic Exercise to Include: Strength training, Body mechanics, Postural training, Flexibilty training, Dynamic Lumbar Stabilization, Sue Exercises For the Purpose of:: To decrease pain, To increase ROM, To improve nutrient delivery to tissue, To increase oxygenation perfusion, To improve muscle performance and motor function, To improve ability to perform ADL's, To increase tolerance to activity/condition/posit ion, To improve ability of physical actions for home/community/work/leis ure, To improve health of tissue, To decrease soft tissue restriction, To increase flexibility/ROM, To improve ability to perform tasks related to life management Manual Therapy Techniques to Include: Mobilization, Soft tissue mobilization For the Purpose of:: To decrease pain, To increase ROM, To improve nutrient delivery to tissue, To increase oxygenation perfusion, To increase tolerance to activity/condition/posit ion, To improve performance and independence with ADL's, To improve ability of physical actions for home/community/work/leis ure, To decrease soft tissue restriction, To increase flexibility/ROM, To improve ability to perform tasks related to life management IF ES: Yes Cryotherapy (ice pack, ice massage): Yes Thermo therapy (hot pack): Yes Ultrasound (thermal/non thermal): Yes For the Purpose of:: To decrease pain, To decrease swelling/inflammation, To improve nutrient delivery to tissue, To increase oxygenation perfusion, To improve ability to perform tasks related to life management Thank you for the opportunity to evaluate your patient. For Medicare and Medicare HMO plans, please review the plan of care and approve it. It will need to be FAXED BACK to us at [phone] for Medicare purposes. Please let me know if there are questions or concerns regarding this plan of care. Physician Signature: Date: ____ <Electronically signed by Bran Day PT, Cert. T, OCS> 09/02/16 1702 CC: Zenon Cruz DO MARYA Signed For Medicare only, by signing this I certify the plan of care. ____ Physicians Signature Date Zenon Cruz Start: 08-26-2016 End: 08-27-2016 Dexa Bone Density Study (HP) Comments: See Note; NOTES: [facility] [address] [place] [address] [place] 4[address] Dexa Bone Density Study (HP) MR#: [id number] Acct: [id number] Name: BREA CATALAN Rep #: [id number] : 1970 F 45 From: Darshan Machado MD PCP: Zenon Cruz DO Status: REG CLI Study: Dexa Bone Density Study () Date of Exam: 08/26/16 Exam# [id number] Ordering Dr: Zenon Cruz DO STUDY: DUAL ENERGY X-RAY ABSORPTIOMETRY / DXA REASON FOR EXAM: Female, 45 years old. The patient is postmenopausal. TECHNIQUE: Bone Mineral Density (BMD) measurements of lumbar spine and bilateral hips were obtained. COMPARISON: Comparison is made with prior study dated September 16, 2011. FINDINGS: Lumbar Spine (L1-L4): g/cm2 (1.079) / T-score (-0.8) / Z-score (-0.6) Findings are suggestive of normal bone density with a low fracture risk. Left Femur Total: g/cm2 (0.938) / T-score (-0.6) / Z-score (-0.2) Left Femoral Neck: g/cm2 (0.915) / T-score (-0.9) / Z-score (-0.2) Right Femur Total: g/cm2 (0.991) / T-score (-0.1) / Z-score (0.2) Right Femoral Neck: g/cm2 (0.955) / T-score (-0.6) / Z-score (0.0) The T-Scores on the most recent prior examination were: Lumbar Spine (L1-L4): There has been worsening of bone density since the previous examination. Left Femur Total: which represents a worsening of 11.8%. Right Femur Total: which represents a worsening of 10.2%. HPBD/Dexa Bone Density Study (HP) IMPRESSION: The patient is considered normal as outlined below according to World Juan Organization (WHO) criteria with a low fracture risk. There has been worsening of bone density since the previous examination. Reference Information: The T-score is the number of standard deviations above or below the standard which is normal for young adults at their peak bone mineral density. The World Health Organization (WHO) interprets the T-scores as follows: Above -1 Normal bone density Between -1 and -2.5 Osteopenia Equal to / or below -2.5 Osteoporosis As a practical clinical guideline, osteopenia may be graded as follows: Mild -1 through -1.5 Moderate -1.6 through -2.0 Severe -2.1 through -2.4 The Z-score is the number of standard deviations above or below age-matched controls. A Z-score of less than -1.5 would be considered abnormal. References: 1. NIH Osteoporosis and Related Bone Diseases http://www.osteo.org 2. International Society for Clinical Densitometry http://www.iscd.org 3. National Osteoporosis Foundation http://www.nof.org Electronically Signed: Darshan Machado MD at 8:18 EST Tel [phone], Service support [phone], CC: Zenon Cruz DO Predatory Animal Hunter: Signed Zenon Cruz Work Phone: Start: 08-20-2016 End: 08-21-2016 Knee 4 or More Views Comments: See Note; NOTES: [facility] [address] [place] [address] [place] 4d Knee 4 or More Views MR#: [id number] Acct: [id number] Name: BREA CATALAN Rep #: [id number] : 1970 F 45 From: John Pozo MD PCP: Zenon Cruz DO Status: REG CLI Study: Knee 4 or More Views Date of Exam: 08/20/16 Exam# [id number] Ordering Dr: Zenon Cruz DO STUDY: X-RAY - RIGHT KNEE REASON FOR EXAM: Female, 45 years old. POSTERIOR KNEE PAIN TECHNIQUE: 4 view(s) of the knee. COMPARISON: None. FINDINGS: Normal visualized distal femur. Normal visualized proximal tibia and fibula. Normal proximal tibiofibular articulation. Normal medial femorotibial compartment. Normal lateral femorotibial compartment. Normal patellofemoral articulation. The soft tissue structures are unremarkable. RAD/Knee 4 or More Views IMPRESSION: Normal x-ray examination of the knee. Electronically Signed: John Pozo MD at 2:16 EST Tel , Service support [phone], CC: Zenon Cruz DO Predatory Animal Hunter: Signed Zenon Cruz Work Phone: Start: 08-06-2016 End: 08-06-2016 L/S Spine Min 4 Views Comments: See Note; NOTES: [facility] [address] [place] [id number] [place] 4d L/S Spine Min 4 Views MR#: [id number] Acct: [id number] Name: BREA CATALAN Rep #: [id number] : 1970 F 45 From: Darshan Machado MD PCP: Zenon Cruz DO Status: REG CLI Study: L/S Spine Min 4 Views Date of Exam: 08/06/16 Exam# [id number] Ordering Dr: Zenon Cruz DO STUDY: X-RAY - LUMBAR SPINE REASON FOR EXAM: Female, 45 years old. Left-sided low back pain. TECHNIQUE: 5 view(s) of the lumbar spine were obtained including oblique views. COMPARISON: None FINDINGS: Normal lumbar lordosis. There is no substantial scoliosis. There is a grade 1 anterior listhesis of L4 on L5. Normal vertebral bodies and endplates. Mild degree of disc space narrowing at the L4-L5 level. The soft tissue structures are unremarkable. RAD/L/S Spine Min 4 Views IMPRESSION: Grade 1 anterior listhesis of L4 on L5. Electronically Signed: Darshan Machado MD at 11:27 EST Tel [phone], Service support [phone], CC: Zenon Cruz DO Predatory Animal Hunter: Signed Zenon Cruz Work Phone: right foot bunionectomy Nayeli sea Manchak right foot bunionectomy Nayeli sea Man[place]ak right foot bunionectomy Nayeli sea Man[place]ak right foot bunionectomy Allyson banda Lyons right foot bunionectomy Nayeli sea Man[place]ak right foot bunionectomy Nayeli sea Man[place]ak right foot bunionectomy Nayeli sea Manchak right foot bunionectomy Nayeli sea Man[place]ak right foot bunionectomy Shira Murcia PLUMBER GASFITTER right foot bunionectomy Nayeli sea Manchak [employer]ALKING [employer]KS LIBRARY CLERK right foot bunionectomy Nayeli sea Manchak TALKING [employer]KS LIBRARY CLERK right foot bunionectomy Nayeli sea Manchak TALKING [employer] LIBRARY CLERK right foot bunionectomy Nayeli sea Manchak TALKING [employer] LIBRARY CLERK right foot bunionectomy Nayeli sea Manchak TALKING [employer] LIBRARY CLERK Vaginal hysterectomy Joan Ana Rosa Comment on above: partial hyster- no c ancer- heavy bleeding 2006- still has both ovaries Vaginal hysterectomy Joan Manjuvencio Comment on above: partial hyster- no c ancer- heavy bleeding 2006- still has both ovaries Vaginal hysterectomy Joan Ana Rosa Comment on above: partial hyster- no c ancer- heavy bleeding 2006- still has both ovaries Vaginal hysterectomy Mike Lyons Comment on above: partial hyster- no c ancer- heavy bleeding 2006- still has both ovaries Vaginal hysterectomy Joan Manjuvencio Comment on above: partial hyster- no c ancer- heavy bleeding 2006- still has both ovaries Vaginal hysterectomy Joan Manjuvencio Comment on above: partial hyster- no c ancer- heavy bleeding 2006- still has both ovaries Vaginal hysterectomy Joan Manjuvencio Comment on above: partial hyster- no c ancer- heavy bleeding 2006- still has both ovaries Vaginal hysterectomy Joan Ana Rosa Comment on above: partial hyster- no c ancer- heavy bleeding 2006- still has both ovaries Vaginal hysterectomy Katharine Slarb PLUMBER GASFITTER Comment on above: partial hyster- no c ancer- heavy bleeding 2006- still has both ovaries Vaginal hysterectomy Joan Oseguera [employer]ALKING [employer] LIBRARY CLERK Comment on above: partial hyster- no c ancer- heavy bleeding 2006- still has both ovaries Vaginal hysterectomy Joan Oseguera [employer]ALKING [employer] LIBRARY CLERK Comment on above: partial hyster- no c ancer- heavy bleeding 2006- still has both ovaries Vaginal hysterectomy Joan Oseguera [employer]ALKING [employer] LIBRARY CLERK Comment on above: partial hyster- no c ancer- heavy bleeding 2006- still has both ovaries Vaginal hysterectomy Joan Oseguera [employer]ALKING [employer] LIBRARY CLERK Comment on above: partial hyster- no c ancer- heavy bleeding 2006- still has both ovaries Vaginal hysterectomy Joan Oseguera TALKING [employer] LIBRARY CLERK Comment on above: partial hyster- no c ancer- heavy bleeding 2006- still has both ovaries Plan of Treatment Date Care Activity Detail Author Start: 11-21-2022 Procedure Education Eprescribe d prescriptions (G8553) [facility]; [facility] Work Phone: Start: 08-26-2022 Mammography MAMMOGRAM [facility] Start: 07-06-2022 DEPRESSION ASSESSMENT DEPRESSION ASS ESSMENT [facility] Start: 04-29-2022 Procedure Education Eprescribe d prescriptions (G8553) [facility]; [facility] Work Phone: Start: 04-29-2022 INHOUSE COVID 19 (ON LY) RAPID (00270) INHOUSE COVID 19 (ONLY) RAPID (65653) [facility]; [facility] Work Phone: Comment on above: neg Start: 04-29-2022 [place] streptococ cus group a Rapid Strep Test, Office (25912) [facility]; [facility] Work Phone: Comment on above: neg Start: 04-29-2022 Throat culture THROAT CULTURE (43537 ) [facility]; [facility] Work Phone: Start: 04-29-2022 [place] influenza [facility]; [facility] Work Phone: Comment on above: neg Start: 03-06-2022 Influenza vaccination INFLUENZA (#1) [facility] Start: 03-04-2022 Procedure Education Eprescribe d prescriptions (G8553) [facility]; [facility] Work Phone: Start: 03-04-2022 Blood count complete auto&auto difrntl wbc CBC W/AUTO DIFF WBC (01667) [facility]; [facility] Work Phone: Start: 03-04-2022 Comprehensive metabo lic panel METABOLIC PANEL, COMPREHENSIVE (26338) [facility]; [facility] Work Phone: Start: 03-04-2022 Cyanocobalamin vitam in b-12 Vitamin B-12 (cyanocobalamin) (96650) [facility]; [facility] Work Phone: Start: 03-04-2022 C-reactive protein C-Reactive Protein (92557) [facility]; [facility] Work Phone: Start: 03-04-2022 Cyclic citrullinated peptide antibody CCP ANTIBODY (10700) [facility]; [facility] Work Phone: Start: 03-04-2022 Sedimentation rate r bc non-automated ESR-F (SED RATE ERYTHROCYTE - FEMALE) (55669) [facility]; [facility] Work Phone: Start: 03-04-2022 Rheumatoid factor quantitative RHEUMATOID FACTOR-QUANT (36211) test code [id number] [facility]; [facility] Work Phone: Start: 02-23-2022 C-reactive protein h igh sensitivity C-REACT PROT HIGH SENS(hsCRP) (46581) [facility]; [facility] Work Phone: Start: 02-03-2022 25 hydroxy includes fractions if performed Vitamin D Hydroxy (42158) [facility]; [facility] Work Phone: Start: 02-03-2022 Lipid panel LIPID PANEL (56520) [facility]; [facility] Work Phone: Start: 02-03-2022 Comprehensive metabo lic panel METABOLIC PANEL, COMPREHENSIVE (70804) [facility]; [facility] Work Phone: Start: 01-28-2022 Procedure Education Eprescribe d prescriptions (G8553) [facility]; [facility] Work Phone: Start: 12-04-2021 Urine microalbumin profile DTAP,TDAP,TD (2 - Td or Tdap) [facility] Start: 09-09-2021 COVID-19 VACCINE (3 - Booster for Pfizer series) COVID-19 VACCINE (3 - Booster for Pfizer series) [facility] Start: 08-28-2021 25 hydroxy includes fractions if performed Vitamin D Hydroxy (32160) [facility]; [facility] Work Phone: Start: 08-28-2021 Cyanocobalamin vitam in b-12 VITAMIN B-12 (CYANOCOBALAMIN) (83570) [facility]; [facility] Work Phone: Start: 08-28-2021 Rheumatoid factor quantitative RHEUMATOID FACTOR-QUANT (42477) [facility]; [facility] Work Phone: Start: 08-28-2021 Cyclic citrullinated peptide antibody CCP ANTIBODY (21447) [facility]; [facility] Work Phone: Start: 08-28-2021 Sedimentation rate r bc non-automated SED RATE ERYTHROCYTE (16423) [facility]; [facility] Work Phone: Start: 08-28-2021 C-reactive protein C-REACTIVE PROTEIN (32444) [facility]; [facility] Work Phone: Start: 08-26-2021 Procedure Education Eprescribe d prescriptions (G8553) [facility]; [facility] Work Phone: Start: 08-26-2021 Rheumatoid factor quantitative RHEUMATOID FACTOR-QUANT (45552) [facility]; [facility] Work Phone: Start: 08-26-2021 Cyclic citrullinated peptide antibody CCP ANTIBODY (99583) [facility]; [facility] Work Phone: Start: 08-26-2021 C-reactive protein C-REACTIVE PROTEIN (59760) [facility]; [facility] Work Phone: Start: 08-26-2021 Sedimentation rate r bc non-automated SED RATE ERYTHROCYTE (95964) [facility]; [facility] Work Phone: Start: 08-26-2021 Cyanocobalamin vitam in b-12 Vitamin B-12 (cyanocobalamin) (35485) [facility]; [facility] Work Phone: Start: 08-12-2021 Sars-cov-2 antibody SARS-CoV-2 Semi-Quantitative Total Antibody, Malick (03450) [facility]; [facility] Work Phone: Start: 08-12-2021 Comprehensive metabo lic panel METABOLIC PANEL, COMPREHENSIVE (78802) [facility]; [facility] Work Phone: Start: 08-12-2021 CBC, PLATELETS & MAN UAL DIFF (37235) CBC, PLATELETS & MANUAL DIFF (68969) [facility]; [facility] Work Phone: Start: 07-18-2021 [place] influenza 2019 Novel Coronavirus (COVID-19), SHASHANK (12488) [facility]; [facility] Work Phone: Start: 05-10-2021 Procedure Education Eprescribe d prescriptions (G8553) [facility]; [facility] Work Phone: Start: 05-10-2021 Provider Instruction s for Treatment COVID SCREENING FORM [facility]; [facility] Work Phone: Start: 05-10-2021 Sars-cov-2 antibody SARS-CoV-2 Semi-Quantitative Total Antibody, Malick (58466) [facility]; [facility] Work Phone: Start: 05-10-2021 Assay of thyroid stimulating hormone tsh TSH (21273) [facility]; [facility] Work Phone: Start: 05-10-2021 Blood count complete auto&auto difrntl wbc CBC W/AUTO DIFF WBC (66132) [facility]; [facility] Work Phone: Start: 05-10-2021 Comprehensive metabo lic panel METABOLIC PANEL, COMPREHENSIVE (76555) [facility]; [facility] Work Phone: Start: 05-10-2021 Fibrin dgradj produc ts d-dimer quantitative D-Dimer (59124) [facility]; [facility] Work Phone: Comment on above: stat Start: 05-10-2021 Assay of troponin quantitative Troponin T (High Sensitive) (88818) [facility]; [facility] Work Phone: Comment on above: stat Start: 08-27-2020 Procedure Education Eprescribe d prescriptions (G8553) [facility]; [facility] Work Phone: Start: 05-11-2020 [place] influenza 2019 Novel Coronavirus (COVID-19), SHASHANK (88775) [facility] Work Phone: Start: 05-07-2020 [place] influenza 2019 Novel Coronavirus (COVID-19), SHASHANK (52693) [facility] Work Phone: Start: 11-01-2019 SHINGRIX VACCINE (1 of 2) SHINGRIX VACCINE (1 of 2) [facility] Start: 08-29-2019 Cyclic citrullinated peptide antibody CCP ANTIBODY (98332) [facility] Work Phone: Start: 08-29-2019 Sedimentation rate r bc automated Sedimentation Rate-ESR (94500) [facility] Work Phone: Start: 08-29-2019 C-reactive protein C-REACTIVE PROTEIN (89820) [facility]; [facility] Work Phone: Start: 08-29-2019 CRP [Mass/Vol] C-REACTIVE PRO TEIN (44226) [facility] Work Phone: Start: 08-29-2019 Rheumatoid factor quantitative RHEUMATOID FACTOR-QUANT (10119) [facility] Work Phone: Start: 08-15-2019 Procedure Education Eprescribe d prescriptions (G8553) [facility] Work Phone: Start: 04-29-2019 Procedure Education Eprescribe d prescriptions (G8553) [facility] Work Phone: Start: 04-22-2019 Procedure Education Eprescribe d prescriptions (G8553) [facility] Work Phone: Start: 04-22-2019 [place] influenza Rapid Flu (15670 x 2) [facility] Work Phone: Start: 04-18-2019 Procedure Education Eprescribe d prescriptions (G8553) [facility] Work Phone: Start: 04-18-2019 Throat culture THROAT CULTURE (93953 ) [facility] Work Phone: Start: 03-14-2019 Procedure Education Eprescribe d prescriptions (G8553) [facility] Work Phone: Start: 09-13-2018 Procedure Education Eprescribe d prescriptions (G8553) [facility] Work Phone: Start: 09-13-2018 Lipid panel LIPID PANEL (84999) [facility] Work Phone: Start: 09-13-2018 Protein mass conc C-REACT PROT HIGH SENS(hsCRP) (99297) [facility] Work Phone: Start: 08-09-2018 Blood count complete automated CBC & PLATELETS (AUTO) (71569) [facility] Work Phone: Start: 08-09-2018 Comprehensive metabo lic panel METABOLIC PANEL, COMPREHENSIVE (73667) [facility] Work Phone: Start: 04-26-2018 Procedure Education Eprescribe d prescriptions (G8553) [facility] Work Phone: Start: 08-24-2017 Procedure Education Eprescribe d prescriptions (G8553) [facility] Work Phone: Start: 07-10-2017 Procedure Education Eprescribe d prescriptions (G8553) [facility] Work Phone: Start: 07-10-2017 Bacteria identified Aer cx Nom (Unsp spec) Aerobic Bacterial Culture (31863) [facility] Work Phone: Start: 07-10-2017 Cul bact xcpt urine blood/stool aerobic isol Aerobic Bacterial Culture (90075) [facility]; [facility] Work Phone: Start: 07-10-2017 Antibody ree-bar r eb virus early antigen ea EBV Panel (39899) [facility] Work Phone: Start: 07-10-2017 Comprehensive metabo lic panel METABOLIC PANEL, COMPREHENSIVE (25949) [facility] Work Phone: Comment on above: stat Start: 07-10-2017 Blood count manual c ell count each CBC WITH MANUAL DIFF (61229) [facility] Work Phone: Comment on above: stat Start: 02-16-2017 Procedure Education Eprescribe d prescriptions (G8553) [facility] Work Phone: Start: 09-19-2016 Basic metabolic pane l calcium total Metabolic Panel, Basic (54303) [facility] Work Phone: Comment on above: stat Start: 09-19-2016 Fibrin dgradj produc ts d-dimer quantitative D-Dimer (52142) [facility] Work Phone: Comment on above: stat Start: 08-06-2016 Procedure Education Eprescribe d prescriptions (G8553) [facility] Work Phone: Start: 07-02-2015 Patient Education Common Cold *: upper respiratory infection [facility] Work Phone: Start: 07-02-2015 Procedure Education Eprescribe d prescriptions (G8553) [facility] Work Phone: Start: 2014 COLOGUARD (FIT-DNA) COLOGUARD (FIT-D NA) [facility] Start: 2014 Colonoscopy COLONOSCOPY [facility] Start: 2014 COLORECTAL CANCER SCREENING COLORECTAL CANCER SCREENING [facility] Start: [address] COLONOGRAPHY [facility] Start: 2014 DIABETES SCREEN DIABETES SCREEN [facility] Start: 2014 FECAL OCCULT BLOOD FECAL OCCULT BLOO D [facility] Start: 2014 LIPID SCREEN LIPID SCREEN [facility] Start: 2014 SIGMOIDOSCOPY SIGMOIDOSCOPY [facility] Start: 12-20-2012 Patient Education Low Back Antwan n Exercises *: back exercises [facility] Work Phone: Start: 12-20-2012 Provider Instruction s for Treatment [facility] Work Phone: Start: 08-06-2011 25 hydroxy includes fractions if performed Vitamin D Hydroxy (75578) [facility] Work Phone: Start: 08-06-2011 Cobalamin (Vitamin B 12) mass conc VITAMIN B-12 (CYANOCOBALAMIN) (32404) [facility] Work Phone: Start: 08-06-2011 Cyanocobalamin vitam in b-12 VITAMIN B-12 (CYANOCOBALAMIN) (51663) [facility]; [facility] Work Phone: Start: 08-06-2011 Comprehensive metabo lic panel METABOLIC PANEL, COMPREHENSIVE (53572) [facility] Work Phone: Start: 08-06-2011 Blood count manual c ell count each CBC WITH MANUAL DIFF (98937) [facility] Work Phone: Start: 08-06-2011 Assay of free thyroxine T4, FREE (84 439) [facility]; [facility] Work Phone: Start: 08-06-2011 T4 free mass conc T4, FREE (34789) [facility] Work Phone: Start: 08-06-2011 Assay of thyroid stimulating hormone tsh TSH (THYROID STIMULATING HORMONE) (36713) [facility]; [facility] Work Phone: Start: 08-06-2011 Thyrotropin Qn TSH (THYROID STIMULATING HORMONE) (37479) [facility] Work Phone: Start: 08-06-2011 Gonadotropin luteini zing hormone GONADOTROPIN-LH (63481) [facility] Work Phone: Start: 08-06-2011 Gonadotropin follicl e stimulating hormone GONADOTROPIN-FSH (03596) [facility] Work Phone: Start: 08-23-2010 Provider Instruction s for Treatment *Antibiotic Usage Education - Female [facility] Work Phone: Start: 05-01-2010 Provider Instruction s for Treatment *Antibiotic Usage Education - Female [facility] Work Phone: Start: 04-16-2010 Provider Instruction s for Treatment [facility] Work Phone: Start: 04-16-2010 [place] streptococ cus group a Rapid Strep Test, Office (16428) [facility]; [facility] Work Phone: Start: 04-16-2010 S. pyogenes Ag IA Ql (Unsp spec) Rapid Strep Test, Office (02499) [facility] Work Phone: Start: 01-18-2010 Provider Instruction s for Treatment Solu Medrol Injection/ Education [facility] Work Phone: Start: 06-22-2009 Antibody ree-bar r eb virus viral capsid vca EB ANTIBODY VIRAL CAPSID (52434) X2 [facility] Work Phone: Start: 06-22-2009 Antibody ree-bar r eb virus nuclear ag ebna EB ANTIBODY NUCLR ANTIGN (41223) [facility] Work Phone: Start: 06-22-2009 Antibody ree-bar r eb virus early antigen ea EB ANTIBODY EARLY ANTIGN (44129) [facility] Work Phone: Start: 06-22-2009 25 hydroxy includes fractions if performed Vitamin D Hydroxy (42875) [facility] Work Phone: Start: 06-22-2009 Assay of thyroid stimulating hormone tsh TSH (14009) [facility]; [facility] Work Phone: Start: 06-22-2009 Thyrotropin Qn TSH (72179) [facility] Work Phone: Start: 06-22-2009 Urnls dip stick/tabl et reagent auto microscopy URINALYSIS, W/ MICRO (38933) [facility] Work Phone: Start: 06-22-2009 Comprehensive metabo lic panel METABOLIC PANEL, COMPREHENSIVE (21049) [facility] Work Phone: Start: 06-22-2009 Blood count manual c ell count each CBC WITH MANUAL DIFF (57959) [facility] Work Phone: Start: 06-22-2009 Cobalamin (Vitamin B 12) mass conc VITAMIN B-12 (CYANOCOBALAMIN) (60346) [facility] Work Phone: Start: 06-22-2009 Cyanocobalamin vitam in b-12 VITAMIN B-12 (CYANOCOBALAMIN) (54673) [facility]; [facility] Work Phone: Start: 11-01-1987 HEPATITIS C SCREENING HEPATITIS C [facility] Start: 11-01-1987 HIV SCREENING HIV SCREENING [facility] Start: 1970 HEPATITIS B (1 of 3 - 3-dose series) HEPATITIS B (1 of 3 - 3-dose series) [facility] End: 10-11-2023 GABBIE SCREENING W MELISSA GABBIE SCREENING W MELISSA Radiology Routine Encounter for gynecological examination (general) (routine) without abnormal findings Dense breast tissue Encounter for screening mammogram for malignant neoplasm of breast 1 Occurrences starting 09/11/2022 until 10/11/2023 [facility] Work Phone: Comment on above: 1 Occurrences starti ng 09/11/2022 until 10/11/2023 [facility] Work Phone: [facility] Work Phone: [facility] Work Phone: [facility] Work Phone: [facility] Work Phone: [facility] Work Phone: [facility] Work Phone[facility] Work Phone: [facility] Work Phone: [facility] Work Phone: [facility] Work Phone: [facility] Work Phone: [facility] Work Phone: [facility] Work Phone: [facility] Work Phone: [facility] Work Phone: [facility] Work Phone: [facility] Work Phone[facility] Work Phone: [facility] Work Phone: [facility]; [facility] Work Phone[facility]; [facility] Work Phone: [facility]; [facility] Work Phone: [facility]; [facility] Work Phone: [facility]; [facility] Work Phone: [facility]; [facility] Work Phone: Immunizations Immunization Date Immunization Notes Care Provider [facility] 07-06-2021 COVID-Pfizer (10 MCG/0.2 ML) Zenon Fast DO Work Phone: [facility]; [facility] Work Phone: 06-24-2021 COVID-Pfizer (10 MCG/0.2 ML) Zenon Fast DO Work Phone: [facility]; [facility] Work Phone: 04-12-2020 measles, mumps and rubella virus vaccine Zenon Fast [facility]; [facility] Work Phone: 03-13-2020 Hepatitis B vaccine (recombinant), CpG adjuvanted Zenon Fast [facility]; [facility] Work Phone: 12-05-2011 tetanus toxoid, reduced diphtheria toxoid, and acellular pertussis vaccine, adsorbed Brea Jenkins APRN.ALUMINA REFINERY OPERATOR Work Phone: [facility] Payers Date Payer Category Payer Self-pay [id number] 2023 Private Health Insurance [id number] 2021 Private Health Insurance [employer] A ETNA CHOICE POS II [id number] 2021-Present [phone] [address] [place] [address] POS [id number] 2021 Unknown [id number] 2019 Private Health Insurance [id number] 2016 Unknown [id number] 2010 Unknown [id number] 1970 Unknown [id number] Unknown Unknown [id number] 62 Unknown [id number] 62 Unknown [id number] Unknown [id number] Unknown [id number] Social History Date Type Detail Facility Alcohol Use Former smoker [facility] Work Phone: Comment on above: Occasional alcohol u se Tobacco use: Former smoker. [facility] Work Phone: Tobacco use: Tobacco use: [facility]; [facility] Work Phone: Start: 1970 Sex Assigned At Female [facility] Start: 03-22-2012 End: 03-21-2024 Tobacco smoking status NHIS Never smoked tobacco [facility] Start: 03-22-2012 Tobacco use and exposure Smokeless tobacco non-user [facility] Start: 09-11-2022 Alcohol intake Current drinke r of alcohol (finding) [facility] Clinical Notes 05-18-2007 to 03-23-2023 Note Date & Type Note Facility 03-23-2023 Discharge summary Note Date/Time March 23, 2023 7:01pm [facility] Physical [facility] [address] [place] [address] / REHABILITATION SERVICES DISCHARGE SUMMARY MR#: [id number] Acct: [id number] Name: BREA CATALAN Rep #: [id number] : 1970 52 From: Sarah Pickett PT, Cert. MDT Referring DrAlisia: Status: REG RCR Insurance: [employer] SELF [employer]Y [employer]URANCE Discharge Summary D/C summary: It has been my pleasure to treat BREA CATALAN referred by SERGIO TORRES, with the diagnosis of R SHOULDER IMPINGEMENT for a total of 7 visit(s). Discharge Date: Please see the following information for a summary of their discharge status. Subjective Subjective: PATIENT STATES FOR THE MOST PART HER SHLD DOESN'T HURT ONGOING LIKE IT DID. SHE STATES SHE DID HAVE SOME PAIN WITH NEW EX'S BUT IT WAS BETTER OVER ALL WITH SUBSEQUENT DAYS. SHE REPORTS NEAR PAINFREE FUNCTION NOW FOR THE MOST PART. PATIENT REPORT IF SHE CAN GET THE BANDS SHE WILL BE REALLY GOOD WITH DOINGTHE EX'S AT HOME. Pain R neck: Pain Intensity (Out of 10): 2 Overall Improvement % Improvement: 90 Objective Objective/Function: PATIENT WAS SEEN TODAY FOR RE-ASSESSMENT OF PROGRESS TOWARD THE SET PT GOALS AND THE NEED FOR FURTHER PHYSICAL THERAPY VS READINESS FOR DISCHARGE. UPON EXAM TODAY ALL PT GOALS HAVE BEEN MET. PATIENT DEMO'S FULL PAINFREE R SHLD ROM ALL PLANES AND IMPROVED CERVICAL ROM FOLLOWS: Cervical Mvmt Loss: Flex: NIL Pro: NIL Ext: MIN Ret: MIN RSB: MOD LSB: MIN R Rot: MIN L Rot: MIN PATIENT DENIES PAIN WITH CERVICAL ROM TESTING ALL PLANES EXCEPT MILD R SHLD PAINWITH R SB TESTING. R UE STRENGTH IS 5/5 WITH MMT'ING. R UE DURAL SIGNS ARE NEGATIVE NOW. ISSUED TBANDS FOR HEP: OTB SHLD EXT AND ADD. YTB SHLD IR AND ER. PATIENT TOLERATED THESE EX'S WELL IN THE CLINIC AND DEMO'S GOOD TECHNIQUE. SHE IS APPROPRIATE FOR DISCHARGE TO HEP AND PATIENT IS AGREEABLE. Goals Goal 1:: DECREASE C/O R NECK AND SHLD PAIN Goal Progress: Goal Met Goal 2:: INCREASE FUNCTIONAL ROM OF R UE TO EASE ADL'S Goal Progress: Goal Met Goal 3:: IMPROVE FUNCTIONAL STRENGTH OF R UE TO EASE ADL'S Goal Progress: Goal Met Goal 4:: PATIENT WILL BE INDEP WITH A HEP FOR CONTINUED IMPROVEMENT ONCE FORMAL PHYSICAL THERPAY CONCLUDES. Goal Progress: Goal Met Plan Plan: D/C D/C Information d/c sentence: If there are questions or concerns regarding this patient's physical therapy, please feel free to call me at [phone]. Thank you for the referral of thispatient. Sincerely, Sarah Pickett, PT, Cert MDT Balance/Gait/Functional tests Balance/Special Test Scores Quick DASH Score: 15.9075 Improvement % Improvement: 90 <Electronically signed by Sarah Pickett PT, Cert. MDT> 03/23/23 1901 CC: Dr. Zenon Cruz DO; SERGIO TORRES ~ LARRY Signed [facility] Work Phone: [phone]) 528-251603-09-2023 NoteHNO ID: [id number] Author: Janet Navarro, Partly Service: ? Author Type: Railroader Type: Progress Notes Filed: 09/11/2022 11:09 AM Note Text: Radiology Service Progress Note PATIENT NAME: Brea Catalan DATE OF SERVICE: September 11, 2022 TIME: 10:40 AM PATIENT IDENTITY VERIFICATION COMPLETED USING TWO (2) IDENTIFIERS: Name and Date of confirmed by patient verbally. FALL SCREENING: Has the patient had 2 falls in the last year or 1 fall with injury or currently using an Ambulatory Assistive Device (Walker, Cane, Wheelchair, Crutches, etc.)? No PATIENT GENDER DATA: Female. status: : No status: NO. PATIENT RELEVANT IMPLANT DATA REVIEWED: Not Applicable RADIOLOGY DEPARTMENT: Mammography PERIPHERAL IV DATA: Not applicable SIGNED BY: Janet Navarro Partly September 11, 2022 10:40 [facility]03-09-2023 NoteHNO ID: [id number] Author: Brea Jenkins APRN.ALUMINA REFINERY OPERATOR Service: ? Author Type: Nurse Practitioner Type: Progress Notes Filed: 09/11/2022 10:28 AM Note Text: Net Finisher offered: Patient declinesAlisia Guidry is a 51 year old who presents for an annual gynecologic exam without complaints. Postmenopausal: hysterectomy age 36, ovary sparing HRT use: BioT Pellets at [facility] Internal Medicine - Estrogen and testosterone. History of abnormal pap: No Last mammogram: 2021 normal History of abnormal mammogram: No Sexually active: Yes History of STDS: None Patient concerns for STD exposure: No. 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 History LMP: 09/26/2007, Hysterectomy Age at Menarche: Age at First : Age at Menopause: Core Inserter History Comments: Sexual Activity: Yes; Male; has had vasectomy, pt has had hysterectomy Contraception: Surgical PAST MEDICAL HISTORY Diagnosis Date Diarrhea Internal hemorrhoids without mention of complication Other disorder of menstruation and other abnormal bleeding from female genital tract US Presence of intrauterine contraceptive device 07/21/2006 IUD removed 07/21/2006 skin cancer 1998 FACE AND CHEST PAST SURGICAL HISTORY Procedure Laterality Date COLONOSCOPY W/BIOPSY SINGLE/MULTIPLE 05/18/07 IUD REMOVAL (TIN STACKER DEPT)_*FL 07/21/2006 Mirena PAST SURGICAL HISTORY OF 1998 BCC removed from face and chest UNSPECIFIED ORAL SURGERY PROCEDURE, BY REPORT Romulus teeth removed VAGINAL HYSTERECTOMY UTERUS 250 GM/< 10/12/2007 Hysterectomy, vaginal FAMILY HISTORY Problem Relation Age of Onset Hypertension Mother Parkinson's Mother Prostate Cancer Father Cancer Paternal Grandfather Brain SOCIAL HISTORY Social History Tobacco Use Smoking status: Never Smokeless tobacco: Never Vaping Use Vaping Use: Never used Substance Use Topics Alcohol use: Yes Comment: Occasionally Drug use: No REVIEW OF SYSTEMS Abdomen: No abdominal pain, nausea, vomiting, diarrhea, or constipation. No bloating, early satiety, indigestion, or increased flatulence. Bladder: No dysuria, gross hematuria, urinary frequency, urinary urgency, or incontinence Breast: No breast lumps, nipple d/c, overlying skin changes, redness or skin retraction Allergies and current medication updated:Yes EXAM: BP 100/60 Ht 5' 4.5" (1.64m) Wt 135 lb 9.6 oz (61.5kg) LMP 09/26/2007 BMI 22.92 kg/(m2). GENERAL: pleasant, female in no apparent distress HEENT: Normocephalic, atraumatic, mucus membranes moist, and no lesions NECK: Supple, full range of motion, no adenopathy, and thyroid normal DERMATOLOGY: Normal, without lesions, non-icteric, and non-hirsute BREAST: soft, non-tender, symmetric, no dominant mass, normal nipple-areolar complex, no lymphadenopathy, and no nipple discharge CHEST: Normal inspiratory effort ABDOMEN: soft, non-tender, and no masses PELVIC: external genitalia normal, normal Bartholin's glands, urethra, Fontenelle's glands, no vulvar lesions, good vaginal support, physiologic discharge present, normal appearing perineal body and perianal region, cervix surgically absent BIMANUAL: no adnexal masses, non-tender, and uterus surgically absent RECTOVAGINAL: deferred. NEURO: alert and oriented x3,exam grossly non-focal EXTREMITIES: normal ASSESSMENT/PLAN: 1) Health maintenance: Pap/HPV screening no longer needed Mammogram ordered Mammogram up to date Nutrition, exercise and routine health maintenance exams reviewed. Calcium/Vitamin D supplementation information provided. Colon cancer screening: up to date with screening 2. Hormone replacement therapy - ICD9: V07.4, ICD10: Z79.890 - BioT Pellets at [facility] Internal Medicine - Estrogen and testosterone. Pellets resolve hot flashes until a couple of days before next dose. Discussed HRT options including prescription bioidentical oral and patch. - Given information on Relizen supplement 3) Follow up one year or sooner as needed Brea Jenkins APRN.[facility] Instructions* Patient Instructions* Brea Jenkins APRN.KATHERINE - 09/11/2022 10:01 AM EST Calcium and Vitamin D Supplementation (from the National Institutes of Health Office of Dietary Supplements 2011) Calcium 1200 mg daily - 600 mg twice a day if taking supplement and Vit D 800- 1000 IU daily Calcium is required by the body for blood vessel, muscle, hormone and nerve functioning. Most of the body's calcium is stored in the bones and teeth where it supports structure and function. Bone is continuously broken down and reformed. When bone breakdown exceeds formation, especially in postmenopausal women, bone loss can increase the risk of osteoporosis and fractures. In addition to low calcium intake, women who smoke, have a family history of osteoporosis, are thin, or , orwho take certain medications such as cancer chemotherapy, seizure mediations and steroids are at increased risk of osteoporosis. The calcium requirements in women change with age. The National Institutes of Health (NIH) recommends: 1000mg elemental calcium for premenopausal women age 19-50 1200mg elemental calcium for postmenopausal women and all women over 50 Milk, yogurt, and cheese are rich natural sources of calcium and are the major food contributors intMay[facility] Clinic Hospital States. For example, 8oz of milk (whole, lowfat or skim) contains about 300mg calcium, 8oz of yogurt contains 415mg. Nondairy sources include salmon and sardines and vegetables, such as Ghanaian cabbage, kale, and broccoli. Foods fortified with calcium include many fruit juices, tofu and cereals. For more food calcium content information, visit http://ods.od.nih.gov/factsheets/calcium. Calcium supplements come in several different forms. Remember that the recommendations are for millgrams (mg) of elemental calcium which may be less than the total weight of the supplement. The amount of elemental calcium is required to be printed on the label. Calcium carbonate is the least expensive form. It must be taken on a full stomach to be properly absorbed. Some patients may experience gas or constipation. Calcium phosphate and calcium citrate may be taken either with or without food and tend to have less side effects but are generally more expensive. Because of its ability to neutralize stomach acid, calcium carbonate is found in some [id number]-cgc-[id number] antacid products, such as Tums and Rolaids . Depending on its strength, each chewable pill or softchew provides 200 to 400 mg of elemental calcium. The percentage of calcium absorbed depends on the total amount of elemental calcium consumed at onetime. Absorption is highest in doses <500mg. So a woman who takes 1,000mg/day of calcium from supplements should split the dose and take 500mg at two separate times during the day. Too much calcium can cause kidney stones, constipation, difficulty absorbing other nutrients and calcium buildup in blood vessels. Women under 50 should not exceed 2500mg/day (2000mg/day for women over 50) of calcium from food and supplements. Excessive alcohol and caffeine intake can inhibit absorption of calcium. Calcium can reduce the absorption of some medications if taken at the same time of day (bisphosphonates, thyroid medication, Phenytoin and other seizure medications, some antibiotics and iron supplements). Vitamin D promotes calcium absorption in the gut and maintains adequate blood levels of calcium andphosphate for normal bone growth and bone remodeling. Vitamin D also helps regulate cell growth as well as nerve, muscle and immune system function. Vitamin D is produced in the skin as a result of ultraviolet sunlight rays and must be altered in the liver and kidney to become its active form. Recommended intake according to the National Institutes of Health is 600 International Units (IU) for girls and women ages 1-70 and 800 IU for women over 70. Very few foods in nature contain vitamin D. The flesh of fatty fish (such as salmon, tuna, and mackerel) and fish liver oils are among the best sources. Small amounts of vitamin D are found in beef liver, cheese, mushrooms and egg yolks. Most people meet at least some of their vitamin D needs through exposure to sunlight. Season, time of day, length of day, cloud cover, smog, skin melanin content, and sunscreen are among the factors thataffect UV radiation exposure and vitamin D synthesis. Despite the importance of the sun for vitaminD synthesis, it is prudent to limit exposure of skin to sunlight and avoid tanning beds. UV radiation is a carcinogen responsible for most of the estimated 1.5 million skin cancers that occur annually in the [place]. Lifetime cumulative UV damage to skin is also responsible for some age-associated dryness and other cosmetic changes. In supplements and fortified foods, vitamin D is available in two forms, D2 (ergocalciferol) and D3(cholecalciferol). The two are equivalent at normal supplement doses. For women who require high supplement doses because of vitamin D deficiency, D3 may work better to raise blood levels. Some medications can prevent proper absorption of Vitamin D. These include laxatives, corticosteroids like prednisone, the seizure drugs phenobarbital and phenytoin, the weight-loss drug orlistat ( Xenical and AlliTM) and the cholesterol-lowering drug cholestyramine (Questran , LoCholest , and Prevalite ). Talk to your doctor about adjusting your recommended daily vitamin D dosage if you take these medications. You should not exceed 4000 mg of vitamin D supplementation daily unless specifically prescribed by your doctor. [facility] History of Present illness Narrative* Brea Jenkins APRN.CNP - 09/11/2022 9:16 AM EST Net Finisher offered: Patient declines. Brea is a 51 year old who presents for an annual gynecologic exam without complaints. Postmenopausal: hysterectomy age 36, ovary sparing HRT use: BioT Pellets at [facility] Internal Medicine - Estrogen and testosterone. History of abnormal pap: No Last mammogram: 2021 normal History of abnormal mammogram: No Sexually active: Yes History of STDS: None Patient concerns for STD exposure: No. 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 History LMP: 09/26/2007, Hysterectomy Age at Menarche: Age at First : Age at Menopause: Core Inserter History Comments: Sexual Activity: Yes; Male; has had vasectomy, pt has had hysterectomy Contraception: Surgical PAST MEDICAL HISTORY Diagnosis Date Diarrhea Internal hemorrhoids without mention of complication Other disorder of menstruation and other abnormal bleeding from female genital tract US Presence of intrauterine contraceptive device 07/21/2006 IUD removed 07/21/2006 skin cancer 1998 FACE & CHEST PAST SURGICAL HISTORY Procedure Laterality Date COLONOSCOPY W/BIOPSY SINGLE/MULTIPLE 05/18/07 IUD REMOVAL (TIN STACKER DEPT)_*FL 07/21/2006 Mirena PAST SURGICAL HISTORY OF 1998 BCC removed from face and chest UNSPECIFIED ORAL SURGERY PROCEDURE, BY REPORT Romulus teeth removed VAGINAL HYSTERECTOMY UTERUS 250 GM/< 10/12/2007 Hysterectomy, vaginal FAMILY HISTORY Problem Relation Age of Onset Hypertension Mother Parkinson's Mother Prostate Cancer Father Cancer Paternal Grandfather Brain SOCIAL HISTORY Social History Tobacco Use Smoking status: Never Smokeless tobacco: Never Vaping Use Vaping Use: Never used Substance Use Topics Alcohol use: Yes Comment: Occasionally Drug use: No REVIEW OF SYSTEMS Abdomen: No abdominal pain, nausea, vomiting, diarrhea, or constipation. No bloating, early satiety, indigestion, or increased flatulence. Bladder: No dysuria, gross hematuria, urinary frequency, urinary urgency, or incontinence Breast: No breast lumps, nipple d/c, overlying skin changes, redness or skin retraction Allergies and current medication updated:Yes EXAM: BP 100/60 Ht 5' 4.5" (1.64m) Wt 135 lb 9.6 oz (61.5kg) LMP 09/26/2007 BMI 22.92 kg/(m^2). GENERAL: pleasant, female in no apparent distress HEENT: Normocephalic, atraumatic, mucus membranes moist, and no lesions NECK: Supple, full range of motion, no adenopathy, and thyroid normal DERMATOLOGY: Normal, without lesions, non-icteric, and non-hirsute BREAST: soft, non-tender, symmetric, no dominant mass, normal nipple-areolar complex, no lymphadenopathy, and no nipple discharge CHEST: Normal inspiratory effort ABDOMEN: soft, non-tender, and no masses PELVIC: external genitalia normal, normal Bartholin's glands, urethra, Fontenelle's glands, no vulvar lesions, good vaginal support, physiologic discharge present, normal appearing perineal body and perianal region, cervix surgically absent BIMANUAL: no adnexal masses, non-tender, and uterus surgically absent RECTOVAGINAL: deferred. NEURO: alert and oriented x3,exam grossly non-focal EXTREMITIES: normal ASSESSMENT/PLAN: 1) Health maintenance: Pap/HPV screening no longer needed Mammogram ordered Mammogram up to date Nutrition, exercise and routine health maintenance exams reviewed. Calcium/Vitamin D supplementation information provided. Colon cancer screening: up to date with screening 2. Hormone replacement therapy - ICD9: V07.4, ICD10: Z79.890 - BioT Pellets at [facility] Internal Medicine - Estrogen and testosterone. Pellets resolve hot flashes until a couple of days before next dose. Discussed HRT options including prescription bioidentical oral and patch. - Given information on Relizen supplement 3) Follow up one year or sooner as needed Brea Jenkins APRN.CNP [facility] History of Past illness Narrative* Problem Noted Date Resolved Date Diarrhea 05/18/2007 03/22/2012 Dysmenorrhea 07/22/2006 03/22/2012 documented as of this encounter (statuses as of 09/11/2022) [facility] noteNo assessment information availableWCleveland [facility] Work Phone: Evaluation note* Diagnosis Encounter for gynecological examination (general) (routine) without abnormal findings- Primary Dense breast tissue Encounter for screening mammogram for malignant neoplasm of breast Other screening mammogram Hormone replacement therapy Need for prophylactic hormone replacement therapy (postmenopausal) [facility]* Name Dates Details Patient Instructions Indication:Non-smoker Start:10-May-2021 Instruction Type:Provider Instructions for Treatment How to Access Health Informa tion Online using Patient Portal and [employer] Apps Indication:Non-smoker Start:10-May-2021 Instruction Type:Patient Education Patient Instructions Indication:Non-smoker Start:27-Aug-2020 Instruction Type:Provider Instructions for Treatment How to Access Health Informa tion Online using Patient Portal and [employer] Apps Indication:Non-smoker Start:27-Aug-2020 Instruction Type:Patient Education How to access health informa tion online Indication:[facility] Start:15-Aug-2019 Instruction Type:Patient Education How to access health informa tion online - Detail Indication:[facility] Start:15-Aug-2019 Instruction Type:Patient Education Patient Instructions Indication:[facility] Start:15-Aug-2019 Instruction Type:Provider Instructions for Treatment How to access health informa tion online Indication:BMI 22.0-22.9, adult Start:29-Apr-2019 Instruction Type:Patient Education How to access health informa tion online - Detail Indication:BMI 22.0-22.9, adult Start:29-Apr-2019 Instruction Type:Patient Education Patient Instructions Indication:BMI 22.0-22.9, adult Start:29-Apr-2019 Instruction Type:Provider Instructions for Treatment How to access health informa tion online Indication:Non-smoker Start:18-Oct-2019 Instruction Type:Patient Education How to access health informa tion online - Detail Indication:Non-smoker Start:22-Apr-2019 Instruction Type:Patient Education Patient Instructions Indication:Non-smoker Start:22-Apr-2019 Instruction Type:Provider Instructions for Treatment How to access health informa tion online Indication:Sore throat Start:18-Apr-2019 Instruction Type:Patient Education How to access health informa tion online - Detail Indication:Sore throat Start:18-Apr-2019 Instruction Type:Patient Education Patient Instructions Indication:Sore throat Start:18-Apr-2019 Instruction Type:Provider Instructions for Treatment How to access health informa tion online Indication:BMI 22.0-22.9, adult Start:13-Sep-2018 Instruction Type:Patient Education How to access health informa tion online - Detail Indication:BMI 22.0-22.9, adult Start:13-Sep-2018 Instruction Type:Patient Education Patient Instructions Indication:BMI 22.0-22.9, adult Start:13-Sep-2018 Instruction Type:Provider Instructions for Treatment How to access health informa tion online Indication:Sore throat Start:26-Apr-2018 Instruction Type:Patient Education How to access health informa tion online - Detail Indication:Sore throat Start:26-Apr-2018 Instruction Type:Patient Education Patient Instructions Indication:Sore throat Start:26-Apr-2018 Instruction Type:Provider Instructions for Treatment How to access health informa tion online Indication:[facility] Start:24-Aug-2017 Instruction Type:Patient Education How to access health informa tion online - Detail Indication:[facility] Start:24-Aug-2017 Instruction Type:Patient Education Patient Instructions Indication:[facility] Start:24-Aug-2017 Instruction Type:Provider Instructions for Treatment How to access health informa tion online Indication:Fever and chills Start:10-Jul-2017 Instruction Type:Patient Education How to access health informa tion online - Detail Indication:Fever and chills Start:10-Jul-2017 Instruction Type:Patient Education Patient Instructions Indication:Fever and chills Start:10-Jul-2017 Instruction Type:Provider Instructions for Treatment How to access health informa tion online Indication:Diet-controlled hyperlipidemia Start:16-Feb-2017 Instruction Type:Patient Education How to access health informa tion online - Detail Indication:Diet-controlled hyperlipidemia Start:16-Feb-2017 Instruction Type:Patient Education Patient Instructions Indication:Diet-controlled hyperlipidemia Start:16-Feb-2017 Instruction Type:Provider Instructions for Treatment How to access health informa tion online Indication:[facility] Start:06-Aug-2016 Instruction Type:Patient Education How to access health informa tion online - Detail Indication:[facility] Start:06-Aug-2016 Instruction Type:Patient Education Patient Instructions Indication:[facility] Start:06-Aug-2016 Instruction Type:Provider Instructions for Treatment How to access health informa tion online Indication:Cough Start:02-Jul-2015 Instruction Type:Patient Education How to access health informa tion online - Detail Indication:Cough Start:02-Jul-2015 Instruction Type:Patient Education Patient Instructions Indication:Cough Start:02-Jul-2015 Instruction Type:Provider Instructions for Treatment Patient Instructions Indication:Back pain Start:20-Dec-2012 Instruction Type:Provider Instructions for Treatment [facility] [facility]; [facility] Work Phone: Instructions* Name Dates Details Patient Instructions Indication:Non-smoker Start:10-May-2021 Instruction Type:Provider Instructions for Treatment How to Access Health Informa tion Online using Patient Portal and [employer]rd [employer] Apps Indication:Non-smoker Start:10-May-2021 Instruction Type:Patient Education Patient Instructions Indication:Non-smoker Start:27-Aug-2020 Instruction Type:Provider Instructions for Treatment How to Access Health Informa tion Online using Patient Portal and [employer]rd [employer] Apps Indication:Non-smoker Start:27-Aug-2020 Instruction Type:Patient Education How to access health informa tion online Indication:[facility] Start:15-Aug-2019 Instruction Type:Patient Education How to access health informa tion online - Detail Indication:[facility] Start:15-Aug-2019 Instruction Type:Patient Education Patient Instructions Indication:[facility] Start:15-Aug-2019 Instruction Type:Provider Instructions for Treatment How to access health informa tion online Indication:BMI 22.0-22.9, adult Start:29-Apr-2019 Instruction Type:Patient Education How to access health informa tion online - Detail Indication:BMI 22.0-22.9, adult Start:29-Apr-2019 Instruction Type:Patient Education Patient Instructions Indication:BMI 22.0-22.9, adult Start:29-Apr-2019 Instruction Type:Provider Instructions for Treatment How to access health informa tion online Indication:Non-smoker Start:22-Apr-2019 Instruction Type:Patient Education How to access health informa tion online - Detail Indication:Non-smoker Start:22-Apr-2019 Instruction Type:Patient Education Patient Instructions Indication:Non-smoker Start:22-Apr-2019 Instruction Type:Provider Instructions for Treatment How to access health informa tion online Indication:Sore throat Start:18-Apr-2019 Instruction Type:Patient Education How to access health informa tion online - Detail Indication:Sore throat Start:18-Apr-2019 Instruction Type:Patient Education Patient Instructions Indication:Sore throat Start:18-Apr-2019 Instruction Type:Provider Instructions for Treatment How to access health informa tion online Indication:BMI 22.0-22.9, adult Start:13-Sep-2018 Instruction Type:Patient Education How to access health informa tion online - Detail Indication:BMI 22.0-22.9, adult Start:13-Sep-2018 Instruction Type:Patient Education Patient Instructions Indication:BMI 22.0-22.9, adult Start:13-Sep-2018 Instruction Type:Provider Instructions for Treatment How to access health informa tion online Indication:Sore throat Start:26-Apr-2018 Instruction Type:Patient Education How to access health informa tion online - Detail Indication:Sore throat Start:26-Apr-2018 Instruction Type:Patient Education Patient Instructions Indication:Sore throat Start:26-Apr-2018 Instruction Type:Provider Instructions for Treatment How to access health informa tion online Indication:[facility] Start:24-Aug-2017 Instruction Type:Patient Education How to access health informa tion online - Detail Indication:[facility] Start:24-Aug-2017 Instruction Type:Patient Education Patient Instructions Indication:[facility] Start:24-Aug-2017 Instruction Type:Provider Instructions for Treatment How to access health informa tion online Indication:Fever and chills Start:10-Jul-2017 Instruction Type:Patient Education How to access health informa tion online - Detail Indication:Fever and chills Start:10-Jul-2017 Instruction Type:Patient Education Patient Instructions Indication:Fever and chills Start:10-Jul-2017 Instruction Type:Provider Instructions for Treatment How to access health informa tion online Indication:Diet-controlled hyperlipidemia Start:16-Feb-2017 Instruction Type:Patient Education How to access health informa tion online - Detail Indication:Diet-controlled hyperlipidemia Start:16-Feb-2017 Instruction Type:Patient Education Patient Instructions Indication:Diet-controlled hyperlipidemia Start:16-Feb-2017 Instruction Type:Provider Instructions for Treatment How to access health informa tion online Indication:[facility] Start:06-Aug-2016 Instruction Type:Patient Education How to access health informa tion online - Detail Indication:[facility] Start:06-Aug-2016 Instruction Type:Patient Education Patient Instructions Indication:[facility] Start:06-Aug-2016 Instruction Type:Provider Instructions for Treatment How to access health informa tion online Indication:Cough Start:02-Jul-2015 Instruction Type:Patient Education How to access health informa tion online - Detail Indication:Cough Start:02-Jul-2015 Instruction Type:Patient Education Patient Instructions Indication:Cough Start:02-Jul-2015 Instruction Type:Provider Instructions for Treatment Patient Instructions Indication:Back pain Start:20-Dec-2012 Instruction Type:Provider Instructions for Treatment [facility]; [facility] Work Phone: Instructions* Name Dates Details Patient Instructions Indication:Non-smoker Start:10-May-2021 Instruction Type:Provider Instructions for Treatment How to Access Health Informa tion Online using Patient Portal and [employer]rd [employer] Apps Indication:Non-smoker Start:10-May-2021 Instruction Type:Patient Education Patient Instructions Indication:Non-smoker Start:27-Aug-2020 Instruction Type:Provider Instructions for Treatment How to Access Health Informa tion Online using Patient Portal and [employer]rd [employer] Apps Indication:Non-smoker Start:27-Aug-2020 Instruction Type:Patient Education How to access health informa tion online Indication:[facility] Start:15-Aug-2019 Instruction Type:Patient Education How to access health informa tion online - Detail Indication:[facility] Start:15-Aug-2019 Instruction Type:Patient Education Patient Instructions Indication:[facility] Start:15-Aug-2019 Instruction Type:Provider Instructions for Treatment How to access health informa tion online Indication:BMI 22.0-22.9, adult Start:29-Apr-2019 Instruction Type:Patient Education How to access health informa tion online - Detail Indication:BMI 22.0-22.9, adult Start:29-Apr-2019 Instruction Type:Patient Education Patient Instructions Indication:BMI 22.0-22.9, adult Start:29-Apr-2019 Instruction Type:Provider Instructions for Treatment How to access health informa tion online Indication:Non-smoker Start:22-Apr-2019 Instruction Type:Patient Education How to access health informa tion online - Detail Indication:Non-smoker Start:22-Apr-2019 Instruction Type:Patient Education Patient Instructions Indication:Non-smoker Start:22-Apr-2019 Instruction Type:Provider Instructions for Treatment How to access health informa tion online Indication:Sore throat Start:18-Apr-2019 Instruction Type:Patient Education How to access health informa tion online - Detail Indication:Sore throat Start:18-Apr-2019 Instruction Type:Patient Education Patient Instructions Indication:Sore throat Start:18-Apr-2019 Instruction Type:Provider Instructions for Treatment How to access health informa tion online Indication:BMI 22.0-22.9, adult Start:13-Sep-2018 Instruction Type:Patient Education How to access health informa tion online - Detail Indication:BMI 22.0-22.9, adult Start:13-Sep-2018 Instruction Type:Patient Education Patient Instructions Indication:BMI 22.0-22.9, adult Start:13-Sep-2018 Instruction Type:Provider Instructions for Treatment How to access health informa tion online Indication:Sore throat Start:26-Apr-2018 Instruction Type:Patient Education How to access health informa tion online - Detail Indication:Sore throat Start:26-Apr-2018 Instruction Type:Patient Education Patient Instructions Indication:Sore throat Start:26-Apr-2018 Instruction Type:Provider Instructions for Treatment How to access health informa tion online Indication:[facility] Start:24-Aug-2017 Instruction Type:Patient Education How to access health informa tion online - Detail Indication:[facility] Start:24-Aug-2017 Instruction Type:Patient Education Patient Instructions Indication:[facility] Start:24-Aug-2017 Instruction Type:Provider Instructions for Treatment How to access health informa tion online Indication:Fever and chills Start:10-Jul-2017 Instruction Type:Patient Education How to access health informa tion online - Detail Indication:Fever and chills Start:10-Jul-2017 Instruction Type:Patient Education Patient Instructions Indication:Fever and chills Start:10-Jul-2017 Instruction Type:Provider Instructions for Treatment How to access health informa tion online Indication:Diet-controlled hyperlipidemia Start:16-Feb-2017 Instruction Type:Patient Education How to access health informa tion online - Detail Indication:Diet-controlled hyperlipidemia Start:16-Feb-2017 Instruction Type:Patient Education Patient Instructions Indication:Diet-controlled hyperlipidemia Start:16-Feb-2017 Instruction Type:Provider Instructions for Treatment How to access health informa tion online Indication:[facility] Start:06-Aug-2016 Instruction Type:Patient Education How to access health informa tion online - Detail Indication:[facility] Start:06-Aug-2016 Instruction Type:Patient Education Patient Instructions Indication:[facility] Start:06-Aug-2016 Instruction Type:Provider Instructions for Treatment How to access health informa tion online Indication:Cough Start:02-Jul-2015 Instruction Type:Patient Education How to access health informa tion online - Detail Indication:Cough Start:02-Jul-2015 Instruction Type:Patient Education Patient Instructions Indication:Cough Start:02-Jul-2015 Instruction Type:Provider Instructions for Treatment Patient Instructions Indication:Back pain Start:20-Dec-2012 Instruction Type:Provider Instructions for Treatment [facility]; [facility] Work Phone: Instructions* Name Dates Details Patient Instructions Indication:[facility] Start:26-Aug-2021 Instruction Type:Provider Instructions for Treatment How to Access Health Informa tion Online using Patient Portal and [employer]rd [employer] Apps Indication:[facility] Start:26-Aug-2021 Instruction Type:Patient Education Patient Instructions Indication:Non-smoker Start:10-May-2021 Instruction Type:Provider Instructions for Treatment How to Access Health Informa tion Online using Patient Portal and [employer]rd [employer] Apps Indication:Non-smoker Start:10-May-2021 Instruction Type:Patient Education Patient Instructions Indication:Non-smoker Start:27-Aug-2020 Instruction Type:Provider Instructions for Treatment How to Access Health Informa tion Online using Patient Portal and [employer] Apps Indication:Non-smoker Start:27-Aug-2020 Instruction Type:Patient Education How to access health informa tion online Indication:[facility] Start:15-Aug-2019 Instruction Type:Patient Education How to access health informa tion online - Detail Indication:[facility] Start:15-Aug-2019 Instruction Type:Patient Education Patient Instructions Indication:[facility] Start:15-Aug-2019 Instruction Type:Provider Instructions for Treatment How to access health informa tion online Indication:BMI 22.0-22.9, adult Start:29-Apr-2019 Instruction Type:Patient Education How to access health informa tion online - Detail Indication:BMI 22.0-22.9, adult Start:29-Apr-2019 Instruction Type:Patient Education Patient Instructions Indication:BMI 22.0-22.9, adult Start:29-Apr-2019 Instruction Type:Provider Instructions for Treatment How to access health informa tion online Indication:Non-smoker Start:22-Apr-2019 Instruction Type:Patient Education How to access health informa tion online - Detail Indication:Non-smoker Start:22-Apr-2019 Instruction Type:Patient Education Patient Instructions Indication:Non-smoker Start:22-Apr-2019 Instruction Type:Provider Instructions for Treatment How to access health informa tion online Indication:Sore throat Start:18-Apr-2019 Instruction Type:Patient Education How to access health informa tion online - Detail Indication:Sore throat Start:18-Apr-2019 Instruction Type:Patient Education Patient Instructions Indication:Sore throat Start:18-Apr-2019 Instruction Type:Provider Instructions for Treatment How to access health informa tion online Indication:BMI 22.0-22.9, adult Start:13-Sep-2018 Instruction Type:Patient Education How to access health informa tion online - Detail Indication:BMI 22.0-22.9, adult Start:13-Sep-2018 Instruction Type:Patient Education Patient Instructions Indication:BMI 22.0-22.9, adult Start:13-Sep-2018 Instruction Type:Provider Instructions for Treatment How to access health informa tion online Indication:Sore throat Start:26-Apr-2018 Instruction Type:Patient Education How to access health informa tion online - Detail Indication:Sore throat Start:26-Apr-2018 Instruction Type:Patient Education Patient Instructions Indication:Sore throat Start:26-Apr-2018 Instruction Type:Provider Instructions for Treatment How to access health informa tion online Indication:[facility] Start:24-Aug-2017 Instruction Type:Patient Education How to access health informa tion online - Detail Indication:[facility] Start:24-Aug-2017 Instruction Type:Patient Education Patient Instructions Indication:[facility] Start:24-Aug-2017 Instruction Type:Provider Instructions for Treatment How to access health informa tion online Indication:Fever and chills Start:10-Jul-2017 Instruction Type:Patient Education How to access health informa tion online - Detail Indication:Fever and chills Start:10-Jul-2017 Instruction Type:Patient Education Patient Instructions Indication:Fever and chills Start:10-Jul-2017 Instruction Type:Provider Instructions for Treatment How to access health informa tion online Indication:Diet-controlled hyperlipidemia Start:16-Feb-2017 Instruction Type:Patient Education How to access health informa tion online - Detail Indication:Diet-controlled hyperlipidemia Start:16-Feb-2017 Instruction Type:Patient Education Patient Instructions Indication:Diet-controlled hyperlipidemia Start:16-Feb-2017 Instruction Type:Provider Instructions for Treatment How to access health informa tion online Indication:[facility] Start:06-Aug-2016 Instruction Type:Patient Education How to access health informa tion online - Detail Indication:[facility] Start:06-Aug-2016 Instruction Type:Patient Education Patient Instructions Indication:[facility] Start:06-Aug-2016 Instruction Type:Provider Instructions for Treatment How to access health informa tion online Indication:Cough Start:02-Jul-2015 Instruction Type:Patient Education How to access health informa tion online - Detail Indication:Cough Start:02-Jul-2015 Instruction Type:Patient Education Patient Instructions Indication:Cough Start:02-Jul-2015 Instruction Type:Provider Instructions for Treatment Patient Instructions Indication:Back pain Start:20-Dec-2012 Instruction Type:Provider Instructions for Treatment [facility]; [facility] Work Phone: Instructions* Name Dates Details Patient Instructions Indication:[facility] Start:26-Aug-2021 Instruction Type:Provider Instructions for Treatment How to Access Health Informa tion Online using Patient Portal and [employer]rd [employer] Apps Indication:[facility] EX[facility] Start:26-Aug-2021 Instruction Type:Patient Education Patient Instructions Indication:Non-smoker Start:10-May-2021 Instruction Type:Provider Instructions for Treatment How to Access Health Informa tion Online using Patient Portal and [employer]rd [employer] Apps Indication:Non-smoker Start:10-May-2021 Instruction Type:Patient Education Patient Instructions Indication:Non-smoker Start:27-Aug-2020 Instruction Type:Provider Instructions for Treatment How to Access Health Informa tion Online using Patient Portal and [employer]rd [employer] Apps Indication:Non-smoker Start:27-Aug-2020 Instruction Type:Patient Education How to access health informa tion online Indication:[facility] Start:15-Aug-2019 Instruction Type:Patient Education How to access health informa tion online - Detail Indication:[facility] Start:15-Aug-2019 Instruction Type:Patient Education Patient Instructions Indication:[facility] Start:15-Aug-2019 Instruction Type:Provider Instructions for Treatment How to access health informa tion online Indication:BMI 22.0-22.9, adult Start:29-Apr-2019 Instruction Type:Patient Education How to access health informa tion online - Detail Indication:BMI 22.0-22.9, adult Start:29-Apr-2019 Instruction Type:Patient Education Patient Instructions Indication:BMI 22.0-22.9, adult Start:29-Apr-2019 Instruction Type:Provider Instructions for Treatment How to access health informa tion online Indication:Non-smoker Start:22-Apr-2019 Instruction Type:Patient Education How to access health informa tion online - Detail Indication:Non-smoker Start:22-Apr-2019 Instruction Type:Patient Education Patient Instructions Indication:Non-smoker Start:22-Apr-2019 Instruction Type:Provider Instructions for Treatment How to access health informa tion online Indication:Sore throat Start:18-Apr-2019 Instruction Type:Patient Education How to access health informa tion online - Detail Indication:Sore throat Start:18-Apr-2019 Instruction Type:Patient Education Patient Instructions Indication:Sore throat Start:18-Apr-2019 Instruction Type:Provider Instructions for Treatment How to access health informa tion online Indication:BMI 22.0-22.9, adult Start:13-Sep-2018 Instruction Type:Patient Education How to access health informa tion online - Detail Indication:BMI 22.0-22.9, adult Start:13-Sep-2018 Instruction Type:Patient Education Patient Instructions Indication:BMI 22.0-22.9, adult Start:13-Sep-2018 Instruction Type:Provider Instructions for Treatment How to access health informa tion online Indication:Sore throat Start:26-Apr-2018 Instruction Type:Patient Education How to access health informa tion online - Detail Indication:Sore throat Start:26-Apr-2018 Instruction Type:Patient Education Patient Instructions Indication:Sore throat Start:26-Apr-2018 Instruction Type:Provider Instructions for Treatment How to access health informa tion online Indication:[facility] Start:24-Aug-2017 Instruction Type:Patient Education How to access health informa tion online - Detail Indication:[facility] Start:24-Aug-2017 Instruction Type:Patient Education Patient Instructions Indication:[facility] Start:24-Aug-2017 Instruction Type:Provider Instructions for Treatment How to access health informa tion online Indication:Fever and chills Start:10-Jul-2017 Instruction Type:Patient Education How to access health informa tion online - Detail Indication:Fever and chills Start:10-Jul-2017 Instruction Type:Patient Education Patient Instructions Indication:Fever and chills Start:10-Jul-2017 Instruction Type:Provider Instructions for Treatment How to access health informa tion online Indication:Diet-controlled hyperlipidemia Start:16-Feb-2017 Instruction Type:Patient Education How to access health informa tion online - Detail Indication:Diet-controlled hyperlipidemia Start:16-Feb-2017 Instruction Type:Patient Education Patient Instructions Indication:Diet-controlled hyperlipidemia Start:16-Feb-2017 Instruction Type:Provider Instructions for Treatment How to access health informa tion online Indication:[facility] Start:06-Aug-2016 Instruction Type:Patient Education How to access health informa tion online - Detail Indication:[facility] Start:06-Aug-2016 Instruction Type:Patient Education Patient Instructions Indication:[facility] Start:06-Aug-2016 Instruction Type:Provider Instructions for Treatment How to access health informa tion online Indication:Cough Start:02-Jul-2015 Instruction Type:Patient Education How to access health informa tion online - Detail Indication:Cough Start:02-Jul-2015 Instruction Type:Patient Education Patient Instructions Indication:Cough Start:02-Jul-2015 Instruction Type:Provider Instructions for Treatment Patient Instructions Indication:Back pain Start:20-Dec-2012 Instruction Type:Provider Instructions for Treatment [facility]; [facility] Work Phone: Instructions* Name Dates Details Patient Instructions Indication:[facility] Start:26-Aug-2021 Instruction Type:Provider Instructions for Treatment How to Access Health Informa tion Online using Patient Portal and [employer]rd [employer] Apps Indication:[facility] EX[facility] Start:26-Aug-2021 Instruction Type:Patient Education Patient Instructions Indication:Non-smoker Start:10-May-2021 Instruction Type:Provider Instructions for Treatment How to Access Health Informa tion Online using Patient Portal and [employer]rd [employer] Apps Indication:Non-smoker Start:10-May-2021 Instruction Type:Patient Education Patient Instructions Indication:Non-smoker Start:27-Aug-2020 Instruction Type:Provider Instructions for Treatment How to Access Health Informa tion Online using Patient Portal and [employer]rd [employer] Apps Indication:Non-smoker Start:27-Aug-2020 Instruction Type:Patient Education How to access health informa tion online Indication:[facility] Start:15-Aug-2019 Instruction Type:Patient Education How to access health informa tion online - Detail Indication:[facility] Start:15-Aug-2019 Instruction Type:Patient Education Patient Instructions Indication:[facility] Start:15-Aug-2019 Instruction Type:Provider Instructions for Treatment How to access health informa tion online Indication:BMI 22.0-22.9, adult Start:29-Apr-2019 Instruction Type:Patient Education How to access health informa tion online - Detail Indication:BMI 22.0-22.9, adult Start:29-Apr-2019 Instruction Type:Patient Education Patient Instructions Indication:BMI 22.0-22.9, adult Start:29-Apr-2019 Instruction Type:Provider Instructions for Treatment How to access health informa tion online Indication:Non-smoker Start:22-Apr-2019 Instruction Type:Patient Education How to access health informa tion online - Detail Indication:Non-smoker Start:22-Apr-2019 Instruction Type:Patient Education Patient Instructions Indication:Non-smoker Start:22-Apr-2019 Instruction Type:Provider Instructions for Treatment How to access health informa tion online Indication:Sore throat Start:18-Apr-2019 Instruction Type:Patient Education How to access health informa tion online - Detail Indication:Sore throat Start:18-Apr-2019 Instruction Type:Patient Education Patient Instructions Indication:Sore throat Start:18-Apr-2019 Instruction Type:Provider Instructions for Treatment How to access health informa tion online Indication:BMI 22.0-22.9, adult Start:13-Sep-2018 Instruction Type:Patient Education How to access health informa tion online - Detail Indication:BMI 22.0-22.9, adult Start:13-Sep-2018 Instruction Type:Patient Education Patient Instructions Indication:BMI 22.0-22.9, adult Start:13-Sep-2018 Instruction Type:Provider Instructions for Treatment How to access health informa tion online Indication:Sore throat Start:26-Apr-2018 Instruction Type:Patient Education How to access health informa tion online - Detail Indication:Sore throat Start:26-Apr-2018 Instruction Type:Patient Education Patient Instructions Indication:Sore throat Start:26-Apr-2018 Instruction Type:Provider Instructions for Treatment How to access health informa tion online Indication:[facility] EX[facility] Start:24-Aug-2017 Instruction Type:Patient Education How to access health informa tion online - Detail Indication:[facility] Start:24-Aug-2017 Instruction Type:Patient Education Patient Instructions Indication:[facility] EX[facility] Start:24-Aug-2017 Instruction Type:Provider Instructions for Treatment How to access health informa tion online Indication:Fever and chills Start:10-Jul-2017 Instruction Type:Patient Education How to access health informa tion online - Detail Indication:Fever and chills Start:10-Jul-2017 Instruction Type:Patient Education Patient Instructions Indication:Fever and chills Start:10-Jul-2017 Instruction Type:Provider Instructions for Treatment How to access health informa tion online Indication:Diet-controlled hyperlipidemia Start:16-Feb-2017 Instruction Type:Patient Education How to access health informa tion online - Detail Indication:Diet-controlled hyperlipidemia Start:16-Feb-2017 Instruction Type:Patient Education Patient Instructions Indication:Diet-controlled hyperlipidemia Start:16-Feb-2017 Instruction Type:Provider Instructions for Treatment How to access health informa tion online Indication:[facility] Physical Start:06-Aug-2016 Instruction Type:Patient Education How to access health informa tion online - Detail Indication:[facility] Start:06-Aug-2016 Instruction Type:Patient Education Patient Instructions Indication:[facility] Start:06-Aug-2016 Instruction Type:Provider Instructions for Treatment How to access health informa tion online Indication:Cough Start:02-Jul-2015 Instruction Type:Patient Education How to access health informa tion online - Detail Indication:Cough Start:02-Jul-2015 Instruction Type:Patient Education Patient Instructions Indication:Cough Start:02-Jul-2015 Instruction Type:Provider Instructions for Treatment Patient Instructions Indication:Back pain Start:20-Dec-2012 Instruction Type:Provider Instructions for Treatment [facility]; [facility] Work Phone: Instructions* Name Dates Details Patient Instructions Indication:[facility] Start:26-Aug-2021 Instruction Type:Provider Instructions for Treatment How to Access Health Informa tion Online using Patient Portal and [employer]rd [employer] Apps Indication:[facility] Start:26-Aug-2021 Instruction Type:Patient Education Patient Instructions Indication:Non-smoker Start:10-May-2021 Instruction Type:Provider Instructions for Treatment How to Access Health Informa tion Online using Patient Portal and [employer]rd [employer] Apps Indication:Non-smoker Start:10-May-2021 Instruction Type:Patient Education Patient Instructions Indication:Non-smoker Start:27-Aug-2020 Instruction Type:Provider Instructions for Treatment How to Access Health Informa tion Online using Patient Portal and [employer]rd [employer] Apps Indication:Non-smoker Start:27-Aug-2020 Instruction Type:Patient Education How to access health informa tion online Indication:[facility] EXAM Start:15-Aug-2019 Instruction Type:Patient Education How to access health informa tion online - Detail Indication:[facility] Start:15-Aug-2019 Instruction Type:Patient Education Patient Instructions Indication:[facility] EX[facility] Start:15-Aug-2019 Instruction Type:Provider Instructions for Treatment How to access health informa tion online Indication:BMI 22.0-22.9, adult Start:29-Apr-2019 Instruction Type:Patient Education How to access health informa tion online - Detail Indication:BMI 22.0-22.9, adult Start:29-Apr-2019 Instruction Type:Patient Education Patient Instructions Indication:BMI 22.0-22.9, adult Start:29-Apr-2019 Instruction Type:Provider Instructions for Treatment How to access health informa tion online Indication:Non-smoker Start:22-Apr-2019 Instruction Type:Patient Education How to access health informa tion online - Detail Indication:Non-smoker Start:22-Apr-2019 Instruction Type:Patient Education Patient Instructions Indication:Non-smoker Start:22-Apr-2019 Instruction Type:Provider Instructions for Treatment How to access health informa tion online Indication:Sore throat Start:18-Apr-2019 Instruction Type:Patient Education How to access health informa tion online - Detail Indication:Sore throat Start:18-Apr-2019 Instruction Type:Patient Education Patient Instructions Indication:Sore throat Start:18-Apr-2019 Instruction Type:Provider Instructions for Treatment How to access health informa tion online Indication:BMI 22.0-22.9, adult Start:13-Sep-2018 Instruction Type:Patient Education How to access health informa tion online - Detail Indication:BMI 22.0-22.9, adult Start:13-Sep-2018 Instruction Type:Patient Education Patient Instructions Indication:BMI 22.0-22.9, adult Start:13-Sep-2018 Instruction Type:Provider Instructions for Treatment How to access health informa tion online Indication:Sore throat Start:26-Apr-2018 Instruction Type:Patient Education How to access health informa tion online - Detail Indication:Sore throat Start:26-Apr-2018 Instruction Type:Patient Education Patient Instructions Indication:Sore throat Start:26-Apr-2018 Instruction Type:Provider Instructions for Treatment How to access health informa tion online Indication:[facility] Start:24-Aug-2017 Instruction Type:Patient Education How to access health informa tion online - Detail Indication:[facility] EX[facility] Start:24-Aug-2017 Instruction Type:Patient Education Patient Instructions Indication:[facility] EX[facility] Start:24-Aug-2017 Instruction Type:Provider Instructions for Treatment How to access health informa tion online Indication:Fever and chills Start:10-Jul-2017 Instruction Type:Patient Education How to access health informa tion online - Detail Indication:Fever and chills Start:10-Jul-2017 Instruction Type:Patient Education Patient Instructions Indication:Fever and chills Start:10-Jul-2017 Instruction Type:Provider Instructions for Treatment How to access health informa tion online Indication:Diet-controlled hyperlipidemia Start:16-Feb-2017 Instruction Type:Patient Education How to access health informa tion online - Detail Indication:Diet-controlled hyperlipidemia Start:16-Feb-2017 Instruction Type:Patient Education Patient Instructions Indication:Diet-controlled hyperlipidemia Start:16-Feb-2017 Instruction Type:Provider Instructions for Treatment How to access health informa tion online Indication:[facility] Start:06-Aug-2016 Instruction Type:Patient Education How to access health informa tion online - Detail Indication:[facility] Start:06-Aug-2016 Instruction Type:Patient Education Patient Instructions Indication:[facility] Start:06-Aug-2016 Instruction Type:Provider Instructions for Treatment How to access health informa tion online Indication:Cough Start:02-Jul-2015 Instruction Type:Patient Education How to access health informa tion online - Detail Indication:Cough Start:02-Jul-2015 Instruction Type:Patient Education Patient Instructions Indication:Cough Start:02-Jul-2015 Instruction Type:Provider Instructions for Treatment Patient Instructions Indication:Back pain Start:20-Dec-2012 Instruction Type:Provider Instructions for Treatment [facility]; [facility] Work Phone: Instructions* Name Dates Details Patient Instructions Indication:Unspecified Diagnosis Start:28-Jan-2022 Instruction Type:Provider Instructions for Treatment How to Access Health Informa tion Online using Patient Portal and [employer]rd [employer] Apps Indication:Unspecified Diagnosis Start:28-Jan-2022 Instruction Type:Patient Education Patient Instructions Indication:[facility] Start:26-Aug-2021 Instruction Type:Provider Instructions for Treatment How to Access Health Informa tion Online using Patient Portal and [employer]rd [employer] Apps Indication:[facility] EX[facility] Start:26-Aug-2021 Instruction Type:Patient Education Patient Instructions Indication:Non-smoker Start:10-May-2021 Instruction Type:Provider Instructions for Treatment How to Access Health Informa tion Online using Patient Portal and [employer]rd [employer] Apps Indication:Non-smoker Start:10-May-2021 Instruction Type:Patient Education Patient Instructions Indication:Non-smoker Start:27-Aug-2020 Instruction Type:Provider Instructions for Treatment How to Access Health Informa tion Online using Patient Portal and [employer] Apps Indication:Non-smoker Start:27-Aug-2020 Instruction Type:Patient Education How to access health informa tion online Indication:[facility] EX[facility] Start:15-Aug-2019 Instruction Type:Patient Education How to access health informa tion online - Detail Indication:[facility] Start:15-Aug-2019 Instruction Type:Patient Education Patient Instructions Indication:[facility] Start:15-Aug-2019 Instruction Type:Provider Instructions for Treatment How to access health informa tion online Indication:BMI 22.0-22.9, adult Start:29-Apr-2019 Instruction Type:Patient Education How to access health informa tion online - Detail Indication:BMI 22.0-22.9, adult Start:29-Apr-2019 Instruction Type:Patient Education Patient Instructions Indication:BMI 22.0-22.9, adult Start:29-Apr-2019 Instruction Type:Provider Instructions for Treatment How to access health informa tion online Indication:Non-smoker Start:22-Apr-2019 Instruction Type:Patient Education How to access health informa tion online - Detail Indication:Non-smoker Start:22-Apr-2019 Instruction Type:Patient Education Patient Instructions Indication:Non-smoker Start:22-Apr-2019 Instruction Type:Provider Instructions for Treatment How to access health informa tion online Indication:Sore throat Start:18-Apr-2019 Instruction Type:Patient Education How to access health informa tion online - Detail Indication:Sore throat Start:18-Apr-2019 Instruction Type:Patient Education Patient Instructions Indication:Sore throat Start:18-Apr-2019 Instruction Type:Provider Instructions for Treatment How to access health informa tion online Indication:BMI 22.0-22.9, adult Start:13-Sep-2018 Instruction Type:Patient Education How to access health informa tion online - Detail Indication:BMI 22.0-22.9, adult Start:13-Sep-2018 Instruction Type:Patient Education Patient Instructions Indication:BMI 22.0-22.9, adult Start:13-Sep-2018 Instruction Type:Provider Instructions for Treatment How to access health informa tion online Indication:Sore throat Start:26-Apr-2018 Instruction Type:Patient Education How to access health informa tion online - Detail Indication:Sore throat Start:26-Apr-2018 Instruction Type:Patient Education Patient Instructions Indication:Sore throat Start:26-Apr-2018 Instruction Type:Provider Instructions for Treatment How to access health informa tion online Indication:[facility] EX[facility] Start:24-Aug-2017 Instruction Type:Patient Education How to access health informa tion online - Detail Indication:[facility] EX[facility] Start:24-Aug-2017 Instruction Type:Patient Education Patient Instructions Indication:[facility] EX[facility] Start:24-Aug-2017 Instruction Type:Provider Instructions for Treatment How to access health informa tion online Indication:Fever and chills Start:10-Jul-2017 Instruction Type:Patient Education How to access health informa tion online - Detail Indication:Fever and chills Start:10-Jul-2017 Instruction Type:Patient Education Patient Instructions Indication:Fever and chills Start:10-Jul-2017 Instruction Type:Provider Instructions for Treatment How to access health informa tion online Indication:Diet-controlled hyperlipidemia Start:16-Feb-2017 Instruction Type:Patient Education How to access health informa tion online - Detail Indication:Diet-controlled hyperlipidemia Start:16-Feb-2017 Instruction Type:Patient Education Patient Instructions Indication:Diet-controlled hyperlipidemia Start:16-Feb-2017 Instruction Type:Provider Instructions for Treatment How to access health informa tion online Indication:[facility] Start:06-Aug-2016 Instruction Type:Patient Education How to access health informa tion online - Detail Indication:[facility] Start:06-Aug-2016 Instruction Type:Patient Education Patient Instructions Indication:[facility] Start:06-Aug-2016 Instruction Type:Provider Instructions for Treatment How to access health informa tion online Indication:Cough Start:02-Jul-2015 Instruction Type:Patient Education How to access health informa tion online - Detail Indication:Cough Start:02-Jul-2015 Instruction Type:Patient Education Patient Instructions Indication:Cough Start:02-Jul-2015 Instruction Type:Provider Instructions for Treatment Patient Instructions Indication:Back pain Start:20-Dec-2012 Instruction Type:Provider Instructions for Treatment [facility]; [facility] Work Phone: Instructions* Name Dates Details 1 Indication:Foreign body in foot Start:28-Jan-2022 Instruction Type:Provider Instructions for Treatment How to Access Health Informa tion Online using Patient Portal and [employer]rd [employer] Apps Indication:Foreign body in foot Start:28-Jan-2022 Instruction Type:Patient Education Patient Instructions Indication:[facility] EX[facility] Start:26-Aug-2021 Instruction Type:Provider Instructions for Treatment How to Access Health Informa tion Online using Patient Portal and [employer]rd [employer] Apps Indication:[facility] EX[facility] Start:26-Aug-2021 Instruction Type:Patient Education Patient Instructions Indication:Non-smoker Start:10-May-2021 Instruction Type:Provider Instructions for Treatment How to Access Health Informa tion Online using Patient Portal and [employer] Apps Indication:Non-smoker Start:10-May-2021 Instruction Type:Patient Education Patient Instructions Indication:Non-smoker Start:27-Aug-2020 Instruction Type:Provider Instructions for Treatment How to Access Health Informa tion Online using Patient Portal and [employer] Apps Indication:Non-smoker Start:27-Aug-2020 Instruction Type:Patient Education How to access health informa tion online Indication:[facility] EX[facility] Start:15-Aug-2019 Instruction Type:Patient Education How to access health informa tion online - Detail Indication:[facility] EX[facility] Start:15-Aug-2019 Instruction Type:Patient Education Patient Instructions Indication:[facility] EX[facility] Start:15-Aug-2019 Instruction Type:Provider Instructions for Treatment How to access health informa tion online Indication:BMI 22.0-22.9, adult Start:29-Apr-2019 Instruction Type:Patient Education How to access health informa tion online - Detail Indication:BMI 22.0-22.9, adult Start:29-Apr-2019 Instruction Type:Patient Education Patient Instructions Indication:BMI 22.0-22.9, adult Start:29-Apr-2019 Instruction Type:Provider Instructions for Treatment How to access health informa tion online Indication:Non-smoker Start:22-Apr-2019 Instruction Type:Patient Education How to access health informa tion online - Detail Indication:Non-smoker Start:22-Apr-2019 Instruction Type:Patient Education Patient Instructions Indication:Non-smoker Start:22-Apr-2019 Instruction Type:Provider Instructions for Treatment How to access health informa tion online Indication:Sore throat Start:18-Apr-2019 Instruction Type:Patient Education How to access health informa tion online - Detail Indication:Sore throat Start:18-Apr-2019 Instruction Type:Patient Education Patient Instructions Indication:Sore throat Start:18-Apr-2019 Instruction Type:Provider Instructions for Treatment How to access health informa tion online Indication:BMI 22.0-22.9, adult Start:13-Sep-2018 Instruction Type:Patient Education How to access health informa tion online - Detail Indication:BMI 22.0-22.9, adult Start:13-Sep-2018 Instruction Type:Patient Education Patient Instructions Indication:BMI 22.0-22.9, adult Start:13-Sep-2018 Instruction Type:Provider Instructions for Treatment How to access health informa tion online Indication:Sore throat Start:26-Apr-2018 Instruction Type:Patient Education How to access health informa tion online - Detail Indication:Sore throat Start:26-Apr-2018 Instruction Type:Patient Education Patient Instructions Indication:Sore throat Start:26-Apr-2018 Instruction Type:Provider Instructions for Treatment How to access health informa tion online Indication:[facility] EXAM Start:24-Aug-2017 Instruction Type:Patient Education How to access health informa tion online - Detail Indication:[facility] EX[facility] Start:24-Aug-2017 Instruction Type:Patient Education Patient Instructions Indication:[facility] EX[facility] Start:24-Aug-2017 Instruction Type:Provider Instructions for Treatment How to access health informa tion online Indication:Fever and chills Start:10-Jul-2017 Instruction Type:Patient Education How to access health informa tion online - Detail Indication:Fever and chills Start:10-Jul-2017 Instruction Type:Patient Education Patient Instructions Indication:Fever and chills Start:10-Jul-2017 Instruction Type:Provider Instructions for Treatment How to access health informa tion online Indication:Diet-controlled hyperlipidemia Start:16-Feb-2017 Instruction Type:Patient Education How to access health informa tion online - Detail Indication:Diet-controlled hyperlipidemia Start:16-Feb-2017 Instruction Type:Patient Education Patient Instructions Indication:Diet-controlled hyperlipidemia Start:16-Feb-2017 Instruction Type:Provider Instructions for Treatment How to access health informa tion online Indication:[facility] Start:06-Aug-2016 Instruction Type:Patient Education How to access health informa tion online - Detail Indication:[facility] Start:06-Aug-2016 Instruction Type:Patient Education Patient Instructions Indication:[facility] Start:06-Aug-2016 Instruction Type:Provider Instructions for Treatment How to access health informa tion online Indication:Cough Start:02-Jul-2015 Instruction Type:Patient Education How to access health informa tion online - Detail Indication:Cough Start:02-Jul-2015 Instruction Type:Patient Education Patient Instructions Indication:Cough Start:02-Jul-2015 Instruction Type:Provider Instructions for Treatment Patient Instructions Indication:Back pain Start:20-Dec-2012 Instruction Type:Provider Instructions for Treatment [facility]; [facility] Work Phone: Instructions* Name Dates Details Patient Instructions Indication:BMI 21.0-21.9, adult Start:04-Mar-2022 Instruction Type:Provider Instructions for Treatment How to Access Health Informa tion Online using Patient Portal and [employer]rd [employer] Apps Indication:BMI 21.0-21.9, adult Start:04-Mar-2022 Instruction Type:Patient Education 1 Indication:Foreign body in foot Start:28-Jan-2022 Instruction Type:Provider Instructions for Treatment How to Access Health Informa tion Online using Patient Portal and [employer]rd [employer] Apps Indication:Foreign body in foot Start:28-Jan-2022 Instruction Type:Patient Education Patient Instructions Indication:[facility] EX[facility] Start:26-Aug-2021 Instruction Type:Provider Instructions for Treatment How to Access Health Informa tion Online using Patient Portal and [employer]rd [employer] Apps Indication:[facility] EX[facility] Start:26-Aug-2021 Instruction Type:Patient Education Patient Instructions Indication:Non-smoker Start:10-May-2021 Instruction Type:Provider Instructions for Treatment How to Access Health Informa tion Online using Patient Portal and [employer]rd [employer] Apps Indication:Non-smoker Start:10-May-2021 Instruction Type:Patient Education Patient Instructions Indication:Non-smoker Start:27-Aug-2020 Instruction Type:Provider Instructions for Treatment How to Access Health Informa tion Online using Patient Portal and [employer]rd [employer] Apps Indication:Non-smoker Start:27-Aug-2020 Instruction Type:Patient Education How to access health informa tion online Indication:[facility] EX[facility] Start:15-Aug-2019 Instruction Type:Patient Education How to access health informa tion online - Detail Indication:[facility] EX[facility] Start:15-Aug-2019 Instruction Type:Patient Education Patient Instructions Indication:[facility] EX[facility] Start:15-Aug-2019 Instruction Type:Provider Instructions for Treatment How to access health informa tion online Indication:BMI 22.0-22.9, adult Start:29-Apr-2019 Instruction Type:Patient Education How to access health informa tion online - Detail Indication:BMI 22.0-22.9, adult Start:29-Apr-2019 Instruction Type:Patient Education Patient Instructions Indication:BMI 22.0-22.9, adult Start:29-Apr-2019 Instruction Type:Provider Instructions for Treatment How to access health informa tion online Indication:Non-smoker Start:22-Apr-2019 Instruction Type:Patient Education How to access health informa tion online - Detail Indication:Non-smoker Start:22-Apr-2019 Instruction Type:Patient Education Patient Instructions Indication:Non-smoker Start:22-Apr-2019 Instruction Type:Provider Instructions for Treatment How to access health informa tion online Indication:Sore throat Start:18-Apr-2019 Instruction Type:Patient Education How to access health informa tion online - Detail Indication:Sore throat Start:18-Apr-2019 Instruction Type:Patient Education Patient Instructions Indication:Sore throat Start:18-Apr-2019 Instruction Type:Provider Instructions for Treatment How to access health informa tion online Indication:BMI 22.0-22.9, adult Start:13-Sep-2018 Instruction Type:Patient Education How to access health informa tion online - Detail Indication:BMI 22.0-22.9, adult Start:13-Sep-2018 Instruction Type:Patient Education Patient Instructions Indication:BMI 22.0-22.9, adult Start:13-Sep-2018 Instruction Type:Provider Instructions for Treatment How to access health informa tion online Indication:Sore throat Start:26-Apr-2018 Instruction Type:Patient Education How to access health informa tion online - Detail Indication:Sore throat Start:26-Apr-2018 Instruction Type:Patient Education Patient Instructions Indication:Sore throat Start:26-Apr-2018 Instruction Type:Provider Instructions for Treatment How to access health informa tion online Indication:[facility] EX[facility] Start:24-Aug-2017 Instruction Type:Patient Education How to access health informa tion online - Detail Indication:[facility] Start:24-Aug-2017 Instruction Type:Patient Education Patient Instructions Indication:[facility] EX[facility] Start:24-Aug-2017 Instruction Type:Provider Instructions for Treatment How to access health informa tion online Indication:Fever and chills Start:10-Jul-2017 Instruction Type:Patient Education How to access health informa tion online - Detail Indication:Fever and chills Start:10-Jul-2017 Instruction Type:Patient Education Patient Instructions Indication:Fever and chills Start:10-Jul-2017 Instruction Type:Provider Instructions for Treatment How to access health informa tion online Indication:Diet-controlled hyperlipidemia Start:16-Feb-2017 Instruction Type:Patient Education How to access health informa tion online - Detail Indication:Diet-controlled hyperlipidemia Start:16-Feb-2017 Instruction Type:Patient Education Patient Instructions Indication:Diet-controlled hyperlipidemia Start:16-Feb-2017 Instruction Type:Provider Instructions for Treatment How to access health informa tion online Indication:[facility] Start:06-Aug-2016 Instruction Type:Patient Education How to access health informa tion online - Detail Indication:[facility] Start:06-Aug-2016 Instruction Type:Patient Education Patient Instructions Indication:[facility] Start:06-Aug-2016 Instruction Type:Provider Instructions for Treatment How to access health informa tion online Indication:Cough Start:02-Jul-2015 Instruction Type:Patient Education How to access health informa tion online - Detail Indication:Cough Start:02-Jul-2015 Instruction Type:Patient Education Patient Instructions Indication:Cough Start:02-Jul-2015 Instruction Type:Provider Instructions for Treatment Patient Instructions Indication:Back pain Start:20-Dec-2012 Instruction Type:Provider Instructions for Treatment [facility]; [facility] Work Phone: Instructions* Name Dates Details Patient Instructions Indication:Sore throat Start:29-Apr-2022 Instruction Type:Provider Instructions for Treatment How to Access Health Informa tion Online using Patient Portal and [employer] Apps Indication:Sore throat Start:29-Apr-2022 Instruction Type:Patient Education Patient Instructions Indication:BMI 21.0-21.9, adult Start:04-Mar-2022 Instruction Type:Provider Instructions for Treatment How to Access Health Informa tion Online using Patient Portal and [employer]rd [employer] Apps Indication:BMI 21.0-21.9, adult Start:04-Mar-2022 Instruction Type:Patient Education 1 Indication:Foreign body in foot Start:28-Jan-2022 Instruction Type:Provider Instructions for Treatment How to Access Health Informa tion Online using Patient Portal and [employer] Apps Indication:Foreign body in foot Start:28-Jan-2022 Instruction Type:Patient Education Patient Instructions Indication:[facility] Start:26-Aug-2021 Instruction Type:Provider Instructions for Treatment How to Access Health Informa tion Online using Patient Portal and [employer] Apps Indication:[facility] Start:26-Aug-2021 Instruction Type:Patient Education Patient Instructions Indication:Non-smoker Start:10-May-2021 Instruction Type:Provider Instructions for Treatment How to Access Health Informa tion Online using Patient Portal and [employer] Apps Indication:Non-smoker Start:10-May-2021 Instruction Type:Patient Education Patient Instructions Indication:Non-smoker Start:27-Aug-2020 Instruction Type:Provider Instructions for Treatment How to Access Health Informa tion Online using Patient Portal and [employer] Apps Indication:Non-smoker Start:27-Aug-2020 Instruction Type:Patient Education How to access health informa tion online Indication:[facility] Start:15-Aug-2019 Instruction Type:Patient Education How to access health informa tion online - Detail Indication:[facility] Start:15-Aug-2019 Instruction Type:Patient Education Patient Instructions Indication:[facility] Start:15-Aug-2019 Instruction Type:Provider Instructions for Treatment How to access health informa tion online Indication:BMI 22.0-22.9, adult Start:29-Apr-2019 Instruction Type:Patient Education How to access health informa tion online - Detail Indication:BMI 22.0-22.9, adult Start:29-Apr-2019 Instruction Type:Patient Education Patient Instructions Indication:BMI 22.0-22.9, adult Start:29-Apr-2019 Instruction Type:Provider Instructions for Treatment How to access health informa tion online Indication:Non-smoker Start:22-Apr-2019 Instruction Type:Patient Education How to access health informa tion online - Detail Indication:Non-smoker Start:22-Apr-2019 Instruction Type:Patient Education Patient Instructions Indication:Non-smoker Start:22-Apr-2019 Instruction Type:Provider Instructions for Treatment How to access health informa tion online Indication:Sore throat Start:18-Apr-2019 Instruction Type:Patient Education How to access health informa tion online - Detail Indication:Sore throat Start:18-Apr-2019 Instruction Type:Patient Education Patient Instructions Indication:Sore throat Start:18-Apr-2019 Instruction Type:Provider Instructions for Treatment How to access health informa tion online Indication:BMI 22.0-22.9, adult Start:13-Sep-2018 Instruction Type:Patient Education How to access health informa tion online - Detail Indication:BMI 22.0-22.9, adult Start:13-Sep-2018 Instruction Type:Patient Education Patient Instructions Indication:BMI 22.0-22.9, adult Start:13-Sep-2018 Instruction Type:Provider Instructions for Treatment How to access health informa tion online Indication:Sore throat Start:26-Apr-2018 Instruction Type:Patient Education How to access health informa tion online - Detail Indication:Sore throat Start:26-Apr-2018 Instruction Type:Patient Education Patient Instructions Indication:Sore throat Start:26-Apr-2018 Instruction Type:Provider Instructions for Treatment How to access health informa tion online Indication:[facility] Start:24-Aug-2017 Instruction Type:Patient Education How to access health informa tion online - Detail Indication:[facility] Start:24-Aug-2017 Instruction Type:Patient Education Patient Instructions Indication:[facility] Start:24-Aug-2017 Instruction Type:Provider Instructions for Treatment How to access health informa tion online Indication:Fever and chills Start:10-Jul-2017 Instruction Type:Patient Education How to access health informa tion online - Detail Indication:Fever and chills Start:10-Jul-2017 Instruction Type:Patient Education Patient Instructions Indication:Fever and chills Start:10-Jul-2017 Instruction Type:Provider Instructions for Treatment How to access health informa tion online Indication:Diet-controlled hyperlipidemia Start:16-Feb-2017 Instruction Type:Patient Education How to access health informa tion online - Detail Indication:Diet-controlled hyperlipidemia Start:16-Feb-2017 Instruction Type:Patient Education Patient Instructions Indication:Diet-controlled hyperlipidemia Start:16-Feb-2017 Instruction Type:Provider Instructions for Treatment How to access health informa tion online Indication:[facility] Start:06-Aug-2016 Instruction Type:Patient Education How to access health informa tion online - Detail Indication:[facility] Start:06-Aug-2016 Instruction Type:Patient Education Patient Instructions Indication:[facility] Start:06-Aug-2016 Instruction Type:Provider Instructions for Treatment How to access health informa tion online Indication:Cough Start:02-Jul-2015 Instruction Type:Patient Education How to access health informa tion online - Detail Indication:Cough Start:02-Jul-2015 Instruction Type:Patient Education Patient Instructions Indication:Cough Start:02-Jul-2015 Instruction Type:Provider Instructions for Treatment Patient Instructions Indication:Back pain Start:20-Dec-2012 Instruction Type:Provider Instructions for Treatment [facility]; [facility] Work Phone: Instructions* Name Dates Details Patient Instructions Indication:Sore throat Start:29-Apr-2022 Instruction Type:Provider Instructions for Treatment How to Access Health Informa tion Online using Patient Portal and [employer] Apps Indication:Sore throat Start:29-Apr-2022 Instruction Type:Patient Education Patient Instructions Indication:BMI 21.0-21.9, adult Start:04-Mar-2022 Instruction Type:Provider Instructions for Treatment How to Access Health Informa tion Online using Patient Portal and [employer] Apps Indication:BMI 21.0-21.9, adult Start:04-Mar-2022 Instruction Type:Patient Education 1 Indication:Foreign body in foot Start:28-Jan-2022 Instruction Type:Provider Instructions for Treatment How to Access Health Informa tion Online using Patient Portal and [employer] Apps Indication:Foreign body in foot Start:28-Jan-2022 Instruction Type:Patient Education Patient Instructions Indication:[facility] Start:26-Aug-2021 Instruction Type:Provider Instructions for Treatment How to Access Health Informa tion Online using Patient Portal and [employer] Apps Indication:[facility] Start:26-Aug-2021 Instruction Type:Patient Education Patient Instructions Indication:Non-smoker Start:10-May-2021 Instruction Type:Provider Instructions for Treatment How to Access Health Informa tion Online using Patient Portal and [employer] Apps Indication:Non-smoker Start:10-May-2021 Instruction Type:Patient Education Patient Instructions Indication:Non-smoker Start:27-Aug-2020 Instruction Type:Provider Instructions for Treatment How to Access Health Informa tion Online using Patient Portal and [employer] Apps Indication:Non-smoker Start:27-Aug-2020 Instruction Type:Patient Education How to access health informa tion online Indication:[facility] Start:15-Aug-2019 Instruction Type:Patient Education How to access health informa tion online - Detail Indication:[facility] Start:15-Aug-2019 Instruction Type:Patient Education Patient Instructions Indication:[facility] Start:15-Aug-2019 Instruction Type:Provider Instructions for Treatment How to access health informa tion online Indication:BMI 22.0-22.9, adult Start:29-Apr-2019 Instruction Type:Patient Education How to access health informa tion online - Detail Indication:BMI 22.0-22.9, adult Start:29-Apr-2019 Instruction Type:Patient Education Patient Instructions Indication:BMI 22.0-22.9, adult Start:29-Apr-2019 Instruction Type:Provider Instructions for Treatment How to access health informa tion online Indication:Non-smoker Start:22-Apr-2019 Instruction Type:Patient Education How to access health informa tion online - Detail Indication:Non-smoker Start:22-Apr-2019 Instruction Type:Patient Education Patient Instructions Indication:Non-smoker Start:22-Apr-2019 Instruction Type:Provider Instructions for Treatment How to access health informa tion online Indication:Sore throat Start:18-Apr-2019 Instruction Type:Patient Education How to access health informa tion online - Detail Indication:Sore throat Start:18-Apr-2019 Instruction Type:Patient Education Patient Instructions Indication:Sore throat Start:18-Apr-2019 Instruction Type:Provider Instructions for Treatment How to access health informa tion online Indication:BMI 22.0-22.9, adult Start:13-Sep-2018 Instruction Type:Patient Education How to access health informa tion online - Detail Indication:BMI 22.0-22.9, adult Start:13-Sep-2018 Instruction Type:Patient Education Patient Instructions Indication:BMI 22.0-22.9, adult Start:13-Sep-2018 Instruction Type:Provider Instructions for Treatment How to access health informa tion online Indication:Sore throat Start:26-Apr-2018 Instruction Type:Patient Education How to access health informa tion online - Detail Indication:Sore throat Start:26-Apr-2018 Instruction Type:Patient Education Patient Instructions Indication:Sore throat Start:26-Apr-2018 Instruction Type:Provider Instructions for Treatment How to access health informa tion online Indication:[facility] Start:24-Aug-2017 Instruction Type:Patient Education How to access health informa tion online - Detail Indication:[facility] Start:24-Aug-2017 Instruction Type:Patient Education Patient Instructions Indication:[facility] Start:24-Aug-2017 Instruction Type:Provider Instructions for Treatment How to access health informa tion online Indication:Fever and chills Start:10-Jul-2017 Instruction Type:Patient Education How to access health informa tion online - Detail Indication:Fever and chills Start:10-Jul-2017 Instruction Type:Patient Education Patient Instructions Indication:Fever and chills Start:10-Jul-2017 Instruction Type:Provider Instructions for Treatment How to access health informa tion online Indication:Diet-controlled hyperlipidemia Start:16-Feb-2017 Instruction Type:Patient Education How to access health informa tion online - Detail Indication:Diet-controlled hyperlipidemia Start:16-Feb-2017 Instruction Type:Patient Education Patient Instructions Indication:Diet-controlled hyperlipidemia Start:16-Feb-2017 Instruction Type:Provider Instructions for Treatment How to access health informa tion online Indication:[facility] Start:06-Aug-2016 Instruction Type:Patient Education How to access health informa tion online - Detail Indication:[facility] Start:06-Aug-2016 Instruction Type:Patient Education Patient Instructions Indication:[facility] Start:06-Aug-2016 Instruction Type:Provider Instructions for Treatment How to access health informa tion online Indication:Cough Start:02-Jul-2015 Instruction Type:Patient Education How to access health informa tion online - Detail Indication:Cough Start:02-Jul-2015 Instruction Type:Patient Education Patient Instructions Indication:Cough Start:02-Jul-2015 Instruction Type:Provider Instructions for Treatment Patient Instructions Indication:Back pain Start:20-Dec-2012 Instruction Type:Provider Instructions for Treatment [facility]; [facility] Work Phone: Instructions* Name Dates Details Patient Instructions Indication:Sore throat Start:29-Apr-2022 Instruction Type:Provider Instructions for Treatment How to Access Health Informa tion Online using Patient Portal and [employer] Apps Indication:Sore throat Start:29-Apr-2022 Instruction Type:Patient Education Patient Instructions Indication:BMI 21.0-21.9, adult Start:04-Mar-2022 Instruction Type:Provider Instructions for Treatment How to Access Health Informa tion Online using Patient Portal and [employer] Apps Indication:BMI 21.0-21.9, adult Start:04-Mar-2022 Instruction Type:Patient Education 1 Indication:Foreign body in foot Start:28-Jan-2022 Instruction Type:Provider Instructions for Treatment How to Access Health Informa tion Online using Patient Portal and [employer] Apps Indication:Foreign body in foot Start:28-Jan-2022 Instruction Type:Patient Education Patient Instructions Indication:[facility] Start:26-Aug-2021 Instruction Type:Provider Instructions for Treatment How to Access Health Informa tion Online using Patient Portal and [employer] Apps Indication:[facility] Start:26-Aug-2021 Instruction Type:Patient Education Patient Instructions Indication:Non-smoker Start:10-May-2021 Instruction Type:Provider Instructions for Treatment How to Access Health Informa tion Online using Patient Portal and [employer] Apps Indication:Non-smoker Start:10-May-2021 Instruction Type:Patient Education Patient Instructions Indication:Non-smoker Start:27-Aug-2020 Instruction Type:Provider Instructions for Treatment How to Access Health Informa tion Online using Patient Portal and [employer] Apps Indication:Non-smoker Start:27-Aug-2020 Instruction Type:Patient Education How to access health informa tion online Indication:[facility] Start:15-Aug-2019 Instruction Type:Patient Education How to access health informa tion online - Detail Indication:[facility] Start:15-Aug-2019 Instruction Type:Patient Education Patient Instructions Indication:[facility] Start:15-Aug-2019 Instruction Type:Provider Instructions for Treatment How to access health informa tion online Indication:BMI 22.0-22.9, adult Start:29-Apr-2019 Instruction Type:Patient Education How to access health informa tion online - Detail Indication:BMI 22.0-22.9, adult Start:29-Apr-2019 Instruction Type:Patient Education Patient Instructions Indication:BMI 22.0-22.9, adult Start:29-Apr-2019 Instruction Type:Provider Instructions for Treatment How to access health informa tion online Indication:Non-smoker Start:22-Apr-2019 Instruction Type:Patient Education How to access health informa tion online - Detail Indication:Non-smoker Start:22-Apr-2019 Instruction Type:Patient Education Patient Instructions Indication:Non-smoker Start:22-Apr-2019 Instruction Type:Provider Instructions for Treatment How to access health informa tion online Indication:Sore throat Start:18-Apr-2019 Instruction Type:Patient Education How to access health informa tion online - Detail Indication:Sore throat Start:18-Apr-2019 Instruction Type:Patient Education Patient Instructions Indication:Sore throat Start:18-Apr-2019 Instruction Type:Provider Instructions for Treatment How to access health informa tion online Indication:BMI 22.0-22.9, adult Start:13-Sep-2018 Instruction Type:Patient Education How to access health informa tion online - Detail Indication:BMI 22.0-22.9, adult Start:13-Sep-2018 Instruction Type:Patient Education Patient Instructions Indication:BMI 22.0-22.9, adult Start:13-Sep-2018 Instruction Type:Provider Instructions for Treatment How to access health informa tion online Indication:Sore throat Start:26-Apr-2018 Instruction Type:Patient Education How to access health informa tion online - Detail Indication:Sore throat Start:26-Apr-2018 Instruction Type:Patient Education Patient Instructions Indication:Sore throat Start:26-Apr-2018 Instruction Type:Provider Instructions for Treatment How to access health informa tion online Indication:[facility] Start:24-Aug-2017 Instruction Type:Patient Education How to access health informa tion online - Detail Indication:[facility] Start:24-Aug-2017 Instruction Type:Patient Education Patient Instructions Indication:[facility] Start:24-Aug-2017 Instruction Type:Provider Instructions for Treatment How to access health informa tion online Indication:Fever and chills Start:10-Jul-2017 Instruction Type:Patient Education How to access health informa tion online - Detail Indication:Fever and chills Start:10-Jul-2017 Instruction Type:Patient Education Patient Instructions Indication:Fever and chills Start:10-Jul-2017 Instruction Type:Provider Instructions for Treatment How to access health informa tion online Indication:Diet-controlled hyperlipidemia Start:16-Feb-2017 Instruction Type:Patient Education How to access health informa tion online - Detail Indication:Diet-controlled hyperlipidemia Start:16-Feb-2017 Instruction Type:Patient Education Patient Instructions Indication:Diet-controlled hyperlipidemia Start:16-Feb-2017 Instruction Type:Provider Instructions for Treatment How to access health informa tion online Indication:[facility] Start:06-Aug-2016 Instruction Type:Patient Education How to access health informa tion online - Detail Indication:[facility] Start:06-Aug-2016 Instruction Type:Patient Education Patient Instructions Indication:[facility] Start:06-Aug-2016 Instruction Type:Provider Instructions for Treatment How to access health informa tion online Indication:Cough Start:02-Jul-2015 Instruction Type:Patient Education How to access health informa tion online - Detail Indication:Cough Start:02-Jul-2015 Instruction Type:Patient Education Patient Instructions Indication:Cough Start:02-Jul-2015 Instruction Type:Provider Instructions for Treatment Patient Instructions Indication:Back pain Start:20-Dec-2012 Instruction Type:Provider Instructions for Treatment [facility]; [facility] Work Phone: Instructions* Name Dates Details Patient Instructions Indication:Non-smoker Start:21-Nov-2022 Instruction Type:Provider Instructions for Treatment How to Access Health Informa tion Online using Patient Portal and [employer] Apps Indication:Non-smoker Start:21-Nov-2022 Instruction Type:Patient Education Patient Instructions Indication:Sore throat Start:29-Apr-2022 Instruction Type:Provider Instructions for Treatment How to Access Health Informa tion Online using Patient Portal and [employer] Apps Indication:Sore throat Start:29-Apr-2022 Instruction Type:Patient Education Patient Instructions Indication:BMI 21.0-21.9, adult Start:04-Mar-2022 Instruction Type:Provider Instructions for Treatment How to Access Health Informa tion Online using Patient Portal and [employer] Apps Indication:BMI 21.0-21.9, adult Start:04-Mar-2022 Instruction Type:Patient Education 1 Indication:Foreign body in foot Start:28-Jan-2022 Instruction Type:Provider Instructions for Treatment How to Access Health Informa tion Online using Patient Portal and [employer] Apps Indication:Foreign body in foot Start:28-Jan-2022 Instruction Type:Patient Education Patient Instructions Indication:[facility] Start:26-Aug-2021 Instruction Type:Provider Instructions for Treatment How to Access Health Informa tion Online using Patient Portal and [employer] Apps Indication:[facility] Start:26-Aug-2021 Instruction Type:Patient Education Patient Instructions Indication:Non-smoker Start:10-May-2021 Instruction Type:Provider Instructions for Treatment How to Access Health Informa tion Online using Patient Portal and [employer] Apps Indication:Non-smoker Start:10-May-2021 Instruction Type:Patient Education Patient Instructions Indication:Non-smoker Start:27-Aug-2020 Instruction Type:Provider Instructions for Treatment How to Access Health Informa tion Online using Patient Portal and [employer] Apps Indication:Non-smoker Start:27-Aug-2020 Instruction Type:Patient Education How to access health informa tion online Indication:[facility] Start:15-Aug-2019 Instruction Type:Patient Education How to access health informa tion online - Detail Indication:[facility] Start:15-Aug-2019 Instruction Type:Patient Education Patient Instructions Indication:[facility] Start:15-Aug-2019 Instruction Type:Provider Instructions for Treatment How to access health informa tion online Indication:BMI 22.0-22.9, adult Start:29-Apr-2019 Instruction Type:Patient Education How to access health informa tion online - Detail Indication:BMI 22.0-22.9, adult Start:29-Apr-2019 Instruction Type:Patient Education Patient Instructions Indication:BMI 22.0-22.9, adult Start:29-Apr-2019 Instruction Type:Provider Instructions for Treatment How to access health informa tion online Indication:Non-smoker Start:22-Apr-2019 Instruction Type:Patient Education How to access health informa tion online - Detail Indication:Non-smoker Start:22-Apr-2019 Instruction Type:Patient Education Patient Instructions Indication:Non-smoker Start:22-Apr-2019 Instruction Type:Provider Instructions for Treatment How to access health informa tion online Indication:Sore throat Start:18-Apr-2019 Instruction Type:Patient Education How to access health informa tion online - Detail Indication:Sore throat Start:18-Apr-2019 Instruction Type:Patient Education Patient Instructions Indication:Sore throat Start:18-Apr-2019 Instruction Type:Provider Instructions for Treatment How to access health informa tion online Indication:BMI 22.0-22.9, adult Start:13-Sep-2018 Instruction Type:Patient Education How to access health informa tion online - Detail Indication:BMI 22.0-22.9, adult Start:13-Sep-2018 Instruction Type:Patient Education Patient Instructions Indication:BMI 22.0-22.9, adult Start:13-Sep-2018 Instruction Type:Provider Instructions for Treatment How to access health informa tion online Indication:Sore throat Start:26-Apr-2018 Instruction Type:Patient Education How to access health informa tion online - Detail Indication:Sore throat Start:26-Apr-2018 Instruction Type:Patient Education Patient Instructions Indication:Sore throat Start:26-Apr-2018 Instruction Type:Provider Instructions for Treatment How to access health informa tion online Indication:[facility] Start:24-Aug-2017 Instruction Type:Patient Education How to access health informa tion online - Detail Indication:[facility] Start:24-Aug-2017 Instruction Type:Patient Education Patient Instructions Indication:[facility] Start:24-Aug-2017 Instruction Type:Provider Instructions for Treatment How to access health informa tion online Indication:Fever and chills Start:10-Jul-2017 Instruction Type:Patient Education How to access health informa tion online - Detail Indication:Fever and chills Start:10-Jul-2017 Instruction Type:Patient Education Patient Instructions Indication:Fever and chills Start:10-Jul-2017 Instruction Type:Provider Instructions for Treatment How to access health informa tion online Indication:Diet-controlled hyperlipidemia Start:16-Feb-2017 Instruction Type:Patient Education How to access health informa tion online - Detail Indication:Diet-controlled hyperlipidemia Start:16-Feb-2017 Instruction Type:Patient Education Patient Instructions Indication:Diet-controlled hyperlipidemia Start:16-Feb-2017 Instruction Type:Provider Instructions for Treatment How to access health informa tion online Indication:[facility] Start:06-Aug-2016 Instruction Type:Patient Education How to access health informa tion online - Detail Indication:[facility] Start:06-Aug-2016 Instruction Type:Patient Education Patient Instructions Indication:[facility] Start:06-Aug-2016 Instruction Type:Provider Instructions for Treatment How to access health informa tion online Indication:Cough Start:02-Jul-2015 Instruction Type:Patient Education How to access health informa tion online - Detail Indication:Cough Start:02-Jul-2015 Instruction Type:Patient Education Patient Instructions Indication:Cough Start:02-Jul-2015 Instruction Type:Provider Instructions for Treatment Patient Instructions Indication:Back pain Start:20-Dec-2012 Instruction Type:Provider Instructions for Treatment [facility]; [facility] Work Phone: Instructions* Name Dates Details Patient Instructions Indication:Non-smoker Start:21-Nov-2022 Instruction Type:Provider Instructions for Treatment How to Access Health Informa tion Online using Patient Portal and [employer] Apps Indication:Non-smoker Start:21-Nov-2022 Instruction Type:Patient Education Patient Instructions Indication:Sore throat Start:29-Apr-2022 Instruction Type:Provider Instructions for Treatment How to Access Health Informa tion Online using Patient Portal and [employer] Apps Indication:Sore throat Start:29-Apr-2022 Instruction Type:Patient Education Patient Instructions Indication:BMI 21.0-21.9, adult Start:04-Mar-2022 Instruction Type:Provider Instructions for Treatment How to Access Health Informa tion Online using Patient Portal and [employer] Apps Indication:BMI 21.0-21.9, adult Start:04-Mar-2022 Instruction Type:Patient Education 1 Indication:Foreign body in foot Start:28-Jan-2022 Instruction Type:Provider Instructions for Treatment How to Access Health Informa tion Online using Patient Portal and [employer] Apps Indication:Foreign body in foot Start:28-Jan-2022 Instruction Type:Patient Education Patient Instructions Indication:[facility] Start:26-Aug-2021 Instruction Type:Provider Instructions for Treatment How to Access Health Informa tion Online using Patient Portal and [employer] Apps Indication:[facility] Start:26-Aug-2021 Instruction Type:Patient Education Patient Instructions Indication:Non-smoker Start:10-May-2021 Instruction Type:Provider Instructions for Treatment How to Access Health Informa tion Online using Patient Portal and [employer] Apps Indication:Non-smoker Start:10-May-2021 Instruction Type:Patient Education Patient Instructions Indication:Non-smoker Start:27-Aug-2020 Instruction Type:Provider Instructions for Treatment How to Access Health Informa tion Online using Patient Portal and [employer] Apps Indication:Non-smoker Start:27-Aug-2020 Instruction Type:Patient Education How to access health informa tion online Indication:[facility] Start:15-Aug-2019 Instruction Type:Patient Education How to access health informa tion online - Detail Indication:[facility] Start:15-Aug-2019 Instruction Type:Patient Education Patient Instructions Indication:[facility] Start:15-Aug-2019 Instruction Type:Provider Instructions for Treatment How to access health informa tion online Indication:BMI 22.0-22.9, adult Start:29-Apr-2019 Instruction Type:Patient Education How to access health informa tion online - Detail Indication:BMI 22.0-22.9, adult Start:29-Apr-2019 Instruction Type:Patient Education Patient Instructions Indication:BMI 22.0-22.9, adult Start:29-Apr-2019 Instruction Type:Provider Instructions for Treatment How to access health informa tion online Indication:Non-smoker Start:22-Apr-2019 Instruction Type:Patient Education How to access health informa tion online - Detail Indication:Non-smoker Start:22-Apr-2019 Instruction Type:Patient Education Patient Instructions Indication:Non-smoker Start:22-Apr-2019 Instruction Type:Provider Instructions for Treatment How to access health informa tion online Indication:Sore throat Start:18-Apr-2019 Instruction Type:Patient Education How to access health informa tion online - Detail Indication:Sore throat Start:18-Apr-2019 Instruction Type:Patient Education Patient Instructions Indication:Sore throat Start:18-Apr-2019 Instruction Type:Provider Instructions for Treatment How to access health informa tion online Indication:BMI 22.0-22.9, adult Start:13-Sep-2018 Instruction Type:Patient Education How to access health informa tion online - Detail Indication:BMI 22.0-22.9, adult Start:13-Sep-2018 Instruction Type:Patient Education Patient Instructions Indication:BMI 22.0-22.9, adult Start:13-Sep-2018 Instruction Type:Provider Instructions for Treatment How to access health informa tion online Indication:Sore throat Start:26-Apr-2018 Instruction Type:Patient Education How to access health informa tion online - Detail Indication:Sore throat Start:26-Apr-2018 Instruction Type:Patient Education Patient Instructions Indication:Sore throat Start:26-Apr-2018 Instruction Type:Provider Instructions for Treatment How to access health informa tion online Indication:[facility] Start:24-Aug-2017 Instruction Type:Patient Education How to access health informa tion online - Detail Indication:[facility] Start:24-Aug-2017 Instruction Type:Patient Education Patient Instructions Indication:[facility] Start:24-Aug-2017 Instruction Type:Provider Instructions for Treatment How to access health informa tion online Indication:Fever and chills Start:10-Jul-2017 Instruction Type:Patient Education How to access health informa tion online - Detail Indication:Fever and chills Start:10-Jul-2017 Instruction Type:Patient Education Patient Instructions Indication:Fever and chills Start:10-Jul-2017 Instruction Type:Provider Instructions for Treatment How to access health informa tion online Indication:Diet-controlled hyperlipidemia Start:16-Feb-2017 Instruction Type:Patient Education How to access health informa tion online - Detail Indication:Diet-controlled hyperlipidemia Start:16-Feb-2017 Instruction Type:Patient Education Patient Instructions Indication:Diet-controlled hyperlipidemia Start:16-Feb-2017 Instruction Type:Provider Instructions for Treatment How to access health informa tion online Indication:[facility] Start:06-Aug-2016 Instruction Type:Patient Education How to access health informa tion online - Detail Indication:[facility] Start:06-Aug-2016 Instruction Type:Patient Education Patient Instructions Indication:[facility] Start:06-Aug-2016 Instruction Type:Provider Instructions for Treatment How to access health informa tion online Indication:Cough Start:02-Jul-2015 Instruction Type:Patient Education How to access health informa tion online - Detail Indication:Cough Start:02-Jul-2015 Instruction Type:Patient Education Patient Instructions Indication:Cough Start:02-Jul-2015 Instruction Type:Provider Instructions for Treatment Patient Instructions Indication:Back pain Start:20-Dec-2012 Instruction Type:Provider Instructions for Treatment [facility] Work Phone: reason for referral (narrative)* Diagnostic Procedure Only (Routine) - Pending Review Specialty Diagnoses / Procedures Referred By Mahin diggs Referred To Contact [facility] Diagnoses Encounter for gynecological examination (general) (routine) without abnormal findings Dense breast tissue Encounter for screening mammogram for malignant neoplasm of breast Procedures GABBIE SCREENING W MELISSA SCREENING DIGITAL BREAST TOMOSYNTHESIS BI SCREENING MAMMOGRAPHY BI 2-VIEW BREAST INC Brea Fox APRN.CNP [address] [place] [address] [facility] [address] [place] [address] Referral ID Status Reason Start Date Expiration Date Visits Requested Visits Authorized [id number] Pending Review Auto-Generat ed Referral 09/11/2022 10/11/2023 1 1 [facility] for referral (narrative)No reason for referral information availableWC[facility] Work Phone: Family History No Family History Records FoundUnknown Family Member Name Dates Details Brother 1 Comments:living and htn, kailyn - Status:Active Father Comments:living at 73- end s tage prostate cancer- Status:Active Mother Comments:living and has park insons -Sonja Bostancic, htn, thyroid issues Status:Active Unknown Family Member Name Dates Details Brother 1 Comments:living and htn, kailyn - Status:Active Father Comments:living at 73- end s tage prostate cancer- Status:Active Mother Comments:living and has park insons -Sonja Bostancic, htn, thyroid issues Status:Active Unknown Family Member Name Dates Details Brother 1 Comments:living and htn, kailyn - Status:Active Father Comments:living at 73- end s tage prostate cancer- Status:Active Mother Comments:living and has park insons -Sonja Bostancic, htn, thyroid issues Status:Active Unknown Family Member Name Dates Details Brother 1 Comments:living and htn, kailyn - Status:Active Father Comments:living at 73- end s tage prostate cancer- Status:Active Mother Comments:living and has park insons -Sonja Bostancic, htn, thyroid issues Status:Active Unknown Family Member Name Dates Details Brother 1 Comments:living and htn, kailyn - Status:Active Father Comments:living at 73- end s tage prostate cancer- Status:Active Mother Comments:living and has park insons -Sonja Bostancic, htn, thyroid issues Status:Active Unknown Family Member Name Dates Details Brother 1 Comments:living and htn, kailyn - Status:Active Father Comments:living at 73- end s tage prostate cancer- Status:Active Mother Comments:living and has park insons -Sonja Bostancic, htn, thyroid issues Status:Active Unknown Family Member Name Dates Details Brother 1 Comments:living and htn, kailyn - Status:Active Father Comments:living at 73- end s tage prostate cancer- Status:Active Mother Comments:living and has park insons -Sonja Bostancic, htn, thyroid issues Status:Active Unknown Family Member Name Dates Details Brother 1 Comments:living and htn, kailyn - Status:Active Father Comments:living at 73- end s tage prostate cancer- Status:Active Mother Comments:living and has park insons -Sonja Bostancic, htn, thyroid issues Status:Active Unknown Family Member Name Dates Details Brother 1 Comments:living and htn, kailyn - Status:Active Father Comments:living at 73- end s tage prostate cancer- Status:Active Mother Comments:living and has park insons -Sonja Bostancic, htn, thyroid issues Status:Active Unknown Family Member Name Dates Details Brother 1 Comments:living and htn, kailyn - Status:Active Father Comments:living at 73- end s tage prostate cancer- Status:Active Mother Comments:living and has park insons -Sonja Bostancic, htn, thyroid issues Status:Active Unknown Family Member Name Dates Details Brother 1 Comments:living and htn, kailyn - Status:Active Father Comments:living at 73- end s tage prostate cancer- Status:Active Mother Comments:living and has park insons -Sonja Bostancic, htn, thyroid issues Status:Active Unknown Family Member Name Dates Details Brother 1 Comments:living and htn, kailyn - Status:Active Father Comments:living at 73- end s tage prostate cancer- Status:Active Mother Comments:living and has park insons -Sonja Bostancic, htn, thyroid issues Status:Active Unknown Family Member Name Dates Details Brother 1 Comments:living and htn, kailyn - Status:Active Father Comments:living at 73- end s tage prostate cancer- Status:Active Mother Comments:living and has park insons -Sonja Bostancic, htn, thyroid issues Status:Active Unknown Family Member Name Dates Details Brother 1 Comments:living and htn, kailyn - Status:Active Father Comments:living at 73- end s tage prostate cancer- Status:Active Mother Comments:living and has park insons -Sonja Bostancic, htn, thyroid issues Status:Active Unknown Family Member Name Dates Details Brother 1 Comments:living and htn, kailyn - Status:Active Father Comments:living at 73- end s tage prostate cancer- Status:Active Mother Comments:living and has park insons -Sonja Bostancic, htn, thyroid issues Status:Active Unknown Family Member Name Dates Details Brother 1 Comments:living and htn, kailyn - Status:Active Father Comments:living at 73- end s tage prostate cancer- Status:Active Mother Comments:living and has park insons -Sonja Bostancic, htn, thyroid issues Status:Active Unknown Family Member Name Dates Details Brother 1 Comments:living and htn, kailyn - Status:Active Father Comments:living at 73- end s tage prostate cancer- Status:Active Mother Comments:living and has park insons -Sonja Bostancic, htn, thyroid issues Status:Active Unknown Family Member Name Dates Details Brother 1 Comments:living and htn, kailyn - Status:Active Father Comments:living at 73- end s tage prostate cancer- Status:Active Mother Comments:living and has park insons -Sonja Bostancic, htn, thyroid issues Status:Active Unknown Family Member Name Dates Details Brother 1 Comments:living and htn, kailyn - Status:Active Father Comments:living at 73- end s tage prostate cancer- Status:Active Mother Comments:living and has park insons -Sonja Bostancic, htn, thyroid issues Status:Active Unknown Family Member Name Dates Details Brother 1 Comments:living and htn, kailyn - Status:Active Father Comments:living at 73- end s tage prostate cancer- Status:Active Mother Comments:living and has park insons -Sonja Bostancic, htn, thyroid issues Status:Active Unknown Family Member Name Dates Details Brother 1 Comments:living and htn, kailyn - Status:Active Father Comments:living at 73- end s tage prostate cancer- Status:Active Mother Comments:living and has park insons -Sonja Bostancic, htn, thyroid issues Status:Active Unknown Family Member Name Dates Details Brother 1 Comments:living and htn, kailyn - Status:Active Father Comments:living at 73- end s tage prostate cancer- Status:Active Mother Comments:living and has park insons -Sonja Bostancic, htn, thyroid issues Status:Active Unknown Family Member Name Dates Details Brother 1 Comments:living and htn, kailyn - Status:Active Father Comments:living at 73- end s tage prostate cancer- Status:Active Mother Comments:living and has park insons -Sonja Bostancic, htn, thyroid issues Status:Active Unknown Family Member Name Dates Details Brother 1 Comments:living and htn, kailyn - Status:Active Father Comments:living at 73- end s tage prostate cancer- Status:Active Mother Comments:living and has park insons -Sonja Bostancic, htn, thyroid issues Status:Active Unknown Family Member Name Dates Details Brother 1 Comments:living and htn, kailyn - Status:Active Father Comments:living at 73- end s tage prostate cancer- Status:Active Mother Comments:living and has park insons -Sonja Bostancic, htn, thyroid issues Status:Active Unknown Family Member Name Dates Details Brother 1 Comments:living and htn, kailyn - Status:Active Father Comments:living at 73- end s tage prostate cancer- Status:Active Mother Comments:living and has park insons -Sonja Bostancic, htn, thyroid issues Status:Active Unknown Family Member Name Dates Details Brother 1 Comments:living and htn, kailyn - Status:Active Father Comments:living at 73- end s tage prostate cancer- Status:Active Mother Comments:living and has park insons -Sonja Bostancic, htn, thyroid issues Status:Active Unknown Family Member Name Dates Details Brother 1 Comments:living and htn, kailyn - Status:Active Father Comments:living at 73- end s tage prostate cancer- Status:Active Mother Comments:living and has park insons -Sonja Bostancic, htn, thyroid issues Status:Active Unknown Family Member Name Dates Details Brother 1 Comments:living and htn, kailyn - Status:Active Father Comments:living at 73- end s tage prostate cancer- Status:Active Mother Comments:living and has park olga lidia -Sonja Bostancic, htn, thyroid issues Status:Active Relationship Condition Age at Onset Recorded Date/T pablo daughter Asthma Unknown son Asthma Unknown mother Hypertension Unknown father Malignant neoplasm Unknown Instructions Name Dates Details Sore throat : How to access health information online Indication:Sore throat Sore throat : How to access health information online - Detail Indication:Sore throat Sore throat : Patient Instru ctions Indication:Sore throat [facility] : How to access health information online Indication:[facility] : How to access health information online - Detail Indication:[facility] : Patien t Instructions Indication:[facility] Fever and chills : How to ac cess health information online Indication:Fever and chills Fever and chills : How to ac cess health information online - Detail Indication:Fever and chills Fever and chills : Patient I nstructions Indication:Fever and chills Diet-controlled hyperlipidem ia : How to access health information online Indication:Diet-controlled hyperlipidemia Diet-controlled hyperlipidem ia : How to access health information online - Detail Indication:Diet-controlled hyperlipidemia Diet-controlled hyperlipidem ia : Patient Instructions Indication:Diet-controlled hyperlipidemia [facility] : Ho w to access health information online Indication:[facility] : Ho w to access health information online - Detail Indication:[facility] : Robson garza Instructions Indication:[facility] Cough : How to access health information online Indication:Cough Cough : How to access health information online - Detail Indication:Cough Cough : Patient Instructions Indication:Cough Back pain : Patient Instruct ions Indication:Back pain Name Dates Details BMI 22.0-22.9, adult : How t o access health information online Indication:BMI 22.0-22.9, adult BMI 22.0-22.9, adult : How t o access health information online - Detail Indication:BMI 22.0-22.9, adult BMI 22.0-22.9, adult : Patie nt Instructions Indication:BMI 22.0-22.9, adult Sore throat : How to access health information online Indication:Sore throat Sore throat : How to access health information online - Detail Indication:Sore throat Sore throat : Patient Instru ctions Indication:Sore throat [facility] : How to access health information online Indication:[facility] : How to access health information online - Detail Indication:[facility] : Patien t Instructions Indication:[facility] Fever and chills : How to ac cess health information online Indication:Fever and chills Fever and chills : How to ac cess health information online - Detail Indication:Fever and chills Fever and chills : Patient I nstructions Indication:Fever and chills Diet-controlled hyperlipidem ia : How to access health information online Indication:Diet-controlled hyperlipidemia Diet-controlled hyperlipidem ia : How to access health information online - Detail Indication:Diet-controlled hyperlipidemia Diet-controlled hyperlipidem ia : Patient Instructions Indication:Diet-controlled hyperlipidemia [facility] Physical : Ho w to access health information online Indication:[facility] Ho w to access health information online - Detail [facility] Physical : Pa mariumnt Instructions Indication:[facility] Physical Cough : How to access health information online Indication:Cough Cough : How to access health information online - Detail Indication:Cough Cough : Patient Instructions Indication:Cough Back pain : Patient Instruct ions Indication:Back pain Name Dates Details BMI 22.0-22.9, adult : How t o access health information online Indication:BMI 22.0-22.9, adult BMI 22.0-22.9, adult : How t o access health information online - Detail Indication:BMI 22.0-22.9, adult BMI 22.0-22.9, adult : Patie nt Instructions Indication:BMI 22.0-22.9, adult Sore throat : How to access health information online Indication:Sore throat Sore throat : How to access health information online - Detail Indication:Sore throat Sore throat : Patient Instru ctions Indication:Sore throat [facility] : How to access health information online Indication:[facility] : How to access health information online - Detail Indication:[facility] : Patien t Instructions Indication:[facility] Fever and chills : How to ac cess health information online Indication:Fever and chills Fever and chills : How to ac cess health information online - Detail Indication:Fever and chills Fever and chills : Patient I nstructions Indication:Fever and chills Diet-controlled hyperlipidem ia : How to access health information online Indication:Diet-controlled hyperlipidemia Diet-controlled hyperlipidem ia : How to access health information online - Detail Indication:Diet-controlled hyperlipidemia Diet-controlled hyperlipidem ia : Patient Instructions Indication:Diet-controlled hyperlipidemia [facility] : Ho w to access health information online Indication:[facility] : Ho w to access health information online - Detail Indication:[facility] : Pa tient Instructions Indication:[facility] Cough : How to access health information online Indication:Cough Cough : How to access health information online - Detail Indication:Cough Cough : Patient Instructions Indication:Cough Back pain : Patient Instruct ions Indication:Back pain Name Dates Details How to access health informa tion online Indication:Sore throat Start:18-Apr-2019 Instruction Type:Patient Education How to access health informa tion online - Detail Indication:Sore throat Start:18-Apr-2019 Instruction Type:Patient Education Patient Instructions Indication:Sore throat Start:18-Apr-2019 Instruction Type:Provider Instructions for Treatment How to access health informa tion online Indication:BMI 22.0-22.9, adult Start:13-Sep-2018 Instruction Type:Patient Education How to access health informa tion online - Detail Indication:BMI 22.0-22.9, adult Start:13-Sep-2018 Instruction Type:Patient Education Patient Instructions Indication:BMI 22.0-22.9, adult Start:13-Sep-2018 Instruction Type:Provider Instructions for Treatment How to access health informa tion online Indication:Sore throat Start:26-Apr-2018 Instruction Type:Patient Education How to access health informa tion online - Detail Indication:Sore throat Start:26-Apr-2018 Instruction Type:Patient Education Patient Instructions Indication:Sore throat Start:26-Apr-2018 Instruction Type:Provider Instructions for Treatment How to access health informa tion online Indication:[facility] Start:24-Aug-2017 Instruction Type:Patient Education How to access health informa tion online - Detail Indication:[facility] Start:24-Aug-2017 Instruction Type:Patient Education Patient Instructions Indication:[facility] Start:24-Aug-2017 Instruction Type:Provider Instructions for Treatment How to access health informa tion online Indication:Fever and chills Start:10-Jul-2017 Instruction Type:Patient Education How to access health informa tion online - Detail Indication:Fever and chills Start:10-Jul-2017 Instruction Type:Patient Education Patient Instructions Indication:Fever and chills Start:10-Jul-2017 Instruction Type:Provider Instructions for Treatment How to access health informa tion online Indication:Diet-controlled hyperlipidemia Start:16-Feb-2017 Instruction Type:Patient Education How to access health informa tion online - Detail Indication:Diet-controlled hyperlipidemia Start:16-Feb-2017 Instruction Type:Patient Education Patient Instructions Indication:Diet-controlled hyperlipidemia Start:16-Feb-2017 Instruction Type:Provider Instructions for Treatment How to access health informa tion online Indication:[facility] Start:06-Aug-2016 Instruction Type:Patient Education How to access health informa tion online - Detail Indication:[facility] Start:06-Aug-2016 Instruction Type:Patient Education Patient Instructions Indication:[facility] Start:06-Aug-2016 Instruction Type:Provider Instructions for Treatment How to access health informa tion online Indication:Cough Start:02-Jul-2015 Instruction Type:Patient Education How to access health informa tion online - Detail Indication:Cough Start:02-Jul-2015 Instruction Type:Patient Education Patient Instructions Indication:Cough Start:02-Jul-2015 Instruction Type:Provider Instructions for Treatment Patient Instructions Indication:Back pain Start:20-Dec-2012 Instruction Type:Provider Instructions for Treatment Name Dates Details How to access health informa tion online Indication:Non-smoker Start:22-Apr-2019 Instruction Type:Patient Education How to access health informa tion online - Detail Indication:Non-smoker Start:22-Apr-2019 Instruction Type:Patient Education Patient Instructions Indication:Non-smoker Start:22-Apr-2019 Instruction Type:Provider Instructions for Treatment How to access health informa tion online Indication:Sore throat Start:18-Apr-2019 Instruction Type:Patient Education How to access health informa tion online - Detail Indication:Sore throat Start:18-Apr-2019 Instruction Type:Patient Education Patient Instructions Indication:Sore throat Start:18-Apr-2019 Instruction Type:Provider Instructions for Treatment How to access health informa tion online Indication:BMI 22.0-22.9, adult Start:13-Sep-2018 Instruction Type:Patient Education How to access health informa tion online - Detail Indication:BMI 22.0-22.9, adult Start:13-Sep-2018 Instruction Type:Patient Education Patient Instructions Indication:BMI 22.0-22.9, adult Start:13-Sep-2018 Instruction Type:Provider Instructions for Treatment How to access health informa tion online Indication:Sore throat Start:26-Apr-2018 Instruction Type:Patient Education How to access health informa tion online - Detail Indication:Sore throat Start:26-Apr-2018 Instruction Type:Patient Education Patient Instructions Indication:Sore throat Start:26-Apr-2018 Instruction Type:Provider Instructions for Treatment How to access health informa tion online Indication:[facility] Start:24-Aug-2017 Instruction Type:Patient Education How to access health informa tion online - Detail Indication:[facility] Start:24-Aug-2017 Instruction Type:Patient Education Patient Instructions Indication:[facility] Start:24-Aug-2017 Instruction Type:Provider Instructions for Treatment How to access health informa tion online Indication:Fever and chills Start:10-Jul-2017 Instruction Type:Patient Education How to access health informa tion online - Detail Indication:Fever and chills Start:10-Jul-2017 Instruction Type:Patient Education Patient Instructions Indication:Fever and chills Start:10-Jul-2017 Instruction Type:Provider Instructions for Treatment How to access health informa tion online Indication:Diet-controlled hyperlipidemia Start:16-Feb-2017 Instruction Type:Patient Education How to access health informa tion online - Detail Indication:Diet-controlled hyperlipidemia Start:16-Feb-2017 Instruction Type:Patient Education Patient Instructions Indication:Diet-controlled hyperlipidemia Start:16-Feb-2017 Instruction Type:Provider Instructions for Treatment How to access health informa tion online Indication:[facility] Start:06-Aug-2016 Instruction Type:Patient Education How to access health informa tion online - Detail Indication:[facility] Start:06-Aug-2016 Instruction Type:Patient Education Patient Instructions Indication:[facility] Start:06-Aug-2016 Instruction Type:Provider Instructions for Treatment How to access health informa tion online Indication:Cough Start:02-Jul-2015 Instruction Type:Patient Education How to access health informa tion online - Detail Indication:Cough Start:02-Jul-2015 Instruction Type:Patient Education Patient Instructions Indication:Cough Start:02-Jul-2015 Instruction Type:Provider Instructions for Treatment Patient Instructions Indication:Back pain Start:20-Dec-2012 Instruction Type:Provider Instructions for Treatment Name Dates Details How to access health informa tion online Indication:Non-smoker Start:22-Apr-2019 Instruction Type:Patient Education How to access health informa tion online - Detail Indication:Non-smoker Start:22-Apr-2019 Instruction Type:Patient Education Patient Instructions Indication:Non-smoker Start:22-Apr-2019 Instruction Type:Provider Instructions for Treatment How to access health informa tion online Indication:Sore throat Start:18-Apr-2019 Instruction Type:Patient Education How to access health informa tion online - Detail Indication:Sore throat Start:18-Apr-2019 Instruction Type:Patient Education Patient Instructions Indication:Sore throat Start:18-Apr-2019 Instruction Type:Provider Instructions for Treatment How to access health informa tion online Indication:BMI 22.0-22.9, adult Start:13-Sep-2018 Instruction Type:Patient Education How to access health informa tion online - Detail Indication:BMI 22.0-22.9, adult Start:13-Sep-2018 Instruction Type:Patient Education Patient Instructions Indication:BMI 22.0-22.9, adult Start:13-Sep-2018 Instruction Type:Provider Instructions for Treatment How to access health informa tion online Indication:Sore throat Start:26-Apr-2018 Instruction Type:Patient Education How to access health informa tion online - Detail Indication:Sore throat Start:26-Apr-2018 Instruction Type:Patient Education Patient Instructions Indication:Sore throat Start:26-Apr-2018 Instruction Type:Provider Instructions for Treatment How to access health informa tion online Indication:[facility] Start:24-Aug-2017 Instruction Type:Patient Education How to access health informa tion online - Detail Indication:[facility] Start:24-Aug-2017 Instruction Type:Patient Education Patient Instructions Indication:[facility] Start:24-Aug-2017 Instruction Type:Provider Instructions for Treatment How to access health informa tion online Indication:Fever and chills Start:10-Jul-2017 Instruction Type:Patient Education How to access health informa tion online - Detail Indication:Fever and chills Start:10-Jul-2017 Instruction Type:Patient Education Patient Instructions Indication:Fever and chills Start:10-Jul-2017 Instruction Type:Provider Instructions for Treatment How to access health informa tion online Indication:Diet-controlled hyperlipidemia Start:16-Feb-2017 Instruction Type:Patient Education How to access health informa tion online - Detail Indication:Diet-controlled hyperlipidemia Start:16-Feb-2017 Instruction Type:Patient Education Patient Instructions Indication:Diet-controlled hyperlipidemia Start:16-Feb-2017 Instruction Type:Provider Instructions for Treatment How to access health informa tion online Indication:[facility] Start:06-Aug-2016 Instruction Type:Patient Education How to access health informa tion online - Detail Indication:[facility] Start:06-Aug-2016 Instruction Type:Patient Education Patient Instructions Indication:[facility] Start:06-Aug-2016 Instruction Type:Provider Instructions for Treatment How to access health informa tion online Indication:Cough Start:02-Jul-2015 Instruction Type:Patient Education How to access health informa tion online - Detail Indication:Cough Start:02-Jul-2015 Instruction Type:Patient Education Patient Instructions Indication:Cough Start:02-Jul-2015 Instruction Type:Provider Instructions for Treatment Patient Instructions Indication:Back pain Start:20-Dec-2012 Instruction Type:Provider Instructions for Treatment Name Dates Details How to access health informa tion online Indication:BMI 22.0-22.9, adult Start:29-Apr-2019 Instruction Type:Patient Education How to access health informa tion online - Detail Indication:BMI 22.0-22.9, adult Start:29-Apr-2019 Instruction Type:Patient Education Patient Instructions Indication:BMI 22.0-22.9, adult Start:29-Apr-2019 Instruction Type:Provider Instructions for Treatment How to access health informa tion online Indication:Non-smoker Start:22-Apr-2019 Instruction Type:Patient Education How to access health informa tion online - Detail Indication:Non-smoker Start:22-Apr-2019 Instruction Type:Patient Education Patient Instructions Indication:Non-smoker Start:22-Apr-2019 Instruction Type:Provider Instructions for Treatment How to access health informa tion online Indication:Sore throat Start:18-Apr-2019 Instruction Type:Patient Education How to access health informa tion online - Detail Indication:Sore throat Start:18-Apr-2019 Instruction Type:Patient Education Patient Instructions Indication:Sore throat Start:18-Apr-2019 Instruction Type:Provider Instructions for Treatment How to access health informa tion online Indication:BMI 22.0-22.9, adult Start:13-Sep-2018 Instruction Type:Patient Education How to access health informa tion online - Detail Indication:BMI 22.0-22.9, adult Start:13-Sep-2018 Instruction Type:Patient Education Patient Instructions Indication:BMI 22.0-22.9, adult Start:13-Sep-2018 Instruction Type:Provider Instructions for Treatment How to access health informa tion online Indication:Sore throat Start:26-Apr-2018 Instruction Type:Patient Education How to access health informa tion online - Detail Indication:Sore throat Start:26-Apr-2018 Instruction Type:Patient Education Patient Instructions Indication:Sore throat Start:26-Apr-2018 Instruction Type:Provider Instructions for Treatment How to access health informa tion online Indication:[facility] Start:24-Aug-2017 Instruction Type:Patient Education How to access health informa tion online - Detail Indication:[facility] Start:24-Aug-2017 Instruction Type:Patient Education Patient Instructions Indication:[facility] Start:24-Aug-2017 Instruction Type:Provider Instructions for Treatment How to access health informa tion online Indication:Fever and chills Start:10-Jul-2017 Instruction Type:Patient Education How to access health informa tion online - Detail Indication:Fever and chills Start:10-Jul-2017 Instruction Type:Patient Education Patient Instructions Indication:Fever and chills Start:10-Jul-2017 Instruction Type:Provider Instructions for Treatment How to access health informa tion online Indication:Diet-controlled hyperlipidemia Start:16-Feb-2017 Instruction Type:Patient Education How to access health informa tion online - Detail Indication:Diet-controlled hyperlipidemia Start:16-Feb-2017 Instruction Type:Patient Education Patient Instructions Indication:Diet-controlled hyperlipidemia Start:16-Feb-2017 Instruction Type:Provider Instructions for Treatment How to access health informa tion online Indication:[facility] Start:06-Aug-2016 Instruction Type:Patient Education How to access health informa tion online - Detail Indication:[facility] Start:06-Aug-2016 Instruction Type:Patient Education Patient Instructions Indication:[facility] Start:06-Aug-2016 Instruction Type:Provider Instructions for Treatment How to access health informa tion online Indication:Cough Start:02-Jul-2015 Instruction Type:Patient Education How to access health informa tion online - Detail Indication:Cough Start:02-Jul-2015 Instruction Type:Patient Education Patient Instructions Indication:Cough Start:02-Jul-2015 Instruction Type:Provider Instructions for Treatment Patient Instructions Indication:Back pain Start:20-Dec-2012 Instruction Type:Provider Instructions for Treatment Name Dates Details How to access health informa tion online Indication:[facility] Start:15-Aug-2019 Instruction Type:Patient Education How to access health informa tion online - Detail Indication:[facility] Start:15-Aug-2019 Instruction Type:Patient Education Patient Instructions Indication:[facility] Start:15-Aug-2019 Instruction Type:Provider Instructions for Treatment How to access health informa tion online Indication:BMI 22.0-22.9, adult Start:29-Apr-2019 Instruction Type:Patient Education How to access health informa tion online - Detail Indication:BMI 22.0-22.9, adult Start:29-Apr-2019 Instruction Type:Patient Education Patient Instructions Indication:BMI 22.0-22.9, adult Start:29-Apr-2019 Instruction Type:Provider Instructions for Treatment How to access health informa tion online Indication:Non-smoker Start:22-Apr-2019 Instruction Type:Patient Education How to access health informa tion online - Detail Indication:Non-smoker Start:22-Apr-2019 Instruction Type:Patient Education Patient Instructions Indication:Non-smoker Start:22-Apr-2019 Instruction Type:Provider Instructions for Treatment How to access health informa tion online Indication:Sore throat Start:18-Apr-2019 Instruction Type:Patient Education How to access health informa tion online - Detail Indication:Sore throat Start:18-Apr-2019 Instruction Type:Patient Education Patient Instructions Indication:Sore throat Start:18-Apr-2019 Instruction Type:Provider Instructions for Treatment How to access health informa tion online Indication:BMI 22.0-22.9, adult Start:13-Sep-2018 Instruction Type:Patient Education How to access health informa tion online - Detail Indication:BMI 22.0-22.9, adult Start:13-Sep-2018 Instruction Type:Patient Education Patient Instructions Indication:BMI 22.0-22.9, adult Start:13-Sep-2018 Instruction Type:Provider Instructions for Treatment How to access health informa tion online Indication:Sore throat Start:26-Apr-2018 Instruction Type:Patient Education How to access health informa tion online - Detail Indication:Sore throat Start:26-Apr-2018 Instruction Type:Patient Education Patient Instructions Indication:Sore throat Start:26-Apr-2018 Instruction Type:Provider Instructions for Treatment How to access health informa tion online Indication:[facility] Start:24-Aug-2017 Instruction Type:Patient Education How to access health informa tion online - Detail Indication:[facility] Start:24-Aug-2017 Instruction Type:Patient Education Patient Instructions Indication:[facility] Start:24-Aug-2017 Instruction Type:Provider Instructions for Treatment How to access health informa tion online Indication:Fever and chills Start:10-Jul-2017 Instruction Type:Patient Education How to access health informa tion online - Detail Indication:Fever and chills Start:10-Jul-2017 Instruction Type:Patient Education Patient Instructions Indication:Fever and chills Start:10-Jul-2017 Instruction Type:Provider Instructions for Treatment How to access health informa tion online Indication:Diet-controlled hyperlipidemia Start:16-Feb-2017 Instruction Type:Patient Education How to access health informa tion online - Detail Indication:Diet-controlled hyperlipidemia Start:16-Feb-2017 Instruction Type:Patient Education Patient Instructions Indication:Diet-controlled hyperlipidemia Start:16-Feb-2017 Instruction Type:Provider Instructions for Treatment How to access health informa tion online Indication:[facility] Start:06-Aug-2016 Instruction Type:Patient Education How to access health informa tion online - Detail Indication:[facility] Start:06-Aug-2016 Instruction Type:Patient Education Patient Instructions Indication:[facility] Start:06-Aug-2016 Instruction Type:Provider Instructions for Treatment How to access health informa tion online Indication:Cough Start:02-Jul-2015 Instruction Type:Patient Education How to access health informa tion online - Detail Indication:Cough Start:02-Jul-2015 Instruction Type:Patient Education Patient Instructions Indication:Cough Start:02-Jul-2015 Instruction Type:Provider Instructions for Treatment Patient Instructions Indication:Back pain Start:20-Dec-2012 Instruction Type:Provider Instructions for Treatment Name Dates Details How to access health informa tion online Indication:[facility] Start:15-Aug-2019 Instruction Type:Patient Education How to access health informa tion online - Detail Indication:[facility] Start:15-Aug-2019 Instruction Type:Patient Education Patient Instructions Indication:[facility] Start:15-Aug-2019 Instruction Type:Provider Instructions for Treatment How to access health informa tion online Indication:BMI 22.0-22.9, adult Start:29-Apr-2019 Instruction Type:Patient Education How to access health informa tion online - Detail Indication:BMI 22.0-22.9, adult Start:29-Apr-2019 Instruction Type:Patient Education Patient Instructions Indication:BMI 22.0-22.9, adult Start:29-Apr-2019 Instruction Type:Provider Instructions for Treatment How to access health informa tion online Indication:Non-smoker Start:22-Apr-2019 Instruction Type:Patient Education How to access health informa tion online - Detail Indication:Non-smoker Start:22-Apr-2019 Instruction Type:Patient Education Patient Instructions Indication:Non-smoker Start:22-Apr-2019 Instruction Type:Provider Instructions for Treatment How to access health informa tion online Indication:Sore throat Start:18-Apr-2019 Instruction Type:Patient Education How to access health informa tion online - Detail Indication:Sore throat Start:18-Apr-2019 Instruction Type:Patient Education Patient Instructions Indication:Sore throat Start:18-Apr-2019 Instruction Type:Provider Instructions for Treatment How to access health informa tion online Indication:BMI 22.0-22.9, adult Start:13-Sep-2018 Instruction Type:Patient Education How to access health informa tion online - Detail Indication:BMI 22.0-22.9, adult Start:13-Sep-2018 Instruction Type:Patient Education Patient Instructions Indication:BMI 22.0-22.9, adult Start:13-Sep-2018 Instruction Type:Provider Instructions for Treatment How to access health informa tion online Indication:Sore throat Start:26-Apr-2018 Instruction Type:Patient Education How to access health informa tion online - Detail Indication:Sore throat Start:26-Apr-2018 Instruction Type:Patient Education Patient Instructions Indication:Sore throat Start:26-Apr-2018 Instruction Type:Provider Instructions for Treatment How to access health informa tion online Indication:[facility] Start:24-Aug-2017 Instruction Type:Patient Education How to access health informa tion online - Detail Indication:[facility] Start:24-Aug-2017 Instruction Type:Patient Education Patient Instructions Indication:[facility] Start:24-Aug-2017 Instruction Type:Provider Instructions for Treatment How to access health informa tion online Indication:Fever and chills Start:10-Jul-2017 Instruction Type:Patient Education How to access health informa tion online - Detail Indication:Fever and chills Start:10-Jul-2017 Instruction Type:Patient Education Patient Instructions Indication:Fever and chills Start:10-Jul-2017 Instruction Type:Provider Instructions for Treatment How to access health informa tion online Indication:Diet-controlled hyperlipidemia Start:16-Feb-2017 Instruction Type:Patient Education How to access health informa tion online - Detail Indication:Diet-controlled hyperlipidemia Start:16-Feb-2017 Instruction Type:Patient Education Patient Instructions Indication:Diet-controlled hyperlipidemia Start:16-Feb-2017 Instruction Type:Provider Instructions for Treatment How to access health informa tion online Indication:[facility] Start:06-Aug-2016 Instruction Type:Patient Education How to access health informa tion online - Detail Indication:[facility] Start:06-Aug-2016 Instruction Type:Patient Education Patient Instructions Indication:[facility] Start:06-Aug-2016 Instruction Type:Provider Instructions for Treatment How to access health informa tion online Indication:Cough Start:02-Jul-2015 Instruction Type:Patient Education How to access health informa tion online - Detail Indication:Cough Start:02-Jul-2015 Instruction Type:Patient Education Patient Instructions Indication:Cough Start:02-Jul-2015 Instruction Type:Provider Instructions for Treatment Patient Instructions Indication:Back pain Start:20-Dec-2012 Instruction Type:Provider Instructions for Treatment Name Dates Details How to access health informa tion online Indication:Unspecified Diagnosis Start:14-Mar-2019 Instruction Type:Patient Education How to access health informa tion online - Detail Indication:Unspecified Diagnosis Start:14-Mar-2019 Instruction Type:Patient Education Patient Instructions Indication:Unspecified Diagnosis Start:14-Mar-2019 Instruction Type:Provider Instructions for Treatment How to access health informa tion online Indication:BMI 22.0-22.9, adult Start:13-Sep-2018 Instruction Type:Patient Education How to access health informa tion online - Detail Indication:BMI 22.0-22.9, adult Start:13-Sep-2018 Instruction Type:Patient Education Patient Instructions Indication:BMI 22.0-22.9, adult Start:13-Sep-2018 Instruction Type:Provider Instructions for Treatment How to access health informa tion online Indication:Sore throat Start:26-Apr-2018 Instruction Type:Patient Education How to access health informa tion online - Detail Indication:Sore throat Start:26-Apr-2018 Instruction Type:Patient Education Patient Instructions Indication:Sore throat Start:26-Apr-2018 Instruction Type:Provider Instructions for Treatment How to access health informa tion online Indication:[facility] Start:24-Aug-2017 Instruction Type:Patient Education How to access health informa tion online - Detail Indication:[facility] Start:24-Aug-2017 Instruction Type:Patient Education Patient Instructions Indication:[facility] Start:24-Aug-2017 Instruction Type:Provider Instructions for Treatment How to access health informa tion online Indication:Fever and chills Start:10-Jul-2017 Instruction Type:Patient Education How to access health informa tion online - Detail Indication:Fever and chills Start:10-Jul-2017 Instruction Type:Patient Education Patient Instructions Indication:Fever and chills Start:10-Jul-2017 Instruction Type:Provider Instructions for Treatment How to access health informa tion online Indication:Diet-controlled hyperlipidemia Start:16-Feb-2017 Instruction Type:Patient Education How to access health informa tion online - Detail Indication:Diet-controlled hyperlipidemia Start:16-Feb-2017 Instruction Type:Patient Education Patient Instructions Indication:Diet-controlled hyperlipidemia Start:16-Feb-2017 Instruction Type:Provider Instructions for Treatment How to access health informa tion online Indication:[facility] Start:06-Aug-2016 Instruction Type:Patient Education How to access health informa tion online - Detail Indication:[facility] Start:06-Aug-2016 Instruction Type:Patient Education Patient Instructions Indication:[facility] Start:06-Aug-2016 Instruction Type:Provider Instructions for Treatment How to access health informa tion online Indication:Cough Start:02-Jul-2015 Instruction Type:Patient Education How to access health informa tion online - Detail Indication:Cough Start:02-Jul-2015 Instruction Type:Patient Education Patient Instructions Indication:Cough Start:02-Jul-2015 Instruction Type:Provider Instructions for Treatment Patient Instructions Indication:Back pain Start:20-Dec-2012 Instruction Type:Provider Instructions for Treatment Name Dates Details How to access health informa tion online Indication:Sore throat Start:18-Apr-2019 Instruction Type:Patient Education How to access health informa tion online - Detail Indication:Sore throat Start:18-Apr-2019 Instruction Type:Patient Education Patient Instructions Indication:Sore throat Start:18-Apr-2019 Instruction Type:Provider Instructions for Treatment How to access health informa tion online Indication:BMI 22.0-22.9, adult Start:13-Sep-2018 Instruction Type:Patient Education How to access health informa tion online - Detail Indication:BMI 22.0-22.9, adult Start:13-Sep-2018 Instruction Type:Patient Education Patient Instructions Indication:BMI 22.0-22.9, adult Start:13-Sep-2018 Instruction Type:Provider Instructions for Treatment How to access health informa tion online Indication:Sore throat Start:26-Apr-2018 Instruction Type:Patient Education How to access health informa tion online - Detail Indication:Sore throat Start:26-Apr-2018 Instruction Type:Patient Education Patient Instructions Indication:Sore throat Start:26-Apr-2018 Instruction Type:Provider Instructions for Treatment How to access health informa tion online Indication:[facility] Start:24-Aug-2017 Instruction Type:Patient Education How to access health informa tion online - Detail Indication:[facility] Start:24-Aug-2017 Instruction Type:Patient Education Patient Instructions Indication:[facility] Start:24-Aug-2017 Instruction Type:Provider Instructions for Treatment How to access health informa tion online Indication:Fever and chills Start:10-Jul-2017 Instruction Type:Patient Education How to access health informa tion online - Detail Indication:Fever and chills Start:10-Jul-2017 Instruction Type:Patient Education Patient Instructions Indication:Fever and chills Start:10-Jul-2017 Instruction Type:Provider Instructions for Treatment How to access health informa tion online Indication:Diet-controlled hyperlipidemia Start:16-Feb-2017 Instruction Type:Patient Education How to access health informa tion online - Detail Indication:Diet-controlled hyperlipidemia Start:16-Feb-2017 Instruction Type:Patient Education Patient Instructions Indication:Diet-controlled hyperlipidemia Start:16-Feb-2017 Instruction Type:Provider Instructions for Treatment How to access health informa tion online Indication:[facility] Start:06-Aug-2016 Instruction Type:Patient Education How to access health informa tion online - Detail Indication:[facility] Start:06-Aug-2016 Instruction Type:Patient Education Patient Instructions Indication:[facility] Start:06-Aug-2016 Instruction Type:Provider Instructions for Treatment How to access health informa tion online Indication:Cough Start:02-Jul-2015 Instruction Type:Patient Education How to access health informa tion online - Detail Indication:Cough Start:02-Jul-2015 Instruction Type:Patient Education Patient Instructions Indication:Cough Start:02-Jul-2015 Instruction Type:Provider Instructions for Treatment Patient Instructions Indication:Back pain Start:20-Dec-2012 Instruction Type:Provider Instructions for Treatment Name Dates Details Patient Instructions Indication:Non-smoker Start:27-Aug-2020 Instruction Type:Provider Instructions for Treatment How to Access Health Informa tion Online using Patient Portal and [employer]rd [employer] Apps Indication:Non-smoker Start:27-Aug-2020 Instruction Type:Patient Education How to access health informa tion online Indication:[facility] Start:15-Aug-2019 Instruction Type:Patient Education How to access health informa tion online - Detail Indication:[facility] Start:15-Aug-2019 Instruction Type:Patient Education Patient Instructions Indication:[facility] Start:15-Aug-2019 Instruction Type:Provider Instructions for Treatment How to access health informa tion online Indication:BMI 22.0-22.9, adult Start:29-Apr-2019 Instruction Type:Patient Education How to access health informa tion online - Detail Indication:BMI 22.0-22.9, adult Start:29-Apr-2019 Instruction Type:Patient Education Patient Instructions Indication:BMI 22.0-22.9, adult Start:29-Apr-2019 Instruction Type:Provider Instructions for Treatment How to access health informa tion online Indication:Non-smoker Start:22-Apr-2019 Instruction Type:Patient Education How to access health informa tion online - Detail Indication:Non-smoker Start:22-Apr-2019 Instruction Type:Patient Education Patient Instructions Indication:Non-smoker Start:22-Apr-2019 Instruction Type:Provider Instructions for Treatment How to access health informa tion online Indication:Sore throat Start:18-Apr-2019 Instruction Type:Patient Education How to access health informa tion online - Detail Indication:Sore throat Start:18-Apr-2019 Instruction Type:Patient Education Patient Instructions Indication:Sore throat Start:18-Apr-2019 Instruction Type:Provider Instructions for Treatment How to access health informa tion online Indication:BMI 22.0-22.9, adult Start:13-Sep-2018 Instruction Type:Patient Education How to access health informa tion online - Detail Indication:BMI 22.0-22.9, adult Start:13-Sep-2018 Instruction Type:Patient Education Patient Instructions Indication:BMI 22.0-22.9, adult Start:13-Sep-2018 Instruction Type:Provider Instructions for Treatment How to access health informa tion online Indication:Sore throat Start:26-Apr-2018 Instruction Type:Patient Education How to access health informa tion online - Detail Indication:Sore throat Start:26-Apr-2018 Instruction Type:Patient Education Patient Instructions Indication:Sore throat Start:26-Apr-2018 Instruction Type:Provider Instructions for Treatment How to access health informa tion online Indication:[facility] Start:24-Aug-2017 Instruction Type:Patient Education How to access health informa tion online - Detail Indication:[facility] Start:24-Aug-2017 Instruction Type:Patient Education Patient Instructions Indication:[facility] Start:24-Aug-2017 Instruction Type:Provider Instructions for Treatment How to access health informa tion online Indication:Fever and chills Start:10-Jul-2017 Instruction Type:Patient Education How to access health informa tion online - Detail Indication:Fever and chills Start:10-Jul-2017 Instruction Type:Patient Education Patient Instructions Indication:Fever and chills Start:10-Jul-2017 Instruction Type:Provider Instructions for Treatment How to access health informa tion online Indication:Diet-controlled hyperlipidemia Start:16-Feb-2017 Instruction Type:Patient Education How to access health informa tion online - Detail Indication:Diet-controlled hyperlipidemia Start:16-Feb-2017 Instruction Type:Patient Education Patient Instructions Indication:Diet-controlled hyperlipidemia Start:16-Feb-2017 Instruction Type:Provider Instructions for Treatment How to access health informa tion online [facility] Start:06-Aug-2016 Instruction Type:Patient Education How to access health informa tion online - Detail Indication:[facility] Start:06-Aug-2016 Instruction Type:Patient Education Patient Instructions Indication:[facility] Start:06-Aug-2016 Instruction Type:Provider Instructions for Treatment How to access health informa tion online Indication:Cough Start:02-Jul-2015 Instruction Type:Patient Education How to access health informa tion online - Detail Indication:Cough Start:02-Jul-2015 Instruction Type:Patient Education Patient Instructions Indication:Cough Start:02-Jul-2015 Instruction Type:Provider Instructions for Treatment Patient Instructions Indication:Back pain Start:20-Dec-2012 Instruction Type:Provider Instructions for Treatment Name Dates Details How to access health informa tion online Indication:Non-smoker Start:22-Apr-2019 Instruction Type:Patient Education How to access health informa tion online - Detail Indication:Non-smoker Start:22-Apr-2019 Instruction Type:Patient Education Patient Instructions Indication:Non-smoker Start:22-Apr-2019 Instruction Type:Provider Instructions for Treatment How to access health informa tion online Indication:Sore throat Start:18-Apr-2019 Instruction Type:Patient Education How to access health informa tion online - Detail Indication:Sore throat Start:18-Apr-2019 Instruction Type:Patient Education Patient Instructions Indication:Sore throat Start:18-Apr-2019 Instruction Type:Provider Instructions for Treatment How to access health informa tion online Indication:BMI 22.0-22.9, adult Start:13-Sep-2018 Instruction Type:Patient Education How to access health informa tion online - Detail Indication:BMI 22.0-22.9, adult Start:13-Sep-2018 Instruction Type:Patient Education Patient Instructions Indication:BMI 22.0-22.9, adult Start:13-Sep-2018 Instruction Type:Provider Instructions for Treatment How to access health informa tion online Indication:Sore throat Start:26-Apr-2018 Instruction Type:Patient Education How to access health informa tion online - Detail Indication:Sore throat Start:26-Apr-2018 Instruction Type:Patient Education Patient Instructions Indication:Sore throat Start:26-Apr-2018 Instruction Type:Provider Instructions for Treatment How to access health informa tion online Indication:[facility] Start:24-Aug-2017 Instruction Type:Patient Education How to access health informa tion online - Detail Indication:[facility] Start:24-Aug-2017 Instruction Type:Patient Education Patient Instructions Indication:[facility] Start:24-Aug-2017 Instruction Type:Provider Instructions for Treatment How to access health informa tion online Indication:Fever and chills Start:10-Jul-2017 Instruction Type:Patient Education How to access health informa tion online - Detail Indication:Fever and chills Start:10-Jul-2017 Instruction Type:Patient Education Patient Instructions Indication:Fever and chills Start:10-Jul-2017 Instruction Type:Provider Instructions for Treatment How to access health informa tion online Indication:Diet-controlled hyperlipidemia Start:16-Feb-2017 Instruction Type:Patient Education How to access health informa tion online - Detail Indication:Diet-controlled hyperlipidemia Start:16-Feb-2017 Instruction Type:Patient Education Patient Instructions Indication:Diet-controlled hyperlipidemia Start:16-Feb-2017 Instruction Type:Provider Instructions for Treatment How to access health informa tion online Indication:[facility] Start:06-Aug-2016 Instruction Type:Patient Education How to access health informa tion online - Detail Indication:[facility] Start:06-Aug-2016 Instruction Type:Patient Education Patient Instructions Indication:[facility] Start:06-Aug-2016 Instruction Type:Provider Instructions for Treatment How to access health informa tion online Indication:Cough Start:02-Jul-2015 Instruction Type:Patient Education How to access health informa tion online - Detail Indication:Cough Start:02-Jul-2015 Instruction Type:Patient Education Patient Instructions Indication:Cough Start:02-Jul-2015 Instruction Type:Provider Instructions for Treatment Patient Instructions Indication:Back pain Start:20-Dec-2012 Instruction Type:Provider Instructions for Treatment Name Dates Details How to access health informa tion online Indication:[facility] Start:15-Aug-2019 Instruction Type:Patient Education How to access health informa tion online - Detail Indication:[facility] Start:15-Aug-2019 Instruction Type:Patient Education Patient Instructions Indication:[facility] Start:15-Aug-2019 Instruction Type:Provider Instructions for Treatment How to access health informa tion online Indication:BMI 22.0-22.9, adult Start:29-Apr-2019 Instruction Type:Patient Education How to access health informa tion online - Detail Indication:BMI 22.0-22.9, adult Start:29-Apr-2019 Instruction Type:Patient Education Patient Instructions Indication:BMI 22.0-22.9, adult Start:29-Apr-2019 Instruction Type:Provider Instructions for Treatment How to access health informa tion online Indication:Non-smoker Start:22-Apr-2019 Instruction Type:Patient Education How to access health informa tion online - Detail Indication:Non-smoker Start:22-Apr-2019 Instruction Type:Patient Education Patient Instructions Indication:Non-smoker Start:22-Apr-2019 Instruction Type:Provider Instructions for Treatment How to access health informa tion online Indication:Sore throat Start:18-Apr-2019 Instruction Type:Patient Education How to access health informa tion online - Detail Indication:Sore throat Start:18-Apr-2019 Instruction Type:Patient Education Patient Instructions Indication:Sore throat Start:18-Apr-2019 Instruction Type:Provider Instructions for Treatment How to access health informa tion online Indication:BMI 22.0-22.9, adult Start:13-Sep-2018 Instruction Type:Patient Education How to access health informa tion online - Detail Indication:BMI 22.0-22.9, adult Start:13-Sep-2018 Instruction Type:Patient Education Patient Instructions Indication:BMI 22.0-22.9, adult Start:13-Sep-2018 Instruction Type:Provider Instructions for Treatment How to access health informa tion online Indication:Sore throat Start:26-Apr-2018 Instruction Type:Patient Education How to access health informa tion online - Detail Indication:Sore throat Start:26-Apr-2018 Instruction Type:Patient Education Patient Instructions Indication:Sore throat Start:26-Apr-2018 Instruction Type:Provider Instructions for Treatment How to access health informa tion online Indication:[facility] Start:24-Aug-2017 Instruction Type:Patient Education How to access health informa tion online - Detail Indication:[facility] Start:24-Aug-2017 Instruction Type:Patient Education Patient Instructions Indication:[facility] Start:24-Aug-2017 Instruction Type:Provider Instructions for Treatment How to access health informa tion online Indication:Fever and chills Start:10-Jul-2017 Instruction Type:Patient Education How to access health informa tion online - Detail Indication:Fever and chills Start:10-Jul-2017 Instruction Type:Patient Education Patient Instructions Indication:Fever and chills Start:10-Jul-2017 Instruction Type:Provider Instructions for Treatment How to access health informa tion online Indication:Diet-controlled hyperlipidemia Start:16-Feb-2017 Instruction Type:Patient Education How to access health informa tion online - Detail Indication:Diet-controlled hyperlipidemia Start:16-Feb-2017 Instruction Type:Patient Education Patient Instructions Indication:Diet-controlled hyperlipidemia Start:16-Feb-2017 Instruction Type:Provider Instructions for Treatment How to access health informa tion online Indication:[facility] Start:06-Aug-2016 Instruction Type:Patient Education How to access health informa tion online - Detail Indication:[facility] Start:06-Aug-2016 Instruction Type:Patient Education Patient Instructions Indication:[facility] Start:06-Aug-2016 Instruction Type:Provider Instructions for Treatment How to access health informa tion online Indication:Cough Start:02-Jul-2015 Instruction Type:Patient Education How to access health informa tion online - Detail Indication:Cough Start:02-Jul-2015 Instruction Type:Patient Education Patient Instructions Indication:Cough Start:02-Jul-2015 Instruction Type:Provider Instructions for Treatment Patient Instructions Indication:Back pain Start:20-Dec-2012 Instruction Type:Provider Instructions for Treatment Summary Purpose Advance Directives No Advanced Directives Records Found Name Dates Details Immunization Registry [place] - Effective on 08/27/2020. Expiration date unspecified Effective:27-Aug-2020 Name Dates Details Immunization Registry [place] - Effective on 08/27/2020. Expiration date unspecified Effective:27-Aug-2020 Name Dates Details Immunization Registry [place] - Effective on 08/27/2020. Expiration date unspecified Effective:27-Aug-2020 Name Dates Details Immunization Registry [place] - Effective on 08/27/2020. Expiration date unspecified Effective:27-Aug-2020 Name Dates Details Immunization Registry [place] - Effective on 08/27/2020. Expiration date unspecified Effective:27-Aug-2020 Name Dates Details Immunization Registry [place] - Effective on 08/27/2020. Expiration date unspecified Effective:27-Aug-2020 Name Dates Details Immunization Registry [place] - Effective on 08/27/2020. Expiration date unspecified Effective:27-Aug-2020 Name Dates Details Immunization Registry [place] - Effective on 08/27/2020. Expiration date unspecified Effective:27-Aug-2020 Name Dates Details Immunization Registry [place] - Effective on 08/27/2020. Expiration date unspecified Effective:27-Aug-2020 Name Dates Details Immunization Registry [place] - Effective on 08/27/2020. Expiration date unspecified Effective:27-Aug-2020 Name Dates Details Immunization Registry [place] - Effective on 08/27/2020. Expiration date unspecified Effective:27-Aug-2020 Name Dates Details Immunization Registry [place] - Effective on 08/27/2020. Expiration date unspecified Effective:27-Aug-2020 Name Dates Details Immunization Registry [place] - Effective on 08/27/2020. Expiration date unspecified Effective:27-Aug-2020 Name Dates Details Immunization Registry [place] - Effective on 08/27/2020. Expiration date unspecified Effective:27-Aug-2020 Name Dates Details Immunization Registry [place] - Effective on 08/27/2020. Expiration date unspecified Effective:27-Aug-2020 Chief Complaint and Reason for Visit Chief Complaint POST WOODY Chief Complaint R SHOULDER IMPINGMEN T PT HAS RX Chief Complaint Admit Date FASTING December 09, 2024 9:29a m Additional Source Comments INFORMATION SOURCE (unrecogn ized section and content) DATE CREATED AUTHOR 03/15/2020 [facility] DATE CREATED AUTHOR AUTHOR'S ORGANIZ ATION 03/16/2020 [facility] DATE CREATED AUTHOR AUTHOR'S ORGANIZ ATION 09/17/2022 [facility] DATE CREATED AUTHOR AUTHOR'S ORGANIZ ATION 10/13/2022 [facility] DATE CREATED AUTHOR AUTHOR'S ORGANIZ ATION 12/16/2024 [facility] Goals (unrecognized section and content) Goals may be documented in a n alternate sectionGoals may be documented in an alternate sectionGoals may be documented in an alternate section Source Comments (unrecognize d section and content) In the event this informatio n is protected by the Federal Confidentiality of Alcohol and Drug Abuse Patient Records regulations: The Federal rules restrict any use of the information to criminally investigate or prosecute any alcohol or drug abuse patient.[facility] Reason for Visit (unrecogniz ed section and content) Reason Comments [facility] Teams (unrecognized sec tion and content) Account Installer Relationship Specialty Start Date End Date Zenon Cruz DO PCP - General Internal Medicine 12/25/10 Team Status: Active Member Role Status Dates Dr. Zenon Cruz DO Family Provider Active Dr. Zenon Cruz DO Primary Care Provider Active Team Status: Inactive Member Role Status Dates Dr. Zenon Cruz DO Primary Care Provider Active MELISSA HILL Attending Provider, Referring Provider Ac tive Team Status: Active Member Role Status Dates Dr. Zenon Cruz DO Family Provider Active THALIA Landis Primary Care Provider Active Team Status: Inactive Member Role Status Dates THALIA Landis Primary Care Provider Active Start: December 09, 2024 End: December 09, 2024 THALIA Landis Attending Provider Active art: December 09, 2024 End: December 09, 2024 THALIA Landis Referring Provider Active art: December 09, 2024 End: December 09, 2024 FOR RECORDS PERTAINING TO PATIENTS WHO ARE OR HAVE BEEN ENROLLED IN A CHEMICAL DEPENDENCY/SUBSTANCEABUSE PROGRAM, SOME INFORMATION MAY BE OMITTED. This clinical summary was aggregated from multiple sources. Caution should be exercised in using it in the provision of clinical care. This summary normalizes information from multiple sources, and as a consequence, information in this document may materially change the coding, format and clinical context of patient data. In addition, data may be omitted in some cases. CLINICAL DECISIONS SHOULD BE BASED ON THE PRIMARY CLINICAL RECORDS. [employer] provides no warranty or guarantee of the accuracy or completeness of information in this document.
== END | disposition home or self-care (01) ==
LOC: MTRAD 13:05
PROVIDERS: PCP Nurse Practitioner Family; Referring Provider Physician Assistant Surgical; Visit Provider Physician Assistant Surgical
DX: S99.912A Unspecified injury of left ankle, initial encounter (principal); S99.922A Unspecified injury of left foot, initial encounter; X58.XXXA Exposure to other specified factors, initial encounter
CPT/HCPCS: 73610; 73630